=== PATIENT | male | born 1970 | race African-American/Black ===

== ENCOUNTER 2017-03-02 09:05 | Inpatient (IN) ==
[2017-03-02] MEDS ORDERED: *HR* FentaNYL (PF) 100 MCG/2 ML VIAL ONE (09:08)
[2017-03-02] MEDS ORDERED: 0.9 % Sodium Chloride 1,000 ML ONE (09:17)
[2017-03-02] MEDS ORDERED: *HR* Etomidate 40 MG/20 ML VIAL IVP ONE (09:17)
[2017-03-02] MEDS ORDERED: Propofol 500 MG/50 ML INFUS..BTL ONE (09:17)
[2017-03-02] MEDS ORDERED: *HR* Rocuronium Bromide 100 MG/10 ML VIAL IVC ONE (09:17)
[2017-03-02] MEDS ORDERED: Propofol 500 MG/50 ML INFUS..BTL IVC SCH (09:30)
--- NOTE | 2017-03-02 09:39 | Emergency Department Note ---
Disposition Clinical Impression: Unresponsiveness, Hypoglycemia Disposition: Admitted As Inpatient Condition: Fair Time of Disposition: 11:11 Altered Mental Status HPI - General Chief Complaint: ED Altered Mental Status Stated Complaint: UNRESPONSIVE Time Seen by Provider: 03/02/17 09:18 Source: EMS Mode of arrival: EMS Limitations: altered mental status Nursing Notes Reviewed: Yes Vital Signs Reviewed: Yes - History of Present Illness HPI Narrative: 46-year-old male presents to the ED via EMS for unresponsiveness. His point of care glucose was 89 and 82. His son found him unresponsive and slouched at home and had given him glucagon. Patient recently had a insulin pump installed 2 days ago. On arrival here patient has a GCS of 5, gurgling at the mouth concern for aspiration, flexion to pain in no eye movement. There is concern that he has a disconjugate gaze to the left and possible seizure. Unsure if he fell or injured himself. Patient was emergently intubated for airway protection. RSI utilized 30 mg Etomidate and 100 mg Rocuronium. No complications with intubation. Placed on Propofol and Fentanyl drip. Vital signs stable. Last sugar 69. Will place on D5 drip. - Related Data Home Medications Medication Instructions Recorded Confirmed Aspirin [Adult Low Dose Aspirin EC] 81 mg PO QAM 03/16/15 03/02/17 Chlorthalidone 25 mg PO QAM 03/16/15 03/02/17 Mirtazapine [Remeron] 15 mg PO HS 06/24/15 03/02/17 Atorvastatin [Lipitor] 40 mg PO HS 03/02/17 03/02/17 Metoprolol Succinate 100 mg PO DAILY 03/02/17 03/02/17 Nut.tx.gluc.intoler,Lac-Fr,Soy 1 can PO DAILY 03/02/17 03/02/17 [Glucerna 1.5 Omer] Subcutaneous Insulin Pump [T:Slim] 1 each MC AD 03/02/17 03/02/17 Previous Rx's Medication Instructions Recorded Amlodipine Besylate/Benazepril 1 each PO DAILY #30 capsule 06/26/15 [Lotrel 10-20 mg Capsule] Glucagon,Human Recombinant 1 mg IJ ONCE PRN #3 kit 05/18/16 [Glucagon Emergency Kit] Allergies Allergy/AdvReac Type Severity Reaction Status Date / Time No Known Allergies Allergy Verified 03/16/15 16:51 Limitations: ROS unobtainable due to patients medical condition Past Medical History - Past Medical History Source: old records reviewed, obtained from family Medical history: Reports: diabetes, hyperlipidemia Psychiatric history: Reports: no psych history - Social History Smoking Status: Current every day smoker Smokeless Tobacco Status: No Alcohol use: Reports: occasionally Drug use: Reports: marijuana Physical Exam - General Limitations: altered mental status General appearance: obtunded, other (snorous respirations) - Head Head exam: atraumatic, normal inspection - Eye Eye exam: Present: PERRL, other (deviated gaze) - Expanded Eye Exam Pupils: Bilateral: regular, round (3) - Expanded ENT Exam Mouth exam: Present: laceration (front tongue contusion/laceration). Absent: lip swelling, tounge swelling - Neck Neck exam: Present: normal inspection, trachea midline - Chest Chest inspection: Present: normal inspection, symmetric chest wall rise - Respiratory Respiratory exam: Present: normal lung sounds bilaterally, other (Kussmaul like snorous respirations) - Cardiovascular Cardiovascular exam: Present: regular rate, normal rhythm, normal heart sounds - Abdominal Exam Abdominal exam: Present: soft. Absent: distention, guarding, rebound, rigidity - Neurological Exam Neurological exam: Present: other (obtunded) - Expanded Neurological Exam Coma Scale Eye Opening: None Coma Scale Motor Response: Abnormal Flexion Coma Scale Verbal Response: None Coma Scale Total: 5 - Skin Skin exam: Present: warm, dry, intact, normal color. Absent: cyanosis, diaphoresis Course Course Narrative: 46-year-old male presents under responsive. He has snorous respirations with a GCS of 5 with a good oxygen saturation 97% on room air. His glucose on arrival was 82. He recently had insulin-dependent pump installed concern for possible hypoglycemia. On exam his pupils are not pinpoint as he did receive narcan without any response. There appears to be some deviation of his eyes to the left concern for possible stroke. His initial blood pressure was elevated. Patient was intubated for airway protection and impending airway compromise due to respiration status and inability to handle secretions. Successful intubation without complications. Bedside chest x-ray confirmed endotracheal tube placement. NG tube was also placed shortly after. He was taken to CT scan for evaluation of stroke, results did not reveal hemorrhage. Altered mental status workup initiated. - Reevaluation(s) Reevaluation #1: On repeat examination patient was diaphoretic concerning for hypoglycemia, his blood sugar was 69. He was subsequently placed on the dextrose drip. An altered mental status workup initiated. EKG does not show any acute ischemic changes. His ABG shows mild respiratory acidosis with good oxygen saturation, FiO2 decreased. Some concerned that he may have experienced some seizures. Interviewing the family they deny history of seizure activity. It appears he was last seen baseline last night until Sun solve this morning hypersomnolent and unresponsive. Patient will likely need admission to the intensive care units. At this time I do not observe any seizure like activity that would warn emergent EEG evaluation in the emergency department. Patient continues to tolerate the ventilator with appropriate fallen fentanyl drip. He remains in stable condition. He is stable for transfer to the intensive care unit. No obvious source of infection by chest x-ray or urinalysis. No clear etiology for his unresponsiveness, suspect hypoglycemia and possible seizure. - Consultations Consultation #1: Spoke with machine candle molder chris Delacruz to admit for unresponsiveness and hypoglycemia. No further orders at this time. Patient has leukocytosis and initially tachycardic, at this time do not suspect sepsis as family reports he was normal prior to sleep last night. Suspect symptoms likely contributory to hypoglycemia. Time: 11:10 Vital Signs Temperature 97.7 F 03/02/17 09:06 Pulse Rate 136 03/02/17 09:06 Respiratory Rate 26 03/02/17 09:06 Blood Pressure 180/101 03/02/17 09:06 O2 Sat by Pulse Oximetry 100 03/02/17 09:06 Temperature 97.8 F 03/02/17 19:00 Pulse Rate 88 03/02/17 18:10 Respiratory Rate 17 03/02/17 19:38 Blood Pressure 151/84 03/02/17 19:38 O2 Sat by Pulse Oximetry 100 03/02/17 19:38 Oxygen Delivery Oxygen Delivery Ventilator Procedures - Intubation Time out performed: Yes sedative: Etomidate Mg Given: 30 paralytic: Rocuronium Mg Given: 100 Laryngoscope: fiber optic video scope (CMAC 3) ET Tube Size: 7.5 ET Tube Uncuffed: No Tube Secured Depth (cm): 23 Tube Secured Location: lips Tube Placement Confirmation: visualized tube passing through cords, equal breath sounds bilaterally, no breath sounds over epigastrium, confirmation by capnometry Patient Tolerated Procedure: well Intubation Complications: none Altered Mental Status - MDM Narrative Medical decision making narrative: Patient was discussed with my attending physician who agrees with ED management and final disposition. They independently evaluated the patient. Please refer to their attestation to this encounter for additional information. This note was generated by [employer] voice recognition software and as a result grammatical or spelling errors may occur using this program. - Medical Records Medical records reviewed: Yes I reviewed the patient's medical records. - Lab Data Lab results reviewed: Yes I reviewed the patient's lab results. Result diagrams: 03/02/17 09:42 03/02/17 09:42 Lab Results 03/02/17 03/02/17 03/02/17 Range/Units 09:09 09:11 09:34 WBC (4.3-11.1) K/mcL RBC (4.19-5.50) M/mcL Hgb (12.9-16.9) g/dL Hct (37.5-50.1) % MCV (83.0-100.0) fL MCH (28.0-33.3) pg MCHC (31.6-35.5) g/dL RDW (11.5-14.5) % Plt Count (140-400) K/mcL MPV (9.4-12.4) fL Immature Gran % (0-4) % Seg Neutrophils % % Lymphocytes % % Monocytes % % Eosinophils % % Basophils % % Neutrophils # (1.6-8.9) K/mcL Lymphocytes # (0.6-4.6) K/mcL Monocytes # (0.0-1.3) K/mcL Eosinophils # (0.0-0.6) K/mcL Basophils # (0.0-0.2) K/mcL Sample Site ABG pH (7.32-7.45) pH Units ABG pCO2 (35-45) mmHg ABG pO2 (85-104) mmHg ABG HCO3 (21-27) mEq/L ABG Total CO2 (20-26) mEq/L ABG O2 Saturation (95-98) % ABG Base Excess (-2 to 3) mEq/L Jovan Test Respiration Rate O2 Delivery Device Blood Gas Modality Inspired O2 (1-15=lpm cx02-515=%) Tidal Volume cc PEEP cm H2O Sodium (136-145) mEq/L Potassium (3.5-4.5) mEq/L Chloride (98-109) mEq/L Carbon Dioxide (19-29) mEq/L BUN (8-26) mg/dL Creatinine (0.72-1.25) mg/dL Est GFR ( Amer) (> 60) Est GFR (Non-Af Amer) (> 60) BUN/Creatinine Ratio (6-26) Glucose (70-99) mg/dL POC Glucose 84 (58-89) Calculated Osmolality (280-300) Calcium (8.6-10.8) mg/dL Total Bilirubin (0.2-1.2) mg/dL Direct Bilirubin (0.0-0.5) mg/dL Indirect Bilirubin (0.0-1.2) mg/dL AST (5-34) Units/L ALT (0-55) Units/L Alkaline Phosphatase (38-126) Units/L Troponin I 0.00 (0-0.03) ng/mL Serum Total Protein (6.0-8.3) g/dL Albumin (3.5-5.0) g/dL Globulin (2.4-3.5) g/dL Albumin/Globulin Ratio (1.1-2.2) Urine Color (Yellow) Urine Clarity (Clear) Urine pH (5.0-8.0) pH Units Ur Specific Shelton (1.010-1.025) Urine Protein (Neg-Trace) mg/dL Urine Glucose (UA) (Normal) mg/dL Urine Ketones (Negative) mg/dL Urine Blood (Negative) Urine Nitrite (Negative) Urine Bilirubin (Negative) Urine Urobilinogen (Normal) mg/dL Ur Leukocyte Esterase (Negative) Urine Microscopic RBC (0-3) per hpf Urine Microscopic WBC (0-3) per hpf Ur Squamous Epith Cells (None-Few) per lpf Urine Bacteria (None-Few) per hpf Hyaline Casts (None-Few) per lpf Ur Culture Indicated? (NO) Urine Opiates Screen Negative (Piekuw=659) ng/mL Ur Barbiturates Screen Negative (Kpowwp=613) ng/mL Ur Phencyclidine Scrn Negative (Cutoff=25) ng/mL Ur Amphetamines Screen Negative (Cpprxg=3552) ng/mL U Benzodiazepines Scrn Negative (Qfkkzs=726) ng/mL Urine Cocaine Screen Negative (Cutoff= 300) ng/mL U Marijuana (THC) Screen Positive H (Cutoff = 50) ng/mL Ethyl Alcohol (0-10) mg/dL 03/02/17 03/02/17 03/02/17 Range/Units 09:34 09:42 09:42 WBC 16.0 H (4.3-11.1) K/mcL RBC 5.86 H (4.19-5.50) M/mcL Hgb 14.2 (12.9-16.9) g/dL Hct 44.6 (37.5-50.1) % MCV 76.1 L (83.0-100.0) fL MCH 24.2 L (28.0-33.3) pg MCHC 31.8 (31.6-35.5) g/dL RDW 14.7 H (11.5-14.5) % Plt Count 294 (140-400) K/mcL MPV 9.8 (9.4-12.4) fL Immature Gran % 0.3 (0-4) % Seg Neutrophils % 86.3 % Lymphocytes % 6.0 % Monocytes % 7.1 % Eosinophils % 0.0 % Basophils % 0.3 % Neutrophils # 13.8 H (1.6-8.9) K/mcL Lymphocytes # 1.0 (0.6-4.6) K/mcL Monocytes # 1.1 (0.0-1.3) K/mcL Eosinophils # 0.0 (0.0-0.6) K/mcL Basophils # 0.1 (0.0-0.2) K/mcL Sample Site ABG pH (7.32-7.45) pH Units ABG pCO2 (35-45) mmHg ABG pO2 (85-104) mmHg ABG HCO3 (21-27) mEq/L ABG Total CO2 (20-26) mEq/L ABG O2 Saturation (95-98) % ABG Base Excess (-2 to 3) mEq/L Jovan Test Respiration Rate O2 Delivery Device Blood Gas Modality Inspired O2 (1-15=lpm [id number]=%) Tidal Volume cc PEEP cm H2O Sodium 139 (136-145) mEq/L Potassium 3.9 (3.5-4.5) mEq/L Chloride 106 (98-109) mEq/L Carbon Dioxide 17 L (19-29) mEq/L BUN 23 (8-26) mg/dL Creatinine 1.54 H (0.72-1.25) mg/dL Est GFR ( Amer) 60 (> 60) Est GFR (Non-Af Amer) 49 L (> 60) BUN/Creatinine Ratio 15 (6-26) Glucose 68 L (70-99) mg/dL POC Glucose (58-89) Calculated Osmolality 290 (280-300) Calcium 9.1 (8.6-10.8) mg/dL Total Bilirubin 0.4 (0.2-1.2) mg/dL Direct Bilirubin 0.1 (0.0-0.5) mg/dL Indirect Bilirubin 0.3 (0.0-1.2) mg/dL AST 33 (5-34) Units/L ALT 21 (0-55) Units/L Alkaline Phosphatase 89 (38-126) Units/L Troponin I (0-0.03) ng/mL Serum Total Protein 7.4 (6.0-8.3) g/dL Albumin 3.5 (3.5-5.0) g/dL Globulin 3.9 H (2.4-3.5) g/dL Albumin/Globulin Ratio 0.9 L (1.1-2.2) Urine Color Yellow (Yellow) Urine Clarity Clear (Clear) Urine pH 5.5 (5.0-8.0) pH Units Ur Specific Shelton 1.017 (1.010-1.025) Urine Protein 100 H (Neg-Trace) mg/dL Urine Glucose (UA) 100 H (Normal) mg/dL Urine Ketones Negative (Negative) mg/dL Urine Blood Moderate H (Negative) Urine Nitrite Negative (Negative) Urine Bilirubin Negative (Negative) Urine Urobilinogen Normal (Normal) mg/dL Ur Leukocyte Esterase Negative (Negative) Urine Microscopic RBC 5-15 H (0-3) per hpf Urine Microscopic WBC 0-3 (0-3) per hpf Ur Squamous Epith Cells Moderate H (None-Few) per lpf Urine Bacteria None Seen (None-Few) per hpf Hyaline Casts None Seen (None-Few) per lpf Ur Culture Indicated? NO (NO) Urine Opiates Screen (Gsaric=054) ng/mL Ur Barbiturates Screen (Xxpkkm=532) ng/mL Ur Phencyclidine Scrn (Cutoff=25) ng/mL Ur Amphetamines Screen (Rmbqkp=6522) ng/mL U Benzodiazepines Scrn (Xatlkk=418) ng/mL Urine Cocaine Screen (Cutoff= 300) ng/mL U Marijuana (THC) Screen (Cutoff = 50) ng/mL Ethyl Alcohol < 10 (0-10) mg/dL 03/02/17 03/02/17 03/02/17 Range/Units 09:45 09:49 10:38 WBC (4.3-11.1) K/mcL RBC (4.19-5.50) M/mcL Hgb (12.9-16.9) g/dL Hct (37.5-50.1) % MCV (83.0-100.0) fL MCH (28.0-33.3) pg MCHC (31.6-35.5) g/dL RDW (11.5-14.5) % Plt Count (140-400) K/mcL MPV (9.4-12.4) fL Immature Gran % (0-4) % Seg Neutrophils % % Lymphocytes % % Monocytes % % Eosinophils % % Basophils % % Neutrophils # (1.6-8.9) K/mcL Lymphocytes # (0.6-4.6) K/mcL Monocytes # (0.0-1.3) K/mcL Eosinophils # (0.0-0.6) K/mcL Basophils # (0.0-0.2) K/mcL Sample Site ABG pH 7.30 L (7.32-7.45) pH Units ABG pCO2 48 H (35-45) mmHg ABG pO2 444 H (85-104) mmHg ABG HCO3 24 (21-27) mEq/L ABG Total CO2 25 (20-26) mEq/L ABG O2 Saturation 100 H (95-98) % ABG Base Excess -3 L (-2 to 3) mEq/L Jovan Test Respiration Rate 14 O2 Delivery Device Adult Vent Blood Gas Modality ASSIST CONTROL Inspired O2 100.0 (1-15=lpm ko17-728=%) Tidal Volume 500 cc PEEP 5 cm H2O Sodium (136-145) mEq/L Potassium (3.5-4.5) mEq/L Chloride (98-109) mEq/L Carbon Dioxide (19-29) mEq/L BUN (8-26) mg/dL Creatinine (0.72-1.25) mg/dL Est GFR ( Amer) (> 60) Est GFR (Non-Af Amer) (> 60) BUN/Creatinine Ratio (6-26) Glucose (70-99) mg/dL POC Glucose 69 162 H (58-89) Calculated Osmolality (280-300) Calcium (8.6-10.8) mg/dL Total Bilirubin (0.2-1.2) mg/dL Direct Bilirubin (0.0-0.5) mg/dL Indirect Bilirubin (0.0-1.2) mg/dL AST (5-34) Units/L ALT (0-55) Units/L Alkaline Phosphatase (38-126) Units/L Troponin I (0-0.03) ng/mL Serum Total Protein (6.0-8.3) g/dL Albumin (3.5-5.0) g/dL Globulin (2.4-3.5) g/dL Albumin/Globulin Ratio (1.1-2.2) Urine Color (Yellow) Urine Clarity (Clear) Urine pH (5.0-8.0) pH Units Ur Specific Shelton (1.010-1.025) Urine Protein (Neg-Trace) mg/dL Urine Glucose (UA) (Normal) mg/dL Urine Ketones (Negative) mg/dL Urine Blood (Negative) Urine Nitrite (Negative) Urine Bilirubin (Negative) Urine Urobilinogen (Normal) mg/dL Ur Leukocyte Esterase (Negative) Urine Microscopic RBC (0-3) per hpf Urine Microscopic WBC (0-3) per hpf Ur Squamous Epith Cells (None-Few) per lpf Urine Bacteria (None-Few) per hpf Hyaline Casts (None-Few) per lpf Ur Culture Indicated? (NO) Urine Opiates Screen (Xfapaw=705) ng/mL Ur Barbiturates Screen (Buchgw=019) ng/mL Ur Phencyclidine Scrn (Cutoff=25) ng/mL Ur Amphetamines Screen (Tfvlze=1631) ng/mL U Benzodiazepines Scrn (Ewrhqj=147) ng/mL Urine Cocaine Screen (Cutoff= 300) ng/mL U Marijuana (THC) Screen (Cutoff = 50) ng/mL Ethyl Alcohol (0-10) mg/dL 03/02/17 Range/Units 10:49 WBC (4.3-11.1) K/mcL RBC (4.19-5.50) M/mcL Hgb (12.9-16.9) g/dL Hct (37.5-50.1) % MCV (83.0-100.0) fL MCH (28.0-33.3) pg MCHC (31.6-35.5) g/dL RDW (11.5-14.5) % Plt Count (140-400) K/mcL MPV (9.4-12.4) fL Immature Gran % (0-4) % Seg Neutrophils % % Lymphocytes % % Monocytes % % Eosinophils % % Basophils % % Neutrophils # (1.6-8.9) K/mcL Lymphocytes # (0.6-4.6) K/mcL Monocytes # (0.0-1.3) K/mcL Eosinophils # (0.0-0.6) K/mcL Basophils # (0.0-0.2) K/mcL Sample Site L Radial ABG pH 7.35 (7.32-7.45) pH Units ABG pCO2 42 (35-45) mmHg ABG pO2 75 L D (85-104) mmHg ABG HCO3 23 (21-27) mEq/L ABG Total CO2 24 (20-26) mEq/L ABG O2 Saturation 94 L (95-98) % ABG Base Excess -2 (-2 to 3) mEq/L Jovan Test N/A Respiration Rate 14 O2 Delivery Device Adult Vent Blood Gas Modality ASSIST CONTROL Inspired O2 50.0 (1-15=lpm gh01-502=%) Tidal Volume 500 cc PEEP 5 cm H2O Sodium (136-145) mEq/L Potassium (3.5-4.5) mEq/L Chloride (98-109) mEq/L Carbon Dioxide (19-29) mEq/L BUN (8-26) mg/dL Creatinine (0.72-1.25) mg/dL Est GFR ( Amer) (> 60) Est GFR (Non-Af Amer) (> 60) BUN/Creatinine Ratio (6-26) Glucose (70-99) mg/dL POC Glucose (58-89) Calculated Osmolality (280-300) Calcium (8.6-10.8) mg/dL Total Bilirubin (0.2-1.2) mg/dL Direct Bilirubin (0.0-0.5) mg/dL Indirect Bilirubin (0.0-1.2) mg/dL AST (5-34) Units/L ALT (0-55) Units/L Alkaline Phosphatase (38-126) Units/L Troponin I (0-0.03) ng/mL Serum Total Protein (6.0-8.3) g/dL Albumin (3.5-5.0) g/dL Globulin (2.4-3.5) g/dL Albumin/Globulin Ratio (1.1-2.2) Urine Color (Yellow) Urine Clarity (Clear) Urine pH (5.0-8.0) pH Units Ur Specific Shelton (1.010-1.025) Urine Protein (Neg-Trace) mg/dL Urine Glucose (UA) (Normal) mg/dL Urine Ketones (Negative) mg/dL Urine Blood (Negative) Urine Nitrite (Negative) Urine Bilirubin (Negative) Urine Urobilinogen (Normal) mg/dL Ur Leukocyte Esterase (Negative) Urine Microscopic RBC (0-3) per hpf Urine Microscopic WBC (0-3) per hpf Ur Squamous Epith Cells (None-Few) per lpf Urine Bacteria (None-Few) per hpf Hyaline Casts (None-Few) per lpf Ur Culture Indicated? (NO) Urine Opiates Screen (Pchigd=144) ng/mL Ur Barbiturates Screen (Mlsxev=158) ng/mL Ur Phencyclidine Scrn (Cutoff=25) ng/mL Ur Amphetamines Screen (Ephxsy=5602) ng/mL U Benzodiazepines Scrn (Vyhayb=458) ng/mL Urine Cocaine Screen (Cutoff= 300) ng/mL U Marijuana (THC) Screen (Cutoff = 50) ng/mL Ethyl Alcohol (0-10) mg/dL - Radiology Data Radiology results reviewed: Yes I reviewed the patient's radiology results. Chest X-Ray 03/02/17 09:16 IMPRESSION: 1. ETT tip 3.5 cm above the ben. 2. Otherwise, no acute cardiopulmonary abnormality. D/ / Tatyana Langford MD / Tatyana Langford MD Interpreting Provider: Tatyana Langford MD Head CT 03/02/17 09:19 IMPRESSION: No acute intracranial abnormality. D/ / Tatyana Langford MD / Tatyana Langford MD Interpreting Provider: Tatyana Langford MD - EKG Data EKG attestation: Yes I reviewed and interpreted this EKG. EKG results narrative: EKG performed 935 sinus tachycardia 115 bpm, minimal ST depressions in the inferior leads possibly rate related. Intervals are within normal limits. Signs of left ventricular hypertrophy. Compared to old EKG performed 2016 shows similar consistent findings. This is abnormal EKG. No STEMI TPA Checklist - Eligibilty for IV tPA 1. LKW equal to or less than 4.5 hours be before treatment: No - LKW: 3-4.5 hrs Add. Warnings/Precautions Patient/family understanding: The patient/family members have been counseled and understood the risk, benefit , and alternatives of treatment. Attestation Statement - Attestation Attestation: I examined this patient and my medical decision-making was reviewed with the Resident Physician. I agree with the documented findings, disposition and treatment plan as described except to the extent set forth below. Per and son, pt was found this AM on the floor shaking, ? sz (no h/o sz). Son thought might be hypoglycemic - didn't check accucheck, gave oral glucose gel, accucheck 89 on medics' arrival. Pt arrives here with left gaze preference , normal pupils (medics reported pinpoint but no response to Narcan), GCS E1 V1 M3 (flexor posturing) = 5. Sonorous respirations, bubbles of saliva noted, decided quickly to intubate for airway control. Gaze preference noted to normalize prior to intubation. Ap ox utilized, VL/intubation performed by Dr. Haney without difficulty, I was present and supervising throughout the procedure. Post-intubation CXR showed adequate tube placement. CT negative for bleed. On arrival back from CT, pt remained hypertensive and was noted to be diaphoretic, no pupillary changes. Repeat BGL 69. Insulin pump (not thought to be working) was removed at this point, 1/2 amp D50 given, pt started on D5W at 100 cc/hr, hourly accuchecks ordered. Unclear what the etiology for his presentation is, but I'm concerned that he may have had prolonged hypoglycemia - nobody knows if he ate yesterday or not, presumably had conitnous insulin via the pump overnight and was unresponsive this AM. Critical care time: I was directly and primarily involved in the care of this pt for 45 minutes excluding procedures.
[2017-03-02 09:43] LABS: Bilirubin,Urine Negative (Negative); Blood,Urine Moderate (Negative); Clarity,Urine Clear (Clear); Color,Urine Yellow (Yellow); Glucose,Urine (UA) 100 mg/dL (Normal); Ketones,Urine Negative (Negative); Leukocyte Esterase,Urine Negative (Negative); Nitrite,Urine Negative (Negative); PH,Urine 5.5 pH Units (5.0-8.0); Protein,Urine 100 mg/dL (Neg-Trace); Specific Gravity,Urine 1.017 (1.010-1.025); Urobilinogen,Urine Normal (Normal)
[2017-03-02 09:45] LABS: Bacteria,Urine None Seen per hpf (None-Few); Hyaline Casts,Urine None Seen per lpf (None-Few); Squamous Epithelial Cell,Urine Moderate per lpf (None-Few); WBC,Urine 0-3 per hpf (0-3)
[2017-03-02 09:49] LABS: ABG Base Excess -3 mEq/L (-2 to 3); ABG HCO3 24 mEq/L (21-27); ABG Oxygen Saturation 100 % (95-98); ABG PCO2 48 mmHg (35-45); ABG PO2 444 mmHg (85-104); ABG TCO2 25 mEq/L (20-26); Blood Gas Modality ASSIST CONTROL; Blood Gas PEEP 5 cm H2O; Blood Gas Respiration Rate 14; Blood Gas VT 500 cc
[2017-03-02 09:49] LABS: Amphetamine Screen,Urine Negative ng/mL (Cutoff=1000); Barbiturate Screen,Urine Negative ng/mL (Cutoff=200); Benzodiazepines Screen,Urine Negative ng/mL (Cutoff=200); Cannabinoid Screen,Urine Positive ng/mL (Cutoff = 50); Cocaine Screen,Urine Negative ng/mL (Cutoff= 300); Opiate Screen,Urine Negative ng/mL (Cutoff=300); Phencyclidine Screen,Urine Negative ng/mL (Cutoff=25)
[2017-03-02] MEDS ORDERED: *HR* Dextrose 50 % in Water (Syg) 50 ML SYRINGE IVP ONE (09:50)
[2017-03-02 09:51] LABS: Basophils # 0.1 K/mcL (0.0-0.2); Basophils % 0.3 %; Hematocrit 44.6 % (37.5-50.1); Hemoglobin 14.2 g/dL (12.9-16.9); Immature Granulocytes % 0.3 % (0-4); Mean Corpuscular HGB Conc 31.8 g/dL (31.6-35.5); Mean Corpuscular Hemoglobin 24.2 pg (28.0-33.3); Mean Corpuscular Volume 76.1 fL (83.0-100.0); Mean Platelet Volume 9.8 fL (9.4-12.4); Monocytes # 1.1 K/mcL (0.0-1.3); Monocytes % 7.1 %; Neutrophils # 13.8 K/mcL (1.6-8.9); Platelet Count 294 K/mcL (140-400); Red Blood Count 5.86 M/mcL (4.19-5.50); Red Cell Distribution Width 14.7 % (11.5-14.5); Segmented Neutrophils % 86.3 %
[2017-03-02] MEDS ORDERED: D5% in 0.9% NACL 1,000 ML IVC ONE (09:51)
[2017-03-02] MEDS ORDERED: *HR* Dextrose 50 % in Water (Syg) 50 ML SYRINGE ONE (09:51)
[2017-03-02] MEDS: FentaNYL (PF) 1,000 MCG in 0.9 % Sodium Chloride 80 ML IVC SCH (09:56)
[2017-03-02] MEDS ORDERED: D5% in Water 1,000 ML IVC SCH (10:00)
[2017-03-02 10:05] LABS: Alanine Aminotransferase 21 Units/L (0-55); Albumin 3.5 g/dL (3.5-5.0); Albumin/Globulin Ratio 0.9 (1.1-2.2); Alkaline Phosphatase 89 Units/L (38-126); Aspartate Amino Transferase 33 Units/L (5-34); BUN/Creatinine Ratio 15 (6-26); Bilirubin,Direct 0.1 mg/dL (0.0-0.5); Bilirubin,Indirect 0.3 mg/dL (0.0-1.2); Bilirubin,Total 0.4 mg/dL (0.2-1.2); Blood Urea Nitrogen 23 mg/dL (8-26); Calcium 9.1 mg/dL (8.6-10.8); Carbon Dioxide 17 mEq/L (19-29); Chloride 106 mEq/L (98-109); Ethanol < 10 mg/dL (0-10); Globulin 3.9 g/dL (2.4-3.5); Glucose 68 mg/dL (70-99); Osmolality,Calculated 290 (280-300); Potassium 3.9 mEq/L (3.5-4.5); Sodium 139 mEq/L (136-145); Total Protein 7.4 g/dL (6.0-8.3); eGFR For African Americans 60 (> 60); eGFR For Non-African Americans 49 (> 60)
[2017-03-02] MEDS ORDERED: *HR* Midazolam HCl 5 MG/5 ML VIAL IVP ONE (10:33)
[2017-03-02] MEDS: *HR* Midazolam HCl 2 MG/2 ML VIAL ONE (10:44)
[2017-03-02 10:55] LABS: ABG Base Excess -2 mEq/L (-2 to 3); ABG HCO3 23 mEq/L (21-27); ABG Oxygen Saturation 94 % (95-98); ABG PCO2 42 mmHg (35-45); ABG PH 7.35 pH Units (7.32-7.45); ABG PO2 75 mmHg (85-104); ABG TCO2 24 mEq/L (20-26); Blood Gas Modality ASSIST CONTROL; Blood Gas PEEP 5 cm H2O; Blood Gas Respiration Rate 14; Blood Gas VT 500 cc
[2017-03-02] MEDS ORDERED: FLUARIX QUAD 2017-18 36MOS UP/PF 0.5 ML SYRINGE IM ONE (13:45)
[2017-03-02] MEDS ORDERED: Naloxone 0.4 MG/ML INJ IVP PRN (13:45)
[2017-03-02] MEDS ORDERED: *HR* Dextrose 50 % in Water (Syg) 50 ML SYRINGE IVP PRN (13:49)
[2017-03-02] MEDS ORDERED: D5% in Water 1,000 ML IVC PRN (13:49)
[2017-03-02] MEDS ORDERED: Dextrose Gel 15 GM PO PRN ×2 (13:49)
[2017-03-02] MEDS ORDERED: Ampicillin/Sulbactam 3,000 MG in 0.9 % Sodium Chloride 150 ML IVPB SCH ×2 (13:53→19:30)
[2017-03-02] MEDS ORDERED: Lacri-Lube 3.5 GM TUBE BOTH EYES PRN (13:54)
--- NOTE | 2017-03-02 13:58 | Pulmonology History & Physical ---
<[place] W - Last Filed: 03/02/17 15:26> Date of Encounter: 03/02/17 History of Present Illness HPI: Mr. Irvin is a 46 year old male Medications and Allergies Aspirin [Adult Low Dose Aspirin EC] 81 mg PO QAM 03/16/15 [History] Chlorthalidone 25 mg PO QAM 03/16/15 [History] Mirtazapine [Remeron] 15 mg PO HS 06/24/15 [History] Amlodipine Besylate/Benazepril [Lotrel 10-20 mg Capsule] 1 each PO DAILY #30 capsule 06/26/15 [Rx] Glucagon,Human Recombinant [Glucagon Emergency Kit] 1 mg IJ ONCE PRN #3 kit [Rx] Atorvastatin [Lipitor] 40 mg PO HS 03/02/17 [History] Metoprolol Succinate 100 mg PO DAILY 03/02/17 [History] Nut.tx.gluc.intoler,Lac-Fr,Soy [Glucerna 1.5 Omer] 1 can PO DAILY 03/02/17 [ History] Subcutaneous Insulin Pump [T:Slim] 1 each MC AD 03/02/17 [History] 3 Allergy/AdvReac Type Severity Reaction Status Date / Time No Known Allergies Allergy Verified 03/16/15 16:51 All Systems: A 10-system review of systems was performed and is negative for pertinent findings except as documented above in the HPI. Physical Examination Vital Signs: Vital Signs, Last 4 Hours Pulse 03/02/17 13:19 98 Results - Laboratory Findings CBC and BMP: 03/02/17 09:42 03/02/17 09:42 ABG ABG pH 7.35 pH Units (7.32-7.45) 03/02/17 10:49 ABG pCO2 42 mmHg (35-45) 03/02/17 10:49 ABG pO2 75 mmHg (85-104) L D 03/02/17 10:49 ABG O2 Saturation 94 % (95-98) L 03/02/17 10:49 Abnormal lab findings: Abnormal lab results WBC 16.0 K/mcL (4.3-11.1) H 03/02/17 09:42 RBC 5.86 M/mcL (4.19-5.50) H 03/02/17 09:42 MCV 76.1 fL (83.0-100.0) L 03/02/17 09:42 MCH 24.2 pg (28.0-33.3) L 03/02/17 09:42 RDW 14.7 % (11.5-14.5) H 03/02/17 09:42 Neutrophils # 13.8 K/mcL (1.6-8.9) H 03/02/17 09:42 ABG pO2 75 mmHg (85-104) L D 03/02/17 10:49 ABG O2 Saturation 94 % (95-98) L 03/02/17 10:49 Carbon Dioxide 17 mEq/L (19-29) L 03/02/17 09:42 Creatinine 1.54 mg/dL (0.72-1.25) H 03/02/17 09:42 Est GFR (Non-Af Amer) 49 (> 60) L 03/02/17 09:42 Glucose 68 mg/dL (70-99) L 03/02/17 09:42 POC Glucose 243 (58-89) H 03/02/17 12:51 Globulin 3.9 g/dL (2.4-3.5) H 03/02/17 09:42 Albumin/Globulin Ratio 0.9 (1.1-2.2) L 03/02/17 09:42 Urine Protein 100 mg/dL (Neg-Trace) H 03/02/17 09:34 Urine Glucose (UA) 100 mg/dL (Normal) H 03/02/17 09:34 Urine Blood Moderate (Negative) H 03/02/17 09:34 Urine Microscopic RBC 5-15 per hpf (0-3) H 03/02/17 09:34 Ur Squamous Epith Cells Moderate per lpf (None-Few) H 03/02/17 09:34 U Marijuana (THC) Screen Positive ng/mL (Cutoff = 50) H 03/02/17 09:34 - Attending Attestation I examined this patient and my medical decision-making was reviewed with the Resident Physician. I agree with the documented findings, disposition and treatment plan as described except to the extent set forth below. We independently had vhrd-so-jute contact with the patient Patient seen and examined at bedside Labs, radiology, chart personally reviewed. REGIONAL MANAGER: Acute encephalopathy likely secondary to hypoglycemia possibly hypertension , cannot exclude seizure head CT without acute process [place] MRI brain and EEG neurology consult Pulm: Acute respiratory failure on vent chest x-ray without acute process but suctioning copious thick mucoid secretions concerning for aspiration. Repeat ABG postintubation show acceptable oxygenation and ventilation Cards: Chronic hypertension initial workup not consistent with ACS restart home blood pressure medications FEN-GI: Ppi prophylaxis given nothing by mouth for now Renal: HUNG secondary to prerenal azotemia fluid resuscitation given ID: Concern for sepsis versus inflammatory response broad-spectrum cultures have been obtained empiric Unasyn for suspected aspiration. Check lactate Heme/Onc: DVT prophylaxis given Endo: Glucose Monitored history diabetes type 1 but was hypoglycemic continue D5 as needed Integ/MSK: Skin Care per routine ICU Nursing Protocol to prevent ulcers. Lines: All lines examined without evidence of infection : Dispo: ICU for vent management CODE: Full code family updated at bedside including NOK () and mother <Neetu Flores - Last Filed: 03/02/17 16:02> Date of Encounter: 03/02/17 Time of Encounter: 13:00 Assessment and Plan (1) Acute encephalopathy Current visit: Yes Status: Acute - Unresponsiveness since 8:30 am on day of admission. "seizure-like" activity at home also reported per patient's son. - Most likely secondary to metabolic disturbance, especially hypoglycemia. - Stroke can another possible cause even with negative CT head. Will obtain MRI brain for further investigation. - Also obtain EEG to investigate for possible seizures. - Neurology on board and appreciate further evaluation and recommendations. - Continue aspirin and statin. - Hold antihypertensive medication at this time to allow permissive hypertension. No need for blood pressure control unless SBP > 220 or DBP >120. - Frequent neuro check. - Continue close monitoring in ICU. (2) Acute respiratory failure Current visit: Yes Status: Acute - Patient was intubated in ED for the concern of patient's ability to protect his airway. - Initial ABG pH 7.30, pCO2 48, pO2 444, HCO3 24 in ED. - Continue ventilation support and will attempt spontaneous breathing trial and possible extubation if patient's mental and respiratory improves and stabilizes. Qualifiers: Respiratory failure complication: unspecified whether with hypoxia or hypercapnia Qualified Code(s): J96.00 - Acute respiratory failure, unspecified whether with hypoxia or hypercapnia (3) Hypoglycemia Current visit: Yes Status: Acute - Patient was note to have glucose as low as 68 in ED. - Likely contribute to patient's current encephalopathy, especially given reported resolution of "seizure-like" activity by glucose gel per patient's son. - Patient was started on D5 in ED and latest glucose at 278. Will change IV fluid to NS. - Continue close monitoring of glucose with q1H for first few checks and then less frequent if patient's glucose remains stable. - Glucose as needed for hypoglycemia. (4) Aspiration pneumonia Current visit: Yes Status: Suspected - Thick mucus noted on suction. Leukocytosis also noted on admission. - Possible aspiration when patient was unresponsiveness earlier. Can be early phase of pneumonia which may not show on CXR. - Will obtain blood cultures and sputum culture. - Start IV Unasyn. Qualifiers: Aspiration pneumonia type: unspecified Laterality: unspecified laterality Lung location: unspecified part of lung Qualified Code(s): J69.0 - Pneumonitis due to inhalation of food and vomit (5) HUNG (acute kidney injury) Current visit: Yes Status: Acute - SCr 1.54 / eGFR 49 on admission compared to baseline SCr 1.06 / eGFR >60. - Likely pre-renal. - Continue hydration with IV fluid. - Avoid nephrotoxin. - Closely monitor renal function and electrolytes (6) Diabetes mellitus type 1 Current visit: Yes Status: Chronic - Was on insulin pump started since 02/28/17. - Continue to monitor glucose closely. Qualifiers: Diabetes mellitus complication status: with unspecified complications Qualified Code(s): E10.8 - Type 1 diabetes mellitus with unspecified complications (7) Hypertension Current visit: Yes Status: Chronic - Will hold home antihypertensive medications at this time to allow permissive hypertension given the concern of possible stroke. Qualifiers: Hypertension type: essential hypertension Qualified Code(s): I10 - Essential (primary) hypertension (8) Hyperlipemia Current visit: No Status: Chronic - On Lipitor at home. Qualifiers: Hyperlipidemia type: other hyperlipidemia Qualified Code(s): E78.4 - Other hyperlipidemia (9) DVT prophylaxis Current visit: Yes Status: Acute - Start SQ heparin. History of Present Illness Chief complaint: Unresponsiveness HPI: Mr. Irvin is a 46 year old male with PMH of DM1 started on insulin pump on 02/28/17, HTN, hyperlipidemia and tobacco abuse. Patient was sent to [facility] for unresponsiveness. Patient was noted to have GCS of 5 and glucose as low as 68 in ED. Patient was intubated in ED to protect his airway and admitted to ICU. Patient was seen and examined this afternoon. Patient is still intubated and remains mostly unresponsiveness despite of turning off of sedation. Given patient's mental status, much of history was obtained from talking to patient's family members at bedside and review of medical records. Per patient's , patient appeared in good sleep when she left for work at 8 am. At 8:30 am, patient's son found patient unresponsiveness with "seizure-like" activities described as shaking and questionable tongue-biting along with some thick secretion from mouth. Patient's son gave patient some glucose gel and the "seizure-like" activity resolved in about 5 minutes. Patient has no known history of seizure or stroke in the past per family. Patient was alert, orient and functional at his baseline and no known complaint of fever, chills, cough, shortness of breath, chest pain, abdominal pain, nausea, vomiting. Patient is known to smoke one pack daily for at least 20 years and drink twice a week. No known illicit drug use except marijuana per family. No known history of heart problem such as MD, A-fib or other arrhythmia per family. Patient is full code per patient's , mom and son. Past Med Surg Social Fam HX - Past Medical History Medical history: diabetes (Type I), hyperlipidemia Psychiatric history: no psych history - Past Surgical History Surgical History: no surgical history - Social History Smoking Status: Current every day smoker Smokeless Tobacco Status: No Alcohol use: occasionally Drug use: marijuana - Family History Mother Adopted: [place]: john medina Age: 62 Living Status: Still Living Hx Family Endocrine Disorder: Yes (dm) ROS unobtainable: due to endotracheal tube, due to mental status Physical Examination Vital Signs: Vital Signs, Last 4 Hours Pulse 03/02/17 13:19 98 General appearance: comatose Eyes: nonicteric ENT: other (Intubated) Neck: supple Effort: normal Inspection: normal Auscultation: bilateral: clear Cardiovascular: regular rate and rhythm Gastrointestinal: normoactive bowel sounds, soft Integumentary: normal Extremities: no cyanosis, no edema Musculoskeletal: no deformities unable to assess due to mental status, other (Pupils size equal and constricted but do response to light. ) Results - Laboratory Findings CBC and BMP: 03/02/17 09:42 03/02/17 09:42 ABG ABG pH 7.35 pH Units (7.32-7.45) 03/02/17 10:49 ABG pCO2 42 mmHg (35-45) 03/02/17 10:49 ABG pO2 75 mmHg (85-104) L D 03/02/17 10:49 ABG O2 Saturation 94 % (95-98) L 03/02/17 10:49 Abnormal lab findings: Abnormal lab results WBC 16.0 K/mcL (4.3-11.1) H 03/02/17 09:42 RBC 5.86 M/mcL (4.19-5.50) H 03/02/17 09:42 MCV 76.1 fL (83.0-100.0) L 03/02/17 09:42 MCH 24.2 pg (28.0-33.3) L 03/02/17 09:42 RDW 14.7 % (11.5-14.5) H 03/02/17 09:42 Neutrophils # 13.8 K/mcL (1.6-8.9) H 03/02/17 09:42 ABG pO2 75 mmHg (85-104) L D 03/02/17 10:49 ABG O2 Saturation 94 % (95-98) L 03/02/17 10:49 Carbon Dioxide 17 mEq/L (19-29) L 03/02/17 09:42 Creatinine 1.54 mg/dL (0.72-1.25) H 03/02/17 09:42 Est GFR (Non-Af Amer) 49 (> 60) L 03/02/17 09:42 Glucose 68 mg/dL (70-99) L 03/02/17 09:42 POC Glucose 243 (58-89) H 03/02/17 12:51 Globulin 3.9 g/dL (2.4-3.5) H 03/02/17 09:42 Albumin/Globulin Ratio 0.9 (1.1-2.2) L 03/02/17 09:42 Urine Protein 100 mg/dL (Neg-Trace) H 03/02/17 09:34 Urine Glucose (UA) 100 mg/dL (Normal) H 03/02/17 09:34 Urine Blood Moderate (Negative) H 03/02/17 09:34 Urine Microscopic RBC 5-15 per hpf (0-3) H 03/02/17 09:34 Ur Squamous Epith Cells Moderate per lpf (None-Few) H 03/02/17 09:34 U Marijuana (THC) Screen Positive ng/mL (Cutoff = 50) H 03/02/17 09:34 - Diagnostic Findings Chest x-ray: report reviewed, image reviewed
[2017-03-02] MEDS ORDERED: Ringers Solution, Lactated 1,000 ML IVC ONE (14:37)
[2017-03-02] MEDS ORDERED: Ringers Solution, Lactated 1,000 ML ONE (14:38)
[2017-03-02] MEDS: 0.9 % Sodium Chloride 1,000 ML IVC SCH (15:37)
--- NOTE | 2017-03-02 15:38 | EEG/EMG/Oth Biometrics Report ---
EEG Procedure Report Date of procedure: 03/02/17 EEG Procedure: Routine EEG Procedure Note: Report: This EEG was acquired with standard international 10-20 electrode placement system with EKG recording. The background activity during this EEG was replaced by a diffuse slowing more prominent to the left side posteriorly. On the right side, intermittent theta and alpha activity, noted, with best frequency up to 9-10 Hz. The left side however, was persistently slow with low amplitude. The background activity was reactive. Sleep stages were not identified. There are no electrographic seizures identified during this tracing. There are no epileptiform discharges identified. Photic stimulation produced no abnormalities. HV not performed during this study. EKG tracing showed no significant cardiac dysarrhythmia. Impression: This is an abnormal EEG due to presence of diffuse background slow, left more than right, posteriorly, with low amplitude to the left side. Clinical Correlation: This EEG is consistent with mild to moderate diffuse cerebral dysfunction that can be seen in patients with encephalopathy, metabolic/toxic, electrolyte derangement, or sedation. Asymmetric slowing with low amplitude on the left posterior region can be seen in structural abnormality. Please correlate with imaging study. No electrographic seizure seen. No EDs.
[2017-03-02] MEDS ORDERED: *HR* LORazepam 2 MG/ML VIAL ONE (15:51)
[2017-03-02] MEDS ORDERED: *HR* LORazepam 2 MG/ML VIAL IVP ONE (16:12)
[2017-03-02] MEDS ORDERED: Phenytoin 1,000 MG in SYRINGE 1 EACH IVPB ONE ×2 (16:13→17:00)
[2017-03-02 17:11] LABS: ABG Base Excess -7 mEq/L (-2 to 3); ABG HCO3 17 mEq/L (21-27); ABG Oxygen Saturation 99 % (95-98); ABG PCO2 30 mmHg (35-45); ABG PH 7.36 pH Units (7.32-7.45); ABG PO2 122 mmHg (85-104); ABG TCO2 18 mEq/L (20-26)
--- NOTE | 2017-03-02 17:11 | Neurology - Consult Note ---
Date of Encounter: 03/02/17 Time of Encounter: 17:06 Assessment and Plan (1) Unresponsiveness Current Visit: Yes Status: Acute Patient developed subacute onset of mental status changes resulting in unresponsiveness, has witnessed like activity, without motor posturing but no tongue biting or urinary incontinence. She completed EEG which reported diffuse slowing with left posterior slowing more prominently, but no electrographic seizure and no EDs. no prior history of fever and no prior complaint of headache. No nuchal rigidity noted. Seizure may be related to hypoglycemia which may cause generalized seizure or hyperglycemia causing partial seizure. EEG showed asymmetric background at the posterior fossa and would recommend MRI of brain to assess possible intracranial abnormality. Will start dilantin 1g iv x1 and continue maintenance dilantin q8 100mg IV and check level in AM. Will need MRI of brain to assess intracranial abnormality. If patient not waking up then may need to consider spinal tap but patient has no fever, headaches or nuchal rigidity to suggest BACTERIOLOGIST SOIL infection. Patient does have a white count with elevated creatinine. Please continue medical and supportive care. Will follow in AM History of Present Illness Chief complaint: unresponsiveness and seizure activity HPI: Mr. Irvin is a 46 year old male with PMH significant for DM who developed unresponsiveness and then witnessed seizure activity. Patient interviewed in the presenc of his son, who found his at home unresponsive. Was somewhat hypersomnolent prior to unresponsiveness. Patient was started insulin pump few days ago. Found to have some seizure like activity. In the ER his initial CT of head was reported no acute intracranial abnormality. He was admitted to ICU. He was sedated with propofol and fentanyl, which was stopped at 1:30pm. He did EEG showing diffuse slowing, and left posterior slowing but no seizures, no EDs. After the EEG recording, he developed a grand mal seizure with some posturing. He has no tongue biting or urinary incontinence. Per his son, he has no prior history of seizure. he drinks beers two times a week. He has DM and recently started insulin pump. Past Med Surg Social Fam HX - Past Medical History Medical history: diabetes (Type I), hyperlipidemia Psychiatric history: no psych history - Past Surgical History Surgical History: no surgical history - Social History Smoking Status: Current every day smoker Smokeless Tobacco Status: No Alcohol use: occasionally Drug use: marijuana - Family History Mother Adopted: [place]: john medina Age: 62 Living Status: Still Living Hx Family Endocrine Disorder: Yes (dm) Medications and Allergies Aspirin [Adult Low Dose Aspirin EC] 81 mg PO QAM 03/16/15 [History] Chlorthalidone 25 mg PO QAM 03/16/15 [History] Mirtazapine [Remeron] 15 mg PO HS 06/24/15 [History] Amlodipine Besylate/Benazepril [Lotrel 10-20 mg Capsule] 1 each PO DAILY #30 capsule 06/26/15 [Rx] Glucagon,Human Recombinant [Glucagon Emergency Kit] 1 mg IJ ONCE PRN #3 kit [Rx] Atorvastatin [Lipitor] 40 mg PO HS 03/02/17 [History] Metoprolol Succinate 100 mg PO DAILY 03/02/17 [History] Nut.tx.gluc.intoler,Lac-Fr,Soy [Glucerna 1.5 Omer] 1 can PO DAILY 03/02/17 [ History] Subcutaneous Insulin Pump [T:Slim] 1 each MC AD 03/02/17 [History] 3 Allergy/AdvReac Type Severity Reaction Status Date / Time No Known Allergies Allergy Verified 03/16/15 16:51 All Systems: A 10-system review of systems was performed and is negative for pertinent findings except as documented above in the HPI. Physical Examination - Vital Signs Vital Signs: Initial Vital Signs Temp Pulse Resp BP Pulse Ox 97.7 F 136 26 180/101 100 03/02/17 09:06 03/02/17 09:06 03/02/17 09:06 03/02/17 09:06 03/02/17 09:06 - Constitutional General appearance: comfortable - Neurologic Sensorimotor examination: other (patient currenlty sedated, with ativan. ) Detailed motor examination: other (Patient withdrawal a little to the left arm and leg. No spontaneous movements seen. No twitching. ) Detailed sensory examination: other (Unable to assess due to coma) Reflexes: Biceps: 2+, Triceps: 2+, Brachioradialis: 2+, Patella: 2+, Achilles: 2 + Mental Status Examination: coma (eye closing briskly. ) Cranial nerve examination: PERRL (3mm in sizes bilaterally, midline position. Reactive to light), EOMI (Unable to assess), visual bhandari intact (Unable to assess), corneal reflexes brisk symmetrically, sensory to face intact, no facial asymmetry is present, no dysarthria (Unable to assess), hearing is intact symmetrically (Unable to assess) Results - Laboratory Findings CBC and BMP: 03/02/17 09:42 03/02/17 09:42 Abnormal lab findings: Abnormal lab results WBC 16.0 K/mcL (4.3-11.1) H 03/02/17 09:42 RBC 5.86 M/mcL (4.19-5.50) H 03/02/17 09:42 MCV 76.1 fL (83.0-100.0) L 03/02/17 09:42 MCH 24.2 pg (28.0-33.3) L 03/02/17 09:42 RDW 14.7 % (11.5-14.5) H 03/02/17 09:42 Neutrophils # 13.8 K/mcL (1.6-8.9) H 03/02/17 09:42 ABG pO2 75 mmHg (85-104) L D 03/02/17 10:49 ABG O2 Saturation 94 % (95-98) L 03/02/17 10:49 Carbon Dioxide 17 mEq/L (19-29) L 03/02/17 09:42 Creatinine 1.54 mg/dL (0.72-1.25) H 03/02/17 09:42 Est GFR (Non-Af Amer) 49 (> 60) L 03/02/17 09:42 Glucose 68 mg/dL (70-99) L 03/02/17 09:42 POC Glucose 278 (58-89) H 03/02/17 14:41 Globulin 3.9 g/dL (2.4-3.5) H 03/02/17 09:42 Albumin/Globulin Ratio 0.9 (1.1-2.2) L 03/02/17 09:42 Urine Protein 100 mg/dL (Neg-Trace) H 03/02/17 09:34 Urine Glucose (UA) 100 mg/dL (Normal) H 03/02/17 09:34 Urine Blood Moderate (Negative) H 03/02/17 09:34 Urine Microscopic RBC 5-15 per hpf (0-3) H 03/02/17 09:34 Ur Squamous Epith Cells Moderate per lpf (None-Few) H 03/02/17 09:34 U Marijuana (THC) Screen Positive ng/mL (Cutoff = 50) H 03/02/17 09:34 Consult Discharge Plan - Plan Referrals: Vivek Gaffney DO [Primary Care Provider] -
[2017-03-02] MEDS: *HR* Heparin 5,000 UNIT/ML VIAL SQ SCH (18:40)
[2017-03-02] MEDS: Lacri-Lube 3.5 GM TUBE BOTH EYES SCH ×2 (18:40→20:59)
[2017-03-02] MEDS: Insulin LISPRO 300 UNITS/3 ML VIAL SQ SCH (18:43)
[2017-03-02] MEDS: Ampicillin/Sulbactam 3,000 MG in 0.9 % Sodium Chloride Mini Bag 100 ML IVPB SCH (20:07)
[2017-03-02] MEDS: Chlorhexidine Rinse 15 ML MOUTHWASH MM SCH (20:58)
[2017-03-03] MEDS: 0.9 % Sodium Chloride 1,000 ML IVC SCH ×3 (01:00→21:46)
[2017-03-03] MEDS: Insulin LISPRO 300 UNITS/3 ML VIAL SQ SCH ×4 (01:00→17:59)
[2017-03-03] MEDS: Lacri-Lube 3.5 GM TUBE BOTH EYES SCH ×6 (01:00→23:34)
[2017-03-03] MEDS: Ampicillin/Sulbactam 3,000 MG in 0.9 % Sodium Chloride Mini Bag 100 ML IVPB SCH ×4 (04:04→21:47)
[2017-03-03 05:02] LABS: ABG Base Excess 4 mEq/L (-2 to 3); ABG HCO3 28 mEq/L (21-27); ABG Oxygen Saturation 98 % (95-98); ABG PCO2 39 mmHg (35-45); ABG PH 7.46 pH Units (7.32-7.45); ABG PO2 94 mmHg (85-104); ABG TCO2 29 mEq/L (20-26); Blood Gas Modality VC; Blood Gas PEEP 5 cm H2O; Blood Gas Respiration Rate 14; Blood Gas VT 500 cc
[2017-03-03] MEDS: *HR* Heparin 5,000 UNIT/ML VIAL SQ SCH ×2 (06:16→17:57)
[2017-03-03 06:26] LABS: Basophils % 0.2 %; Eosinophils % 0.1 %; Hematocrit 39.2 % (37.5-50.1); Immature Granulocytes % 0.6 % (0-4); Lymphocytes # 1.6 K/mcL (0.6-4.6); Lymphocytes % 7.7 %; Mean Corpuscular HGB Conc 31.4 g/dL (31.6-35.5); Mean Corpuscular Hemoglobin 23.8 pg (28.0-33.3); Mean Platelet Volume 9.8 fL (9.4-12.4); Monocytes # 1.8 K/mcL (0.0-1.3); Monocytes % 9.1 %; Neutrophils # 16.6 K/mcL (1.6-8.9); Platelet Count 295 K/mcL (140-400); Red Blood Count 5.16 M/mcL (4.19-5.50); Red Cell Distribution Width 14.8 % (11.5-14.5); Segmented Neutrophils % 82.3 %
[2017-03-03 06:27] LABS: Hemoglobin 12.3 g/dL (12.9-16.9)
[2017-03-03 06:29] LABS: BUN/Creatinine Ratio 20 (6-26); Blood Urea Nitrogen 29 mg/dL (8-26); Calcium 8.4 mg/dL (8.6-10.8); Carbon Dioxide 18 mEq/L (19-29); Chloride 106 mEq/L (98-109); Glucose 154 mg/dL (70-99); Magnesium 1.7 mg/dL (1.6-2.6); Osmolality,Calculated 297 (280-300); Phosphorous 3.4 mg/dL (2.3-4.7); Potassium 4.2 mEq/L (3.5-4.5); Sodium 139 mEq/L (136-145); eGFR For African Americans > 60 (> 60); eGFR For Non-African Americans 52 (> 60)
--- NOTE | 2017-03-03 07:33 | Electrocardiograph Report ---
Keaton YoungCurrent Test Date: 2017-03-02 Pat Name: Tito Irvin Department: 104 Room: 07 Gender: M Jewel Bearing Driller: : 1970 Requested By: Efraín Haney Order Number: [id number] Reading MD: Lina Will DO Measurements Intervals [place] Rate: 115 P: 79 DE: 158 QRS: 56 QRSD: 94 T: 73 QT: 315 QTc: 383 Interpretive Statements SINUS TACHYCARDIA POSSIBLE RIGHT ATRIAL ENLARGEMENT [0.25mV P WAVE] LEFT VENTRICULAR HYPERTROPHY AND ST-T CHANGE [VOLTAGE CRITERIA PLUS ST/T ABNORMALITY] WARNING: DATA QUALITY MAY AFFECT INTERPRETATION Electronically Signed On 03-03-2017 7:32:16 EST by Lina Will DO
[2017-03-03] MEDS: Aspirin Enteric Coated 81 MG Tablet PO SCH (08:22)
[2017-03-03] MEDS: Pantoprazole 40 MG VIAL IVPB SCH (08:22)
[2017-03-03] MEDS: Chlorhexidine Rinse 15 ML MOUTHWASH MM SCH ×2 (08:23→21:47)
[2017-03-03] MEDS ORDERED: *HR* Midazolam HCl 5 MG/5 ML VIAL IVP ONE ×2 (08:45→15:44)
[2017-03-03] MEDS ORDERED: *HR* Midazolam HCl 2 MG/2 ML VIAL ONE ×2 (08:46→20:32)
--- NOTE | 2017-03-03 08:52 | Pulmonology Progress Note ---
<CabreraauryBon milner W - Last Filed: 03/03/17 10:26> Date of Encounter: 03/03/17 Objective PUL Vital signs: Last Vital Signs Temp 98.5 F 03/03/17 07:39 Pulse 87 03/03/17 06:00 Resp 18 03/03/17 08:10 BP 165/79 03/03/17 06:36 Pulse Ox 100 03/03/17 08:10 Ventilator Settings Ventilator Settings: Ventilator Settings, Last 8 Hours Ventilator Mode VC+ Ventilator Mode VC+ Ventilator Mode VC+ Ventilator Mode VC+ Ventilator Mode VC+ Ventilator Mode VC+ Ventilator Tidal Volume 500 Setting Ventilator Tidal Volume 500 Setting Ventilator Tidal Volume 500 Setting Ventilator Tidal Volume 500 Setting Ventilator Tidal Volume 500 Setting Ventilator Tidal Volume 500 Setting Ventilator Respiratory Rate 14 Setting Ventilator Respiratory Rate 14 Setting Ventilator Respiratory Rate 14 Setting Ventilator Respiratory Rate 14 Setting Ventilator Respiratory Rate 14 Setting Ventilator Respiratory Rate 14 Setting Actual Respiratory Rate 19 Actual Respiratory Rate 15 Actual Respiratory Rate 22 Actual Respiratory Rate 20 Actual Respiratory Rate 19 Positive End Expiratory 5 Pressure Positive End Expiratory 5 Pressure Positive End Expiratory 5 Pressure Positive End Expiratory 5 Pressure Positive End Expiratory 5 Pressure Positive End Expiratory 5 Pressure Peak Inspiratory Airway 11 Pressure Peak Inspiratory Airway 19 Pressure Peak Inspiratory Airway 19 Pressure Peak Inspiratory Airway 19 Pressure Peak Inspiratory Airway 21 Pressure Results - Laboratory Findings CBC and BMP: 03/03/17 05:48 03/03/17 05:48 ABG ABG pH 7.46 pH Units (7.32-7.45) H 03/03/17 04:59 ABG pCO2 39 mmHg (35-45) 03/03/17 04:59 ABG pO2 94 mmHg (85-104) 03/03/17 04:59 ABG O2 Saturation 98 % (95-98) 03/03/17 04:59 Abnormal lab findings: Abnormal lab results WBC 20.2 K/mcL (4.3-11.1) H 03/03/17 05:48 Hgb 12.3 g/dL (12.9-16.9) L D 03/03/17 05:48 MCV 76.0 fL (83.0-100.0) L 03/03/17 05:48 MCH 23.8 pg (28.0-33.3) L 03/03/17 05:48 MCHC 31.4 g/dL (31.6-35.5) L 03/03/17 05:48 RDW 14.8 % (11.5-14.5) H 03/03/17 05:48 Neutrophils # 16.6 K/mcL (1.6-8.9) H 03/03/17 05:48 Monocytes # 1.8 K/mcL (0.0-1.3) H 03/03/17 05:48 ABG pH 7.46 pH Units (7.32-7.45) H 03/03/17 04:59 ABG HCO3 28 mEq/L (21-27) H 03/03/17 04:59 ABG Total CO2 29 mEq/L (20-26) H 03/03/17 04:59 ABG Base Excess 4 mEq/L (-2 to 3) H 03/03/17 04:59 Carbon Dioxide 18 mEq/L (19-29) L 03/03/17 05:48 BUN 29 mg/dL (8-26) H 03/03/17 05:48 Creatinine 1.48 mg/dL (0.72-1.25) H 03/03/17 05:48 Est GFR (Non-Af Amer) 52 (> 60) L 03/03/17 05:48 Glucose 154 mg/dL (70-99) H 03/03/17 05:48 POC Glucose 145 (58-89) H 03/03/17 06:20 Calcium 8.4 mg/dL (8.6-10.8) L 03/03/17 05:48 Globulin 3.9 g/dL (2.4-3.5) H 03/02/17 09:42 Albumin/Globulin Ratio 0.9 (1.1-2.2) L 03/02/17 09:42 Urine Protein 100 mg/dL (Neg-Trace) H 03/02/17 09:34 Urine Glucose (UA) 100 mg/dL (Normal) H 03/02/17 09:34 Urine Blood Moderate (Negative) H 03/02/17 09:34 Urine Microscopic RBC 5-15 per hpf (0-3) H 03/02/17 09:34 Ur Squamous Epith Cells Moderate per lpf (None-Few) H 03/02/17 09:34 U Marijuana (THC) Screen Positive ng/mL (Cutoff = 50) H 03/02/17 09:34 - Clinical Findings Intake & Output: Intake & Output 03/02/17 03/03/17 03/03/17 23:59 07:59 15:59 Intake Total 172 / 172 1155 / 1155 1025 / 1025 Output Total 925 / 925 1000 / 1000 Balance -753 / -753 155 / 155 1025 / 1025 Weight 73.9 kg Consult Discharge Plan - Plan Referrals: Vivek Gaffney DO [Primary Care Provider] - - Attending Attestation I examined this patient and my medical decision-making was reviewed with the Resident Physician. I agree with the documented findings, disposition and treatment plan as described except to the extent set forth below. We independently had [id number] contact with the patient Patient seen and examined at bedside Labs, radiology, chart personally reviewed. Management was reviewed during multidisciplinary critical care rounds. [place] [place]: Acute encephalopathy likely secondary to hypoglycemia with seizure like activity loaded with Dilantin although EEG was negative for epileptiform activity. Neurology has been consulted on for MRI today Pulm: Acute respiratory failure acceptable oxygenation on vent today suspected aspiration pneumonia chest x-ray pending. Spontaneous breathing trial later today Cards: Chronic hypertension restart home antihypertensives FEN-GI: Continue PPI prophylaxis Renal: AK I likely secondary to prerenal azotemia his excellent urine output he has a mild acidosis which is likely secondary to the same continue to monitor daily serum creatinine and electrolyte panel continue renal protective strategy ID: Leukocytosis likely secondary to aspiration he is being covered antimicrobials cultures pending Heme/Onc: DVT Prophylaxis given Endo: Glucose Monitored Integ/MSK: Skin Care per routine ICU Nursing Protocol to prevent ulcers. Lines: All lines examined without evidence of infection : Dispo: Remain in ICU for ventilator management CODE: Full family including and mother updated at bedside <Neetu Flores - Last Filed: 03/03/17 11:21> Date of Encounter: 03/03/17 Time of Encounter: 08:15 Assessment and Plan (1) Acute encephalopathy Current Visit: Yes Status: Acute - Unresponsiveness since 8:30 am on day of admission. "seizure-like" activity at home also reported per patient's son. - Most likely secondary to metabolic disturbance, especially hypoglycemia. - Stroke can another possible cause even with negative CT head. Will obtain MRI brain for further investigation. - EEG is consistent with mild to moderate diffuse cerebral dysfunction that can be seen in patients with encephalopathy, metabolic/toxic, electrolyte derangement, or sedation. Asymmetric slowing with low amplitude on the left posterior region can be seen in structural abnormality. No electrographic seizure seen. - Neurology on board and appreciate further evaluation and recommendations. - Continue aspirin and statin. - Hold antihypertensive medication at this time to allow permissive hypertension but will resume if MRI does not suggest stroke. - Frequent neuro check. - Continue close monitoring in ICU. (2) Acute respiratory failure Current Visit: Yes Status: Acute - Patient was intubated in ED for the concern of patient's ability to protect his airway. - Initial ABG pH 7.30, pCO2 48, pO2 444, HCO3 24 in ED. - ABG pH 7.46, pCO2 39, pO2 94, HCO3 28 today. - Continue ventilation support and will attempt spontaneous breathing trial and possible extubation if patient's mental and respiratory improves and stabilizes. Qualifiers: Respiratory failure complication: unspecified whether with hypoxia or hypercapnia Qualified Code(s): J96.00 - Acute respiratory failure, unspecified whether with hypoxia or hypercapnia (3) Hypoglycemia Current Visit: Yes Status: Acute - Patient was note to have glucose as low as 68 in ED. - Likely contribute to patient's current encephalopathy, especially given reported resolution of "seizure-like" activity by glucose gel per patient's son. - Improves with glucose 154 this morning. - Continue close monitoring of glucose closely. - Glucose as needed for hypoglycemia. (4) Aspiration pneumonia Current Visit: Yes Status: Suspected - Thick mucus noted on suction. Leukocytosis also noted on admission. - Possible aspiration when patient was unresponsiveness earlier. Can be early phase of pneumonia which may not show on initial CXR. - Will obtain blood cultures and sputum culture. - Will repeat CXR for further evaluation. - Continue IV Unasyn (siince 03/02). Qualifiers: Aspiration pneumonia type: unspecified Laterality: unspecified laterality Lung location: unspecified part of lung Qualified Code(s): J69.0 - Pneumonitis due to inhalation of food and vomit (5) HUNG (acute kidney injury) Current Visit: Yes Status: Acute - SCr 1.54 / eGFR 49 on admission compared to baseline SCr 1.06 / eGFR >60. - Likely pre-renal. - Slightly improves with SCr 1.48 / eGFR 52 today. - Continue hydration with IV fluid. - Avoid nephrotoxin. - Closely monitor renal function and electrolytes (6) Diabetes mellitus type 1 Current Visit: Yes Status: Chronic - Was on insulin pump started since 02/28/17. - Continue to monitor glucose closely. Qualifiers: Diabetes mellitus complication status: with unspecified complications Qualified Code(s): E10.8 - Type 1 diabetes mellitus with unspecified complications (7) Hypertension Current Visit: Yes Status: Chronic - Hold home antihypertensive medications at this time to allow permissive hypertension given the concern of possible stroke. - Will resume home antihypertensive medications if MRI does not suggest stroke. Qualifiers: Hypertension type: essential hypertension Qualified Code(s): I10 - Essential (primary) hypertension (8) Hyperlipemia Current Visit: No Status: Chronic - Continue Lipitor. Qualifiers: Hyperlipidemia type: other hyperlipidemia Qualified Code(s): E78.4 - Other hyperlipidemia (9) DVT prophylaxis Current Visit: Yes Status: Acute - Continue SQ heparin. Subjective Principal diagnosis: Acute encephalopathy Interval history: Per nurse, patient was noted to move all extremities spontaneously and sedation was restarted. Patient was seen and examined this morning with sedation off for better evaluation of patient's mental status. Patient remained unarousable by verbal and pain stimuli but did move all his extremities spontaneously. Objective PUL Vital signs: Last Vital Signs Temp 98.5 F 03/03/17 07:39 Pulse 87 03/03/17 06:00 Resp 18 03/03/17 08:10 BP 165/79 03/03/17 06:36 Pulse Ox 100 03/03/17 08:10 General appearance: no acute distress, comatose Eyes: nonicteric ENT: other (Intubated) Neck: supple Effort: normal Auscultation: bilateral: clear Cardiovascular: regular rate and rhythm Gastrointestinal: normoactive bowel sounds, soft Integumentary: normal Extremities: no cyanosis, no edema pupils equal and round, unable to assess due to mental status, other (2+ symmetrical biceps and patellar DTRs) Ventilator Settings Ventilator Settings: Ventilator Settings, Last 8 Hours Ventilator Mode VC+ Ventilator Mode VC+ Ventilator Mode VC+ Ventilator Mode VC+ Ventilator Mode VC+ Ventilator Mode VC+ Ventilator Mode VC+ Ventilator Tidal Volume 500 Setting Ventilator Tidal Volume 500 Setting Ventilator Tidal Volume 500 Setting Ventilator Tidal Volume 500 Setting Ventilator Tidal Volume 500 Setting Ventilator Tidal Volume 500 Setting Ventilator Tidal Volume 500 Setting Ventilator Respiratory Rate 14 Setting Ventilator Respiratory Rate 14 Setting Ventilator Respiratory Rate 14 Setting Ventilator Respiratory Rate 14 Setting Ventilator Respiratory Rate 14 Setting Ventilator Respiratory Rate 14 Setting Ventilator Respiratory Rate 14 Setting Actual Respiratory Rate 19 Actual Respiratory Rate 15 Actual Respiratory Rate 22 Actual Respiratory Rate 20 Actual Respiratory Rate 19 Actual Respiratory Rate 16 Positive End Expiratory 5 Pressure Positive End Expiratory 5 Pressure Positive End Expiratory 5 Pressure Positive End Expiratory 5 Pressure Positive End Expiratory 5 Pressure Positive End Expiratory 5 Pressure Positive End Expiratory 5 Pressure Peak Inspiratory Airway 11 Pressure Peak Inspiratory Airway 19 Pressure Peak Inspiratory Airway 19 Pressure Peak Inspiratory Airway 19 Pressure Peak Inspiratory Airway 21 Pressure Peak Inspiratory Airway 20 Pressure Results - Laboratory Findings CBC and BMP: 03/03/17 05:48 03/03/17 05:48 ABG ABG pH 7.46 pH Units (7.32-7.45) H 03/03/17 04:59 ABG pCO2 39 mmHg (35-45) 03/03/17 04:59 ABG pO2 94 mmHg (85-104) 03/03/17 04:59 ABG O2 Saturation 98 % (95-98) 03/03/17 04:59 Abnormal lab findings: Abnormal lab results WBC 20.2 K/mcL (4.3-11.1) H 03/03/17 05:48 Hgb 12.3 g/dL (12.9-16.9) L D 03/03/17 05:48 MCV 76.0 fL (83.0-100.0) L 03/03/17 05:48 MCH 23.8 pg (28.0-33.3) L 03/03/17 05:48 MCHC 31.4 g/dL (31.6-35.5) L 03/03/17 05:48 RDW 14.8 % (11.5-14.5) H 03/03/17 05:48 Neutrophils # 16.6 K/mcL (1.6-8.9) H 03/03/17 05:48 Monocytes # 1.8 K/mcL (0.0-1.3) H 03/03/17 05:48 ABG pH 7.46 pH Units (7.32-7.45) H 03/03/17 04:59 ABG HCO3 28 mEq/L (21-27) H 03/03/17 04:59 ABG Total CO2 29 mEq/L (20-26) H 03/03/17 04:59 ABG Base Excess 4 mEq/L (-2 to 3) H 03/03/17 04:59 Carbon Dioxide 18 mEq/L (19-29) L 03/03/17 05:48 BUN 29 mg/dL (8-26) H 03/03/17 05:48 Creatinine 1.48 mg/dL (0.72-1.25) H 03/03/17 05:48 Est GFR (Non-Af Amer) 52 (> 60) L 03/03/17 05:48 Glucose 154 mg/dL (70-99) H 03/03/17 05:48 POC Glucose 145 (58-89) H 03/03/17 06:20 Calcium 8.4 mg/dL (8.6-10.8) L 03/03/17 05:48 Globulin 3.9 g/dL (2.4-3.5) H 03/02/17 09:42 Albumin/Globulin Ratio 0.9 (1.1-2.2) L 03/02/17 09:42 Urine Protein 100 mg/dL (Neg-Trace) H 03/02/17 09:34 Urine Glucose (UA) 100 mg/dL (Normal) H 03/02/17 09:34 Urine Blood Moderate (Negative) H 03/02/17 09:34 Urine Microscopic RBC 5-15 per hpf (0-3) H 03/02/17 09:34 Ur Squamous Epith Cells Moderate per lpf (None-Few) H 03/02/17 09:34 U Marijuana (THC) Screen Positive ng/mL (Cutoff = 50) H 03/02/17 09:34 - Clinical Findings Intake & Output: Intake & Output 03/02/17 03/03/17 03/03/17 23:59 07:59 15:59 Intake Total 172 / 172 1155 / 1155 1025 / 1025 Output Total 925 / 925 1000 / 1000 Balance -753 / -753 155 / 155 1025 / 1025 Weight 73.9 kg
[2017-03-03] MEDS: *HR* Midazolam HCl 2 MG/2 ML VIAL ONE (11:08)
[2017-03-03] MEDS: *HR* Midazolam HCl 2 MG/2 ML VIAL IVP ONE ×2 (15:30→23:35)
--- NOTE | 2017-03-03 16:23 | Neurology Progress Note ---
Date of Encounter: 03/03/17 Time of Encounter: 16:21 Assessment and Plan (1) Unresponsiveness Current Visit: Yes Status: Acute No visible seizures but still had episodes of posturing overnight, currently on dilantin 100mg q8h, IV. Await for MRI of brain. The patient did have tongue bite from the seizure he had at the ER. Likely epileptic seizure until proven otherwise. Patient is currently being treated with dilantin. Patient still has significantly elevated WBC but source unknown. Certainly needs MRI of brain urgently. Depends on MRI of brain findings then a decision can be made whether to proceed with further work up including CSF study, or stroke work up. dilantin level 14.8, and will like to continue Dilantin 100mg q8h IV. Please continue medical and supportive care. will sign out to Dr. Medley who will come in tomorrow. Subjective Principal diagnosis: unresponsiveness and seizure Interval history: Patient seen and examined. Overnight per medical staff he was still thrashing and had some posturing episodes. Currently he was sedated and no spontaneous movement seen. Objective - Constitutional Vitals: Temp Pulse Resp BP Pulse Ox 98.4 F 93 24 176/87 100 03/03/17 15:34 03/03/17 14:00 03/03/17 15:35 03/03/17 14:00 03/03/17 15:35 - Neurological Exam Sensorimotor examination: Present: other (Unable to assess due to sedation and unresponsiveness) Motor Examination: Present: other (Flaccid paralysis noted througout. No spontaneous movement seen) Sensation intact: Present: other (Unable to assess due to coma) Reflexes: Biceps: 2+, Triceps: 2+, Brachioradialis: 2+, Patella: 2+, Achilles: 2 + Mental Status Examination: Present: coma (eye closing briskly. ) Cranial nerve examination: Present: PERRL (3mm in sizes bilaterally, midline position. Reactive to light), EOMI (Unable to assess), visual bhandari intact ( Unable to assess), corneal reflexes brisk symmetrically, sensory to face intact , no facial asymmetry is present, no dysarthria (Unable to assess), hearing is intact symmetrically (Unable to assess) Results - Laboratory Findings CBC and BMP: 03/03/17 05:48 03/03/17 05:48 Abnormal lab findings: Abnormal lab results WBC 20.2 K/mcL (4.3-11.1) H 03/03/17 05:48 Hgb 12.3 g/dL (12.9-16.9) L D 03/03/17 05:48 MCV 76.0 fL (83.0-100.0) L 03/03/17 05:48 MCH 23.8 pg (28.0-33.3) L 03/03/17 05:48 MCHC 31.4 g/dL (31.6-35.5) L 03/03/17 05:48 RDW 14.8 % (11.5-14.5) H 03/03/17 05:48 Neutrophils # 16.6 K/mcL (1.6-8.9) H 03/03/17 05:48 Monocytes # 1.8 K/mcL (0.0-1.3) H 03/03/17 05:48 ABG pH 7.46 pH Units (7.32-7.45) H 03/03/17 04:59 ABG HCO3 28 mEq/L (21-27) H 03/03/17 04:59 ABG Total CO2 29 mEq/L (20-26) H 03/03/17 04:59 ABG Base Excess 4 mEq/L (-2 to 3) H 03/03/17 04:59 Carbon Dioxide 18 mEq/L (19-29) L 03/03/17 05:48 BUN 29 mg/dL (8-26) H 03/03/17 05:48 Creatinine 1.48 mg/dL (0.72-1.25) H 03/03/17 05:48 Est GFR (Non-Af Amer) 52 (> 60) L 03/03/17 05:48 Glucose 154 mg/dL (70-99) H 03/03/17 05:48 POC Glucose 273 (58-89) H 03/03/17 11:48 Calcium 8.4 mg/dL (8.6-10.8) L 03/03/17 05:48 Globulin 3.9 g/dL (2.4-3.5) H 03/02/17 09:42 Albumin/Globulin Ratio 0.9 (1.1-2.2) L 03/02/17 09:42 Urine Protein 100 mg/dL (Neg-Trace) H 03/02/17 09:34 Urine Glucose (UA) 100 mg/dL (Normal) H 03/02/17 09:34 Urine Blood Moderate (Negative) H 03/02/17 09:34 Urine Microscopic RBC 5-15 per hpf (0-3) H 03/02/17 09:34 Ur Squamous Epith Cells Moderate per lpf (None-Few) H 03/02/17 09:34 U Marijuana (THC) Screen Positive ng/mL (Cutoff = 50) H 03/02/17 09:34 Consult Discharge Plan - Plan Referrals: Vivek Gaffney DO [Primary Care Provider] -
[2017-03-03] MEDS: FentaNYL (PF) 1,000 MCG in 0.9 % Sodium Chloride 80 ML IVC SCH (20:30)
[2017-03-04] MEDS: Lacri-Lube 3.5 GM TUBE BOTH EYES SCH ×6 (00:35→22:24)
[2017-03-04] MEDS: Insulin LISPRO 300 UNITS/3 ML VIAL SQ SCH ×4 (00:38→18:10)
[2017-03-04] MEDS: Ampicillin/Sulbactam 3,000 MG in 0.9 % Sodium Chloride Mini Bag 100 ML IVPB SCH ×2 (02:07→10:23)
[2017-03-04] MEDS: FentaNYL (PF) 1,000 MCG in 0.9 % Sodium Chloride 80 ML IVC SCH ×2 (02:10→06:08)
[2017-03-04] MEDS ORDERED: Midazolam HCl 4 MG/2 ML Oral Syringe PO ONE (03:01)
[2017-03-04] MEDS ORDERED: *HR* Midazolam HCl 2 MG/2 ML VIAL IVP ONE ×2 (03:22→09:51)
[2017-03-04 03:49] LABS: ABG Base Excess -3 mEq/L (-2 to 3); ABG HCO3 23 mEq/L (21-27); ABG Oxygen Saturation 97 % (95-98); ABG PCO2 43 mmHg (35-45); ABG PH 7.33 pH Units (7.32-7.45); ABG PO2 101 mmHg (85-104); ABG TCO2 24 mEq/L (20-26); Blood Gas Modality VC; Blood Gas PEEP 5 cm H2O; Blood Gas Respiration Rate 14; Blood Gas VT 500 cc
[2017-03-04 04:44] LABS: BUN/Creatinine Ratio 20 (6-26); Basophils # 0.1 K/mcL (0.0-0.2); Basophils % 0.7 %; Blood Urea Nitrogen 30 mg/dL (8-26); Calcium 8.7 mg/dL (8.6-10.8); Carbon Dioxide 19 mEq/L (19-29); Chloride 109 mEq/L (98-109); Eosinophils # 0.1 K/mcL (0.0-0.6); Eosinophils % 0.4 %; Glucose 241 mg/dL (70-99); Hematocrit 39.6 % (37.5-50.1); Hemoglobin 11.9 g/dL (12.9-16.9); Immature Granulocytes % 0.6 % (0-4); Lymphocytes # 1.4 K/mcL (0.6-4.6); Lymphocytes % 9.2 %; Magnesium 1.7 mg/dL (1.6-2.6); Mean Corpuscular HGB Conc 30.1 g/dL (31.6-35.5); Mean Corpuscular Hemoglobin 23.4 pg (28.0-33.3); Mean Platelet Volume 10.5 fL (9.4-12.4); Monocytes # 1.9 K/mcL (0.0-1.3); Monocytes % 11.9 %; Osmolality,Calculated 306 (280-300); Phosphorous 2.4 mg/dL (2.3-4.7); Platelet Count 301 K/mcL (140-400); Potassium 4.2 mEq/L (3.5-4.5); Red Blood Count 5.08 M/mcL (4.19-5.50); Red Cell Distribution Width 15.1 % (11.5-14.5); Segmented Neutrophils % 77.2 %; Sodium 141 mEq/L (136-145); eGFR For African Americans > 60 (> 60); eGFR For Non-African Americans 50 (> 60)
[2017-03-04] MEDS: *HR* Heparin 5,000 UNIT/ML VIAL SQ SCH ×2 (06:00→17:56)
--- NOTE | 2017-03-04 07:29 | Pulmonology Progress Note ---
<Neetu Flores - Last Filed: 03/04/17 10:59> Date of Encounter: 03/04/17 Time of Encounter: 07:10 Assessment and Plan (1) Acute encephalopathy Current Visit: Yes Status: Acute - Found unresponsiveness at 8:30 am on 03/02/17 with seizure-like" activity at home as witnessed by patient's son. - Most likely secondary to metabolic disturbance, especially hypoglycemia. - EEG is consistent with mild to moderate diffuse cerebral dysfunction that can be seen in patients with encephalopathy, metabolic/toxic, electrolyte derangement, or sedation. Asymmetric slowing with low amplitude on the left posterior region can be seen in structural abnormality. No electrographic seizure seen. - CT head and MRI brain is unremarkable. - Patient's mental status appears to improve in some degree as patient is now more active compared to before. - Per neurology, lumbar puncture is only indicated if high suspicion of BUSINESS LEADER. Appreciate further neurology evaluation and recommendations. - Continue close monitoring. (2) Acute respiratory failure Current Visit: Yes Status: Acute - Patient was intubated in ED for the concern of patient's ability to protect his airway. - Initial ABG pH 7.30, pCO2 48, pO2 444, HCO3 24 in ED. - ABG pH 7.33, pCO2 43, pO2 101, HCO3 23 today. - Continue ventilation support and will attempt spontaneous breathing trial and possible extubation if patient's mental status and respiratory status improves and stabilizes. Qualifiers: Respiratory failure complication: unspecified whether with hypoxia or hypercapnia Qualified Code(s): J96.00 - Acute respiratory failure, unspecified whether with hypoxia or hypercapnia (3) Hypoglycemia Current Visit: Yes Status: Acute - Patient was note to have glucose as low as 68 in ED. - Likely contribute to patient's current encephalopathy, especially given reported resolution of "seizure-like" activity by glucose gel per patient's son. - Improves with glucose 241 this morning. - Continue close monitoring of glucose closely. - Glucose as needed for hypoglycemia. (4) Aspiration pneumonia Current Visit: Yes Status: Suspected - Thick mucus noted on suction. Leukocytosis also noted on admission. - Possible aspiration when patient was unresponsiveness earlier. Can be early phase of pneumonia which may not show on initial CXR. - Sputum gram stain found moderate GPC and few GNR. Sputum culture pending. - Continue IV Unasyn (siince 03/02). Qualifiers: Aspiration pneumonia type: unspecified Laterality: unspecified laterality Lung location: unspecified part of lung Qualified Code(s): J69.0 - Pneumonitis due to inhalation of food and vomit (5) HNUG (acute kidney injury) Current Visit: Yes Status: Acute - SCr 1.54 / eGFR 49 on admission compared to baseline SCr 1.06 / eGFR >60. - Likely pre-renal. - Stable with SCr 1.52 / eGFR 50 today. - Continue hydration with IV fluid. - Avoid nephrotoxin. - Closely monitor renal function and electrolytes (6) Diabetes mellitus type 1 Current Visit: Yes Status: Chronic - Was on insulin pump started since 02/28/17. - On low-corrective dose insulin. Continue to monitor glucose closely. Qualifiers: Diabetes mellitus complication status: with unspecified complications Qualified Code(s): E10.8 - Type 1 diabetes mellitus with unspecified complications (7) Hypertension Current Visit: Yes Status: Chronic - Will resume metoprolol and amilodipine for blood pressure control. Qualifiers: Hypertension type: essential hypertension Qualified Code(s): I10 - Essential (primary) hypertension (8) Hyperlipemia Current Visit: No Status: Chronic - Continue Lipitor. Qualifiers: Hyperlipidemia type: other hyperlipidemia Qualified Code(s): E78.4 - Other hyperlipidemia (9) DVT prophylaxis Current Visit: Yes Status: Acute - Continue SQ heparin. Subjective Principal diagnosis: unresponsiveness and seizure Interval history: Per nurse, patient was again noted to move all extremities spontaneously over night so sedation was restarted. Patient was seen and examined this morning. Patient remained unarousable by verbal and pain stimuli earlier this morning. Patient was noted to move all extremities in unpurposeful manner at about 9:45. 2 mg of Versed was given and did calm patient down. Objective PUL Vital signs: Last Vital Signs Temp 98.5 F 03/04/17 04:59 Pulse 107 03/04/17 06:00 Resp 19 03/04/17 06:18 BP 156/80 03/04/17 06:18 Pulse Ox 98 03/04/17 06:18 General appearance: no acute distress, asleep Eyes: nonicteric ENT: other (Intubated) Neck: supple Effort: normal Auscultation: bilateral: clear Cardiovascular: other (Tachycardia) Gastrointestinal: hypoactive bowel sounds, soft Integumentary: normal Extremities: no cyanosis, no edema Musculoskeletal: no deformities unable to assess due to mental status Ventilator Settings Ventilator Settings: Ventilator Settings, Last 8 Hours Ventilator Mode VC+ Ventilator Mode VC+ Ventilator Mode VC+ Ventilator Mode VC+ Ventilator Mode VC+ Ventilator Mode VC+ Ventilator Mode VC+ Ventilator Mode VC+ Ventilator Mode VC+ Ventilator Mode VC+ Ventilator Mode VC+ Ventilator Mode VC+ Ventilator Mode VC+ Ventilator Tidal Volume 500 Setting Ventilator Tidal Volume 500 Setting Ventilator Tidal Volume 500 Setting Ventilator Tidal Volume 500 Setting Ventilator Tidal Volume 500 Setting Ventilator Tidal Volume 500 Setting Ventilator Tidal Volume 500 Setting Ventilator Tidal Volume 500 Setting Ventilator Tidal Volume 500 Setting Ventilator Tidal Volume 500 Setting Ventilator Tidal Volume 500 Setting Ventilator Tidal Volume 500 Setting Ventilator Tidal Volume 500 Setting Ventilator Respiratory Rate 14 Setting Ventilator Respiratory Rate 14 Setting Ventilator Respiratory Rate 14 Setting Ventilator Respiratory Rate 14 Setting Ventilator Respiratory Rate 14 Setting Ventilator Respiratory Rate 14 Setting Ventilator Respiratory Rate 14 Setting Ventilator Respiratory Rate 14 Setting Ventilator Respiratory Rate 14 Setting Ventilator Respiratory Rate 14 Setting Ventilator Respiratory Rate 14 Setting Ventilator Respiratory Rate 14 Setting Ventilator Respiratory Rate 14 Setting Actual Respiratory Rate 18 Actual Respiratory Rate 17 Actual Respiratory Rate 17 Actual Respiratory Rate 17 Actual Respiratory Rate 18 Actual Respiratory Rate 20 Actual Respiratory Rate 25 Actual Respiratory Rate 24 Actual Respiratory Rate 20 Actual Respiratory Rate 16 Actual Respiratory Rate 16 Actual Respiratory Rate 18 Positive End Expiratory 5 Pressure Positive End Expiratory 5 Pressure Positive End Expiratory 5 Pressure Positive End Expiratory 5 Pressure Positive End Expiratory 5 Pressure Positive End Expiratory 5 Pressure Positive End Expiratory 5 Pressure Positive End Expiratory 5 Pressure Positive End Expiratory 5 Pressure Positive End Expiratory 5 Pressure Positive End Expiratory 5 Pressure Positive End Expiratory 5 Pressure Positive End Expiratory 5 Pressure Peak Inspiratory Airway 11 Pressure Peak Inspiratory Airway 13 Pressure Peak Inspiratory Airway 11 Pressure Peak Inspiratory Airway 11 Pressure Peak Inspiratory Airway 11 Pressure Peak Inspiratory Airway 11 Pressure Peak Inspiratory Airway 24 Pressure Peak Inspiratory Airway 20 Pressure Peak Inspiratory Airway 14 Pressure Peak Inspiratory Airway 12 Pressure Peak Inspiratory Airway 12 Pressure Peak Inspiratory Airway 12 Pressure Results - Laboratory Findings CBC and BMP: 03/04/17 04:10 03/04/17 04:10 ABG ABG pH 7.33 pH Units (7.32-7.45) 03/04/17 03:46 ABG pCO2 43 mmHg (35-45) 03/04/17 03:46 ABG pO2 101 mmHg (85-104) 03/04/17 03:46 ABG O2 Saturation 97 % (95-98) 03/04/17 03:46 Abnormal lab findings: Abnormal lab results WBC 15.6 K/mcL (4.3-11.1) H 03/04/17 04:10 Hgb 11.9 g/dL (12.9-16.9) L 03/04/17 04:10 MCV 78.0 fL (83.0-100.0) L 03/04/17 04:10 MCH 23.4 pg (28.0-33.3) L 03/04/17 04:10 MCHC 30.1 g/dL (31.6-35.5) L 03/04/17 04:10 RDW 15.1 % (11.5-14.5) H 03/04/17 04:10 Neutrophils # 12.0 K/mcL (1.6-8.9) H 03/04/17 04:10 Monocytes # 1.9 K/mcL (0.0-1.3) H 03/04/17 04:10 ABG Base Excess -3 mEq/L (-2 to 3) L 03/04/17 03:46 BUN 30 mg/dL (8-26) H 03/04/17 04:10 Creatinine 1.52 mg/dL (0.72-1.25) H 03/04/17 04:10 Est GFR (Non-Af Amer) 50 (> 60) L 03/04/17 04:10 Glucose 241 mg/dL (70-99) H 03/04/17 04:10 POC Glucose 237 (58-89) H 03/04/17 05:50 Calculated Osmolality 306 (280-300) H 03/04/17 04:10 Globulin 3.9 g/dL (2.4-3.5) H 03/02/17 09:42 Albumin/Globulin Ratio 0.9 (1.1-2.2) L 03/02/17 09:42 Urine Protein 100 mg/dL (Neg-Trace) H 03/02/17 09:34 Urine Glucose (UA) 100 mg/dL (Normal) H 03/02/17 09:34 Urine Blood Moderate (Negative) H 03/02/17 09:34 Urine Microscopic RBC 5-15 per hpf (0-3) H 03/02/17 09:34 Ur Squamous Epith Cells Moderate per lpf (None-Few) H 03/02/17 09:34 U Marijuana (THC) Screen Positive ng/mL (Cutoff = 50) H 03/02/17 09:34 - Microbiology Findings Microbiology Findings: Microbiology, Last 48 Hours 03/04/17 00:12 Sputum Culture - Preliminary Sputum - Clinical Findings Intake & Output: Intake & Output 03/03/17 03/03/17 03/04/17 15:59 23:59 07:59 Intake Total 1173 / 1173 1141.3 / 1141.3 258.7 / 258.7 Output Total 800 / 800 1050 / 1050 675 / 675 Balance 373 / 373 91.3 / 91.3 -416.3 / -416.3 Weight 72.06 kg Consult Discharge Plan - Plan Referrals: Vivek Gaffney DO [Primary Care Provider] - <[place] - Last Filed: 03/04/17 11:18> Date of Encounter: 03/04/17 Objective PUL Vital signs: Last Vital Signs Temp 99.6 F 03/04/17 07:55 Pulse 110 03/04/17 11:00 Resp 16 03/04/17 11:00 BP 183/88 03/04/17 11:00 Pulse Ox 99 03/04/17 11:00 Ventilator Settings Ventilator Settings: Ventilator Settings, Last 8 Hours Ventilator Mode VC+ Ventilator Mode VC+ Ventilator Mode VC+ Ventilator Mode VC+ Ventilator Mode VC+ Ventilator Mode VC+ Ventilator Mode VC+ Ventilator Mode VC+ Ventilator Mode VC+ Ventilator Mode VC+ Ventilator Tidal Volume 500 Setting Ventilator Tidal Volume 500 Setting Ventilator Tidal Volume 500 Setting Ventilator Tidal Volume 500 Setting Ventilator Tidal Volume 500 Setting Ventilator Tidal Volume 500 Setting Ventilator Tidal Volume 500 Setting Ventilator Tidal Volume 500 Setting Ventilator Tidal Volume 500 Setting Ventilator Tidal Volume 500 Setting Ventilator Respiratory Rate 14 Setting Ventilator Respiratory Rate 14 Setting Ventilator Respiratory Rate 14 Setting Ventilator Respiratory Rate 14 Setting Ventilator Respiratory Rate 14 Setting Ventilator Respiratory Rate 14 Setting Ventilator Respiratory Rate 14 Setting Ventilator Respiratory Rate 14 Setting Ventilator Respiratory Rate 14 Setting Ventilator Respiratory Rate 14 Setting Actual Respiratory Rate 18 Actual Respiratory Rate 16 Actual Respiratory Rate 20 Actual Respiratory Rate 16 Actual Respiratory Rate 18 Actual Respiratory Rate 17 Actual Respiratory Rate 17 Actual Respiratory Rate 17 Actual Respiratory Rate 18 Positive End Expiratory 5 Pressure Positive End Expiratory 5 Pressure Positive End Expiratory 5 Pressure Positive End Expiratory 5 Pressure Positive End Expiratory 5 Pressure Positive End Expiratory 5 Pressure Positive End Expiratory 5 Pressure Positive End Expiratory 5 Pressure Positive End Expiratory 5 Pressure Positive End Expiratory 5 Pressure Peak Inspiratory Airway 11 Pressure Peak Inspiratory Airway 11 Pressure Peak Inspiratory Airway 17 Pressure Peak Inspiratory Airway 17 Pressure Peak Inspiratory Airway 11 Pressure Peak Inspiratory Airway 13 Pressure Peak Inspiratory Airway 11 Pressure Peak Inspiratory Airway 11 Pressure Peak Inspiratory Airway 11 Pressure Results - Laboratory Findings CBC and BMP: 03/04/17 04:10 03/04/17 04:10 ABG ABG pH 7.33 pH Units (7.32-7.45) 03/04/17 03:46 ABG pCO2 43 mmHg (35-45) 03/04/17 03:46 ABG pO2 101 mmHg (85-104) 03/04/17 03:46 ABG O2 Saturation 97 % (95-98) 03/04/17 03:46 Abnormal lab findings: Abnormal lab results WBC 15.6 K/mcL (4.3-11.1) H 03/04/17 04:10 Hgb 11.9 g/dL (12.9-16.9) L 03/04/17 04:10 MCV 78.0 fL (83.0-100.0) L 03/04/17 04:10 MCH 23.4 pg (28.0-33.3) L 03/04/17 04:10 MCHC 30.1 g/dL (31.6-35.5) L 03/04/17 04:10 RDW 15.1 % (11.5-14.5) H 03/04/17 04:10 Neutrophils # 12.0 K/mcL (1.6-8.9) H 03/04/17 04:10 Monocytes # 1.9 K/mcL (0.0-1.3) H 03/04/17 04:10 ABG Base Excess -3 mEq/L (-2 to 3) L 03/04/17 03:46 BUN 30 mg/dL (8-26) H 03/04/17 04:10 Creatinine 1.52 mg/dL (0.72-1.25) H 03/04/17 04:10 Est GFR (Non-Af Amer) 50 (> 60) L 03/04/17 04:10 Glucose 241 mg/dL (70-99) H 03/04/17 04:10 POC Glucose 237 (58-89) H 03/04/17 05:50 Calculated Osmolality 306 (280-300) H 03/04/17 04:10 Globulin 3.9 g/dL (2.4-3.5) H 03/02/17 09:42 Albumin/Globulin Ratio 0.9 (1.1-2.2) L 03/02/17 09:42 Urine Protein 100 mg/dL (Neg-Trace) H 03/02/17 09:34 Urine Glucose (UA) 100 mg/dL (Normal) H 03/02/17 09:34 Urine Blood Moderate (Negative) H 03/02/17 09:34 Urine Microscopic RBC 5-15 per hpf (0-3) H 03/02/17 09:34 Ur Squamous Epith Cells Moderate per lpf (None-Few) H 03/02/17 09:34 U Marijuana (THC) Screen Positive ng/mL (Cutoff = 50) H 03/02/17 09:34 - Microbiology Findings Microbiology Findings: Microbiology, Last 48 Hours 03/04/17 00:12 Sputum Culture - Preliminary Sputum - Clinical Findings Intake & Output: Intake & Output 03/03/17 03/04/17 03/04/17 23:59 07:59 15:59 Intake Total 1141.3 / 1141.3 1258.7 / 1258.7 45 / 45 Output Total 1050 / 1050 775 / 775 Balance 91.3 / 91.3 483.7 / 483.7 45 / 45 Weight 72.06 kg - Attending Attestation I examined this patient and my medical decision-making was reviewed with the Resident Physician. I agree with the documented findings, disposition and treatment plan as described except to the extent set forth below. We independently had [id number] contact with the patient Patient seen and examined at bedside Labs, radiology, chart personally reviewed. Management was reviewed during multidisciplinary critical care rounds. BUSINESS LEADER: Remains encephalopathic which was likely secondary to hypoglycemia MRI of the head without acute process neurology following appreciate recs I discussed the case directly with the attending neurologist today who agrees with current management Pulm: Acceptable oxygenation/ventilation Spontaneous breathing trial today Cards: Restart home antihypertensive for known essential hypertension FEN-GI: Start enteral nutrition PPI prophylaxis given Renal: HUNG stable electrolytes monitor urine output which is acceptable nephro protective strategy in place ID: Possible aspiration on antimicrobials white count trending down he has been afebrile since admission Heme/Onc: DVT prophylaxis given Endo: Glucose Monitored Integ/MSK: Skin Care per routine ICU Nursing Protocol to prevent ulcers. Lines: All lines examined without evidence of infection : Dispo: Remain in ICU CODE: Full
[2017-03-04] MEDS: Aspirin Enteric Coated 81 MG Tablet PO SCH (07:59)
[2017-03-04] MEDS: Pantoprazole 40 MG VIAL IVPB SCH (07:59)
[2017-03-04] MEDS: Chlorhexidine Rinse 15 ML MOUTHWASH MM SCH ×2 (07:59→22:24)
[2017-03-04] MEDS: 0.9 % Sodium Chloride 1,000 ML IVC SCH (08:00)
[2017-03-04] MEDS ORDERED: *HR* Midazolam HCl 5 MG/5 ML VIAL IVP ONE ×3 (09:51→14:47)
[2017-03-04] MEDS ORDERED: Ampicillin/Sulbactam 3,000 MG in 0.9 % Sodium Chloride Mini Bag 100 ML IVPB SCH (10:00)
[2017-03-04] MEDS: amLODIPine 5 MG TABLET PO SCH (10:23)
[2017-03-04] MEDS: Dexmedetomidine HCl 400 MCG/100 ML MLS IVC SCH ×2 (10:56→22:22)
--- NOTE | 2017-03-04 12:52 | Neurology Progress Note ---
Date of Encounter: 03/04/17 Time of Encounter: 11:00 Assessment and Plan (1) Acute encephalopathy Current Visit: Yes Status: Acute Patient remained unresponsive despite being off sedation no evidence of any acute ischemic changes on MRI of the brain and EEG also negative for any seizure activity though clinically he did have some seizures for which she has been on Dilantin and I suggested to continue and keep the level therapeutic. Considering patient's symptoms history and exam findings are suspect that he may have suffered some underlying hypoxia getting this prolonged hypoglycemic event that he had earlier with unknown duration, that may have triggered this seizure as it is well known to have seizures from hypoglycemia. At this time suspicious of any [employer]RE[employer] FORWARDER infection is very low he has been already treated with empiric antibiotics for possible aspiration concerning low suspicion I would like to hold off for any CSF analysis at this time but it did not show any improvement perhaps we may proceed with it later on Decided that continue him on Dilantin and keep level therapeutic continue to treat other underlying metabolic abnormalities We will reexamine patient in the next few days to see if any improvement I suspect he has suffered hypoxic changes and that may take some time for him to clinically improve if any. Discussed with the ICU team as well as patient and mother (2) Hypoglycemia Current Visit: Yes Status: Acute Subjective Principal diagnosis: unresponsiveness and seizure Interval history: Patient seen as an follow-up for unresponsiveness, he was seen by Dr. Burch earlier , apparently patient was followed at home unresponsive with seizure-like" activity witnessed by patient's son. He was brought into the emergency room was intubated and remained intubated without any sedation and remained unresponsive, patient has significant hypoglycemia the duration is unknown as according to the that when she left at home he was sleeping in the couch and then several hours later he was found to be seizing during the sleep. His CT of the head was unremarkable EEG is consistent with mild to moderate diffuse cerebral dysfunction, as seen in encephalopathy. MRI brain is unremarkable. - Objective - Constitutional Vitals: Temp Pulse Resp BP Pulse Ox 98.8 F 102 16 177/89 99 03/04/17 12:00 03/04/17 12:00 03/04/17 12:00 03/04/17 12:00 03/04/17 12:00 - Neurological Exam Sensorimotor examination: Present: other (Unable to assess due to sedation and unresponsiveness) Motor Examination: Present: other (On neurological examination patient is off sedation now, does not respond to any verbal stimuli or to the deep.. Pupils are sluggish but reactive corneals are positive. Minimally withdrawal to the deep pain otherwise no other abnormal posturing noted) Sensation intact: Present: other (Unable to assess due to coma) Mental Status Examination: Present: coma (eye closing briskly. ) Cranial nerve examination: Present: PERRL (3mm in sizes bilaterally, midline position. Reactive to light), EOMI (Unable to assess), visual bhandari intact ( Unable to assess), corneal reflexes brisk symmetrically, sensory to face intact , no facial asymmetry is present, no dysarthria (Unable to assess), hearing is intact symmetrically (Unable to assess) Results - Laboratory Findings CBC and BMP: 03/04/17 04:10 03/04/17 04:10 Abnormal lab findings: Abnormal lab results WBC 15.6 K/mcL (4.3-11.1) H 03/04/17 04:10 Hgb 11.9 g/dL (12.9-16.9) L 03/04/17 04:10 MCV 78.0 fL (83.0-100.0) L 03/04/17 04:10 MCH 23.4 pg (28.0-33.3) L 03/04/17 04:10 MCHC 30.1 g/dL (31.6-35.5) L 03/04/17 04:10 RDW 15.1 % (11.5-14.5) H 03/04/17 04:10 Neutrophils # 12.0 K/mcL (1.6-8.9) H 03/04/17 04:10 Monocytes # 1.9 K/mcL (0.0-1.3) H 03/04/17 04:10 ABG Base Excess -3 mEq/L (-2 to 3) L 03/04/17 03:46 BUN 30 mg/dL (8-26) H 03/04/17 04:10 Creatinine 1.52 mg/dL (0.72-1.25) H 03/04/17 04:10 Est GFR (Non-Af Amer) 50 (> 60) L 03/04/17 04:10 Glucose 241 mg/dL (70-99) H 03/04/17 04:10 POC Glucose 229 (58-89) H 03/04/17 11:53 Calculated Osmolality 306 (280-300) H 03/04/17 04:10 Globulin 3.9 g/dL (2.4-3.5) H 03/02/17 09:42 Albumin/Globulin Ratio 0.9 (1.1-2.2) L 03/02/17 09:42 Urine Protein 100 mg/dL (Neg-Trace) H 03/02/17 09:34 Urine Glucose (UA) 100 mg/dL (Normal) H 03/02/17 09:34 Urine Blood Moderate (Negative) H 03/02/17 09:34 Urine Microscopic RBC 5-15 per hpf (0-3) H 03/02/17 09:34 Ur Squamous Epith Cells Moderate per lpf (None-Few) H 03/02/17 09:34 U Marijuana (THC) Screen Positive ng/mL (Cutoff = 50) H 03/02/17 09:34 Consult Discharge Plan - Plan Referrals: Vivek Gaffney DO [Primary Care Provider] -
[2017-03-04] MEDS: Ampicillin/Sulbactam 3,000 MG in 0.9 % Sodium Chloride 150 ML IVPB SCH ×2 (15:48→22:29)
[2017-03-04] MEDS: *HR* Midazolam HCl 2 MG/2 ML VIAL IVP PRN ×2 (19:01→22:23)
[2017-03-05] MEDS: Dexmedetomidine HCl 400 MCG/100 ML MLS IVC SCH ×2 (00:44→05:29)
[2017-03-05] MEDS: Insulin LISPRO 300 UNITS/3 ML VIAL SQ SCH ×5 (00:44→23:42)
[2017-03-05] MEDS: Lacri-Lube 3.5 GM TUBE BOTH EYES SCH ×6 (00:47→19:57)
[2017-03-05] MEDS: *HR* Midazolam HCl 2 MG/2 ML VIAL IVP PRN ×2 (01:15→04:45)
[2017-03-05] MEDS: Ampicillin/Sulbactam 3,000 MG in 0.9 % Sodium Chloride 150 ML IVPB SCH ×4 (03:47→21:37)
[2017-03-05 04:25] LABS: ABG Base Excess -2 mEq/L (-2 to 3); ABG HCO3 23 mEq/L (21-27); ABG Oxygen Saturation 96 % (95-98); ABG PCO2 40 mmHg (35-45); ABG PH 7.37 pH Units (7.32-7.45); ABG PO2 84 mmHg (85-104); ABG TCO2 24 mEq/L (20-26); Blood Gas Modality VC; Blood Gas PEEP 5 cm H2O; Blood Gas Respiration Rate 14; Blood Gas VT 500 cc
[2017-03-05 04:52] LABS: Basophils # 0.1 K/mcL (0.0-0.2); Basophils % 0.8 %; Eosinophils # 0.1 K/mcL (0.0-0.6); Eosinophils % 0.7 %; Immature Granulocytes % 0.4 % (0-4); Lymphocytes # 1.8 K/mcL (0.6-4.6); Lymphocytes % 14.3 %; Mean Corpuscular HGB Conc 31.2 g/dL (31.6-35.5); Mean Corpuscular Hemoglobin 24.4 pg (28.0-33.3); Mean Corpuscular Volume 78.2 fL (83.0-100.0); Mean Platelet Volume 10.4 fL (9.4-12.4); Monocytes # 1.6 K/mcL (0.0-1.3); Monocytes % 12.3 %; Neutrophils # 9.2 K/mcL (1.6-8.9); Platelet Count 259 K/mcL (140-400); Red Blood Count 4.22 M/mcL (4.19-5.50); Red Cell Distribution Width 15.2 % (11.5-14.5); Segmented Neutrophils % 71.5 %
[2017-03-05 04:55] LABS: Hemoglobin 10.3 g/dL (12.9-16.9)
[2017-03-05 04:57] LABS: Calcium 8.6 mg/dL (8.6-10.8); Magnesium 1.9 mg/dL (1.6-2.6); Phosphorous 3.4 mg/dL (2.3-4.7); Potassium 4.1 mEq/L (3.5-4.5)
[2017-03-05] MEDS: *HR* Heparin 5,000 UNIT/ML VIAL SQ SCH ×2 (05:29→17:59)
--- NOTE | 2017-03-05 08:02 | Pulmonology Progress Note ---
<TutuBon W - Last Filed: 03/05/17 11:20> Date of Encounter: 03/05/17 Objective PUL Vital signs: Last Vital Signs Temp 98.3 F 03/05/17 08:36 Pulse 81 03/05/17 09:00 Resp 12 03/05/17 09:00 BP 156/81 03/05/17 09:00 Pulse Ox 100 03/05/17 09:00 Ventilator Settings Ventilator Settings: Ventilator Settings, Last 8 Hours Ventilator Mode VC+ Ventilator Mode VC+ Ventilator Mode VC+ Ventilator Mode VC+ Ventilator Mode VC+ Ventilator Mode VC+ Ventilator Mode VC+ Ventilator Mode VC+ Ventilator Mode VC+ Ventilator Tidal Volume 500 Setting Ventilator Tidal Volume 500 Setting Ventilator Tidal Volume 500 Setting Ventilator Tidal Volume 500 Setting Ventilator Tidal Volume 500 Setting Ventilator Tidal Volume 500 Setting Ventilator Tidal Volume 500 Setting Ventilator Tidal Volume 500 Setting Ventilator Tidal Volume 500 Setting Ventilator Respiratory Rate 14 Setting Ventilator Respiratory Rate 14 Setting Ventilator Respiratory Rate 14 Setting Ventilator Respiratory Rate 14 Setting Ventilator Respiratory Rate 14 Setting Ventilator Respiratory Rate 14 Setting Ventilator Respiratory Rate 14 Setting Ventilator Respiratory Rate 16 Setting Ventilator Respiratory Rate 14 Setting Actual Respiratory Rate 15 Actual Respiratory Rate 16 Actual Respiratory Rate 15 Actual Respiratory Rate 16 Actual Respiratory Rate 18 Actual Respiratory Rate 15 Actual Respiratory Rate 16 Actual Respiratory Rate 15 Positive End Expiratory 5 Pressure Positive End Expiratory 5 Pressure Positive End Expiratory 5 Pressure Positive End Expiratory 5 Pressure Positive End Expiratory 5 Pressure Positive End Expiratory 5 Pressure Positive End Expiratory 5 Pressure Positive End Expiratory 5 Pressure Positive End Expiratory 5 Pressure Peak Inspiratory Airway 18 Pressure Peak Inspiratory Airway 16 Pressure Peak Inspiratory Airway 16 Pressure Peak Inspiratory Airway 42 Pressure Peak Inspiratory Airway 16 Pressure Peak Inspiratory Airway 17 Pressure Peak Inspiratory Airway 17 Pressure Peak Inspiratory Airway 18 Pressure Results - Laboratory Findings CBC and BMP: 03/05/17 04:31 03/05/17 04:31 ABG ABG pH 7.37 pH Units (7.32-7.45) 03/05/17 04:22 ABG pCO2 40 mmHg (35-45) 03/05/17 04:22 ABG pO2 84 mmHg (85-104) L 03/05/17 04:22 ABG O2 Saturation 96 % (95-98) 03/05/17 04:22 Abnormal lab findings: Abnormal lab results WBC 12.8 K/mcL (4.3-11.1) H 03/05/17 04:31 Hgb 10.3 g/dL (12.9-16.9) L D 03/05/17 04:31 Hct 33.0 % (37.5-50.1) L 03/05/17 04:31 MCV 78.2 fL (83.0-100.0) L 03/05/17 04:31 MCH 24.4 pg (28.0-33.3) L 03/05/17 04:31 MCHC 31.2 g/dL (31.6-35.5) L 03/05/17 04:31 RDW 15.2 % (11.5-14.5) H 03/05/17 04:31 Neutrophils # 9.2 K/mcL (1.6-8.9) H 03/05/17 04:31 Monocytes # 1.6 K/mcL (0.0-1.3) H 03/05/17 04:31 ABG pO2 84 mmHg (85-104) L 03/05/17 04:22 Sodium 146 mEq/L (136-145) H 03/05/17 04:31 Chloride 114 mEq/L (98-109) H 03/05/17 04:31 BUN 38 mg/dL (8-26) H 03/05/17 04:31 Creatinine 1.95 mg/dL (0.72-1.25) H 03/05/17 04:31 Est GFR ( Amer) 46 (> 60) L 03/05/17 04:31 Est GFR (Non-Af Amer) 38 (> 60) L 03/05/17 04:31 Glucose 161 mg/dL (70-99) H 03/05/17 04:31 POC Glucose 146 (58-89) H 03/05/17 05:28 Calculated Osmolality 315 (280-300) H 03/05/17 04:31 Globulin 3.9 g/dL (2.4-3.5) H 03/02/17 09:42 Albumin/Globulin Ratio 0.9 (1.1-2.2) L 03/02/17 09:42 Urine Protein 100 mg/dL (Neg-Trace) H 03/02/17 09:34 Urine Glucose (UA) 100 mg/dL (Normal) H 03/02/17 09:34 Urine Blood Moderate (Negative) H 03/02/17 09:34 Urine Microscopic RBC 5-15 per hpf (0-3) H 03/02/17 09:34 Ur Squamous Epith Cells Moderate per lpf (None-Few) H 03/02/17 09:34 U Marijuana (THC) Screen Positive ng/mL (Cutoff = 50) H 03/02/17 09:34 - Microbiology Findings Microbiology Findings: Microbiology, Last 48 Hours 03/04/17 00:12 Sputum Culture - Preliminary Sputum - Clinical Findings Intake & Output: Intake & Output 03/04/17 03/05/17 03/05/17 23:59 07:59 15:59 Intake Total 900 / 900 350 / 350 Output Total 820 / 820 250 / 250 100 / 100 Balance 80 / 80 100 / 100 -100 / -100 Weight 71.6 kg Consult Discharge Plan - Plan Referrals: Vivek Gaffney DO [Primary Care Provider] - - Attending Attestation I examined this patient and my medical decision-making was reviewed with the Resident Physician. I agree with the documented findings, disposition and treatment plan as described except to the extent set forth below. We independently had [id number] contact with the patient Patient seen and examined at bedside Labs, radiology, chart personally reviewed. Management was reviewed during multidisciplinary critical care rounds. NURSE ADVISOR: Remains encephalopathic suspected anoxic brain injury likely time of hypoglycemic event neurology following stable neuro exam today slightly improved if anything Pulm: Intubated for airway protection CPAP trial the day plan for liberation Cards: Chronic hypertension continue treatment FEN-GI: Nothing by mouth PPI prophylaxis given Renal: Worsening HUNG with mild rhabdo urine output remained stable start IV crysatlloid today repeat serum creatinine daily and monitor electrolytes/CPK ID: Treating for aspiration pneumonia with Unasyn leukocytosis resolving Heme/Onc: DVT prophylaxis given Endo: Glucose Monitored Integ/MSK: Skin Care per routine ICU Nursing Protocol to prevent ulcers. Lines: All lines examined without evidence of infection : Dispo: Remain in ICU CODE: Full Family updated at bedside. <Neetu Flores - Last Filed: 03/05/17 14:14> Date of Encounter: 03/05/17 Time of Encounter: 07:15 Assessment and Plan (1) Acute encephalopathy Current Visit: Yes Status: Acute - Found unresponsiveness at 8:30 am on 03/02/17 with seizure-like" activity at home as witnessed by patient's son. - Most likely secondary to metabolic disturbance including hypoglycemia and possible anoxia. - EEG is consistent with mild to moderate diffuse cerebral dysfunction that can be seen in patients with encephalopathy, metabolic/toxic, electrolyte derangement, or sedation. Asymmetric slowing with low amplitude on the left posterior region can be seen in structural abnormality. No electrographic seizure seen. - CT head and MRI brain is unremarkable. - Patient's mental status appears to continue improve as patient becomes more active. - Per neurology, low suspicion of NURSE ADVISOR infection, so lumbar puncture is only indicated at this time. Appreciate further neurology evaluation and recommendations. - Continue close monitoring. (2) Rhabdomyolysis Current Visit: Yes Status: Acute - CK 2369 today. - Likely related to seizure. - Aggressive hydration with LR 100 cc/hr to maintain good urine output. - Continue to monitor electrolytes, renal function and CK closely. Qualifiers: Rhabdomyolysis type: non-traumatic Qualified Code(s): M62.82 - Rhabdomyolysis (3) Acute respiratory failure Current Visit: Yes Status: Acute - Patient was intubated in ED for the concern of patient's ability to protect his airway. - Initial ABG pH 7.30, pCO2 48, pO2 444, HCO3 24 in ED. - ABG pH 7.37, pCO2 40, pO2 84, HCO3 23 today. - Still on ventilation support this morning but will attempt spontaneous breathing trial and possible extubation as patient's mental status and respiratory status improves and stabilizes. Qualifiers: Respiratory failure complication: unspecified whether with hypoxia or hypercapnia Qualified Code(s): J96.00 - Acute respiratory failure, unspecified whether with hypoxia or hypercapnia (4) Hypoglycemia Current Visit: Yes Status: Acute - Patient was note to have glucose as low as 68 in ED. - Likely contribute to patient's current encephalopathy, especially given reported resolution of "seizure-like" activity by glucose gel per patient's son. - Improves with glucose 241 this morning. - Continue close monitoring of glucose closely. - Glucose as needed for hypoglycemia. (5) HUNG (acute kidney injury) Current Visit: Yes Status: Acute - SCr 1.54 / eGFR 49 on admission compared to baseline SCr 1.06 / eGFR >60. - Likely pre-renal and related to rhabdomyolysis. - Stable with SCr 1.95 / eGFR 38 today. - Continue hydration with IV fluid. Will start LR 100 cc/hr to maintain good amount of urine output. - Avoid nephrotoxin. - Closely monitor renal function and electrolytes (6) Aspiration pneumonia Current Visit: Yes Status: Suspected - Thick mucus noted on suction. Leukocytosis also noted on admission. - Possible aspiration when patient was unresponsiveness earlier. Can be early phase of pneumonia which may not show on initial CXR. - Sputum culture no growth. - Improves as leukocytosis downtrends. - Continue IV Unasyn (since 03/02). Qualifiers: Aspiration pneumonia type: unspecified Laterality: unspecified laterality Lung location: unspecified part of lung Qualified Code(s): J69.0 - Pneumonitis due to inhalation of food and vomit (7) Diabetes mellitus type 1 Current Visit: Yes Status: Chronic - Was on insulin pump started since 02/28/17. - On low-corrective dose insulin. Continue to monitor glucose closely. Qualifiers: Diabetes mellitus complication status: with unspecified complications Qualified Code(s): E10.8 - Type 1 diabetes mellitus with unspecified complications (8) Hypertension Current Visit: Yes Status: Chronic - Given patient is NPO, will use regimen of alternating Lopressor and hydralazine q3H (Lopressor IV 5 mg q6H and hydralazine IV 10 mg q6H ordered) Qualifiers: Hypertension type: essential hypertension Qualified Code(s): I10 - Essential (primary) hypertension (9) Hyperlipemia Current Visit: No Status: Chronic - Hold Lipitor for now given current rhabdomyolysis. Qualifiers: Hyperlipidemia type: other hyperlipidemia Qualified Code(s): E78.4 - Other hyperlipidemia (10) DVT prophylaxis Current Visit: Yes Status: Acute - Continue SQ heparin. Subjective Principal diagnosis: unresponsiveness and seizure Interval history: Per nurse, patient was noted to move all extremities spontaneously and seemed to have response to verbal stimuli over night. Patient was seen and examined this morning. Patient does response in some degree as he looked toward the direction whoever called his name. But patient's movement still appears not purposeful. Objective PUL Vital signs: Last Vital Signs Temp 97.4 F L 03/05/17 04:51 Pulse 75 03/05/17 07:00 Resp 15 03/05/17 07:00 BP 139/77 03/05/17 07:00 Pulse Ox 98 03/05/17 07:00 General appearance: no acute distress, asleep Eyes: nonicteric ENT: other (Intubated) Neck: supple Effort: normal Auscultation: bilateral: clear Cardiovascular: regular rate and rhythm Gastrointestinal: normoactive bowel sounds, soft Integumentary: normal Extremities: no cyanosis, no edema Musculoskeletal: no deformities unable to assess due to mental status Ventilator Settings Ventilator Settings: Ventilator Settings, Last 8 Hours Ventilator Mode VC+ Ventilator Mode VC+ Ventilator Mode VC+ Ventilator Mode VC+ Ventilator Mode VC+ Ventilator Mode VC+ Ventilator Mode VC+ Ventilator Mode VC+ Ventilator Mode VC+ Ventilator Mode VC+ Ventilator Mode VC+ Ventilator Mode VC+ Ventilator Tidal Volume 500 Setting Ventilator Tidal Volume 500 Setting Ventilator Tidal Volume 500 Setting Ventilator Tidal Volume 500 Setting Ventilator Tidal Volume 500 Setting Ventilator Tidal Volume 500 Setting Ventilator Tidal Volume 500 Setting Ventilator Tidal Volume 500 Setting Ventilator Tidal Volume 500 Setting Ventilator Tidal Volume 500 Setting Ventilator Tidal Volume 500 Setting Ventilator Tidal Volume 500 Setting Ventilator Respiratory Rate 14 Setting Ventilator Respiratory Rate 14 Setting Ventilator Respiratory Rate 14 Setting Ventilator Respiratory Rate 14 Setting Ventilator Respiratory Rate 14 Setting Ventilator Respiratory Rate 14 Setting Ventilator Respiratory Rate 14 Setting Ventilator Respiratory Rate 16 Setting Ventilator Respiratory Rate 14 Setting Ventilator Respiratory Rate 16 Setting Ventilator Respiratory Rate 16 Setting Ventilator Respiratory Rate 16 Setting Actual Respiratory Rate 15 Actual Respiratory Rate 16 Actual Respiratory Rate 15 Actual Respiratory Rate 16 Actual Respiratory Rate 18 Actual Respiratory Rate 15 Actual Respiratory Rate 16 Actual Respiratory Rate 15 Actual Respiratory Rate 18 Actual Respiratory Rate 16 Actual Respiratory Rate 17 Positive End Expiratory 5 Pressure Positive End Expiratory 5 Pressure Positive End Expiratory 5 Pressure Positive End Expiratory 5 Pressure Positive End Expiratory 5 Pressure Positive End Expiratory 5 Pressure Positive End Expiratory 5 Pressure Positive End Expiratory 5 Pressure Positive End Expiratory 5 Pressure Positive End Expiratory 5 Pressure Positive End Expiratory 5 Pressure Positive End Expiratory 5 Pressure Peak Inspiratory Airway 18 Pressure Peak Inspiratory Airway 16 Pressure Peak Inspiratory Airway 16 Pressure Peak Inspiratory Airway 42 Pressure Peak Inspiratory Airway 16 Pressure Peak Inspiratory Airway 17 Pressure Peak Inspiratory Airway 17 Pressure Peak Inspiratory Airway 18 Pressure Peak Inspiratory Airway 20 Pressure Peak Inspiratory Airway 16 Pressure Peak Inspiratory Airway 15 Pressure Results - Laboratory Findings CBC and BMP: 03/05/17 04:31 03/05/17 04:31 ABG ABG pH 7.37 pH Units (7.32-7.45) 03/05/17 04:22 ABG pCO2 40 mmHg (35-45) 03/05/17 04:22 ABG pO2 84 mmHg (85-104) L 03/05/17 04:22 ABG O2 Saturation 96 % (95-98) 03/05/17 04:22 Abnormal lab findings: Abnormal lab results WBC 12.8 K/mcL (4.3-11.1) H 03/05/17 04:31 Hgb 10.3 g/dL (12.9-16.9) L D 03/05/17 04:31 Hct 33.0 % (37.5-50.1) L 03/05/17 04:31 MCV 78.2 fL (83.0-100.0) L 03/05/17 04:31 MCH 24.4 pg (28.0-33.3) L 03/05/17 04:31 MCHC 31.2 g/dL (31.6-35.5) L 03/05/17 04:31 RDW 15.2 % (11.5-14.5) H 03/05/17 04:31 Neutrophils # 9.2 K/mcL (1.6-8.9) H 03/05/17 04:31 Monocytes # 1.6 K/mcL (0.0-1.3) H 03/05/17 04:31 ABG pO2 84 mmHg (85-104) L 03/05/17 04:22 Sodium 146 mEq/L (136-145) H 03/05/17 04:31 Chloride 114 mEq/L (98-109) H 03/05/17 04:31 BUN 38 mg/dL (8-26) H 03/05/17 04:31 Creatinine 1.95 mg/dL (0.72-1.25) H 03/05/17 04:31 Est GFR ( Amer) 46 (> 60) L 03/05/17 04:31 Est GFR (Non-Af Amer) 38 (> 60) L 03/05/17 04:31 Glucose 161 mg/dL (70-99) H 03/05/17 04:31 POC Glucose 146 (58-89) H 03/05/17 05:28 Calculated Osmolality 315 (280-300) H 03/05/17 04:31 Globulin 3.9 g/dL (2.4-3.5) H 03/02/17 09:42 Albumin/Globulin Ratio 0.9 (1.1-2.2) L 03/02/17 09:42 Urine Protein 100 mg/dL (Neg-Trace) H 03/02/17 09:34 Urine Glucose (UA) 100 mg/dL (Normal) H 03/02/17 09:34 Urine Blood Moderate (Negative) H 03/02/17 09:34 Urine Microscopic RBC 5-15 per hpf (0-3) H 03/02/17 09:34 Ur Squamous Epith Cells Moderate per lpf (None-Few) H 03/02/17 09:34 U Marijuana (THC) Screen Positive ng/mL (Cutoff = 50) H 03/02/17 09:34 - Microbiology Findings Microbiology Findings: Microbiology, Last 48 Hours 03/04/17 00:12 Sputum Culture - Preliminary Sputum - Clinical Findings Intake & Output: Intake & Output 03/04/17 03/05/17 03/05/17 23:59 07:59 15:59 Intake Total 900 / 900 350 / 350 Output Total 820 / 820 250 / 250 Balance 80 / 80 100 / 100 Weight 71.6 kg
[2017-03-05] MEDS: amLODIPine 5 MG TABLET PO SCH (08:58)
[2017-03-05] MEDS: Pantoprazole 40 MG VIAL IVPB SCH (08:58)
[2017-03-05] MEDS: Aspirin Enteric Coated 81 MG Tablet PO SCH (08:58)
[2017-03-05] MEDS: Chlorhexidine Rinse 15 ML MOUTHWASH MM SCH ×2 (08:58→19:57)
[2017-03-05] MEDS: *HR* Metoprolol 5 MG/5 ML VIAL IVP SCH ×4 (11:44→23:16)
[2017-03-05] MEDS: Ringers Solution, Lactated 1,000 ML IVC SCH ×2 (11:45→21:37)
--- NOTE | 2017-03-05 17:37 | Neurology Progress Note ---
Date of Encounter: 03/04/17 Time of Encounter: 17:37 Assessment and Plan (1) Acute encephalopathy Current Visit: Yes Status: Acute He seem to be improving much awake than yesterday, moving all 4 extremities as mentioned he probably have suffered mild hypoxiacoming out of it and slowly showing signs of improvement continue to monitor in the ICU continue underlying medical management (2) Hypoglycemia Current Visit: Yes Status: Acute Subjective Principal diagnosis: unresponsiveness and seizure Interval history: Patient seen as an follow-up for unresponsiveness, He seems to be awake now during the daytime he started getting up he has been extubated this morning though he is more awake but he has not started talking he seems to smile at times and the family members but not following any commands he has only said a few words often on his moving all [address] of the head was unremarkable EEG is consistent with mild to moderate diffuse cerebral dysfunction, as seen in encephalopathy. MRI brain is unremarkable. - Objective - Constitutional Vitals: Temp Pulse Resp BP Pulse Ox 99.1 F 95 20 143/69 99 03/05/17 15:39 03/05/17 15:37 03/05/17 15:00 03/05/17 15:00 03/05/17 15:00 - Neurological Exam Sensorimotor examination: Present: other (Patient is more awake than yesterday his pupils are equal no facial asymmetry is moving all 4 extremities) Motor Examination: Present: other (On neurological examination patient is off sedation now, does not respond to any verbal stimuli or to the deep.. Pupils are sluggish but reactive corneals are positive. Minimally withdrawal to the deep pain otherwise no other abnormal posturing noted) Sensation intact: Present: other (Unable to assess due to coma) Mental Status Examination: Present: coma (eye closing briskly. ) Cranial nerve examination: Present: PERRL (3mm in sizes bilaterally, midline position. Reactive to light), EOMI (Unable to assess), visual bhandari intact ( Unable to assess), corneal reflexes brisk symmetrically, sensory to face intact , no facial asymmetry is present, no dysarthria (Unable to assess), hearing is intact symmetrically (Unable to assess) Results - Laboratory Findings CBC and BMP: 03/06/17 02:58 03/06/17 02:58 Abnormal lab findings: Abnormal lab results WBC 12.8 K/mcL (4.3-11.1) H 03/05/17 04:31 Hgb 10.3 g/dL (12.9-16.9) L D 03/05/17 04:31 Hct 33.0 % (37.5-50.1) L 03/05/17 04:31 MCV 78.2 fL (83.0-100.0) L 03/05/17 04:31 MCH 24.4 pg (28.0-33.3) L 03/05/17 04:31 MCHC 31.2 g/dL (31.6-35.5) L 03/05/17 04:31 RDW 15.2 % (11.5-14.5) H 03/05/17 04:31 Neutrophils # 9.2 K/mcL (1.6-8.9) H 03/05/17 04:31 Monocytes # 1.6 K/mcL (0.0-1.3) H 03/05/17 04:31 ABG pO2 84 mmHg (85-104) L 03/05/17 04:22 Sodium 146 mEq/L (136-145) H 03/05/17 04:31 Chloride 114 mEq/L (98-109) H 03/05/17 04:31 BUN 38 mg/dL (8-26) H 03/05/17 04:31 Creatinine 1.95 mg/dL (0.72-1.25) H 03/05/17 04:31 Est GFR ( Amer) 46 (> 60) L 03/05/17 04:31 Est GFR (Non-Af Amer) 38 (> 60) L 03/05/17 04:31 Glucose 161 mg/dL (70-99) H 03/05/17 04:31 POC Glucose 124 (58-89) H 03/05/17 10:52 Calculated Osmolality 315 (280-300) H 03/05/17 04:31 Creatine Kinase 2369 Units/L (30-200) H 03/05/17 10:27 Globulin 3.9 g/dL (2.4-3.5) H 03/02/17 09:42 Albumin/Globulin Ratio 0.9 (1.1-2.2) L 03/02/17 09:42 Urine Protein 100 mg/dL (Neg-Trace) H 03/02/17 09:34 Urine Glucose (UA) 100 mg/dL (Normal) H 03/02/17 09:34 Urine Blood Moderate (Negative) H 03/02/17 09:34 Urine Microscopic RBC 5-15 per hpf (0-3) H 03/02/17 09:34 Ur Squamous Epith Cells Moderate per lpf (None-Few) H 03/02/17 09:34 U Marijuana (THC) Screen Positive ng/mL (Cutoff = 50) H 03/02/17 09:34 Consult Discharge Plan - Plan Referrals: Vivek Gaffney DO [Primary Care Provider] -
[2017-03-06] MEDS: Lacri-Lube 3.5 GM TUBE BOTH EYES SCH ×3 (00:26→08:39)
[2017-03-06] MEDS: Ampicillin/Sulbactam 3,000 MG in 0.9 % Sodium Chloride 150 ML IVPB SCH ×4 (02:58→22:39)
[2017-03-06 03:07] LABS: Basophils # 0.1 K/mcL (0.0-0.2); Basophils % 0.7 %; Eosinophils % 0.3 %; Hematocrit 34.4 % (37.5-50.1); Hemoglobin 10.5 g/dL (12.9-16.9); Immature Granulocytes % 0.4 % (0-4); Lymphocytes % 13.6 %; Mean Corpuscular HGB Conc 30.5 g/dL (31.6-35.5); Mean Corpuscular Hemoglobin 23.8 pg (28.0-33.3); Mean Corpuscular Volume 77.8 fL (83.0-100.0); Mean Platelet Volume 9.3 fL (9.4-12.4); Monocytes # 1.8 K/mcL (0.0-1.3); Monocytes % 12.3 %; Neutrophils # 10.6 K/mcL (1.6-8.9); Platelet Count 266 K/mcL (140-400); Red Blood Count 4.42 M/mcL (4.19-5.50); Red Cell Distribution Width 15.2 % (11.5-14.5); Segmented Neutrophils % 72.7 %
[2017-03-06 03:23] LABS: Calcium 8.4 mg/dL (8.6-10.8); Magnesium 1.9 mg/dL (1.6-2.6); Phosphorous 4.1 mg/dL (2.3-4.7); Potassium 4.1 mEq/L (3.5-4.5)
[2017-03-06] MEDS ORDERED: 0.9 % Sodium Chloride 1,000 ML IVC SCH (05:30)
[2017-03-06] MEDS: *HR* Heparin 5,000 UNIT/ML VIAL SQ SCH ×2 (05:58→18:03)
[2017-03-06] MEDS: Insulin LISPRO 300 UNITS/3 ML VIAL SQ SCH ×3 (05:58→18:10)
[2017-03-06] MEDS: *HR* Metoprolol 5 MG/5 ML VIAL IVP SCH ×3 (06:02→18:03)
--- NOTE | 2017-03-06 07:37 | Pulmonology Progress Note ---
<Neetu Flores - Last Filed: 03/06/17 10:44> Date of Encounter: 03/06/17 Time of Encounter: 07:15 Assessment and Plan (1) Acute encephalopathy Current Visit: Yes Status: Acute - Found unresponsiveness at 8:30 am on 03/02/17 with seizure-like" activity at home as witnessed by patient's son. - Most likely secondary to metabolic disturbance including hypoglycemia and possible anoxia. - Seizure-like activities such as jerking/posturing and eye flipping were reported during patient's ICU stay. - EEG is consistent with mild to moderate diffuse cerebral dysfunction that can be seen in patients with encephalopathy, metabolic/toxic, electrolyte derangement, or sedation. Asymmetric slowing with low amplitude on the left posterior region can be seen in structural abnormality. No electrographic seizure seen. - CT head and MRI brain is unremarkable. - Per neurology, low suspicion of CAFETERIA COUNTER ATTENDANT infection, so lumbar puncture is only indicated at this time. Appreciate further neurology evaluation and recommendations. - Patient's mental status appears to continue improve as patient becomes more active with some degree of response to verbal stimuli. Given patient's respiratory status improves and remains hemodynamically stable, will transfer patient to medical floor for further monitoring and care. (2) HUNG (acute kidney injury) Current Visit: Yes Status: Acute - SCr 1.54 / eGFR 49 on admission compared to baseline SCr 1.06 / eGFR >60. - Likely pre-renal and related to rhabdomyolysis. - Stable with SCr 2.50 / eGFR 28 today. - Continue aggressive hydration with IV fluid for rhabdomyolysis. - Avoid nephrotoxin. - Closely monitor renal function and electrolytes (3) Rhabdomyolysis Current Visit: Yes Status: Acute - CK 2369 today. - Likely related to seizure. - Hold statin. - Continue aggressive hydration with IV fluid good urine output. - Continue to monitor electrolytes, renal function and CK closely. Qualifiers: Rhabdomyolysis type: non-traumatic Qualified Code(s): M62.82 - Rhabdomyolysis (4) Acute respiratory failure Current Visit: Yes Status: Resolved - Patient was intubated in ED for the concern of patient's ability to protect his airway. - Initial ABG pH 7.30, pCO2 48, pO2 444, HCO3 24 in ED. - Latest ABG pH 7.37, pCO2 40, pO2 84, HCO3 23 before patient was extubated on 03/05/17 - Resolved as patient is maintaining good oxygen saturation on room air. Qualifiers: Respiratory failure complication: unspecified whether with hypoxia or hypercapnia Qualified Code(s): J96.00 - Acute respiratory failure, unspecified whether with hypoxia or hypercapnia (5) Hypoglycemia Current Visit: Yes Status: Acute - Patient was note to have glucose as low as 68 in ED. - Likely contribute to patient's current encephalopathy, especially given reported resolution of "seizure-like" activity by glucose gel per patient's son. - Stable with glucose 253 this morning. - Continue close monitoring of glucose closely. - Glucose as needed for hypoglycemia. (6) Aspiration pneumonia Current Visit: Yes Status: Suspected - Thick mucus noted on suction. Leukocytosis also noted on admission. - Possible aspiration when patient was unresponsiveness earlier. Can be early phase of pneumonia which may not show on initial CXR. - Sputum culture no growth. - Continue IV Unasyn (since 03/02). Qualifiers: Aspiration pneumonia type: unspecified Laterality: unspecified laterality Lung location: unspecified part of lung Qualified Code(s): J69.0 - Pneumonitis due to inhalation of food and vomit (7) Diabetes mellitus type 1 Current Visit: Yes Status: Chronic - Was on insulin pump started since 02/28/17. - On low-corrective dose insulin. Continue to monitor glucose closely. - Patient will need follow-up with endocrinology after discharge regarding insulin regimen for glucose control. Qualifiers: Diabetes mellitus complication status: with unspecified complications Qualified Code(s): E10.8 - Type 1 diabetes mellitus with unspecified complications (8) Hypertension Current Visit: Yes Status: Chronic - Given patient is NPO, will use regimen of alternating Lopressor and hydralazine q3H (Lopressor IV 5 mg q6H and hydralazine IV 10 mg q6H ordered) - Will resume PO antihypertension regimen if patient becomes more oriented and can swallow without problem. Qualifiers: Hypertension type: essential hypertension Qualified Code(s): I10 - Essential (primary) hypertension (9) Hyperlipemia Current Visit: No Status: Chronic - Hold Lipitor for now given current rhabdomyolysis. Qualifiers: Hyperlipidemia type: other hyperlipidemia Qualified Code(s): E78.4 - Other hyperlipidemia (10) DVT prophylaxis Current Visit: Yes Status: Acute - Continue SQ heparin. Subjective Principal diagnosis: unresponsiveness and seizure Interval history: Patient attempted to climb out of bed so sitter was started. Patient was seen and examined this morning. Patient opens his eyes while call his name but does not answer my questions nor follow simple commands. Objective PUL Vital signs: Last Vital Signs Temp 98.2 F 03/06/17 05:26 Pulse 86 03/06/17 06:00 Resp 18 03/06/17 06:00 BP 165/84 03/06/17 06:00 Pulse Ox 100 03/06/17 03:00 General appearance: no acute distress, alert Eyes: nonicteric Neck: supple Effort: normal Auscultation: bilateral: clear Cardiovascular: regular rate and rhythm Gastrointestinal: normoactive bowel sounds Integumentary: normal Extremities: no cyanosis, no edema Musculoskeletal: no deformities unable to assess due to mental status Results - Laboratory Findings CBC and BMP: 03/06/17 02:58 03/06/17 02:58 ABG ABG pH 7.37 pH Units (7.32-7.45) 03/05/17 04:22 ABG pCO2 40 mmHg (35-45) 03/05/17 04:22 ABG pO2 84 mmHg (85-104) L 03/05/17 04:22 ABG O2 Saturation 96 % (95-98) 03/05/17 04:22 Abnormal lab findings: Abnormal lab results WBC 14.6 K/mcL (4.3-11.1) H 03/06/17 02:58 Hgb 10.5 g/dL (12.9-16.9) L 03/06/17 02:58 Hct 34.4 % (37.5-50.1) L 03/06/17 02:58 MCV 77.8 fL (83.0-100.0) L 03/06/17 02:58 MCH 23.8 pg (28.0-33.3) L 03/06/17 02:58 MCHC 30.5 g/dL (31.6-35.5) L 03/06/17 02:58 RDW 15.2 % (11.5-14.5) H 03/06/17 02:58 MPV 9.3 fL (9.4-12.4) L 03/06/17 02:58 Neutrophils # 10.6 K/mcL (1.6-8.9) H 03/06/17 02:58 Monocytes # 1.8 K/mcL (0.0-1.3) H 03/06/17 02:58 ABG pO2 84 mmHg (85-104) L 03/05/17 04:22 Sodium 151 mEq/L (136-145) H 03/06/17 02:58 Chloride 115 mEq/L (98-109) H 03/06/17 02:58 Carbon Dioxide 15 mEq/L (19-29) L 03/06/17 02:58 BUN 50 mg/dL (8-26) H D 03/06/17 02:58 Creatinine 2.50 mg/dL (0.72-1.25) H 03/06/17 02:58 Est GFR ( Amer) 34 (> 60) L 03/06/17 02:58 Est GFR (Non-Af Amer) 28 (> 60) L 03/06/17 02:58 Glucose 253 mg/dL (70-99) H 03/06/17 02:58 POC Glucose 233 (58-89) H 03/06/17 05:00 Calculated Osmolality 334 (280-300) H 03/06/17 02:58 Calcium 8.4 mg/dL (8.6-10.8) L 03/06/17 02:58 Creatine Kinase 2671 Units/L (30-200) H 03/06/17 02:58 Globulin 3.9 g/dL (2.4-3.5) H 03/02/17 09:42 Albumin/Globulin Ratio 0.9 (1.1-2.2) L 03/02/17 09:42 Urine Protein 100 mg/dL (Neg-Trace) H 03/02/17 09:34 Urine Glucose (UA) 100 mg/dL (Normal) H 03/02/17 09:34 Urine Blood Moderate (Negative) H 03/02/17 09:34 Urine Microscopic RBC 5-15 per hpf (0-3) H 03/02/17 09:34 Ur Squamous Epith Cells Moderate per lpf (None-Few) H 03/02/17 09:34 U Marijuana (THC) Screen Positive ng/mL (Cutoff = 50) H 03/02/17 09:34 - Microbiology Findings Microbiology Findings: Microbiology, Last 48 Hours 03/04/17 00:12 Sputum Culture - Final Sputum - Clinical Findings Intake & Output: Intake & Output 03/05/17 03/05/17 03/06/17 15:59 23:59 07:59 Intake Total 150 / 150 1300 / 1300 1030 / 1030 Output Total 450 / 450 400 / 400 100 / 100 Balance -300 / -300 900 / 900 930 / 930 Weight 70.7 kg Consult Discharge Plan - Plan Referrals: Vivek Gaffney DO [Primary Care Provider] - <Jeovanny Farah - Last Filed: 03/06/17 17:41> Date of Encounter: 03/06/17 Objective PUL Vital signs: Last Vital Signs Temp 97.9 F 03/06/17 16:00 Pulse 88 03/06/17 16:00 Resp 18 03/06/17 16:00 BP 157/82 03/06/17 16:00 Pulse Ox 100 03/06/17 16:00 Results - Laboratory Findings CBC and BMP: 03/06/17 02:58 03/06/17 02:58 ABG ABG pH 7.37 pH Units (7.32-7.45) 03/05/17 04:22 ABG pCO2 40 mmHg (35-45) 03/05/17 04:22 ABG pO2 84 mmHg (85-104) L 03/05/17 04:22 ABG O2 Saturation 96 % (95-98) 03/05/17 04:22 Abnormal lab findings: Abnormal lab results WBC 14.6 K/mcL (4.3-11.1) H 03/06/17 02:58 Hgb 10.5 g/dL (12.9-16.9) L 03/06/17 02:58 Hct 34.4 % (37.5-50.1) L 03/06/17 02:58 MCV 77.8 fL (83.0-100.0) L 03/06/17 02:58 MCH 23.8 pg (28.0-33.3) L 03/06/17 02:58 MCHC 30.5 g/dL (31.6-35.5) L 03/06/17 02:58 RDW 15.2 % (11.5-14.5) H 03/06/17 02:58 MPV 9.3 fL (9.4-12.4) L 03/06/17 02:58 Neutrophils # 10.6 K/mcL (1.6-8.9) H 03/06/17 02:58 Monocytes # 1.8 K/mcL (0.0-1.3) H 03/06/17 02:58 ABG pO2 84 mmHg (85-104) L 03/05/17 04:22 Sodium 151 mEq/L (136-145) H 03/06/17 02:58 Chloride 115 mEq/L (98-109) H 03/06/17 02:58 Carbon Dioxide 15 mEq/L (19-29) L 03/06/17 02:58 BUN 50 mg/dL (8-26) H D 03/06/17 02:58 Creatinine 2.50 mg/dL (0.72-1.25) H 03/06/17 02:58 Est GFR ( Amer) 34 (> 60) L 03/06/17 02:58 Est GFR (Non-Af Amer) 28 (> 60) L 03/06/17 02:58 Glucose 253 mg/dL (70-99) H 03/06/17 02:58 POC Glucose 286 (58-89) H 03/06/17 11:34 Calculated Osmolality 334 (280-300) H 03/06/17 02:58 Calcium 8.4 mg/dL (8.6-10.8) L 03/06/17 02:58 Creatine Kinase 2671 Units/L (30-200) H 03/06/17 02:58 Globulin 3.9 g/dL (2.4-3.5) H 03/02/17 09:42 Albumin/Globulin Ratio 0.9 (1.1-2.2) L 03/02/17 09:42 Urine Protein 100 mg/dL (Neg-Trace) H 03/02/17 09:34 Urine Glucose (UA) 100 mg/dL (Normal) H 03/02/17 09:34 Urine Blood Moderate (Negative) H 03/02/17 09:34 Urine Microscopic RBC 5-15 per hpf (0-3) H 03/02/17 09:34 Ur Squamous Epith Cells Moderate per lpf (None-Few) H 03/02/17 09:34 U Marijuana (THC) Screen Positive ng/mL (Cutoff = 50) H 03/02/17 09:34 - Microbiology Findings Microbiology Findings: Microbiology, Last 48 Hours 03/04/17 00:12 Sputum Culture - Final Sputum - Clinical Findings Intake & Output: Intake & Output 03/06/17 03/06/17 03/06/17 07:59 15:59 23:59 Intake Total 1030 / 1030 0 / 0 Output Total 100 / 100 100 / 100 Balance 930 / 930 -100 / -100 - Attending Attestation I examined this patient and my medical decision-making was reviewed with the Resident Physician. I agree with the documented findings, disposition and treatment plan as described except to the extent set forth below. Patient seen and examined. Labs, radiology, chart personally reviewed. Agree with resident's history and physical, assessment, plan with following comments: CAFETERIA COUNTER ATTENDANT: Patient has waxing and waning mental status, however he has been more coherent with the nurses. Pulmonary: Acceptable oxygenation and ventilation Cardiovascular: stable GI: Nutrition per dietary and GI prophylaxis per routine. Swallowing evaluation Heme: DVT prophylaxis per routine Renal; urine out put and renal funtion reviewed Endorcine: blood glucose is monitored. Continue monitoring blood glucose and insulin coverage Lines: all lines checked and no evidence of infections Skin: skin care to prevent pressure ulcers per nursing routine care Patient remained stable and can be transferred to the floor.
[2017-03-06] MEDS: Chlorhexidine Rinse 15 ML MOUTHWASH MM SCH (08:39)
[2017-03-06] MEDS: amLODIPine 5 MG TABLET PO SCH (08:41)
[2017-03-06] MEDS: Aspirin Enteric Coated 81 MG Tablet PO SCH (08:41)
[2017-03-06] MEDS: Pantoprazole 40 MG VIAL IVPB SCH (08:46)
[2017-03-06] MEDS ORDERED: D5% in Water 1,000 ML IVC PRN (11:15)
[2017-03-06] MEDS ORDERED: Naloxone 0.4 MG/ML INJ IVP PRN (11:15)
[2017-03-06] MEDS ORDERED: *HR* Dextrose 50 % in Water (Syg) 50 ML SYRINGE IVP PRN (11:15)
[2017-03-06] MEDS ORDERED: *HR* Midazolam HCl 2 MG/2 ML VIAL IVP PRN (11:15)
[2017-03-06] MEDS ORDERED: Dextrose Gel 15 GM PO PRN ×2 (11:15)
[2017-03-06] MEDS: 0.9 % Sodium Chloride 1,000 ML IVC SCH (13:15)
--- NOTE | 2017-03-06 14:08 | Neurology Progress Note ---
Date of Encounter: 03/06/17 Time of Encounter: 07:40 Assessment and Plan (1) Acute encephalopathy Current Visit: Yes Status: Acute Patient seems to be coming out of encephalopathy though he remains confused and not following any commands but he is more awake earlier and then today. Again no evidence of any acute stroke on MRI of the brain at the same time EEG did not show any convulsive activity Suspect that he may have mild hypoxia along with hypoglycemia slowly coming out of it continued to monitor him Continue on Dilantin deep level therapeutic Discussed with the family explained in detail (2) Hypoglycemia Current Visit: Yes Status: Acute Subjective Principal diagnosis: unresponsiveness and seizure Interval history: Patient is sedated now, earlier he was more awake and was pulling his IV out and was trying to get out of the bed, now sedated Last evening he was more awake and able to recognize the family but not talking not following any commands brain stem reflexes were positive He was seen earlier for unresponsiveness, he was seen by Dr. Burch earlier, apparently patient was followed at home unresponsive with seizure-like" activity witnessed by patient's son. He was brought into the emergency room was intubated and remained intubated without any sedation and remained unresponsive, patient has significant hypoglycemia the duration is unknown as according to the that when she left at home he was sleeping in the couch and then several hours later he was found to be seizing during the sleep. His CT of the head was unremarkable EEG is consistent with mild to moderate diffuse cerebral dysfunction, as seen in encephalopathy. MRI brain is unremarkable. - Objective - Constitutional Vitals: Temp Pulse Resp BP Pulse Ox 98 F 98 18 138/73 100 03/06/17 12:00 03/06/17 13:00 03/06/17 13:00 03/06/17 13:00 03/06/17 13:00 - Neurological Exam Sensorimotor examination: Present: other (Unable to assess due to sedation and unresponsiveness, he does seems to withdrawal to deep pain ) Motor Examination: Present: other (On neurological examination patient is off sedation now, does not respond to any verbal stimuli or to the deep.. Pupils are sluggish but reactive corneals are positive. Minimally withdrawal to the deep pain otherwise no other abnormal posturing noted) Sensation intact: Present: other (Unable to assess due to coma) Mental Status Examination: Present: coma (eye closing briskly. ) Cranial nerve examination: Present: PERRL (3mm in sizes bilaterally, midline position. Reactive to light), EOMI (Unable to assess), visual bhandari intact ( Unable to assess), corneal reflexes brisk symmetrically, sensory to face intact , no facial asymmetry is present, no dysarthria (Unable to assess), hearing is intact symmetrically (Unable to assess) Results - Laboratory Findings CBC and BMP: 03/06/17 02:58 03/06/17 02:58 Abnormal lab findings: Abnormal lab results WBC 14.6 K/mcL (4.3-11.1) H 03/06/17 02:58 Hgb 10.5 g/dL (12.9-16.9) L 03/06/17 02:58 Hct 34.4 % (37.5-50.1) L 03/06/17 02:58 MCV 77.8 fL (83.0-100.0) L 03/06/17 02:58 MCH 23.8 pg (28.0-33.3) L 03/06/17 02:58 MCHC 30.5 g/dL (31.6-35.5) L 03/06/17 02:58 RDW 15.2 % (11.5-14.5) H 03/06/17 02:58 MPV 9.3 fL (9.4-12.4) L 03/06/17 02:58 Neutrophils # 10.6 K/mcL (1.6-8.9) H 03/06/17 02:58 Monocytes # 1.8 K/mcL (0.0-1.3) H 03/06/17 02:58 ABG pO2 84 mmHg (85-104) L 03/05/17 04:22 Sodium 151 mEq/L (136-145) H 03/06/17 02:58 Chloride 115 mEq/L (98-109) H 03/06/17 02:58 Carbon Dioxide 15 mEq/L (19-29) L 03/06/17 02:58 BUN 50 mg/dL (8-26) H D 03/06/17 02:58 Creatinine 2.50 mg/dL (0.72-1.25) H 03/06/17 02:58 Est GFR ( Amer) 34 (> 60) L 03/06/17 02:58 Est GFR (Non-Af Amer) 28 (> 60) L 03/06/17 02:58 Glucose 253 mg/dL (70-99) H 03/06/17 02:58 POC Glucose 286 (58-89) H 03/06/17 11:34 Calculated Osmolality 334 (280-300) H 03/06/17 02:58 Calcium 8.4 mg/dL (8.6-10.8) L 03/06/17 02:58 Creatine Kinase 2671 Units/L (30-200) H 03/06/17 02:58 Globulin 3.9 g/dL (2.4-3.5) H 03/02/17 09:42 Albumin/Globulin Ratio 0.9 (1.1-2.2) L 03/02/17 09:42 Urine Protein 100 mg/dL (Neg-Trace) H 03/02/17 09:34 Urine Glucose (UA) 100 mg/dL (Normal) H 03/02/17 09:34 Urine Blood Moderate (Negative) H 03/02/17 09:34 Urine Microscopic RBC 5-15 per hpf (0-3) H 03/02/17 09:34 Ur Squamous Epith Cells Moderate per lpf (None-Few) H 03/02/17 09:34 U Marijuana (THC) Screen Positive ng/mL (Cutoff = 50) H 03/02/17 09:34 Consult Discharge Plan - Plan Referrals: Vivek Gaffney DO [Primary Care Provider] -
[2017-03-07] MEDS: Insulin LISPRO 300 UNITS/3 ML VIAL SQ SCH ×2 (00:15→05:35)
[2017-03-07] MEDS: *HR* Metoprolol 5 MG/5 ML VIAL IVP SCH ×4 (00:29→18:04)
[2017-03-07] MEDS: 0.9 % Sodium Chloride 1,000 ML IVC SCH ×5 (02:00→20:13)
[2017-03-07] MEDS: Ampicillin/Sulbactam 3,000 MG in 0.9 % Sodium Chloride 150 ML IVPB SCH (04:35)
[2017-03-07 05:12] LABS: Basophils # 0.2 K/mcL (0.0-0.2); Eosinophils # 0.1 K/mcL (0.0-0.6); Eosinophils % 0.7 %; Hematocrit 35.2 % (37.5-50.1); Immature Granulocytes % 1.8 % (0-4); Lymphocytes # 1.8 K/mcL (0.6-4.6); Lymphocytes % 11.8 %; Mean Corpuscular HGB Conc 31.3 g/dL (31.6-35.5); Mean Corpuscular Volume 76.7 fL (83.0-100.0); Mean Platelet Volume 10.6 fL (9.4-12.4); Monocytes # 1.5 K/mcL (0.0-1.3); Monocytes % 9.9 %; Neutrophils # 11.5 K/mcL (1.6-8.9); Platelet Count 282 K/mcL (140-400); Red Blood Count 4.59 M/mcL (4.19-5.50); Red Cell Distribution Width 15.7 % (11.5-14.5); Segmented Neutrophils % 74.8 %
[2017-03-07 05:30] LABS: Calcium 8.7 mg/dL (8.6-10.8); Magnesium 2.3 mg/dL (1.6-2.6); Phosphorous 4.8 mg/dL (2.3-4.7); Potassium 4.4 mEq/L (3.5-4.5)
[2017-03-07] MEDS: *HR* Heparin 5,000 UNIT/ML VIAL SQ SCH ×2 (05:30→18:04)
[2017-03-07] MEDS ORDERED: 0.9 % Sodium Chloride 1,000 ML IVC ONE (07:40)
--- NOTE | 2017-03-07 07:43 | Internal Med Progress Note ---
Date of Encounter: 03/07/17 Time of Encounter: 09:00 - Assessment and plan (1) Hypernatremia Current Visit: Yes Status: Acute Assessment and plan: Patient's sodium is slowly increasing. Today sodium is 154. Patient also has HUNG with creatinine increasing to 4 from 1. Give patient 1 L some saline bolus. Start patient on clear liquid diet, and give free water 250 mL every 4 hours. Start patient on D5 water 100 mL per hour. Monitor chemistry closely. Repeat chemistry today p.m. (2) Hypoglycemia Current Visit: Yes Status: Resolved Assessment and plan: To be hypoglycemic at home. Hypoglycemia has resolved. Continue to monitor fingersticks Continue sliding scale insulin. (3) Acute encephalopathy Current Visit: Yes Status: Acute Assessment and plan: Physical acute encephalopathic is multifactorial. The patient was hypoxic, hypoglycemic, with acute kidney injury upon presentation. Seizure-like activities such as jerking/posturing and eye flipping were reported during patient's ICU stay. EEG is consistent with mild to moderate diffuse cerebral dysfunction that can be seen in patients with encephalopathy, metabolic/toxic, electrolyte derangement, or sedation. Asymmetric slowing with low amplitude on the left posterior region can be seen in structural abnormality. No electrographic seizure seen. CT head and MRI brain is unremarkable. Per neurology, low suspicion of TANK WORKER infection, so lumbar puncture is only indicated at this time. Appreciate further neurology evaluation and recommendations., repeat MRI and EEG scheduled for today 03/07 Patient's mental status appears to continue improve as patient becomes more active with some degree of response to verbal stimuli. (4) Diabetes mellitus type 1 Current Visit: Yes Status: Chronic Assessment and plan: Continue sliding scale insulin. Patient is a type I diabetic, resume Levemir, give regular insulin 10 units, and continue sliding scale insulin. Monitor fingersticks before meals at bedtime. Qualifiers: Diabetes mellitus complication status: with unspecified complications Qualified Code(s): E10.8 - Type 1 diabetes mellitus with unspecified complications (5) HUNG (acute kidney injury) Current Visit: Yes Status: Acute Assessment and plan: Worsening SCr 1.54 / eGFR 49 on admission compared to baseline SCr 1.06 / eGFR >60. Likely pre-renal and related to rhabdomyolysis. Continue aggressive hydration with IV saline Closely monitor renal function and electrolytes Strict I/O GIve 1 L bolus today, continue maintenance at 100 cc/hr Monitor chem. (6) DVT prophylaxis Current Visit: Yes Status: Acute Assessment and plan: Heparin SQ (7) Aspiration pneumonia Current Visit: Yes Status: Suspected Assessment and plan: Continue Unasyn Patient has no O2 requirement Qualifiers: Aspiration pneumonia type: unspecified Laterality: unspecified laterality Lung location: unspecified part of lung Qualified Code(s): J69.0 - Pneumonitis due to inhalation of food and vomit (8) Acute respiratory failure Current Visit: Yes Status: Resolved Assessment and plan: Patient was intubated in ED for the concern of patient's ability to protect his airway. patient was extubated on 03/05/17 Resolved as patient is maintaining good oxygen saturation on room air. Qualifiers: Respiratory failure complication: unspecified whether with hypoxia or hypercapnia Qualified Code(s): J96.00 - Acute respiratory failure, unspecified whether with hypoxia or hypercapnia (9) Hypertension Current Visit: Yes Status: Chronic Assessment and plan: Continue amlodipine Qualifiers: Hypertension type: essential hypertension Qualified Code(s): I10 - Essential (primary) hypertension (10) Rhabdomyolysis Current Visit: Yes Status: Acute Assessment and plan: CK elevated Possibly due to seizure activity Down-trending, continue to monitor Qualifiers: Rhabdomyolysis type: non-traumatic Qualified Code(s): M62.82 - Rhabdomyolysis - Subjective Interval history: Patient is seen and evaluated at the bedside with his partner. 46-year-old male with past medical history of type 1 diabetes mellitus, hypertension, tobacco and marijuana abuse. Patient is admitted as a transfer from the intensive care unit, for management of acute hypoxic respiratory failure secondary to aspiration pneumonia, acute encephalopathy, and rapid myelolysis. Patient has hypernatremia and HUNG as well. Patient remains mute, follows commands, but is unable to make any conversations. Review of system is not obtained due to patient being mute. - Constitutional Vitals: Temp Pulse Resp BP Pulse Ox 97.8 F 98 18 147/52 100 03/07/17 04:15 03/07/17 04:15 03/07/17 04:15 03/07/17 04:15 03/07/17 04:15 General appearance: Present: A&O X 0 (Unable to assess patient's orientation, patient is mute.) - Head Head exam: Present: atraumatic, normocephalic - Eye Eye exam: Present: PERRL, conjuntiva pink, sclera anicteric Pupils: Present: PERRL - Neck Neck exam general surgery: Present: supple, trachea midline. Absent: lymphadenopathy - Respiratory Respiratory exam: Present: CTAB. Absent: accessory muscle use, rales, rhonchi, wheezes - Cardiovascular Cardiovascular exam: Present: RRR, +S1, +S2. Absent: diastolic murmur, gallop, rubs, systolic murmur - GI/Abdominal GI/Abdominal exam: Present: normal bowel sounds, soft, no peritoneal signs. Absent: distended, tenderness - Extremities Exam Extremities exam: Present: warm, radial pulses palpable and symmetrical. Absent : calf tenderness, cyanotic, pedal edema - Neurological Exam Neurological exam: Present: alert, CN II-XII intact, oriented X3, no focal deficits. Absent: pronater drift, facial droop, speech deficit - Skin Skin exam: Present: dry, intact Internal Medicine: Result - Labs CBC & Chem 7: 03/07/17 04:12 03/07/17 12:07 Labs: Short CBC 03/07/17 Range/Units 04:12 WBC 15.4 H (4.3-11.1) K/mcL Hgb 11.0 L (12.9-16.9) g/dL Hct 35.2 L (37.5-50.1) % Plt Count 282 (140-400) K/mcL Neutrophils # 11.5 H (1.6-8.9) K/mcL BMP 03/07/17 04:12 Sodium 154 H Potassium 4.4 Chloride 119 H Carbon Dioxide 14 L BUN 63 H D Creatinine 4.57 H D Glucose 317 H Calcium 8.7 - ABG Interpretation ABG results: ABG ABG pH 7.37 pH Units (7.32-7.45) 03/05/17 04:22 ABG pCO2 40 mmHg (35-45) 03/05/17 04:22 ABG pO2 84 mmHg (85-104) L 03/05/17 04:22 ABG O2 Saturation 96 % (95-98) 03/05/17 04:22 - Impressions Impressions Chest X-Ray 03/03/17 08:44 IMPRESSION: Support tubes are in position. No acute cardiopulmonary process. D/ / 03/03/2017 10:06:47 Jana Inman MD / [email or web address] Interpreting Provider: Jana Inman MD Consult Discharge Plan - Plan Referrals: Vivek Gaffney DO [Primary Care Provider] -
[2017-03-07] MEDS ORDERED: D5% in Water 1,000 ML IVC SCH (07:45)
[2017-03-07] MEDS: Aspirin Enteric Coated 81 MG Tablet PO SCH (09:47)
[2017-03-07] MEDS: Pantoprazole 40 MG VIAL IVP SCH (09:47)
[2017-03-07] MEDS: amLODIPine 5 MG TABLET PO SCH (09:48)
[2017-03-07] MEDS: Ampicillin/Sulbactam 3,000 MG in 0.9 % Sodium Chloride Mini Bag 100 ML IVPB SCH ×2 (10:15→23:42)
--- NOTE | 2017-03-07 10:26 | Neurology Progress Note ---
Date of Encounter: 03/07/17 Time of Encounter: 07:45 Assessment and Plan (1) Acute encephalopathy Current Visit: Yes Status: Acute The patient has regained consciousness and is awake now but still he is not able to following multiple commands and at the same time he has not been talking at all though he is awake but is still not responding he does seem to have brainstem reflexes positive and also responding to the visual types but not able to speak at all. Earlier MRI of the brain was negative as well as EEG that did not show any seizure activity that did show generalized encephalopathy I would like to repeat his MRI of the brain and particularly to look for any infarct in the naming area or for any other hypoxic changes that may have caused by his prolonged hypoglycemic episode. At the same time we will repeat an EEG and particularly to look for any interictal abnormalities to exclude the possibility of any nonconvulsive seizures In the meantime we will continue him in on his current medication (2) Hypoglycemia Current Visit: Yes Status: Resolved Subjective Principal diagnosis: unresponsiveness and seizure Interval history: Patient seen as an follow-up for unresponsiveness, now he has been transferred to the floor. He remained confused though he is awake but not following any commands at the same time he is not speaking though at times it does seem like that he has been following some simple commands but overall he remains confused. CT of the head was unremarkable EEG is consistent with mild to moderate diffuse cerebral dysfunction, as seen in encephalopathy. MRI brain is unremarkable. - Objective - Constitutional Vitals: Temp Pulse Resp BP Pulse Ox 98.2 F 89 22 161/78 100 03/07/17 07:42 03/07/17 07:42 03/07/17 07:42 03/07/17 07:42 03/07/17 07:42 - Neurological Exam Sensorimotor examination: Present: intact, other (Patient is more awake than yesterday his pupils are equal no facial asymmetry is moving all 4 extremities) Motor Examination: Present: other (Patient is more awake now he opened eyes but not following any commands he does seems to respond to the visual contact his pupils are equal and reactive myofascial asymmetry. Motor examination he is moving all 4 extremities spontaneously and normal tone no evidence of any focal motor deficit.) Sensation intact: Present: other (Unable to assess due to coma) Mental Status Examination: Present: coma (eye closing briskly. ) Cranial nerve examination: Present: PERRL (3mm in sizes bilaterally, midline position. Reactive to light), EOMI (Unable to assess), visual bhandari intact ( Unable to assess), corneal reflexes brisk symmetrically, sensory to face intact , no facial asymmetry is present, no dysarthria (Unable to assess), hearing is intact symmetrically (Unable to assess) Results - Laboratory Findings CBC and BMP: 03/07/17 04:12 03/07/17 04:12 Abnormal lab findings: Abnormal lab results WBC 15.4 K/mcL (4.3-11.1) H 03/07/17 04:12 Hgb 11.0 g/dL (12.9-16.9) L 03/07/17 04:12 Hct 35.2 % (37.5-50.1) L 03/07/17 04:12 MCV 76.7 fL (83.0-100.0) L 03/07/17 04:12 MCH 24.0 pg (28.0-33.3) L 03/07/17 04:12 MCHC 31.3 g/dL (31.6-35.5) L 03/07/17 04:12 RDW 15.7 % (11.5-14.5) H 03/07/17 04:12 Neutrophils # 11.5 K/mcL (1.6-8.9) H 03/07/17 04:12 Monocytes # 1.5 K/mcL (0.0-1.3) H 03/07/17 04:12 ABG pO2 84 mmHg (85-104) L 03/05/17 04:22 Sodium 154 mEq/L (136-145) H 03/07/17 04:12 Chloride 119 mEq/L (98-109) H 03/07/17 04:12 Carbon Dioxide 14 mEq/L (19-29) L 03/07/17 04:12 BUN 63 mg/dL (8-26) H D 03/07/17 04:12 Creatinine 4.57 mg/dL (0.72-1.25) H D 03/07/17 04:12 Est GFR ( Amer) 17 (> 60) L 03/07/17 04:12 Est GFR (Non-Af Amer) 14 (> 60) L 03/07/17 04:12 Glucose 317 mg/dL (70-99) H 03/07/17 04:12 POC Glucose 269 (58-89) H 03/06/17 18:09 Calculated Osmolality 348 (280-300) H 03/07/17 04:12 Phosphorus 4.8 mg/dL (2.3-4.7) H 03/07/17 04:12 Creatine Kinase 1514 Units/L (30-200) H 03/07/17 04:12 Globulin 3.9 g/dL (2.4-3.5) H 03/02/17 09:42 Albumin/Globulin Ratio 0.9 (1.1-2.2) L 03/02/17 09:42 Urine Protein 100 mg/dL (Neg-Trace) H 03/02/17 09:34 Urine Glucose (UA) 100 mg/dL (Normal) H 03/02/17 09:34 Urine Blood Moderate (Negative) H 03/02/17 09:34 Urine Microscopic RBC 5-15 per hpf (0-3) H 03/02/17 09:34 Ur Squamous Epith Cells Moderate per lpf (None-Few) H 03/02/17 09:34 U Marijuana (THC) Screen Positive ng/mL (Cutoff = 50) H 03/02/17 09:34 Consult Discharge Plan - Plan Referrals: Vivek Gaffney DO [Primary Care Provider] -
[2017-03-07 12:42] LABS: Calcium 8.2 mg/dL (8.6-10.8); Potassium 4.5 mEq/L (3.5-4.5)
[2017-03-07] MEDS ORDERED: Insulin Human Regular 10 UNIT in 0.9 % Sodium Chloride 10 ML IV ONE (13:01)
[2017-03-07 13:05] LABS: Phenytoin (Dilantin) 13.5 mcg/mL (10-20); Thyroid Stimulating Hormone 0.093 mcIU/mL (0.350-4.840)
[2017-03-07 13:17] LABS: Folate 4.3 ng/mL (7.0-31.4)
[2017-03-07] MEDS ORDERED: Insulin DETEMIR 100 UNIT/ML X5UNITS SQ SCH (13:30)
--- NOTE | 2017-03-07 14:47 | EEG/EMG/Oth Biometrics Report ---
EEG Procedure Report Date of procedure: 03/07/17 EEG Procedure: Routine EEG Procedure Note: Patient with mental status changes and was unresponsive now awake but is still not having any conversation Technical Description: EEG was acquired with standard international 10-20 electrode placement system with EKG recording. The background activity during this EEG was replaced by a diffuse slowing more prominent to the left side posteriorly. On the right side, intermittent theta and alpha activity, noted, with best frequency up to 9-10 Hz. The left side however, was persistently slow with low amplitude. The background activity was reactive. Sleep stages were not identified. There are no electrographic seizures identified during this tracing. There are no epileptiform discharges identified. Photic stimulation produced no abnormalities. HV not performed during this study. Impression: This is an abnormal EEG due to presence of MILD diffuse background slow, left more than right, posteriorly, with low amplitude to the left side. Clinical Correlation: This EEG is consistent with mild cerebral dysfunction that can be seen in patients with encephalopathy. Asymmetric slowing with low amplitude on the left posterior region can be seen in structural abnormality. Please correlate with imaging study. No electrographic seizure seen. seem to be improved as compare to previous study
[2017-03-07 16:11] LABS: Beta-Hydroxybutyric Acid > 2.00 mmol/L (0.02-0.27)
[2017-03-07 16:40] LABS: BUN/Creatinine Ratio 13 (6-26); Blood Urea Nitrogen 67 mg/dL (8-26); Calcium 7.8 mg/dL (8.6-10.8); Chloride 116 mEq/L (98-109); Osmolality,Calculated 352 (280-300); Potassium 4.3 mEq/L (3.5-4.5); Sodium 149 mEq/L (136-145); eGFR For African Americans 15 (> 60); eGFR For Non-African Americans 12 (> 60)
[2017-03-07 16:53] LABS: Carbon Dioxide 5 mEq/L (19-29); Glucose 550 mg/dL (70-99)
[2017-03-07] MEDS ORDERED: Insulin LISPRO 300 UNITS/3 ML VIAL SQ ONE (17:51)
[2017-03-07] MEDS ORDERED: Insulin Regular, Human 100 UNIT/ML IV PRN (18:01)
[2017-03-07] MEDS ORDERED: *HR* Dextrose 50 % in Water (Syg) 50 ML SYRINGE IVP PRN ×2 (18:01→18:04)
[2017-03-07] MEDS ORDERED: D5% in 0.45% NACL 1,000 ML IVC PRN (18:01)
--- NOTE | 2017-03-07 18:10 | Event Note ---
Date of Encounter: 03/07/17 Time of Encounter: 18:09 Patient continues to have metabolic acidosis , BOH and hyperglycemia We will initiate Insulin drip and DKA protocol, transfer the patient to 2N VBG ordered with next Chem 7 STAT q4h.
[2017-03-07] MEDS ORDERED: Insulin Human Regular 100 UNIT in 0.9 % Sodium Chloride 100 ML IVC SCH (18:15)
[2017-03-07] MEDS ORDERED: 0.45 % Sodium Chloride w/KCl 20 MEQ/1,000 ML MLS IVC SCH (18:15)
[2017-03-07] MEDS ORDERED: 0.9 % Sodium Chloride 1,000 ML ONE (18:16)
[2017-03-07 20:09] LABS: VBG HCO3 14 mEq/L (21-27); VBG PCO2 26 mmHg (41-51); VBG PH 7.32 pH Units (7.32-7.42); VBG PO2 142 mmHg (25-50)
[2017-03-07 20:18] LABS: Calcium 7.6 mg/dL (8.6-10.8); Potassium 4.4 mEq/L (3.5-4.5)
[2017-03-07] MEDS ORDERED: 0.9 % Sodium Chloride w KCl 20 MEQ/1,000 ML MLS IVC ONE (20:43)
[2017-03-07] MEDS: Insulin Human Regular 100 UNIT in 0.9 % Sodium Chloride 100 ML IVC SCH ×2 (21:16→22:44)
[2017-03-08] MEDS: *HR* Metoprolol 5 MG/5 ML VIAL IVP SCH ×2 (00:44→06:13)
[2017-03-08] MEDS ORDERED: 0.9 % Sodium Chloride w KCl 20 MEQ/1,000 ML MLS IVC ONE (00:45)
[2017-03-08] MEDS: Insulin Human Regular 100 UNIT in 0.9 % Sodium Chloride 100 ML IVC SCH ×3 (01:07→10:23)
[2017-03-08 01:48] LABS: Basophils # 0.1 K/mcL (0.0-0.2); Basophils % 0.8 %; Eosinophils # 0.2 K/mcL (0.0-0.6); Eosinophils % 1.7 %; Hematocrit 31.6 % (37.5-50.1); Immature Granulocytes % 1.9 % (0-4); Lymphocytes # 1.9 K/mcL (0.6-4.6); Lymphocytes % 16.1 %; Mean Corpuscular HGB Conc 31.6 g/dL (31.6-35.5); Mean Corpuscular Volume 75.8 fL (83.0-100.0); Mean Platelet Volume 9.1 fL (9.4-12.4); Monocytes # 0.9 K/mcL (0.0-1.3); Monocytes % 7.3 %; Neutrophils # 8.6 K/mcL (1.6-8.9); Platelet Count 235 K/mcL (140-400); Red Blood Count 4.17 M/mcL (4.19-5.50); Red Cell Distribution Width 15.5 % (11.5-14.5); Segmented Neutrophils % 72.2 %
[2017-03-08 01:52] LABS: VBG HCO3 19 mEq/L (21-27); VBG PCO2 34 mmHg (41-51); VBG PH 7.36 pH Units (7.32-7.42); VBG PO2 216 mmHg (25-50)
[2017-03-08 02:01] LABS: Calcium 7.4 mg/dL (8.6-10.8); Potassium 3.4 mEq/L (3.5-4.5)
[2017-03-08] MEDS ORDERED: D5% in 0.45% NACL w KCl 20 MEQ/1,000 ML MLS IVC ONE ×2 (02:03→06:08)
[2017-03-08] MEDS: *HR* Heparin 5,000 UNIT/ML VIAL SQ SCH ×2 (06:10→18:29)
[2017-03-08 06:33] LABS: Calcium 7.7 mg/dL (8.6-10.8); Potassium 3.3 mEq/L (3.5-4.5)
[2017-03-08] MEDS ORDERED: Ringers Solution, Lactated 1,000 ML IVC ONE (07:51)
[2017-03-08] MEDS: Pantoprazole 40 MG VIAL IVP SCH (08:08)
[2017-03-08] MEDS: amLODIPine 5 MG TABLET PO SCH (08:08)
[2017-03-08] MEDS: Aspirin Enteric Coated 81 MG Tablet PO SCH (08:09)
--- NOTE | 2017-03-08 08:52 | Internal Med Progress Note ---
Date of Encounter: 03/08/17 Time of Encounter: 08:48 - Assessment and plan (1) Hypernatremia Current Visit: Yes Status: Acute Assessment and plan: Slowl improving Continue free water and D5W (2) Hypoglycemia Current Visit: Yes Status: Resolved Assessment and plan: To be hypoglycemic at home. Hypoglycemia has resolved. Continue to monitor fingersticks Continue sliding scale insulin. (3) Acute encephalopathy Current Visit: Yes Status: Acute Assessment and plan: Physical acute encephalopathic is multifactorial. The patient was hypoxic, hypoglycemic, with acute kidney injury upon presentation. Seizure-like activities such as jerking/posturing and eye flipping were reported during patient's ICU stay. EEG is consistent with mild to moderate diffuse cerebral dysfunction that can be seen in patients with encephalopathy, metabolic/toxic, electrolyte derangement, or sedation. Asymmetric slowing with low amplitude on the left posterior region can be seen in structural abnormality. No electrographic seizure seen. CT head and MRI brain is unremarkable. Per neurology, low suspicion of [employer] infection, so lumbar puncture is not indicated at this time. Repeat MRI /EEG 03/07 unchanged from prior Patient is still mute and aphasic, but follows commands (4) Diabetes mellitus type 1 Current Visit: Yes Status: Chronic Assessment and plan: Type I DM, complicated by hyperglycemia and acidosis 03/07, with elevated BOH VBG PH was normal Initiated DKA protocol with insulin drip, chem is improving Bridge with levemir today Continue D5, and Start ADA diet Lispro TIDWM, adjust prn Check A1C Qualifiers: Diabetes mellitus complication status: with hyperglycemia Qualified Code(s) : E10.65 - Type 1 diabetes mellitus with hyperglycemia (5) HUNG (acute kidney injury) Current Visit: Yes Status: Acute Assessment and plan: Worsening SCr 1.54 / eGFR 49 on admission compared to baseline SCr 1.06 / eGFR >60. Likely pre-renal and related to rhabdomyolysis. Continue aggressive hydration with IV fluids, additional bolus today Obtain UA Obtain renal USS Closely monitor renal function and electrolytes Strict I/O GIve 1 L bolus today, continue maintenance at 100 cc/hr Monitor chem. Consulted renal today for recommendations (6) DVT prophylaxis Current Visit: Yes Status: Acute Assessment and plan: Heparin SQ (7) Aspiration pneumonia Current Visit: Yes Status: Suspected Assessment and plan: D/C Unasyn Patient has no O2 requirement Qualifiers: Aspiration pneumonia type: unspecified Laterality: unspecified laterality Lung location: unspecified part of lung Qualified Code(s): J69.0 - Pneumonitis due to inhalation of food and vomit (8) Acute respiratory failure Current Visit: Yes Status: Resolved Assessment and plan: Patient was intubated in ED for the concern of patient's ability to protect his airway. patient was extubated on 03/05/17 Resolved as patient is maintaining good oxygen saturation on room air. Qualifiers: Respiratory failure complication: unspecified whether with hypoxia or hypercapnia Qualified Code(s): J96.00 - Acute respiratory failure, unspecified whether with hypoxia or hypercapnia (9) Hypertension Current Visit: Yes Status: Chronic Assessment and plan: Continue amlodipine Change metoprolol to po, 25mg BID Qualifiers: Hypertension type: essential hypertension Qualified Code(s): I10 - Essential (primary) hypertension (10) Rhabdomyolysis Current Visit: Yes Status: Acute Assessment and plan: CK elevated on admission and downtrending Possibly due to seizure activity, vs drug abuse Down-trending, continue to monitor Qualifiers: Rhabdomyolysis type: non-traumatic Qualified Code(s): M62.82 - Rhabdomyolysis - Subjective Interval history: Patient is seen and evaluated at the bedside 46-year-old male with past medical history of type 1 diabetes mellitus, hypertension, tobacco and marijuana abuse. Patient is admitted as a transfer from the intensive care unit, for management of acute hypoxic respiratory failure secondary to aspiration pneumonia, acute encephalopathy, and rhabdomyolysis Patient has hypernatremia and HUNG as well. Patient remains mute, follows commands, but is unable to make any conversations. Review of system is not obtained due to patient being mute. Patient developed HYperglycemia with acidosis last night, PH was normal, his chem this morning showed worsening Cr , but acidosis and hyperglycemia has improved He is tolerating po CK is improving We will continue aggressive fluid hydration as he is making urine We will obtain renal USS and UA, and consult nephrology Regarding his enecephalopathy, his repeat MRI of the brain and EEG 03/07 was unchanged from prior reports Patient is toerating orally and I will advance his diet this morning - Constitutional Vitals: Temp Pulse Resp BP Pulse Ox 97.8 F 82 19 154/75 98 03/08/17 07:01 03/08/17 07:01 03/08/17 07:01 03/08/17 07:01 03/08/17 07:01 General appearance: Present: A&O X 0 (Unable to assess patient's orientation, patient is mute.), pleasant, no acute distress Exam: Follows commands - Head Head exam: Present: atraumatic, normocephalic - Eye Eye exam: Present: PERRL, conjuntiva pink, sclera anicteric Pupils: Present: PERRL - Neck Neck exam general surgery: Present: supple, trachea midline. Absent: lymphadenopathy - Respiratory Respiratory exam: Present: CTAB. Absent: accessory muscle use, rales, rhonchi, wheezes - Cardiovascular Cardiovascular exam: Present: RRR, +S1, +S2. Absent: diastolic murmur, gallop, rubs, systolic murmur - GI/Abdominal GI/Abdominal exam: Present: normal bowel sounds, soft, no peritoneal signs. Absent: distended, tenderness - Extremities Exam Extremities exam: Present: warm, radial pulses palpable and symmetrical. Absent : calf tenderness, cyanotic, pedal edema - Neurological Exam Neurological exam: Present: alert, CN II-XII intact, no focal deficits. Absent : oriented X3, pronater drift, facial droop, speech deficit - Skin Skin exam: Present: dry, intact Internal Medicine: Result - Labs CBC & Chem 7: 03/08/17 01:38 03/08/17 05:18 Labs: Short CBC 03/08/17 Range/Units 01:38 WBC 11.9 H (4.3-11.1) K/mcL Hgb 10.0 L (12.9-16.9) g/dL Hct 31.6 L (37.5-50.1) % Plt Count 235 (140-400) K/mcL Neutrophils # 8.6 (1.6-8.9) K/mcL BMP 03/07/17 03/07/17 03/07/17 12:07 15:53 19:55 Sodium 153 H 149 H 146 H Potassium 4.5 4.3 4.4 Chloride 118 H 116 H 115 H Carbon Dioxide 9 L* 5 L* 12 L BUN 63 H 67 H 65 H Creatinine 4.78 H 5.25 H 5.56 H Glucose 367 H 550 H* 574 H* Calcium 8.2 L 7.8 L 7.6 L 03/08/17 03/08/17 01:38 05:18 Sodium 149 H 150 H Potassium 3.4 L D 3.3 L Chloride 121 H 122 H Carbon Dioxide 17 L 17 L BUN 62 H 60 H Creatinine 5.44 H 5.01 H Glucose 259 H 100 H Calcium 7.4 L 7.7 L - ABG Interpretation ABG results: ABG ABG pH 7.37 pH Units (7.32-7.45) 03/05/17 04:22 ABG pCO2 40 mmHg (35-45) 03/05/17 04:22 ABG pO2 84 mmHg (85-104) L 03/05/17 04:22 ABG O2 Saturation 96 % (95-98) 03/05/17 04:22 - Impressions Impressions Brain MRI 03/07/17 08:39 IMPRESSION: 1. No acute infarct, intracranial hemorrhage, significant mass effect. 2. Small chronic lacunar infarct within right cerebellum. D/ / Omid Inman MD / Omid Inman MD Interpreting Provider: Omid Inman MD Consult Discharge Plan - Plan Referrals: Vivek Gaffney DO [Primary Care Provider] - 03/17/17 3:20 pm (THE OFFICE IS NOT LOCATED OVER BY OCCUPATIONAL HEALTH)
[2017-03-08 09:45] LABS: Bilirubin,Urine Negative (Negative); Blood,Urine Small (Negative); Clarity,Urine Clear (Clear); Color,Urine Yellow (Yellow); Glucose,Urine (UA) Normal (Normal); Ketones,Urine Negative (Negative); Leukocyte Esterase,Urine Negative (Negative); Nitrite,Urine Negative (Negative); Protein,Urine 30 mg/dL (Neg-Trace); Specific Gravity,Urine 1.015 (1.010-1.025); Urobilinogen,Urine Normal (Normal)
[2017-03-08 09:48] LABS: Bacteria,Urine None Seen per hpf (None-Few); Hyaline Casts,Urine Few per lpf (None-Few); Squamous Epithelial Cell,Urine Many per lpf (None-Few)
[2017-03-08 09:58] LABS: Renal Epithelial Cells,Urine Few per hpf (None-Few)
[2017-03-08] MEDS: Insulin DETEMIR 100 UNIT/ML X5UNITS SQ SCH ×2 (10:22→21:40)
[2017-03-08] MEDS: Insulin LISPRO 300 UNITS/3 ML VIAL SQ SCH ×5 (10:22→17:21)
--- NOTE | 2017-03-08 10:45 | Neurology Progress Note ---
Date of Encounter: 03/08/17 Time of Encounter: 08:15 Assessment and Plan (1) Acute encephalopathy Current Visit: Yes Status: Acute Overall for unresponsiveness supplies patient has improved he is awake but is still not able to have any conversation at this time I am ordering that perhaps he may have some underlying psychological /behavioral issues that he is not choosing to talk though he is awake and able to follow commands at the same time he is able to say a few words in between that and the unusual in case if he has a true aphasia , at the same time MRI did not show any acute infarct to explain his mute behavior, EEG also did not show any seizure activity mild slowing which is nonspecific pattern no evidence of any seizure type of activity Considering his overall condition and without any evidence of a stroke or any other hypoxic changes on his MRI and negative EEG I would recommend that should be evaluated by psychiatry as well in the meantime continue to treat his underlying medical condition as we already (2) Hypoglycemia Current Visit: Yes Status: Resolved Subjective Principal diagnosis: unresponsiveness and seizure Interval history: Patient seen as an follow-up for unresponsiveness, He remained mute and not speaking except some few curse words off-and-on. He is awake at times following commands. Repeat EEG is consistent with mild to moderate diffuse cerebral dysfunction, as seen in encephalopathy. But seems to be much improved as compared to the previous EEG at the same time repeat MRI brain is unremarkable for any acute stroke or any other abnormality except chronic ischemic changes and mild atrophy - Objective - Constitutional Vitals: Temp Pulse Resp BP Pulse Ox 97.8 F 82 19 154/75 98 03/08/17 07:01 03/08/17 07:01 03/08/17 07:01 03/08/17 07:01 03/08/17 07:01 - Neurological Exam Sensorimotor examination: Present: intact, other (Patient is more awake than yesterday his pupils are equal no facial asymmetry is moving all 4 extremities) Motor Examination: Present: other (Patient is more awake now he opened eyes but not following any commands he does seems to respond to the visual contact his pupils are equal and reactive myofascial asymmetry. Motor examination he is moving all 4 extremities spontaneously and normal tone no evidence of any focal motor deficit.) Sensation intact: Present: other (Unable to assess due to coma) Mental Status Examination: Present: coma (eye closing briskly. ) Cranial nerve examination: Present: PERRL (3mm in sizes bilaterally, midline position. Reactive to light), EOMI (Unable to assess), visual bhandari intact ( Unable to assess), corneal reflexes brisk symmetrically, sensory to face intact , no facial asymmetry is present, no dysarthria (Unable to assess), hearing is intact symmetrically (Unable to assess) Results - Laboratory Findings CBC and BMP: 03/08/17 01:38 03/08/17 05:18 Abnormal lab findings: Abnormal lab results WBC 11.9 K/mcL (4.3-11.1) H 03/08/17 01:38 RBC 4.17 M/mcL (4.19-5.50) L 03/08/17 01:38 Hgb 10.0 g/dL (12.9-16.9) L 03/08/17 01:38 Hct 31.6 % (37.5-50.1) L 03/08/17 01:38 MCV 75.8 fL (83.0-100.0) L 03/08/17 01:38 MCH 24.0 pg (28.0-33.3) L 03/08/17 01:38 RDW 15.5 % (11.5-14.5) H 03/08/17 01:38 MPV 9.1 fL (9.4-12.4) L 03/08/17 01:38 ABG pO2 84 mmHg (85-104) L 03/05/17 04:22 VBG pCO2 34 mmHg (41-51) L 03/08/17 01:50 VBG pO2 216 mmHg (25-50) H 03/08/17 01:50 VBG HCO3 19 mEq/L (21-27) L 03/08/17 01:50 Sodium 150 mEq/L (136-145) H 03/08/17 05:18 Potassium 3.3 mEq/L (3.5-4.5) L 03/08/17 05:18 Chloride 122 mEq/L (98-109) H 03/08/17 05:18 Carbon Dioxide 17 mEq/L (19-29) L 03/08/17 05:18 BUN 60 mg/dL (8-26) H 03/08/17 05:18 Creatinine 5.01 mg/dL (0.72-1.25) H 03/08/17 05:18 Est GFR ( Amer) 15 (> 60) L 03/08/17 05:18 Est GFR (Non-Af Amer) 13 (> 60) L 03/08/17 05:18 Glucose 100 mg/dL (70-99) H 03/08/17 05:18 POC Glucose 248 (58-89) H 03/08/17 01:11 Calculated Osmolality 327 (280-300) H 03/08/17 05:18 Lactic Acid 2.8 mmol/L (0.5-2.2) H 03/08/17 01:38 Calcium 7.7 mg/dL (8.6-10.8) L 03/08/17 05:18 Phosphorus 4.8 mg/dL (2.3-4.7) H 03/07/17 04:12 Creatine Kinase 790 Units/L (30-200) H 03/08/17 01:38 Globulin 3.9 g/dL (2.4-3.5) H 03/02/17 09:42 Albumin/Globulin Ratio 0.9 (1.1-2.2) L 03/02/17 09:42 Vitamin B12 1318 pg/mL (213-816) H 03/07/17 12:07 Folate 4.3 ng/mL (7.0-31.4) L 03/07/17 12:07 Beta-Hydroxybutyric Acd > 2.00 mmol/L (0.02-0.27) H 03/07/17 15:53 TSH 0.093 mcIU/mL (0.350-4.840) L 03/07/17 12:07 Urine Protein 30 mg/dL (Neg-Trace) H 03/08/17 09:35 Urine Blood Small (Negative) H 03/08/17 09:35 Urine Microscopic RBC 3-5 per hpf (0-3) H 03/08/17 09:35 Urine Microscopic WBC 5-15 per hpf (0-3) H 03/08/17 09:35 Ur Squamous Epith Cells Many per lpf (None-Few) H 03/08/17 09:35 U Marijuana (THC) Screen Positive ng/mL (Cutoff = 50) H 03/02/17 09:34 Consult Discharge Plan - Plan Referrals: Vivek Gaffney DO [Primary Care Provider] - 03/17/17 3:20 pm (THE OFFICE IS NOT LOCATED OVER BY OCCUPATIONAL HEALTH)
[2017-03-08] MEDS: Renal Vitamin 1 MG CAPSULE PO SCH (11:54)
--- NOTE | 2017-03-08 13:15 | Nephrology Consult Note ---
Date of Encounter: 03/08/17 Time of Encounter: 12:00 Assessment and Plan (1) HUNG (acute kidney injury) Status: Acute Elevated SCR in the setting of mild rhabdo, decreased po intake and rule out possible GN Will continue to follow CPK levels, trending down Agree with aggressive volume repletion Will check urine for UA, sodium, creatinine and eosinophils Will also check uric acid levels No acute indication for vessel slagman at this time but discussed with the possibility if no improvement (2) Acute encephalopathy Status: Acute Per neurology. Doubt renal dysfunction contributing as developed afterwards History of Present Illness - Reason for Consult Consult date: 03/08/17 Acute Kidney Injury Requesting physician: Oscar Capone - History of Present Illness 46 y o male with PMH of type 1 DM on insulin pump, HTN and high chol admitted after being found down and intubated. He has been undergoing neurologic workup during this hospital stay. He was extubated and transferred to the floors where his renal function declined with SCr peaking at 5.56, GFR 14 (SCr on admission was 1.56, GFR 60) and reduced UOP for at least 3 days noted under 500cc in 24hrs. renal consulted for help in management. present at bedside. Most of the information obtained from records and as pt is still nonverbal and does not answer much questions. reports now drinking some fluids but did not have much in the past few days and IVF not given as well. No iv contrast given. No NSAIDs noted. Past Med Surg Social Fam HX - Past Medical History Medical history: diabetes, hyperlipidemia Psychiatric history: no psych history - Past Surgical History Surgical History: no surgical history - Social History Smoking Status: Current every day smoker Smokeless Tobacco Status: No Alcohol use: occasionally Drug use: marijuana - Family History Mother Adopted: [place]: john medina Age: 62 Living Status: Still Living Hx Family Endocrine Disorder: Yes (dm) Medications and Allergies Aspirin [Adult Low Dose Aspirin EC] 81 mg PO QAM 03/16/15 [History] Chlorthalidone 25 mg PO QAM 03/16/15 [History] Mirtazapine [Remeron] 15 mg PO HS 06/24/15 [History] Amlodipine Besylate/Benazepril [Lotrel 10-20 mg Capsule] 1 each PO DAILY #30 capsule 06/26/15 [Rx] Glucagon,Human Recombinant [Glucagon Emergency Kit] 1 mg IJ ONCE PRN #3 kit [Rx] Atorvastatin [Lipitor] 40 mg PO HS 03/02/17 [History] Metoprolol Succinate 100 mg PO DAILY 03/02/17 [History] Nut.tx.gluc.intoler,Lac-Fr,Soy [Glucerna 1.5 Omer] 1 can PO DAILY 03/02/17 [ History] Subcutaneous Insulin Pump [T:Slim] 1 each MC AD 03/02/17 [History] 3 Allergy/AdvReac Type Severity Reaction Status Date / Time No Known Allergies Allergy Verified 03/16/15 16:51 Review of Systems ROS unobtainable: due to mental status Exam - Vital Signs Vital signs: Initial Vital Signs Temp Pulse Resp BP Pulse Ox 97.7 F 136 26 180/101 100 03/02/17 09:06 03/02/17 09:06 03/02/17 09:06 03/02/17 09:06 03/02/17 09:06 Vital Signs - Last 8 Hours Temp Pulse Resp BP Pulse Ox 03/08/17 11:32 98.1 F 92 18 159/89 100 03/08/17 07:01 97.8 F 82 19 154/75 98 Intake and Output 03/07/17 03/08/17 03/08/17 23:59 07:59 15:59 Intake Total 2684.5 / 2684.5 1092.5 / 1092.5 480 / 480 Output Total 40 / 40 360 / 360 800 / 800 Balance 2644.5 / 2644.5 732.5 / 732.5 -320 / -320 Intake: IV Fluids 2234.5 / 2234.5 1092.5 / 1092.5 0 / 0 0.9 % Sodium Chloride 1,000 ML 2100 / 2100 @ 100 mls/hr IVC .Q10H QUE Rx#: [id number] KCl 20 mEq in 0.9% Sodium 750 / 750 Chloride 20 meq In 1,000 ml As IVC .STK-MED ONE Rx#:[id number] HumuLIN R 100 UNIT In 0.9 % 34.5 / 34.5 242.5 / 242.5 0 / 0 Sodium Chloride 100 ML @ 0.1 UNIT/KG/HR 7.14 mls/hr IVC CONT QUE Rx#:[id number] Unasyn 3,000 MG In 0.9 % Sodium 100 / 100 100 / 100 Chloride (Mini-Bag +) 100 ML @ 200 mls/hr IVPB Q12H [facility] Rx#: [id number] Oral 450 / 450 480 / 480 Output: Catheter 40 / 40 360 / 360 800 / 800 Other: Meal clears Breakfast Percent of Meal Consumed 10% Weight 71.5 kg Blood Glucose* 377 96 88 Patient Weight 03/08/17 23:59 Weight 71.5 kg - General Appearance General appearance: well-developed, well-nourished EENT: ATNC, mucous membranes dry Neck: no JVD, supple Respiratory: clear (ant bilat) Cardiology: no edema, normal S1, normal S2 Gastrointestinal: no tenderness, no guarding Integumentary: warm and dry Neurologic: disoriented (nonverbal but moves all extermities) Musculoskeletal: no deformities Psychiatric: cooperative Results - Lab Results 03/09/17 05:16 03/09/17 05:16 Most recent lab results ABG pH 7.37 pH Units (7.32-7.45) 03/05/17 04:22 ABG pCO2 40 mmHg (35-45) 03/05/17 04:22 ABG pO2 84 mmHg (85-104) L 03/05/17 04:22 ABG HCO3 23 mEq/L (21-27) 03/05/17 04:22 ABG O2 Saturation 96 % (95-98) 03/05/17 04:22 Calcium 7.7 mg/dL (8.6-10.8) L 03/08/17 05:18 Phosphorus 4.8 mg/dL (2.3-4.7) H 03/07/17 04:12 Magnesium 2.3 mg/dL (1.6-2.6) 03/07/17 04:12 Consult Discharge Plan - Plan Instructions: Chest Pain (DC) Referrals: Vivek Gaffney DO [Primary Care Provider] - (PATIENT [facility]ENT [facility], NO PCP APPOINTMENT NEEDED)
[2017-03-08 13:54] LABS: Uric Acid 9.3 mg/dL (3.5-7.2)
[2017-03-08] MEDS: 0.9 % Sodium Chloride 1,000 ML IVC SCH ×3 (17:06→23:37)
[2017-03-08 18:15] LABS: Calcium 7.8 mg/dL (8.6-10.8); Potassium 3.8 mEq/L (3.5-4.5)
[2017-03-08] MEDS ORDERED: Insulin LISPRO 300 UNITS/3 ML VIAL SQ SCH (21:00)
[2017-03-08] MEDS ORDERED: Insulin DETEMIR 100 UNIT/ML X5UNITS SQ SCH (21:00)
[2017-03-09] MEDS: *HR* Heparin 5,000 UNIT/ML VIAL SQ SCH ×2 (05:09→18:34)
[2017-03-09 05:54] LABS: Potassium 3.8 mEq/L (3.5-4.5)
[2017-03-09 05:55] LABS: Calcium 7.7 mg/dL (8.6-10.8)
[2017-03-09 06:05] LABS: Basophils # 0.1 K/mcL (0.0-0.2); Basophils % 0.8 %; Eosinophils # 0.3 K/mcL (0.0-0.6); Eosinophils % 4.1 %; Hematocrit 34.7 % (37.5-50.1); Immature Granulocytes % 1.1 % (0-4); Lymphocytes % 23.6 %; Mean Corpuscular HGB Conc 31.7 g/dL (31.6-35.5); Mean Corpuscular Hemoglobin 23.8 pg (28.0-33.3); Mean Corpuscular Volume 75.1 fL (83.0-100.0); Mean Platelet Volume 9.7 fL (9.4-12.4); Monocytes # 0.7 K/mcL (0.0-1.3); Monocytes % 8.6 %; Neutrophils # 5.2 K/mcL (1.6-8.9); Platelet Count 214 K/mcL (140-400); Red Blood Count 4.62 M/mcL (4.19-5.50); Red Cell Distribution Width 14.9 % (11.5-14.5); Segmented Neutrophils % 61.8 %
[2017-03-09 06:50] LABS: Hemoglobin A1C 9.9 %
[2017-03-09] MEDS: Insulin LISPRO 300 UNITS/3 ML VIAL SQ SCH ×6 (08:24→16:31)
[2017-03-09] MEDS: amLODIPine 5 MG TABLET PO SCH (09:06)
--- NOTE | 2017-03-09 09:06 | Neurology Progress Note ---
Date of Encounter: 03/09/17 Time of Encounter: 07:40 Assessment and Plan (1) Acute encephalopathy Current Visit: Yes Status: Acute This patient who has severe encephalopathy presumed to from hypoglycemia and suspect hypoxia now he is more awake but is still not back to his baseline he still not able to talk at times seems to be confused and not following any commands. Repeat MRI scan did not show any abnormality in particularly no evidence of any stroke no changes noted in the temporal lobes \EEG also did not show any significant seizure activity just mild slowing He did have low thyroid profile B12 was within normal limits as far as other labs are also getting better Considering that he has no significant improvement in the last few days despite being awake he is not back to his baseline wording that perhaps he may have some other underlying process and particularly need to exclude the possibility of encephalitis The next step is to do a spinal tap and to look into more detail At the same time I have ordered thyroid antibodies in particularly to look for Mathew's, As Mathew's encephalopathy could present in a similar fashion, quite responsive to steroids awaiting antibodies results At the same time hypoxic encephalopathy remains in the differential, though he could have seen some changes on his MRI scan At the same time other encephalitis remains a possibility of as well no evidence of any FREIGHT HANDLER infection and particularly lab does not support any meningeal process. 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 which is characterized by marked reduction of nearly all motor functions, including facial expression, gestures, and speech output, but with some degree of alertness. pt seem to have similar clinical pictures associated with different etiologies and pathologies. seen in thyroid as well as bilateral Ischemic infarcts ? Long discussions with the patient about the next step suggest doing a spinal tap at the same time or also concern about his recovery, wondering that we may transfer him to a tertiary care center like [facility] , I do agree with the plan (2) Mutism Current Visit: Yes Status: Acute AKINETIC MUTISM. which is characterized by marked reduction of nearly all motor functions, including facial expression, gestures, and speech output, but with some degree of alertness. pt seem to have similar clinical pictures associated with different etiologies and pathologies that need to be worked out, already had MRI of brain twice reported as negative , next step is spinal tap, thyroid antibodies has been send out, may give a trial of high dose steroids or perhaps transfer to a tertiary care center (3) Hypoglycemia Current Visit: Yes Status: Resolved Subjective Principal diagnosis: unresponsiveness and seizure Interval history: Patient seen as an follow-up for unresponsiveness, He remained mute and not speaking except some few curse words off-and-on. He is awake at times following commands. but no change in overall status in last few days, Repeat EEG is consistent with mild to moderate diffuse cerebral dysfunction, as seen in encephalopathy. But seems to be much improved as compared to the previous EEG at the same time repeat MRI brain is unremarkable for any acute stroke or any other abnormality except chronic ischemic changes and mild atrophy - Objective - Constitutional Vitals: Temp Pulse Resp BP Pulse Ox 98.4 F 112 20 153/93 95 03/09/17 07:13 03/09/17 07:13 03/09/17 07:13 03/09/17 07:13 03/09/17 07:13 - Neurological Exam Sensorimotor examination: Present: intact, other (Patient is more awake than yesterday his pupils are equal no facial asymmetry is moving all 4 extremities) Motor Examination: Present: other (Patient is more awake now he opened eyes but not following any commands he does seems to respond to the visual contact his pupils are equal and reactive myofascial asymmetry. Motor examination he is moving all 4 extremities spontaneously and normal tone no evidence of any focal motor deficit.) Motor examination - right side: 4/5: deltoids, biceps, triceps, wrist flexion, wrist extension, signals intelligence superintendent, hip flexors, tibialis Anterior, quadriceps, toe extension (EHL), plantarflexion Motor examination - left side: 4/5: deltoids, biceps, triceps, wrist flexion, wrist extension, hip flexors, signals intelligence superintendent, quadriceps, tibialis Anterior, toe extension (EHL), plantarflexion Sensation intact: Present: other (Unable to assess due to coma) Reflexes: Biceps: 1+, Triceps: 1+, Brachioradialis: 1+, Patella: 1+, Achilles: 1 + Mental Status Examination: Present: awake, alert, does not follow commands, opens eyes to voice, opens eyes to noxious stimulation, localizes noxious stimulation Cranial nerve examination: Present: PERRL (3mm in sizes bilaterally, midline position. Reactive to light), EOMI (Unable to assess), visual bhandari intact ( Unable to assess), corneal reflexes brisk symmetrically, sensory to face intact , no facial asymmetry is present, hearing is intact symmetrically (Unable to assess) Results - Laboratory Findings CBC and BMP: 03/09/17 05:16 03/09/17 05:16 Abnormal lab findings: Abnormal lab results Hgb 11.0 g/dL (12.9-16.9) L 03/09/17 05:16 Hct 34.7 % (37.5-50.1) L 03/09/17 05:16 MCV 75.1 fL (83.0-100.0) L 03/09/17 05:16 MCH 23.8 pg (28.0-33.3) L 03/09/17 05:16 RDW 14.9 % (11.5-14.5) H 03/09/17 05:16 ABG pO2 84 mmHg (85-104) L 03/05/17 04:22 VBG pCO2 34 mmHg (41-51) L 03/08/17 01:50 VBG pO2 216 mmHg (25-50) H 03/08/17 01:50 VBG HCO3 19 mEq/L (21-27) L 03/08/17 01:50 Chloride 114 mEq/L (98-109) H 03/09/17 05:16 BUN 39 mg/dL (8-26) H 03/09/17 05:16 Creatinine 2.70 mg/dL (0.72-1.25) H 03/09/17 05:16 Est GFR ( Amer) 31 (> 60) L 03/09/17 05:16 Est GFR (Non-Af Amer) 26 (> 60) L 03/09/17 05:16 Glucose 230 mg/dL (70-99) H 03/09/17 05:16 POC Glucose 179 (58-89) H 03/08/17 20:33 Hemoglobin A1c 9.9 % (-5.6) H 03/09/17 05:16 Calculated Osmolality 313 (280-300) H 03/09/17 05:16 Lactic Acid 2.8 mmol/L (0.5-2.2) H 03/08/17 01:38 Uric Acid 9.3 mg/dL (3.5-7.2) H 03/08/17 01:38 Calcium 7.7 mg/dL (8.6-10.8) L 03/09/17 05:16 Phosphorus 4.8 mg/dL (2.3-4.7) H 03/07/17 04:12 Creatine Kinase 790 Units/L (30-200) H 03/08/17 01:38 Globulin 3.9 g/dL (2.4-3.5) H 03/02/17 09:42 Albumin/Globulin Ratio 0.9 (1.1-2.2) L 03/02/17 09:42 Vitamin B12 1318 pg/mL (213-816) H 03/07/17 12:07 Folate 4.3 ng/mL (7.0-31.4) L 03/07/17 12:07 Beta-Hydroxybutyric Acd > 2.00 mmol/L (0.02-0.27) H 03/07/17 15:53 TSH 0.093 mcIU/mL (0.350-4.840) L 03/07/17 12:07 Urine Protein 30 mg/dL (Neg-Trace) H 03/08/17 09:35 Urine Blood Small (Negative) H 03/08/17 09:35 Urine Microscopic RBC 3-5 per hpf (0-3) H 03/08/17 09:35 Urine Microscopic WBC 5-15 per hpf (0-3) H 03/08/17 09:35 Ur Squamous Epith Cells Many per lpf (None-Few) H 03/08/17 09:35 U Marijuana (THC) Screen Positive ng/mL (Cutoff = 50) H 03/02/17 09:34 Consult Discharge Plan - Plan Referrals: Vivek Gaffney DO [Primary Care Provider] - 03/17/17 3:20 pm (THE OFFICE IS NOT LOCATED OVER BY OCCUPATIONAL HEALTH)
[2017-03-09] MEDS: Pantoprazole 40 MG VIAL IVP SCH (09:07)
[2017-03-09] MEDS: Aspirin Enteric Coated 81 MG Tablet PO SCH (09:07)
[2017-03-09] MEDS: Renal Vitamin 1 MG CAPSULE PO SCH (09:07)
[2017-03-09] MEDS: Insulin DETEMIR 100 UNIT/ML X5UNITS SQ SCH (10:39)
--- NOTE | 2017-03-09 10:40 | Transfer Summary ---
Date of Encounter: 03/09/17 Time of Encounter: 10:40 Transfer Discharge Sum: Diag - Discharge Diagnosis (1) Hypernatremia Status: Acute (2) Hypoglycemia Status: Resolved (3) Acute encephalopathy Status: Acute (4) Diabetes mellitus type 1 Status: Chronic (5) HUNG (acute kidney injury) Status: Acute (6) DVT prophylaxis Status: Acute (7) Aspiration pneumonia Status: Suspected (8) Acute respiratory failure Status: Resolved (9) Hypertension Status: Chronic (10) Rhabdomyolysis Status: Acute Transfer Discharge Sum: Med - Medications Active and Home Medications: Home Medications Aspirin [Adult Low Dose Aspirin EC] 81 mg PO QAM 03/16/15 [History Confirmed 10/10] Chlorthalidone 25 mg PO QAM 03/16/15 [History Confirmed 03/02/17] Mirtazapine [Remeron] 15 mg PO HS 06/24/15 [History Confirmed 03/02/17] Amlodipine Besylate/Benazepril [Lotrel 10-20 mg Capsule] 1 each PO DAILY #30 capsule 06/26/15 [Rx Confirmed 03/02/17] Glucagon,Human Recombinant [Glucagon Emergency Kit] 1 mg IJ ONCE PRN #3 kit [Rx Confirmed 03/02/17] Atorvastatin [Lipitor] 40 mg PO HS 03/02/17 [History Confirmed 03/02/17] Metoprolol Succinate 100 mg PO DAILY 03/02/17 [History Confirmed 03/02/17] Nut.tx.gluc.intoler,Lac-Fr,Soy [Glucerna 1.5 Omer] 1 can PO DAILY 03/02/17 [ History Confirmed 03/02/17] Subcutaneous Insulin Pump [T:Slim] 1 each MC AD 03/02/17 [History Confirmed 10/10] Active Medications Albuterol Sulfate (Albuterol Inhaler) 2 puff IH Q2HR PRN PRN Reason: Shortness Of Breath/Wheezing Stop: 09/01/17 13:55 Amlodipine Besylate (Norvasc) 10 mg PO DAILY QUE PRN Reason: Protocol Stop: 09/03/17 09:31 Last Admin: 03/09/17 09:06 Dose: 10 mg Aspirin (Aspirin Ec) 81 mg PO QAM [facility] Stop: 09/02/17 09:01 Last Admin: 03/09/17 09:07 Dose: 81 mg Dextrose/Water (Dextrose 50% (Syg)) 25 ml IVP AD PRN PRN Reason: Hypoglycemia Stop: 09/01/17 13:50 Last Admin: 03/08/17 08:08 Dose: 25 ml Dextrose/Water (Dextrose 50% (Syg)) 25 ml IVP Q15MIN PRN PRN Reason: Hypoglycemia Stop: 09/06/17 18:02 Last Admin: 03/08/17 07:02 Dose: 25 ml Dextrose/Water (Dextrose 50% (Syg)) 25 ml IVP ONCE PRN PRN Reason: Hypoglycemia Docusate Sodium (Colace) 100 mg PO BID PRN PRN Reason: Constipation Stop: 09/07/17 21:19 Last Admin: 03/09/17 09:07 Dose: 100 mg Glucagon (Glucagen) 1 mg IM ONCE PRN PRN Reason: Hypoglycemia Stop: 09/01/17 13:50 Glucose (Gluctose) 15 gm PO ONCE PRN PRN Reason: Hypoglycemia Stop: 09/01/17 13:50 Glucose (Gluctose) 30 gm PO ONCE PRN PRN Reason: Hypoglycemia Stop: 09/01/17 13:50 Heparin Sodium (Porcine) (Heparin) 5,000 unit SQ Q12HCO UQE Stop: 09/01/17 18:01 Last Admin: 03/09/17 05:09 Dose: 5,000 unit Hydralazine HCl (Hydralazine) 10 mg IVP Q6HR QUE Stop: 09/04/17 14:16 Last Admin: 03/09/17 05:07 Dose: 10 mg Sodium Chloride (0.9 % Sodium Chloride) 1,000 mls @ 100 mls/hr IVC .Q10H QUE Stop: 09/05/17 05:31 Last Admin: 03/08/17 23:37 Dose: 100 mls/hr Dextrose (Dextrose 5%) 1,000 mls @ 100 mls/hr IVC .Q10H PRN PRN Reason: HYPOGLYCEMIA Stop: 09/01/17 13:50 Dextrose/Sodium Chloride (D5% And 0.45% Nacl 1000 Ml Bag) 1,000 mls @ 250 mls/ hr IVC .Q4H PRN PRN Reason: See comments Stop: 09/06/17 18:02 Insulin Human Regular 100 unit (/ Sodium Chloride) 101 mls @ 7.14 mls/hr IVC CONT QUE; 0.1 UNIT/KG/HR PRN Reason: Protocol Stop: 09/06/17 18:16 Last Admin: 03/08/17 10:23 Dose: Not Given Insulin Detemir (Levemir) 5 unit SQ BID [facility] Stop: 09/07/17 09:01 Last Admin: 03/09/17 10:39 Dose: 5 unit Insulin Human Lispro (Humalog) 3 units SQ TIDWM [facility] Stop: 09/07/17 08:01 Last Admin: 03/09/17 08:25 Dose: 3 units Insulin Human Lispro (Humalog) 0 units SQ HS [facility] PRN Reason: Protocol Stop: 09/07/17 21:01 Last Admin: 03/08/17 21:38 Dose: Not Given Insulin Human Lispro (Humalog) 0 units SQ TIDAC [facility] PRN Reason: Protocol Stop: 09/07/17 11:31 Last Admin: 03/09/17 08:24 Dose: 4 units Insulin Human Regular (Humulin R) 5 unit IV ONCE PRN PRN Reason: SEE COMMENTS Stop: 09/06/17 18:02 Metoprolol Tartrate (Lopressor) 50 mg PO BID [facility] Stop: 09/08/17 09:01 Last Admin: 03/09/17 09:07 Dose: 50 mg Midazolam HCl (Versed) 4 mg IVP Q1H PRN PRN Reason: Seizure Activity Stop: 09/03/17 14:31 Naloxone HCl (Narcan) 0.4 mg IVP Q2MIN PRN PRN Reason: Opioid Reversal Stop: 09/01/17 13:46 Pantoprazole Sodium (Protonix) 40 mg IVP DAILY [facility] Stop: 09/02/17 09:01 Last Admin: 03/09/17 09:07 Dose: 40 mg Phenytoin (Dilantin) 100 mg IVP Q8H [facility] Stop: 09/02/17 16:01 Last Admin: 03/09/17 09:06 Dose: 100 mg Sodium Bicarbonate (Sodium Bicarbonate) 650 mg PO TID [facility] Stop: 09/06/17 13:01 Last Admin: 03/09/17 09:07 Dose: 650 mg Vitamin B Complex/Vit C/Folic Acid (Renal Caps Softgel) 1 mg PO DAILY [facility] Stop: 09/07/17 11:01 Last Admin: 03/09/17 09:07 Dose: 1 mg Transfer Discharge Sum: Data Procedures and tests throughout hospitalization: Pending Orders 03/02/17 13:45 Resuscitation Status: Active [RES] Routine 03/02/17 13:50 EEG Routine 03/02/17 15:19 Admit as Inpatient Routine 03/03/17 10:40 PICC [Consult to Invasive Line Access Team] [CONS] Routine 03/06/17 10:40 Consult to Speech Therapy [CONS] Routine 03/06/17 11:15 0.9 % Sodium Chloride 1,000 ml IVC 100 mls/hr Albuterol Sulfate [Albuterol Inhaler] 2 puff IH Q2HR PRN D5% in Water [Dextrose 5%] 1,000 ml IVC 100 mls/hr Dextrose 50 % in Water (Syg) [Dextrose 50% (Syg)] 25 ml IVP AD PRN Dextrose Gel [Gluctose] 15 gm PO ONCE PRN Dextrose Gel [Gluctose] 30 gm PO ONCE PRN Glucagon, Human Recombinant [GlucaGen] 1 mg IM ONCE PRN Midazolam HCl [Versed] 4 mg IVP Q1H PRN Naloxone [Narcan] 0.4 mg IVP Q2MIN PRN 03/06/17 12:00 hydrALAZINE [HydrALAZINE] 10 mg IVP Q6HR 03/06/17 13:34 thompson [Urinary cath initiate/manage] [RC] Q4H 03/06/17 16:00 Phenytoin [Dilantin] 100 mg IVP Q8H 03/06/17 18:00 Heparin 5,000 unit SQ Q12HCO 03/07/17 07:42 Free Water [RC] Q4H 03/07/17 08:39 EEG Routine 03/07/17 09:00 Aspirin Enteric Coated [Aspirin EC] 81 mg PO QAM Pantoprazole [Protonix] 40 mg IVP DAILY amLODIPine [Norvasc] 10 mg PO DAILY 03/07/17 11:49 Consult to Interpret Exam [CONS] Routine 03/07/17 13:00 Sodium Bicarbonate 650 mg PO TID 03/07/17 15:58 Cardiac monitoring [RC] .ONCE 03/07/17 18:01 D5% in 0.45% NACL [D5% And 0.45% Nacl 1000 Ml Bag] 1,000 ml IVC 250 mls/hr Dextrose 50 % in Water (Syg) [Dextrose 50% (Syg)] 25 ml IVP Q15MIN PRN Insulin Human Regular [HumuLIN R] 5 unit IV ONCE PRN DKA/HHS Adjustment as Directed Routine 03/07/17 18:04 Notify provider [RC] .PRN Dextrose 50 % in Water (Syg) [Dextrose 50% (Syg)] 25 ml IVP ONCE PRN 03/07/17 18:15 Insulin Human Regular [HumuLIN R] 100 unit 0.9 % Sodium Chloride 100 ml IVC CONT 03/08/17 08:00 Insulin LISPRO [HumaLOG] 3 units SQ TIDWM 03/08/17 08:49 Consult to Nephrology [CONS] Stat 03/08/17 09:00 Insulin DETEMIR [Levemir] 5 unit SQ BID 03/08/17 11:00 Renal Vitamin [Renal Caps Softgel] 1 mg PO DAILY 03/08/17 11:30 Insulin LISPRO [HumaLOG] See Protocol SQ TIDAC 03/08/17 11:53 Thyroid Antibodies Routine 03/08/17 14:00 Arterial Blood Gas DAILY 03/08/17 21:00 Insulin LISPRO [HumaLOG] See Protocol SQ HS 03/08/17 21:18 Docusate [Colace] 100 mg PO BID PRN 03/08/17 Lunch Dietary Supplement Pureed Diet 03/09/17 05:16 ALISTAIR IgG SOHAIL rflx IFA AM 0400 Complement Component 3 Routine Complement Component 4 Routine 03/09/17 09:00 Metoprolol [Lopressor] 50 mg PO BID 03/09/17 14:00 Arterial Blood Gas DAILY 03/10/17 04:00 CBC [Complete Blood Count] [HEME] AM 0400 Chem 7 [Basic Metabolic Panel] AM 0400 03/10/17 14:00 Arterial Blood Gas DAILY 03/11/17 14:00 Arterial Blood Gas DAILY - Impressions ITS Impressions Brain MRI 03/02/17 13:48 IMPRESSION: Unremarkable brain MRI. D/ / Mars Rouse MD / Mars Rouse MD Interpreting Provider: Mars Rouse MD Chest X-Ray 03/03/17 08:44 IMPRESSION: Support tubes are in position. No acute cardiopulmonary process. D/ / 03/03/2017 10:06:47 Jana Inman MD / tawnya Interpreting Provider: Jana Inman MD Brain MRI 03/07/17 08:39 IMPRESSION: 1. No acute infarct, intracranial hemorrhage, significant mass effect. 2. Small chronic lacunar infarct within right cerebellum. D/ / Omid Inman MD / Omid Inman MD Interpreting Provider: Omid Inman MD Retroperitoneum Ultrasound 03/08/17 07:52 IMPRESSION: Increased renal echogenicity suggests medical renal disease. Trace ascites in the left upper quadrant and midline pelvis. D/ / 03/08/2017 09:37:16 Jana Inman MD / tawnya Interpreting Provider: Jana Inman MD Transfer Discharge Sum: Prov Date of admission: 03/02/17 12:27 Primary care physician: Vivek Gaffney DO Consults: 03/02/17 13:58 Consult to Neurology [CONS] Routine Consulting Provider: Neurology [facility] Reason for Consult: Unresponsiveness and reported seizure activity at home. May related to hypoglycemia (DM1 on insulin pump recently) CT head negative. MRI brain and EEG ordered. Appreciate neurology evaluation and recommendation. Call Completed: Yes 03/02/17 16:42 Consult to Interpret Exam [CONS] Routine Consulting Provider: Brenda Burch Consult to Interpret Exam: Interpret EEG 03/03/17 10:40 PICC [Consult to Invasive Line Access Team] [CONS] Routine Reason for Consult: Limited vascular access Line Type: EPIV PICC line indications: Limited vascular access 03/06/17 10:40 Consult to Speech Therapy [CONS] Routine Comment: Evaluate, develop and implement POC Reason for Consult: Swallow evaluation Call Completed: No 03/07/17 11:49 Consult to Interpret Exam [CONS] Routine Consulting Provider: Sahara Medley I Consult to Interpret Exam: Interpret EEG 03/08/17 08:49 Consult to Nephrology [CONS] Stat Consulting Provider: Kidney Shannon/TERRANCE/MATHIEU/MORRIS Reason for Consult: HUNG Call Completed: Yes Transfer Discharge Sum: Hosp Hospital course: Mr. Irvin is a 46 year old male - Time Spent with Patient Total time spent providing and/or coordinating transfer services: Transfer Discharge Sum: Exam - Constitutional Vitals: Vital Signs Temp Pulse Resp BP Pulse Ox 03/09/17 07:13 98.4 F 112 20 153/93 95 03/09/17 03:40 97.6 F 101 16 165/89 100 03/08/17 23:36 98.5 F 96 17 151/93 99 03/08/17 23:30 98.5 F 96 17 151/93 99 03/08/17 20:28 99.6 F 105 13 148/89 98 03/08/17 16:07 97.8 F 99 15 171/107 99 03/08/17 11:32 98.1 F 92 18 159/89 100 Intake and Output 03/08/17 03/09/17 03/09/17 23:59 07:59 15:59 Intake Total 2620 / 2620 300 / 300 360 / 360 Output Total 2250 / 2250 2650 / 2650 Balance 370 / 370 -2350 / -2350 360 / 360 Intake: IV Fluids 1900 / 1900 0.9 % Sodium Chloride 1,000 ML 1900 / 1900 @ 100 mls/hr IVC .Q10H [facility] Rx#: [id number] Oral 720 / 720 300 / 300 360 / 360 Output: Urine 700 / 700 1900 / 1900 Catheter 1550 / 1550 750 / 750 Urethral (Thompson) 700 / 700 Other: Meal Dinner Breakfast Percent of Meal Consumed 50% 50% Blood Glucose* 179 214
--- NOTE | 2017-03-09 14:10 | Nephrology Progress Note ---
Date of Encounter: 03/09/17 Time of Encounter: 11:30 Subjective Principal diagnosis: unresponsiveness and seizure Objective - Vital Signs Vital signs: Vital Signs Temp Pulse Resp BP Pulse Ox 03/09/17 11:51 99.4 F 93 20 145/78 95 03/09/17 11:11 99.3 F 93 18 137/82 95 03/09/17 07:13 98.4 F 112 20 153/93 95 03/09/17 03:40 97.6 F 101 16 165/89 100 03/08/17 23:36 98.5 F 96 17 151/93 99 03/08/17 23:30 98.5 F 96 17 151/93 99 03/08/17 20:28 99.6 F 105 13 148/89 98 03/08/17 16:07 97.8 F 99 15 171/107 99 Intake and Output 03/08/17 03/09/17 03/09/17 23:59 07:59 15:59 Intake Total 2620 / 2620 300 / 300 1140 / 1140 Output Total 2250 / 2250 2650 / 2650 900 / 900 Balance 370 / 370 -2350 / -2350 240 / 240 Intake: IV Fluids 1900 / 1900 0.9 % Sodium Chloride 1,000 ML 1900 / 1900 @ 100 mls/hr IVC .Q10H [facility] Rx#: [id number] Oral 720 / 720 300 / 300 1140 / 1140 Output: Urine 700 / 700 1900 / 1900 Catheter 1550 / 1550 750 / 750 900 / 900 Urethral (Abraham) 700 / 700 Other: Meal Dinner Lunch Percent of Meal Consumed 50% 95% Blood Glucose* 179 214 227 - Lab 03/09/17 05:16 03/09/17 05:16 Most recent lab results ABG pH 7.37 pH Units (7.32-7.45) 03/05/17 04:22 ABG pCO2 40 mmHg (35-45) 03/05/17 04:22 ABG pO2 84 mmHg (85-104) L 03/05/17 04:22 ABG HCO3 23 mEq/L (21-27) 03/05/17 04:22 ABG O2 Saturation 96 % (95-98) 03/05/17 04:22 Calcium 7.7 mg/dL (8.6-10.8) L 03/09/17 05:16 Phosphorus 4.8 mg/dL (2.3-4.7) H 03/07/17 04:12 Magnesium 2.3 mg/dL (1.6-2.6) 03/07/17 04:12 Urine Creatinine 55 mg/dL 03/08/17 15:45 Urine Sodium 106.0 mEq/L 03/08/17 15:45 Consult Discharge Plan - Plan Referrals: Vivek Gaffney DO [Primary Care Provider] - 03/17/17 3:20 pm (THE OFFICE IS NOT LOCATED OVER BY OCCUPATIONAL HEALTH)
--- NOTE | 2017-03-09 14:42 | Internal Med Progress Note ---
Date of Encounter: 03/09/17 Time of Encounter: 10:45 - Assessment and plan (1) Hypernatremia Current Visit: Yes Status: Resolved Assessment and plan: Resolved Continue free water Decrease dose of D5W (2) Hypoglycemia Current Visit: Yes Status: Resolved Assessment and plan: To be hypoglycemic at home. Hypoglycemia has resolved. (3) Acute encephalopathy Current Visit: Yes Status: Acute Assessment and plan: Physical acute encephalopathic is multifactorial. The patient was hypoxic, hypoglycemic, with acute kidney injury upon presentation. Seizure-like activities such as jerking/posturing and eye flipping were reported during patient's ICU stay. EEG is consistent with mild to moderate diffuse cerebral dysfunction that can be seen in patients with encephalopathy, metabolic/toxic, electrolyte derangement, or sedation. Asymmetric slowing with low amplitude on the left posterior region can be seen in structural abnormality. No electrographic seizure seen. CT head and MRI brain on admission is unremarkable for acute events. Repeat MRI /EEG 03/07 unchanged from prior Low TSH may be from acute illness, follow free T4 and T4, as well as thyroid antibodies Patient is still mute and aphasic, but follows commands Lumbar puncture done today 03/09, pending results (4) Diabetes mellitus type 1 Current Visit: Yes Status: Chronic Assessment and plan: Type I DM, complicated by hyperglycemia and acidosis 03/07, with elevated BOH VBG PH was normal Initiated DKA protocol with insulin drip, chem is improving, acidosis has resolved Discontinue D5W, continue levemir and lispro A1C 9.9 Qualifiers: Diabetes mellitus complication status: with hyperglycemia Qualified Code(s) : E10.65 - Type 1 diabetes mellitus with hyperglycemia (5) HUNG (acute kidney injury) Current Visit: Yes Status: Acute Assessment and plan: Improving now Likely pre-renal and related to rhabdomyolysis. Non-oliguric, patient is making urine Renal USS showed medical renal disease UA showed proteinuria , possibly from diabetic nephropathy Renal is following Continue IVF, strict I/O, avoid nephrotoxins (6) DVT prophylaxis Current Visit: Yes Status: Acute Assessment and plan: Heparin SQ (7) Aspiration pneumonia Current Visit: Yes Status: Suspected Assessment and plan: D/C Unasyn 03/08 Patient has no O2 requirement Qualifiers: Aspiration pneumonia type: unspecified Laterality: unspecified laterality Lung location: unspecified part of lung Qualified Code(s): J69.0 - Pneumonitis due to inhalation of food and vomit (8) Acute respiratory failure Current Visit: Yes Status: Resolved Assessment and plan: Patient was intubated in ED for the concern of patient's ability to protect his airway. patient was extubated on 03/05/17 Resolved as patient is maintaining good oxygen saturation on room air. Qualifiers: Respiratory failure complication: unspecified whether with hypoxia or hypercapnia Qualified Code(s): J96.00 - Acute respiratory failure, unspecified whether with hypoxia or hypercapnia (9) Hypertension Current Visit: Yes Status: Chronic Assessment and plan: Continue amlodipine Increase metoprolol to 50mg BID Qualifiers: Hypertension type: essential hypertension Qualified Code(s): I10 - Essential (primary) hypertension (10) Rhabdomyolysis Current Visit: Yes Status: Acute Assessment and plan: CK elevated on admission and downtrending Possibly due to seizure activity, vs drug abuse Down-trending, continue to monitor Qualifiers: Rhabdomyolysis type: non-traumatic Qualified Code(s): M62.82 - Rhabdomyolysis - Subjective Interval history: Patient is seen and evaluated at the bedside , with spouse 46-year-old male with past medical history of type 1 diabetes mellitus, hypertension, tobacco and marijuana abuse. Patient is admitted as a transfer from the intensive care unit, for management of acute hypoxic respiratory failure secondary to aspiration pneumonia, acute encephalopathy, and rhabdomyolysis Patient developed HYperglycemia with acidosis /, PH was normal, his chem this morning showed worsening Cr , but acidosis and hyperglycemia has improved He is tolerating po CK is improving HUNG is improving Patient is non-oliguric and having adequate urine output Renal USS showed medical renal disease, so patient has CKD His UA is remarkable for proteinuria This morning, his family have asked to be transferred to [facility] for further management, I have called the [facility] transfer center and they are giving a kick back I have ordered a lumbar puncture and will call [facility] back with the results Neurologist enrique today noted, agree with plan Patient remains mute, no verbal response, he is tolerating orally and equivocally follows commands, no neck stiffness, he moves all limbs to noxious stimuli - Constitutional Vitals: Temp Pulse Resp BP Pulse Ox 99.4 F 93 20 145/78 95 03/09/17 11:51 03/09/17 11:51 03/09/17 11:51 03/09/17 11:51 03/09/17 11:51 General appearance: Present: A&O X 0 (Unable to assess patient's orientation, patient is mute.), pleasant, no acute distress - Head Head exam: Present: atraumatic, normocephalic - Eye Eye exam: Present: PERRL, conjuntiva pink, sclera anicteric Pupils: Present: PERRL - Neck Neck exam general surgery: Present: supple, trachea midline. Absent: lymphadenopathy - Respiratory Respiratory exam: Present: CTAB. Absent: accessory muscle use, rales, rhonchi, wheezes - Cardiovascular Cardiovascular exam: Present: RRR, +S1, +S2. Absent: diastolic murmur, gallop, rubs, systolic murmur - GI/Abdominal GI/Abdominal exam: Present: normal bowel sounds, soft, no peritoneal signs. Absent: distended, tenderness - Extremities Exam Extremities exam: Present: warm, radial pulses palpable and symmetrical. Absent : calf tenderness, cyanotic, pedal edema - Neurological Exam Neurological exam: Present: alert, no focal deficits, speech deficit (aphasic). Absent: oriented X3, facial droop - Skin Skin exam: Present: dry, intact Internal Medicine: Result - Labs CBC & Chem 7: 03/09/17 05:16 03/09/17 05:16 Labs: Short CBC 03/09/17 Range/Units 05:16 WBC 8.4 (4.3-11.1) K/mcL Hgb 11.0 L (12.9-16.9) g/dL Hct 34.7 L (37.5-50.1) % Plt Count 214 (140-400) K/mcL Neutrophils # 5.2 (1.6-8.9) K/mcL BMP 03/08/17 03/09/17 17:56 05:16 Sodium 145 143 Potassium 3.8 3.8 Chloride 118 H 114 H Carbon Dioxide 19 19 BUN 46 H D 39 H Creatinine 3.55 H 2.70 H Glucose 199 H 230 H Calcium 7.8 L 7.7 L - ABG Interpretation ABG results: ABG ABG pH 7.37 pH Units (7.32-7.45) 03/05/17 04:22 ABG pCO2 40 mmHg (35-45) 03/05/17 04:22 ABG pO2 84 mmHg (85-104) L 03/05/17 04:22 ABG O2 Saturation 96 % (95-98) 03/05/17 04:22 - Impressions Impressions Retroperitoneum Ultrasound 03/08/17 07:52 IMPRESSION: Increased renal echogenicity suggests medical renal disease. Trace ascites in the left upper quadrant and midline pelvis. D/ / 03/08/2017 09:37:16 Jana Inman MD / bcarter Interpreting Provider: Jana Inman MD Consult Discharge Plan - Plan Referrals: Vivek Gaffney DO [Primary Care Provider] - 03/17/17 3:20 pm (THE OFFICE IS NOT LOCATED OVER BY OCCUPATIONAL HEALTH)
[2017-03-09 15:41] LABS: Appearance,CSF Clear (Clear)
[2017-03-09 15:57] LABS: Red Blood Cell,CSF < 0.002 M/mcL
[2017-03-09 16:05] LABS: Glucose,CSF 153 mg/dL (40-70); Total Protein,CSF 46 mg/dL (15-45)
--- NOTE | 2017-03-09 17:03 | Transfer Summary ---
Date of Encounter: 03/09/17 Time of Encounter: 17:01 Transfer Discharge Sum: Diag - Discharge Diagnosis (1) Hypernatremia Status: Resolved (2) Hypoglycemia Status: Resolved (3) Acute encephalopathy Status: Acute (4) Diabetes mellitus type 1 Status: Chronic (5) HUNG (acute kidney injury) Status: Acute (6) DVT prophylaxis Status: Acute (7) Aspiration pneumonia Status: Suspected (8) Acute respiratory failure Status: Resolved (9) Hypertension Status: Chronic (10) Rhabdomyolysis Status: Acute Transfer Discharge Sum: Med - Medications Active and Home Medications: Home Medications Aspirin [Adult Low Dose Aspirin EC] 81 mg PO QAM 03/16/15 [History Confirmed 10/10] Chlorthalidone 25 mg PO QAM 03/16/15 [History Confirmed 03/02/17] Mirtazapine [Remeron] 15 mg PO HS 06/24/15 [History Confirmed 03/02/17] Amlodipine Besylate/Benazepril [Lotrel 10-20 mg Capsule] 1 each PO DAILY #30 capsule 06/26/15 [Rx Confirmed 03/02/17] Glucagon,Human Recombinant [Glucagon Emergency Kit] 1 mg IJ ONCE PRN #3 kit [Rx Confirmed 03/02/17] Atorvastatin [Lipitor] 40 mg PO HS 03/02/17 [History Confirmed 03/02/17] Metoprolol Succinate 100 mg PO DAILY 03/02/17 [History Confirmed 03/02/17] Nut.tx.gluc.intoler,Lac-Fr,Soy [Glucerna 1.5 Omer] 1 can PO DAILY 03/02/17 [ History Confirmed 03/02/17] Subcutaneous Insulin Pump [T:Slim] 1 each MC AD 03/02/17 [History Confirmed 10/10] Active Medications Albuterol Sulfate (Albuterol Inhaler) 2 puff IH Q2HR PRN PRN Reason: Shortness Of Breath/Wheezing Stop: 09/01/17 13:55 Amlodipine Besylate (Norvasc) 10 mg PO DAILY QUE PRN Reason: Protocol Stop: 09/03/17 09:31 Last Admin: 03/09/17 09:06 Dose: 10 mg Aspirin (Aspirin Ec) 81 mg PO QAM [facility] Stop: 09/02/17 09:01 Last Admin: 03/09/17 09:07 Dose: 81 mg Dextrose/Water (Dextrose 50% (Syg)) 25 ml IVP AD PRN PRN Reason: Hypoglycemia Stop: 09/01/17 13:50 Last Admin: 03/08/17 08:08 Dose: 25 ml Dextrose/Water (Dextrose 50% (Syg)) 25 ml IVP Q15MIN PRN PRN Reason: Hypoglycemia Stop: 09/06/17 18:02 Last Admin: 03/08/17 07:02 Dose: 25 ml Dextrose/Water (Dextrose 50% (Syg)) 25 ml IVP ONCE PRN PRN Reason: Hypoglycemia Docusate Sodium (Colace) 100 mg PO BID PRN PRN Reason: Constipation Stop: 09/07/17 21:19 Last Admin: 03/09/17 09:07 Dose: 100 mg Glucagon (Glucagen) 1 mg IM ONCE PRN PRN Reason: Hypoglycemia Stop: 09/01/17 13:50 Glucose (Gluctose) 15 gm PO ONCE PRN PRN Reason: Hypoglycemia Stop: 09/01/17 13:50 Glucose (Gluctose) 30 gm PO ONCE PRN PRN Reason: Hypoglycemia Stop: 09/01/17 13:50 Heparin Sodium (Porcine) (Heparin) 5,000 unit SQ Q12HCO QUE Stop: 09/01/17 18:01 Last Admin: 03/09/17 05:09 Dose: 5,000 unit Hydralazine HCl (Hydralazine) 10 mg IVP Q6HR QUE Stop: 09/04/17 14:16 Last Admin: 03/09/17 11:55 Dose: 10 mg Sodium Chloride (0.9 % Sodium Chloride) 1,000 mls @ 100 mls/hr IVC .Q10H QUE Stop: 09/05/17 05:31 Last Admin: 03/08/17 23:37 Dose: 100 mls/hr Dextrose (Dextrose 5%) 1,000 mls @ 100 mls/hr IVC .Q10H PRN PRN Reason: HYPOGLYCEMIA Stop: 09/01/17 13:50 Insulin Human Regular 100 unit (/ Sodium Chloride) 101 mls @ 7.14 mls/hr IVC CONT QUE; 0.1 UNIT/KG/HR PRN Reason: Protocol Stop: 09/06/17 18:16 Last Admin: 03/08/17 10:23 Dose: Not Given Insulin Detemir (Levemir) 5 unit SQ BID [facility] Stop: 09/07/17 09:01 Last Admin: 03/09/17 10:39 Dose: 5 unit Insulin Human Lispro (Humalog) 3 units SQ TIDWM [facility] Stop: 09/07/17 08:01 Last Admin: 03/09/17 16:31 Dose: 3 units Insulin Human Lispro (Humalog) 0 units SQ HS [facility] PRN Reason: Protocol Stop: 09/07/17 21:01 Last Admin: 03/08/17 21:38 Dose: Not Given Insulin Human Lispro (Humalog) 0 units SQ TIDAC [facility] PRN Reason: Protocol Stop: 09/07/17 11:31 Last Admin: 03/09/17 16:31 Dose: 2 units Insulin Human Regular (Humulin R) 5 unit IV ONCE PRN PRN Reason: SEE COMMENTS Stop: 09/06/17 18:02 Metoprolol Tartrate (Lopressor) 50 mg PO BID [facility] Stop: 09/08/17 09:01 Last Admin: 03/09/17 09:07 Dose: 50 mg Midazolam HCl (Versed) 4 mg IVP Q1H PRN PRN Reason: Seizure Activity Stop: 09/03/17 14:31 Naloxone HCl (Narcan) 0.4 mg IVP Q2MIN PRN PRN Reason: Opioid Reversal Stop: 09/01/17 13:46 Pantoprazole Sodium (Protonix) 40 mg IVP DAILY [facility] Stop: 09/02/17 09:01 Last Admin: 03/09/17 09:07 Dose: 40 mg Phenytoin (Dilantin) 100 mg IVP Q8H [facility] Stop: 09/02/17 16:01 Last Admin: 03/09/17 16:31 Dose: 100 mg Vitamin B Complex/Vit C/Folic Acid (Renal Caps Softgel) 1 mg PO DAILY [facility] Stop: 09/07/17 11:01 Last Admin: 03/09/17 09:07 Dose: 1 mg Transfer Discharge Sum: Data Procedures and tests throughout hospitalization: Pending Orders 03/02/17 13:45 Resuscitation Status: Active [RES] Routine 03/02/17 13:50 EEG Routine 03/02/17 15:19 Admit as Inpatient Routine 03/03/17 10:40 PICC [Consult to Invasive Line Access Team] [CONS] Routine 03/06/17 10:40 Consult to Speech Therapy [CONS] Routine 03/06/17 11:15 0.9 % Sodium Chloride 1,000 ml IVC 100 mls/hr Albuterol Sulfate [Albuterol Inhaler] 2 puff IH Q2HR PRN D5% in Water [Dextrose 5%] 1,000 ml IVC 100 mls/hr Dextrose 50 % in Water (Syg) [Dextrose 50% (Syg)] 25 ml IVP AD PRN Dextrose Gel [Gluctose] 15 gm PO ONCE PRN Dextrose Gel [Gluctose] 30 gm PO ONCE PRN Glucagon, Human Recombinant [GlucaGen] 1 mg IM ONCE PRN Midazolam HCl [Versed] 4 mg IVP Q1H PRN Naloxone [Narcan] 0.4 mg IVP Q2MIN PRN 03/06/17 12:00 hydrALAZINE [HydrALAZINE] 10 mg IVP Q6HR 03/06/17 13:34 thompson [Urinary cath initiate/manage] [RC] Q4H 03/06/17 16:00 Phenytoin [Dilantin] 100 mg IVP Q8H 03/06/17 18:00 Heparin 5,000 unit SQ Q12HCO 03/07/17 07:42 Free Water [RC] Q4H 03/07/17 08:39 EEG Routine 03/07/17 09:00 Aspirin Enteric Coated [Aspirin EC] 81 mg PO QAM Pantoprazole [Protonix] 40 mg IVP DAILY amLODIPine [Norvasc] 10 mg PO DAILY 03/07/17 11:49 Consult to Interpret Exam [CONS] Routine 03/07/17 15:58 Cardiac monitoring [RC] .ONCE 03/07/17 18:01 Dextrose 50 % in Water (Syg) [Dextrose 50% (Syg)] 25 ml IVP Q15MIN PRN Insulin Human Regular [HumuLIN R] 5 unit IV ONCE PRN DKA/HHS Adjustment as Directed Routine 03/07/17 18:04 Notify provider [RC] .PRN Dextrose 50 % in Water (Syg) [Dextrose 50% (Syg)] 25 ml IVP ONCE PRN 03/07/17 18:15 Insulin Human Regular [HumuLIN R] 100 unit 0.9 % Sodium Chloride 100 ml IVC CONT 03/08/17 08:00 Insulin LISPRO [HumaLOG] 3 units SQ TIDWM 03/08/17 08:49 Consult to Nephrology [CONS] Stat 03/08/17 09:00 Insulin DETEMIR [Levemir] 5 unit SQ BID 03/08/17 11:00 Renal Vitamin [Renal Caps Softgel] 1 mg PO DAILY 03/08/17 11:30 Insulin LISPRO [HumaLOG] See Protocol SQ TIDAC 03/08/17 11:53 Thyroid Antibodies Routine 03/08/17 14:00 Arterial Blood Gas DAILY 03/08/17 21:00 Insulin LISPRO [HumaLOG] See Protocol SQ HS 03/08/17 21:18 Docusate [Colace] 100 mg PO BID PRN 03/08/17 Lunch Dietary Supplement Pureed Diet 03/09/17 05:16 ALISTAIR IgG SOHAIL rflx IFA AM 0400 Complement Component 3 Routine Complement Component 4 Routine 03/09/17 09:00 Metoprolol [Lopressor] 50 mg PO BID 03/09/17 11:04 Consult to Interventional Radiology [CONS] Stat 03/09/17 11:49 Bacterial Antigen, CSF [RC] .Stat 03/09/17 14:00 Arterial Blood Gas DAILY 03/09/17 14:54 CSF Echovirus Antibodies Stat Culture,CSF [RM] Stat HSV 1 Glycoprotein G IgG CSF Stat HSV 2 Glycoprotein G IgG CSF Stat VDRL reflex titer, CSF Stat 03/09/17 16:30 HSV DNA [MOLMIC] Stat 03/10/17 04:00 CBC [Complete Blood Count] [HEME] AM 0400 Chem 7 [Basic Metabolic Panel] AM 0400 03/10/17 14:00 Arterial Blood Gas DAILY 03/11/17 14:00 Arterial Blood Gas DAILY - Impressions ITS Impressions Brain MRI 03/02/17 13:48 IMPRESSION: Unremarkable brain MRI. D/ / Mars Rouse MD / Mars Rouse MD Interpreting Provider: Mars Rouse MD Chest X-Ray 03/03/17 08:44 IMPRESSION: Support tubes are in position. No acute cardiopulmonary process. D/ / 03/03/2017 10:06:47 Jana Inman MD / bcarter Interpreting Provider: Jana Inman MD Brain MRI 03/07/17 08:39 IMPRESSION: 1. No acute infarct, intracranial hemorrhage, significant mass effect. 2. Small chronic lacunar infarct within right cerebellum. D/ / Omid Inman MD / Omid Inman MD Interpreting Provider: Omid Inman MD Retroperitoneum Ultrasound 03/08/17 07:52 IMPRESSION: Increased renal echogenicity suggests medical renal disease. Trace ascites in the left upper quadrant and midline pelvis. D/ / 03/08/2017 09:37:16 Jana Inman MD / [email or web address] e Interpreting Provider: Jana Inman MD Lumbar Puncture Fluoroscopy 03/09/17 11:12 IMPRESSION: Successful fluoroscopic-guided lumbar puncture. D/ / Dakotah Rosa MD / Dakotah Rosa MD Interpreting Provider: Dakotah Rosa MD Transfer Discharge Sum: Prov Date of admission: 03/02/17 12:27 Primary care physician: Vivek Gaffney DO Admitting clinician: Sahara Winslow Attending physician on admission: Sahara Winslow Consults: 03/02/17 13:58 Consult to Neurology [CONS] Routine Consulting Provider: Neurology [facility] Reason for Consult: Unresponsiveness and reported seizure activity at home. May related to hypoglycemia (DM1 on insulin pump recently) CT head negative. MRI brain and EEG ordered. Appreciate neurology evaluation and recommendation. Call Completed: Yes 03/02/17 16:42 Consult to Interpret Exam [CONS] Routine Consulting Provider: Brenda Burch Consult to Interpret Exam: Interpret EEG 03/03/17 10:40 PICC [Consult to Invasive Line Access Team] [CONS] Routine Reason for Consult: Limited vascular access Line Type: EPIV PICC line indications: Limited vascular access 03/06/17 10:40 Consult to Speech Therapy [CONS] Routine Comment: Evaluate, develop and implement POC Reason for Consult: Swallow evaluation Call Completed: No 03/07/17 11:49 Consult to Interpret Exam [CONS] Routine Consulting Provider: Sahara Medley I Consult to Interpret Exam: Interpret EEG 03/08/17 08:49 Consult to Nephrology [CONS] Stat Consulting Provider: [facility]/ORIMI/MATHIEU/MORRIS Reason for Consult: HUNG Call Completed: Yes 03/09/17 11:04 Consult to Interventional Radiology [CONS] Stat Consulting Provider: Radiology Interventional [facility] Reason for Consult: Lumbar Puncture Call Completed: Yes Attending physician on discharge: Oscar Capone Discharging clinician: Oscar Capone Anticipated date of transfer: 03/09/17 Receiving physician/facility: [facility] Transfer Discharge Sum: A/P - Plan Cognitive capacity at transfer: Undetermined, patient is mute and aphasic Dr. Drea Manzo-Hospitalist Functional capacity at transfer: bed bound Overall status at transfer: patient is not back to baseline Disposition: Transfer Critical Access Hosp Transfer Discharge Sum: Hosp Hospital course: Mr. Irvin is a 46 year old male with Type I Dm since the age of 9, HTN, THC use Patient was found altered and hypoglycemic (down time unknown) by his son, who administered glucagon prior to arrival of EMS. He had just being started on an insulin pump 2 days prior to event He was hypoxic and altered, unresponsive at time of arrival to the ER and was found to be hypoxic, hence, intubated for airway protection He was admitted to medical ICU , managed with IV antibiotics, IVF, Vent support. He was extubated on 03/05 and transferred to the floors. Diagnoses 1. Acute encephalopathy: Differentials: Hypoxic-Patient has since been extubated 03/05 and on room air without any O2 requirement Metabolic: Rhabdomyolysis, HUNG, Hypoglycemia-All resolving, with no changed in patients mental status or aphasia Hypoxic: Suspected Hypoglycemic: Resolved. MRI done 03/04 and 03/07 shows no acute processes, chronic lacunar infarct His CT of the head was unremarkable EEG (done twice, 5 days apart) is consistent with mild to moderate diffuse cerebral dysfunction, as seen in encephalopathy. He also had leukocytosis on arrival which was assumed due to sepsis from possible aspiration and or related to seizure activity. This has since resolved Encephalitis: Unlikely, CSF RBC is 0. HSV DNA is pending, Gram stain of CSF is clear, Glucose is elevated, low suspicion for bacterial infection 2. HUNG: Non-oliguric, secondary to Rhabdomyolysis. Resolving with IVF hydration , Renal USS shows evidence of medical renal disease, baseline from here is SCr 1.54 / eGFR 49 on admission compared to baseline SCr 1.06 / eGFR >60. 3. DM: Uncontrolled. A1C is 9.9. Episode of Diabetic hyperglycemia with resolved with insulin drip. Patient is on levemir and prandial lispro now, he is tolerating orally. 4. Rhabdomyolysis: Improving, admitting CK of >2600, now 700s. Possibly due to seizure like activity 5. HTN: Controlled on current doses of Norvasc and Metoprolol - Time Spent with Patient Total time spent providing and/or coordinating transfer services: Greater than 30 minutes Transfer Discharge Sum: Exam - Constitutional Vitals: Vital Signs Temp Pulse Resp BP Pulse Ox 03/09/17 15:58 98.1 F 89 18 147/71 97 03/09/17 11:51 99.4 F 93 20 145/78 95 03/09/17 11:11 99.3 F 93 18 137/82 95 03/09/17 07:13 98.4 F 112 20 153/93 95 03/09/17 03:40 97.6 F 101 16 165/89 100 03/08/17 23:36 98.5 F 96 17 151/93 99 03/08/17 23:30 98.5 F 96 17 151/93 99 03/08/17 20:28 99.6 F 105 13 148/89 98 Intake and Output 03/09/17 03/09/17 03/09/17 07:59 15:59 23:59 Intake Total 300 / 300 1140 / 1140 Output Total 2650 / 2650 900 / 900 400 / 400 Balance -2350 / -2350 240 / 240 -400 / -400 Intake: Oral 300 / 300 1140 / 1140 Output: Urine 1900 / 1900 400 / 400 Catheter 750 / 750 900 / 900 Other: Meal Lunch Percent of Meal Consumed 95% Blood Glucose* 214 180 - Head Head exam: Present: atraumatic - Eye Eye exam: Present: EOMI, PERRL - ENT ENT exam: Present: mucous membranes moist - Neck Neck exam: Present: full ROM. Absent: meningismus - Respiratory Respiratory exam: Present: CTAB - Cardiovascular Cardiovascular exam: Present: RRR, +S1, +S2. Absent: systolic murmur - GI/Abdominal GI/Abdominal exam: Present: normal bowel sounds, soft. Absent: tenderness - Additional comments: Thompson with clear urine - Extremities Exam Extremities exam: Absent: pedal edema - Back Exam Back exam: Present: normal inspection - Neurological Exam Neurological exam: Present: alert, speech deficit (aphasic). Absent: normal gait, oriented X3 (unable to assess) Additional comments: MOves all limsb spontaneously Follows commands equivocally
[2017-03-09] MEDS ORDERED: Acyclovir 500 MG in D5% in Water 100 ML IVPB SCH (18:00)
[2017-03-09] MEDS: Insulin Human Regular 100 UNIT in 0.9 % Sodium Chloride 100 ML IVC SCH (18:16)
[2017-03-09 20:05] VITALS: BP 141/100
[2017-03-10 07:49] LABS: Thyroglobulin Antibody <0.9 IU/mL (0.0-4.0)
[2017-03-10 08:06] LABS: Complement Component 3 100 mg/dL (88-201); Complement Component 4 38 mg/dL (10-40)
== END 2017-03-09 20:41 | disposition critical access hospital (66) | DRG 637 ==
LOC: EMEROO 09:05 → SUATTDRO 12:27 → ICNU 12:27 → 3ANU 03-06 20:39 → 2NNU 03-07 19:31
PROVIDERS: ADMIT Internal Medicine Hospice and Palliative Medicine; ATTEND Internal Medicine

== ENCOUNTER 2017-04-26 15:22 | Observation (INO) ==
--- NOTE | 2017-04-26 15:57 | Emergency Department Note ---
Disposition Clinical Impression: Hyperglycemia Altered mental status Qualifiers: Altered mental status type: unspecified Qualified Code(s): R41.82 - Altered mental status, unspecified Disposition: Admitted As Inpatient Condition: Fair Time of Disposition: 17:28 Altered Mental Status HPI - General Chief Complaint: ED Altered Mental Status Stated Complaint: ams Time Seen by Provider: 04/26/17 15:33 Source: patient, family Mode of arrival: ambulatory Limitations: no limitations Nursing Notes Reviewed: Yes Vital Signs Reviewed: Yes - History of Present Illness HPI Narrative: 46-year-old male with history of type 1 diabetes presents for evaluation of altered mental status. Patient was recently hospitalized for extended period time for his hypoglycemia as well as secondary nontraumatic head injury. Patient was evaluated at [facility]. Patient presents today in the care of the family states that he has been increasingly altered in the past week. Patient's been having visual hallucinations with symptoms that include seeing eggs and snakes. Seeing his family members are not really there. Patient also been increasingly combative with family. Patient's been on his same medications since being discharged from [facility]. No recent changes in medications. Denies any fevers. Denies any nausea or vomiting. Denies any chest or shortness breath. Family is concerned because he was acting differently. - Related Data Home Medications Medication Instructions Recorded Confirmed Atorvastatin [Lipitor] 40 mg PO HS 03/02/17 04/26/17 Amlodipine Besylate 10 mg PO DAILY 04/26/17 04/26/17 Aspirin 81 mg PO DAILY 04/26/17 04/26/17 Docusate [Colace] 100 mg PO BID PRN 04/26/17 04/26/17 Donepezil HCl [Aricept] 10 mg PO HS 04/26/17 04/26/17 Gabapentin [Neurontin] 100 mg PO HS 04/26/17 04/26/17 Hydralazine HCl 50 mg PO Q6H 04/26/17 04/26/17 Insulin Glargine,Hum.rec.anlog 5 unit SQ 2100 04/26/17 04/26/17 [Lantus Solostar] Insulin Glargine,Hum.rec.anlog 7 unit SQ 0900 04/26/17 04/26/17 [Lantus Solostar] Insulin LISPRO [Humalog Kwikpen 0 unit SQ TIDWM 04/26/17 04/26/17 U-100] LevETIRAcetam [Keppra] 500 mg PO BID 04/26/17 04/26/17 Melatonin [Melatin] 6 mg PO HS 04/26/17 04/26/17 Metoprolol [Lopressor] 50 mg PO BID 04/26/17 04/26/17 Sertraline [Zoloft] 50 mg PO DAILY 04/26/17 04/26/17 Thiamine (B-1) [Vitamin B-1] 100 mg PO DAILY 04/26/17 04/26/17 Allergies Allergy/AdvReac Type Severity Reaction Status Date / Time No Known Allergies Allergy Verified 04/26/17 15:30 All systems ED: reviewed and negative except as stated. Constitutional: Reports: as per HPI. Denies: fever Eyes: Reports: as per HPI ENT ED: Reports: as per HPI Cardiovascular: Reports: as per HPI Respiratory: Reports: as per HPI. Denies: cough Gastrointestinal: Reports: as per HPI. Denies: abdominal pain, nausea, vomiting Genitourinary: Reports: as per HPI Musculoskeletal: Reports: as per HPI Integumentary: Reports: as per HPI Neurological: Reports: as per HPI. Denies: headache, weakness, numbness Psychiatric: Reports: as per HPI Endocrine: Reports: as per HPI Hematological/Lymphatic: Reports: as per HPI Past Medical History - Past Medical History Medical history: Reports: diabetes, hyperlipidemia, hypertension Surgical history: Reports: no surgical history Psychiatric history: Reports: no psych history - Social History Smoking Status: Former smoker Smokeless Tobacco Status: No Alcohol use: Reports: occasionally Drug use: Reports: marijuana Physical Exam - General Limitations: no limitations General appearance: alert, in no apparent distress - Head Head exam: atraumatic, normocephalic, normal inspection - Eye Eye exam: Present: normal appearance, PERRL, EOMI - ENT ENT exam: normal exam, normal oropharynx - Neck Neck exam: Present: normal inspection, trachea midline. Absent: meningismus - Chest Chest inspection: Present: normal inspection, symmetric chest wall rise - Respiratory Respiratory exam: Present: normal lung sounds bilaterally. Absent: respiratory distress - Cardiovascular Cardiovascular exam: Present: regular rate, normal rhythm. Absent: systolic murmur - Abdominal Exam Abdominal exam: Present: soft, Non-Tender - Extremities Exam Extremities exam: Present: normal inspection. Absent: pedal edema - Back Exam Back exam: Present: normal inspection - Neurological Exam Neurological exam: Present: alert, oriented X3, CN II-XII intact - Expanded Neurological Exam Patient oriented to: Present: person, place, time Speech: Present: fluid speech Cranial nerves: EOM function (II, III, IV, ): Normal, facial sensation (V): Normal, facial palsy (VII): Normal, spinal accessory function (XI): Normal, tongue deviation (XII): Normal Cerebellar function: finger to nose: Normal Motor strength - LUE: 5/5 Motor strength - RUE: 5/5 Motor strength - LLE: 5/5 Motor strength - RLE: 5/5 Coma Scale Eye Opening: Spontaneous Coma Scale Motor Response: Obeys Commands Coma Scale Verbal Response: Oriented Coma Scale Total: 15 - Skin Skin exam: Present: warm, dry, intact, normal color Course Course Narrative: Patient seen and examined. Patient is confused to time. Patient's family is concerned about his visual hallucinations. Patient denies any history of drugs or alcohol. Patient has a nonfocal neurologic exam otherwise. Patient basic screening evaluation looking for metabolic cause of his derangements. Patient will likely require admission with further evaluation. Patient's records were reviewed from [facility] where he had a lacunar infarct diagnosis. - Consultations Consultation #1: Spoke with Dr. Munguia, neurology. Recommended EEG as well as MRI Time: 17:28 Vital Signs Temperature 98.1 F 04/26/17 15:27 Pulse Rate 69 04/26/17 15:27 Respiratory Rate 18 04/26/17 15:27 Blood Pressure 189/96 04/26/17 15:27 O2 Sat by Pulse Oximetry 100 04/26/17 15:27 Temperature 97.8 F 04/26/17 18:42 Pulse Rate 68 04/26/17 18:42 Respiratory Rate 16 04/26/17 18:42 Blood Pressure 164/81 04/26/17 18:42 O2 Sat by Pulse Oximetry 99 04/26/17 18:42 Oxygen Delivery Oxygen Delivery Room Air Altered Mental Status - Lab Data Lab results reviewed: Yes I reviewed the patient's lab results. Result diagrams: 04/26/17 16:15 04/26/17 16:15 Lab Results 04/26/17 04/26/17 04/26/17 Range/Units 16:15 16:15 16:40 WBC 6.1 (4.3-11.1) K/mcL RBC 4.80 (4.19-5.50) M/mcL Hgb 11.3 L (12.9-16.9) g/dL Hct 37.3 L (37.5-50.1) % MCV 77.7 L (83.0-100.0) fL MCH 23.5 L (28.0-33.3) pg MCHC 30.3 L (31.6-35.5) g/dL RDW 14.8 H (11.5-14.5) % Plt Count 204 (140-400) K/mcL MPV 9.5 (9.4-12.4) fL Immature Gran % 0.3 (0-4) % Seg Neutrophils % 57.3 % Lymphocytes % 29.5 % Monocytes % 8.0 % Eosinophils % 4.1 % Basophils % 0.8 % Neutrophils # 3.5 (1.6-8.9) K/mcL Lymphocytes # 1.8 (0.6-4.6) K/mcL Monocytes # 0.5 (0.0-1.3) K/mcL Eosinophils # 0.3 (0.0-0.6) K/mcL Basophils # 0.1 (0.0-0.2) K/mcL Sodium 137 (136-145) mEq/L Potassium 4.2 (3.5-5.1) mEq/L Chloride 107 (98-107) mEq/L Carbon Dioxide 28 (23-29) mEq/L BUN 27 H (6-20) mg/dL Creatinine 1.07 (0.70-1.30) mg/dL Est GFR ( Amer) > 60 (> 60) Est GFR (Non-Af Amer) > 60 (> 60) BUN/Creatinine Ratio 25 (6-26) Glucose 196 H (70-105) mg/dL Calculated Osmolality 295 (280-300) Calcium 8.9 (8.6-10.3) mg/dL Urine Color Yellow (Yellow) Urine Clarity Clear (Clear) Urine pH 6.5 (5.0-8.0) pH Units Ur Specific [place] 1.012 (1.010-1.025) Urine Protein >=300 H (Neg-Trace) mg/dL Urine Glucose (UA) 250 H (Normal) mg/dL Urine Ketones Negative (Negative) mg/dL Urine Blood Small H (Negative) Urine Nitrite Negative (Negative) Urine Bilirubin Negative (Negative) Urine Urobilinogen Normal (Normal) mg/dL Ur Leukocyte Esterase Negative (Negative) Urine Microscopic RBC 5-15 H (0-3) per hpf Urine Microscopic WBC 0-3 (0-3) per hpf Ur Squamous Epith Cells Moderate H (None-Few) per lpf Urine Bacteria None Seen (None-Few) per hpf Hyaline Casts None Seen (None-Few) per lpf Ur Culture Indicated? NO (NO) Urine Opiates Screen (Sqcgwh=201) ng/mL Ur Barbiturates Screen (Flfalp=896) ng/mL Ur Phencyclidine Scrn (Cutoff=25) ng/mL Ur Amphetamines Screen (Hyrrpn=9694) ng/mL U Benzodiazepines Scrn (Nkhwdc=734) ng/mL Urine Cocaine Screen (Cutoff= 300) ng/mL U Marijuana (THC) Screen (Cutoff = 50) ng/mL 04/26/17 Range/Units 16:40 WBC (4.3-11.1) K/mcL RBC (4.19-5.50) M/mcL Hgb (12.9-16.9) g/dL Hct (37.5-50.1) % MCV (83.0-100.0) fL MCH (28.0-33.3) pg MCHC (31.6-35.5) g/dL RDW (11.5-14.5) % Plt Count (140-400) K/mcL MPV (9.4-12.4) fL Immature Gran % (0-4) % Seg Neutrophils % % Lymphocytes % % Monocytes % % Eosinophils % % Basophils % % Neutrophils # (1.6-8.9) K/mcL Lymphocytes # (0.6-4.6) K/mcL Monocytes # (0.0-1.3) K/mcL Eosinophils # (0.0-0.6) K/mcL Basophils # (0.0-0.2) K/mcL Sodium (136-145) mEq/L Potassium (3.5-5.1) mEq/L Chloride (98-107) mEq/L Carbon Dioxide (23-29) mEq/L BUN (6-20) mg/dL Creatinine (0.70-1.30) mg/dL Est GFR ( Amer) (> 60) Est GFR (Non-Af Amer) (> 60) BUN/Creatinine Ratio (6-26) Glucose (70-105) mg/dL Calculated Osmolality (280-300) Calcium (8.6-10.3) mg/dL Urine Color (Yellow) Urine Clarity (Clear) Urine pH (5.0-8.0) pH Units Ur Specific [place] (1.010-1.025) Urine Protein (Neg-Trace) mg/dL Urine Glucose (UA) (Normal) mg/dL Urine Ketones (Negative) mg/dL Urine Blood (Negative) Urine Nitrite (Negative) Urine Bilirubin (Negative) Urine Urobilinogen (Normal) mg/dL Ur Leukocyte Esterase (Negative) Urine Microscopic RBC (0-3) per hpf Urine Microscopic WBC (0-3) per hpf Ur Squamous Epith Cells (None-Few) per lpf Urine Bacteria (None-Few) per hpf Hyaline Casts (None-Few) per lpf Ur Culture Indicated? (NO) Urine Opiates Screen Negative (Xobzby=527) ng/mL Ur Barbiturates Screen Negative (Mfqnrl=091) ng/mL Ur Phencyclidine Scrn Negative (Cutoff=25) ng/mL Ur Amphetamines Screen Negative (Fmfprb=2803) ng/mL U Benzodiazepines Scrn Negative (Uhjzrm=636) ng/mL Urine Cocaine Screen Negative (Cutoff= 300) ng/mL U Marijuana (THC) Screen Negative (Cutoff = 50) ng/mL - EKG Data EKG attestation: Yes I reviewed and interpreted this EKG. EKG shows normal: sinus rhythm Rate: normal Rhythm: NSR T wave inversions: aVR Interpretation: unchanged when compared to prior tracing (date), nonspecific ST- T wave changes S.B.A.R. - S.B.A.Sravani Situation: Demographics Background: Presenting Complaint, Relevant PMH, Meds, & Allergies Assessment: Vital Signs, Patient/Family Expectation Recommendation: Barrier(s) to disposition, Recommendation based on pending studies, treatments, or consults S.B.A.R. Report Given to: Hospitalist Adam Repor Time: 17:29 Attestation Statement - Attestation Attestation: I examined this patient and my medical decision-making was reviewed with the Resident Physician. I agree with the documented findings, disposition and treatment plan as described except to the extent set forth below. Neurologically normal at the time of my exam, although still feels he is not at baseline.
[2017-04-26 16:23] LABS: Basophils # 0.1 K/mcL (0.0-0.2); Basophils % 0.8 %; Eosinophils # 0.3 K/mcL (0.0-0.6); Eosinophils % 4.1 %; Hematocrit 37.3 % (37.5-50.1); Hemoglobin 11.3 g/dL (12.9-16.9); Immature Granulocytes % 0.3 % (0-4); Lymphocytes # 1.8 K/mcL (0.6-4.6); Lymphocytes % 29.5 %; Mean Corpuscular HGB Conc 30.3 g/dL (31.6-35.5); Mean Corpuscular Hemoglobin 23.5 pg (28.0-33.3); Mean Corpuscular Volume 77.7 fL (83.0-100.0); Mean Platelet Volume 9.5 fL (9.4-12.4); Monocytes # 0.5 K/mcL (0.0-1.3); Neutrophils # 3.5 K/mcL (1.6-8.9); Platelet Count 204 K/mcL (140-400); Red Cell Distribution Width 14.8 % (11.5-14.5); Segmented Neutrophils % 57.3 %
[2017-04-26 16:39] LABS: BUN/Creatinine Ratio 25 (6-26); Blood Urea Nitrogen 27 mg/dL (6-20); Calcium 8.9 mg/dL (8.6-10.3); Carbon Dioxide 28 mEq/L (23-29); Chloride 107 mEq/L (98-107); Glucose 196 mg/dL (70-105); Osmolality,Calculated 295 (280-300); Potassium 4.2 mEq/L (3.5-5.1); Sodium 137 mEq/L (136-145); eGFR For African Americans > 60 (> 60); eGFR For Non-African Americans > 60 (> 60)
[2017-04-26 16:58] LABS: Bilirubin,Urine Negative (Negative); Blood,Urine Small (Negative); Clarity,Urine Clear (Clear); Color,Urine Yellow (Yellow); Glucose,Urine (UA) 250 mg/dL (Normal); Ketones,Urine Negative (Negative); Leukocyte Esterase,Urine Negative (Negative); Nitrite,Urine Negative (Negative); PH,Urine 6.5 pH Units (5.0-8.0); Protein,Urine >=300 mg/dL (Neg-Trace); Specific Gravity,Urine 1.012 (1.010-1.025); Urobilinogen,Urine Normal (Normal)
[2017-04-26 17:00] LABS: Bacteria,Urine None Seen per hpf (None-Few); Hyaline Casts,Urine None Seen per lpf (None-Few); Squamous Epithelial Cell,Urine Moderate per lpf (None-Few); WBC,Urine 0-3 per hpf (0-3)
[2017-04-26] MEDS ORDERED: Insulin Regular, Human 100 UNIT/ML IV ONE (17:30)
[2017-04-26 17:48] LABS: Amphetamine Screen,Urine Negative ng/mL (Cutoff=1000); Barbiturate Screen,Urine Negative ng/mL (Cutoff=200); Benzodiazepines Screen,Urine Negative ng/mL (Cutoff=200); Cannabinoid Screen,Urine Negative ng/mL (Cutoff = 50); Cocaine Screen,Urine Negative ng/mL (Cutoff= 300); Opiate Screen,Urine Negative ng/mL (Cutoff=300); Phencyclidine Screen,Urine Negative ng/mL (Cutoff=25)
--- NOTE | 2017-04-26 20:00 | Internal Med History&Physical ---
Date of Encounter: 04/26/17 Time of Encounter: 19:00 Assessment and Plan (1) Acute encephalopathy Current visit: No Status: Acute -Patient with continued intermittent confusion and combativeness in addition to visual/auditory hallucinations. -Patient was diagnosed with nontraumatic brain injury in February 2017 -We will order head CT. -Neurology was consuled from the ER but will also consult psychiatry (2) Hypertension Current visit: No Status: Chronic -Continue home medications Qualifiers: Hypertension type: essential hypertension Qualified Code(s): I10 - Essential (primary) hypertension (3) Hyperlipemia Current visit: No Status: Chronic -Continue home medications Qualifiers: Hyperlipidemia type: other hyperlipidemia Qualified Code(s): E78.4 - Other hyperlipidemia (4) DVT prophylaxis Current visit: No Status: Acute -SCDs Internal Medicine - H&P: HPI Chief complaint: Confusion and hallucinations Admitted From: Home Plans for Post Hospital Care: Home History of present illness: Patient is a 46-year-old male with past medical history significant for nontraumatic brain injury, hypertension, hyperlipidemia and diabetes who presents to the ER accompanied by his on 04/26/17 due to confusion and combativeness in addition to hallucinations. reports patient with intermittent episodes of confusion now with visual and auditory hallucinations in the past week. reports patient has also become more combative at home as well. decided to bring patient into the ER for evaluation. Patient was recently transferred from [facility] in February 2017 to [facility] after extensive workup by neurology and was diagnosed with non- traumatic brain injury. Patient was discharged from [facility] to [facility] for rehabilitation. Apparently, according to , patient still not at baseline cognitively. In the ER, initial labs unremarkable including negative urine tox. Neurology was consulted from the ER. Patient admitted to the medical surgical floor for further workup. Past Med Surg Social Fam HX - Past Medical History Medical history: diabetes, hyperlipidemia, hypertension Psychiatric history: no psych history - Past Surgical History Surgical History: no surgical history - Social History Smoking Status: Former smoker Smokeless Tobacco Status: No Alcohol use: occasionally Drug use: marijuana - Family History Father Hx Family Cancer: Yes (stomach) Mother Adopted: No Living Status: Still Living Hx Family Cardiac Disorders: No Hx Family Respiratory Disorders: No Hx Family Cancer: No Hx Family GI Disorders: No Hx Family Genitourinary Disorders: No Hx Family Endocrine Disorder: Yes (dm) Hx Family Musculoskeletal Disorders: No Hx Family Neuromuscular Disorders: No Hx Family Neurologic Disorders: No Hx Family HEENT Disorders: No Hx Family Autoimmune Disorders: No Hx Family Reproductive Disorders: No Hx Family Psychosocial Disorders: No Hx Family Medical Disorders: No Internal Medicine - H&P: Meds Atorvastatin [Lipitor] 40 mg PO HS 03/02/17 [History] Amlodipine Besylate 10 mg PO DAILY 04/26/17 [History] Aspirin 81 mg PO DAILY 04/26/17 [History] Docusate [Colace] 100 mg PO BID PRN 04/26/17 [History] Donepezil HCl [Aricept] 10 mg PO HS 04/26/17 [History] Gabapentin [Neurontin] 100 mg PO HS 04/26/17 [History] Hydralazine HCl 50 mg PO Q6H 04/26/17 [History] Insulin Glargine,Hum.rec.anlog [Lantus Solostar] 5 unit SQ 2100 04/26/17 [ History] Insulin Glargine,Hum.rec.anlog [Lantus Solostar] 7 unit SQ 0900 04/26/17 [ History] Insulin LISPRO [Humalog Kwikpen U-100] 0 unit SQ TIDWM 04/26/17 [History] LevETIRAcetam [Keppra] 500 mg PO BID 04/26/17 [History] Melatonin [Melatin] 6 mg PO HS 04/26/17 [History] Metoprolol [Lopressor] 50 mg PO BID 04/26/17 [History] Sertraline [Zoloft] 50 mg PO DAILY 04/26/17 [History] Thiamine (B-1) [Vitamin B-1] 100 mg PO DAILY 04/26/17 [History] 3 Allergy/AdvReac Type Severity Reaction Status Date / Time No Known Allergies Allergy Verified 04/26/17 15:30 All Systems PM: A 10-system review of systems was performed and is negative for pertinent findings except as documented above in the HPI. - Constitutional Vitals: Temp Pulse Resp BP Pulse Ox 97.8 F 68 16 164/81 99 04/26/17 18:42 04/26/17 18:42 04/26/17 18:42 04/26/17 18:42 04/26/17 18:42 General appearance: Present: A&O X 3, pleasant, no acute distress, answers questions appropriately - Eye Eye exam: Present: EOMI - ENT ENT exam: Present: mucous membranes moist - Respiratory Respiratory exam: Present: CTAB. Absent: accessory muscle use, rales, rhonchi, wheezes - Cardiovascular Cardiovascular exam: Present: RRR, +S1, +S2. Absent: diastolic murmur, gallop, rubs, systolic murmur - GI/Abdominal GI/Abdominal exam: Present: normal bowel sounds, soft, no peritoneal signs. Absent: distended, tenderness - Neurological Exam Neurological exam: Present: CN II-XII intact, oriented X3 - Psychiatric Psychiatric exam: Present: normal mood - Skin Skin exam: Present: normal color Internal Med - H&P Results - Labs CBC & Chem 7: 04/26/17 16:15 04/26/17 16:15
[2017-04-26] MEDS ORDERED: Naloxone 0.4 MG/ML INJ IVP PRN (20:13)
[2017-04-26] MEDS ORDERED: hydrALAZINE 25 MG TABLET PO SCH (20:30)
[2017-04-26] MEDS: Melatonin 3 MG TABLET PO SCH (21:54)
[2017-04-26] MEDS: Insulin DETEMIR 100 UNIT/ML X5UNITS SQ SCH (21:54)
[2017-04-26] MEDS: Gabapentin 100 MG CAPSULE PO SCH (21:54)
[2017-04-26] MEDS: levETIRAcetam 250 MG TABLET PO SCH (21:54)
[2017-04-27] MEDS: hydrALAZINE 25 MG TABLET PO SCH ×4 (04:14→21:05)
[2017-04-27 05:26] LABS: Basophils # 0.1 K/mcL (0.0-0.2); Basophils % 1.1 %; Eosinophils # 0.3 K/mcL (0.0-0.6); Eosinophils % 4.9 %; Hematocrit 33.9 % (37.5-50.1); Hemoglobin 10.3 g/dL (12.9-16.9); Immature Granulocytes % 0.4 % (0-4); Lymphocytes # 2.1 K/mcL (0.6-4.6); Lymphocytes % 39.4 %; Mean Corpuscular HGB Conc 30.4 g/dL (31.6-35.5); Mean Corpuscular Hemoglobin 23.4 pg (28.0-33.3); Mean Platelet Volume 9.6 fL (9.4-12.4); Monocytes # 0.5 K/mcL (0.0-1.3); Monocytes % 9.9 %; Neutrophils # 2.4 K/mcL (1.6-8.9); Platelet Count 184 K/mcL (140-400); Red Cell Distribution Width 14.6 % (11.5-14.5); Segmented Neutrophils % 44.3 %
[2017-04-27 05:59] LABS: BUN/Creatinine Ratio 21 (6-26); Blood Urea Nitrogen 23 mg/dL (6-20); Calcium 8.4 mg/dL (8.6-10.3); Carbon Dioxide 25 mEq/L (23-29); Chloride 109 mEq/L (98-107); Glucose 129 mg/dL (70-105); Osmolality,Calculated 295 (280-300); Potassium 3.8 mEq/L (3.5-5.1); Sodium 140 mEq/L (136-145); eGFR For African Americans > 60 (> 60); eGFR For Non-African Americans > 60 (> 60)
[2017-04-27 08:39] LABS: % Iron Saturation 31 % (20-55); Iron 61 mcg/dL (65-175); Transferrin 140 mg/dL (203-362)
[2017-04-27] MEDS: amLODIPine 5 MG TABLET PO SCH (08:47)
[2017-04-27] MEDS: Thiamine (B-1) 100 MG TABLET PO SCH (08:47)
[2017-04-27] MEDS: Aspirin 81 MG TAB.CHEW PO SCH (08:48)
[2017-04-27] MEDS: Insulin DETEMIR 100 UNIT/ML X5UNITS SQ SCH ×2 (08:48→21:05)
[2017-04-27] MEDS: levETIRAcetam 250 MG TABLET PO SCH ×2 (08:48→21:05)
--- NOTE | 2017-04-27 11:14 | Neurology - Consult Note ---
<Mars Daniel - Last Filed: 04/27/17 16:06> Date of Encounter: 04/27/17 Time of Encounter: 11:04 Assessment and Plan (1) Acute encephalopathy Current Visit: No Status: Acute Patient presents with acute encephalopathy with apparent change from his baseline. He reports visual hallucinations. Interestingly he has no change in his level of consciousness. This may be long-term sequelae of repeated hypoglycemic episodes including a severe hypoglycemic event in early February. EEG and neuro imaging were unremarkable. Agree with psychiatric consultation as psychotropic medications may help with some of the patient's symptoms. (2) Diabetes Current Visit: No Status: Chronic Qualifiers: Diabetes mellitus type: type 1 Diabetes mellitus complication status: with hypoglycemia Diabetes mellitus complication detail: without coma Qualified Code(s): E10.649 - Type 1 diabetes mellitus with hypoglycemia without coma History of Present Illness Chief complaint: AMS HPI: Mr. Irvin is a 46 year old male with history of nontraumatic brain injury presents with altered mental status. Patient is somewhat of a poor historian. He states that "his brain has not been working right". He reports that several months ago he was in a coma at [facility] for month due to hypoglycemia. He states he has not been the same since then. He states that acutely in the last several days has had problems with his brain, as he characterizes. He does report that he has been seeing things that are not real. He cannot further characterize what these visual hallucinations are. He states that he has difficulty recognizing if they are real or not at times. He denies any auditory or tactile hallucinations. Per the admission H&P the patient was also had intermittent episodes of confusion with combativeness. Past Med Surg Social Fam HX - Past Medical History Medical history: diabetes, hyperlipidemia, hypertension Psychiatric history: no psych history - Past Surgical History Surgical History: no surgical history - Social History Smoking Status: Former smoker Smokeless Tobacco Status: No Alcohol use: occasionally Drug use: marijuana - Family History Father Hx Family Cancer: Yes (stomach) Mother Adopted: No Living Status: Still Living Hx Family Cardiac Disorders: No Hx Family Respiratory Disorders: No Hx Family Cancer: No Hx Family GI Disorders: No Hx Family Genitourinary Disorders: No Hx Family Endocrine Disorder: Yes (dm) Hx Family Musculoskeletal Disorders: No Hx Family Neuromuscular Disorders: No Hx Family Neurologic Disorders: No Hx Family HEENT Disorders: No Hx Family Autoimmune Disorders: No Hx Family Reproductive Disorders: No Hx Family Psychosocial Disorders: No Hx Family Medical Disorders: No Medications and Allergies Atorvastatin [Lipitor] 40 mg PO HS 03/02/17 [History] Amlodipine Besylate 10 mg PO DAILY 04/26/17 [History] Aspirin 81 mg PO DAILY 04/26/17 [History] Docusate [Colace] 100 mg PO BID PRN 04/26/17 [History] Donepezil HCl [Aricept] 10 mg PO HS 04/26/17 [History] Gabapentin [Neurontin] 100 mg PO HS 04/26/17 [History] Hydralazine HCl 50 mg PO Q6H 04/26/17 [History] Insulin Glargine,Hum.rec.anlog [Lantus Solostar] 5 unit SQ 2100 04/26/17 [ History] Insulin Glargine,Hum.rec.anlog [Lantus Solostar] 7 unit SQ 0900 04/26/17 [ History] Insulin LISPRO [Humalog Kwikpen U-100] 0 unit SQ TIDWM 04/26/17 [History] LevETIRAcetam [Keppra] 500 mg PO BID 04/26/17 [History] Melatonin [Melatin] 6 mg PO HS 04/26/17 [History] Metoprolol [Lopressor] 50 mg PO BID 04/26/17 [History] Sertraline [Zoloft] 50 mg PO DAILY 04/26/17 [History] Thiamine (B-1) [Vitamin B-1] 100 mg PO DAILY 04/26/17 [History] 3 Allergy/AdvReac Type Severity Reaction Status Date / Time No Known Allergies Allergy Verified 04/26/17 15:30 ROS unobtainable: due to mental status All Systems: A 10-system review of systems was performed and is negative for pertinent findings except as documented above in the HPI. Physical Examination - Vital Signs Vital Signs: Initial Vital Signs Temp Pulse Resp BP Pulse Ox 98.1 F 69 18 189/96 100 04/26/17 15:27 04/26/17 15:27 04/26/17 15:27 04/26/17 15:27 04/26/17 15:27 - Constitutional General appearance: comfortable - Neurologic Sensorimotor examination: intact Detailed motor examination: grossly full strength in all extremities Motor examination - right side: 5/5: deltoids, biceps, triceps, wrist flexion, wrist extension, sr account executive, hip flexors, tibialis Anterior, quadriceps, toe extension (EHL), plantarflexion Motor examination - left side: 07/29: deltoids, biceps, triceps, wrist flexion, wrist extension, hip flexors, sr account executive, quadriceps, tibialis Anterior, toe extension (EHL), plantarflexion Detailed sensory examination: intact Reflexes: Biceps: 2+, Brachioradialis: 2+, Patella: 2+, Achilles: 2+ Mental Status Examination: awake, alert, oriented to person, oriented to place, follows commands appropriately, answers questions appropriately, impaired memory , impaired cognition Cranial nerve examination: PERRL, EOMI, sensory to face intact, no facial asymmetry is present, no dysarthria, tongue protrudes midline, no atrophy or facial fasiculations present Cerebellar examination: performs finger to nose and heel to pathak symmetrically without ataxia, no difficulty with rapid alternating movements Ocular dysmotility: gaze-evoked nystagmus Results - Laboratory Findings CBC and BMP: 04/27/17 04:22 04/27/17 04:22 Abnormal lab findings: Abnormal lab results Hgb 10.3 g/dL (12.9-16.9) L 04/27/17 04:22 Hct 33.9 % (37.5-50.1) L 04/27/17 04:22 MCV 77.0 fL (83.0-100.0) L 04/27/17 04:22 MCH 23.4 pg (28.0-33.3) L 04/27/17 04:22 MCHC 30.4 g/dL (31.6-35.5) L 04/27/17 04:22 RDW 14.6 % (11.5-14.5) H 04/27/17 04:22 Chloride 109 mEq/L (98-107) H 04/27/17 04:22 BUN 23 mg/dL (6-20) H 04/27/17 04:22 Glucose 129 mg/dL (70-105) H 04/27/17 04:22 POC Glucose 145 (58-89) H 04/26/17 18:57 Calcium 8.4 mg/dL (8.6-10.3) L 04/27/17 04:22 Iron 61 mcg/dL (65-175) L 04/27/17 08:18 Transferrin 140 mg/dL (203-362) L 04/27/17 08:18 Urine Protein >=300 mg/dL (Neg-Trace) H 04/26/17 16:40 Urine Glucose (UA) 250 mg/dL (Normal) H 04/26/17 16:40 Urine Blood Small (Negative) H 04/26/17 16:40 Urine Microscopic RBC 5-15 per hpf (0-3) H 04/26/17 16:40 Ur Squamous Epith Cells Moderate per lpf (None-Few) H 04/26/17 16:40 Consult Discharge Plan - Plan Referrals: Vivek Gaffney DO [Primary Care Provider] - 05/22/17 4:00 pm Talisha Pires CNP [Advanced Practice Nurse] - 05/02/17 10:45 am <Mars Munguia E - Last Filed: 04/27/17 17:25> Date of Encounter: 04/27/17 Time of Encounter: 17:22 Assessment and Plan (1) Acute encephalopathy Current Visit: No Status: Acute Unfortunately it seems that the organic changes that his brain has suffered as a result of repeated episodes of hypoglycemia may be resulting in his recent behavioral changes. I find no evidence of an underlying toxic or metabolic etiology to explain this. His EEG was normal, his neurologic examination was normal. I agree with a psychiatry consultation. I will reevaluate him at your request. History of Present Illness HPI: The chart was reviewed, patient was seen and examined independently. The case was discussed with Dr. Daniel. I agree with his history as stated above. Family history finds that marcial Irvin has had several incidents of hypoglycemia during his life for his blood sugar has been down into the 20s. It seems however that since this most recent episode is been left with permanent issues that are affecting his mental health and memory. I did review his EEG today and it was completely normal. Neuroimaging has been unremarkable as well. All Systems: A 10-system review of systems was performed and is negative for pertinent findings except as documented above in the HPI. Physical Examination - Vital Signs Vital Signs: Initial Vital Signs Temp Pulse Resp BP Pulse Ox 98.1 F 69 18 189/96 100 04/26/17 15:27 04/26/17 15:27 04/26/17 15:27 04/26/17 15:27 04/26/17 15:27 - Neurologic Mental Status Examination: Mental status assessment finds that Mr. Irvin is awake he is alert, however he seems to be somewhat detached from things going on around him. He does respond when spoken to however his thinking seems to be neurological. He almost seems to have pressured thinking. He has difficulty with confusing right and left. However his speech and language are intact. He is not encephalopathic and he is awake and alert. However he certainly not processing normally. Results - Laboratory Findings CBC and BMP: 04/27/17 04:22 04/27/17 04:22 Abnormal lab findings: Abnormal lab results Hgb 10.3 g/dL (12.9-16.9) L 04/27/17 04:22 Hct 33.9 % (37.5-50.1) L 04/27/17 04:22 MCV 77.0 fL (83.0-100.0) L 04/27/17 04:22 MCH 23.4 pg (28.0-33.3) L 04/27/17 04:22 MCHC 30.4 g/dL (31.6-35.5) L 04/27/17 04:22 RDW 14.6 % (11.5-14.5) H 04/27/17 04:22 Chloride 109 mEq/L (98-107) H 04/27/17 04:22 BUN 23 mg/dL (6-20) H 04/27/17 04:22 Glucose 129 mg/dL (70-105) H 04/27/17 04:22 POC Glucose 145 (58-89) H 04/26/17 18:57 Calcium 8.4 mg/dL (8.6-10.3) L 04/27/17 04:22 Iron 61 mcg/dL (65-175) L 04/27/17 08:18 Transferrin 140 mg/dL (203-362) L 04/27/17 08:18 Urine Protein >=300 mg/dL (Neg-Trace) H 04/26/17 16:40 Urine Glucose (UA) 250 mg/dL (Normal) H 04/26/17 16:40 Urine Blood Small (Negative) H 04/26/17 16:40 Urine Microscopic RBC 5-15 per hpf (0-3) H 04/26/17 16:40 Ur Squamous Epith Cells Moderate per lpf (None-Few) H 04/26/17 16:40
--- NOTE | 2017-04-27 12:36 | EEG/EMG/Oth Biometrics Report ---
EEG Procedure Report Date of procedure: 04/27/17 EEG Procedure: Routine EEG Procedure Note: This is a report of a 21 channel bipolar and referential montage EEG. A posterior dominant rhythm of 10 Hz moderate voltage alpha frequency is identified symmetrically in the posterior head regions. This rhythm attenuates symmetrically with eye opening. Hyperventilation is performed and does not significantly alter the recording. There is no sleep architecture identified during the study. Photic stimulation is performed and does not produce a driving response. The EKG strip reveals normal sinus rhythm at 72 bpm. Impressions: This EEG recording is within normal limits. There is no evidence of epileptiform activity identified during the study. Comment a normal EEG does not preclude the diagnosis of seizure or epilepsy. If the clinical suspicion for seizure activity is high, serial EEGs or perhaps a prolonged recording may increase the yield. Please correlate clinically.
[2017-04-27] MEDS ORDERED: Dextrose Gel 15 GM/37.5 ML TUBE PO PRN ×2 (16:39)
[2017-04-27] MEDS ORDERED: D5% in Water 1,000 ML IVC PRN (16:39)
[2017-04-27] MEDS ORDERED: *HR* Dextrose 50 % in Water (Syg) 50 ML SYRINGE IVP PRN (16:39)
--- NOTE | 2017-04-27 17:17 | Electrocardiograph Report ---
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
[2017-04-27] MEDS: Insulin LISPRO 300 UNITS/3 ML VIAL SQ SCH (17:29)
--- NOTE | 2017-04-27 18:16 | Internal Med Progress Note ---
Date of Encounter: 04/27/17 Time of Encounter: 09:50 - Assessment and plan (1) Anemia Current Visit: Yes Status: Acute Assessment and plan: Patient with decreasing hemoglobin since February,. Hemoglobin is 10.3 this morning. Does not appear to be delusional, patient did not receive IV fluid bolus in the emergency department. MCV is low at 77. Urine was small amount of blood. Iron is low at 61, however this is not great enough for great concern. Percent saturation is 31, transferrin is low at 140, folate is 13 and within normal limits. Previously in February, B12 was elevated over 1400. We will supplement with ferrous sulfate 325 twice daily with stool softener added. Qualifiers: Anemia type: iron deficiency Iron deficiency anemia type: unspecified iron deficiency Qualified Code(s): D50.9 - Iron deficiency anemia, unspecified (2) Acute encephalopathy Current Visit: Yes Status: Acute Assessment and plan: Patient presents with acute encephalopathy with intermittent confusion and combativeness, visual and auditory hallucinations at home. Patient with prior diagnosis of non-traumatic brain injury in February,. He was sent to [facility] for evaluation of mutism. He was sent to [facility] for rehabilitation and has only been home a short time. reports that he has never returned to baseline. Head CT is negative for acute intracranial abnormality. Neurology was consulted , EEG was ordered and was unremarkable. Neurology feels this may be due to repeated hypo-glycemic episodes and hypoxia. They agree with psychiatric evaluation and possible medications to help with symptoms. Patient was not having auditory or visual hallucinations during evaluation today , he was alert and awake, oriented to name and place only, some speech was garbled at times. Currently labs are within normal limits. He does not appear to Be taking any medications that would be the cause of the encephalopathy. Psychiatry evaluation is pending Continue to monitor for safety. Monitor labs and vital signs. (3) DVT prophylaxis Current Visit: Yes Status: Acute Assessment and plan: Patient is ambulatory in the room. (4) Diabetes mellitus type 1 Current Visit: Yes Status: Chronic Assessment and plan: Chronic. Continue sliding scale insulin, Accu-Cheks before meals, diabetic diet. Qualifiers: Diabetes mellitus complication status: with hyperglycemia Qualified Code(s) : E10.65 - Type 1 diabetes mellitus with hyperglycemia (5) Hyperlipemia Current Visit: Yes Status: Chronic Assessment and plan: Chronic. Continue medication. Qualifiers: Hyperlipidemia type: other hyperlipidemia Qualified Code(s): E78.4 - Other hyperlipidemia (6) Hypertension Current Visit: No Status: Chronic Assessment and plan: Chronic. Continue medication. Continue to monitor vitals per admission orders. Qualifiers: Hypertension type: essential hypertension Qualified Code(s): I10 - Essential (primary) hypertension - Time Spent With Patient less than 15 minutes - Subjective Interval history: Patient was seen and assessed at bedside at 9:50 AM. He was alert and awake, oriented to place and name. He was unaware of month, year, or president. He did have some garbled speech at times. He was very forthright with his reason for his head injury and reports he is not always compliant with diet or insulin schedule. He denies any chest pain, shortness of breath, dizziness or headache. He denies any abdominal pain, nausea vomiting or diarrhea. - Constitutional Vitals: Temp Pulse Resp BP Pulse Ox 98.4 F 74 16 166/83 98 04/27/17 15:14 04/27/17 15:14 04/27/17 15:14 04/27/17 15:14 04/27/17 15:14 General appearance: Present: cooperative, A&O X 1, pleasant, no acute distress, answers questions appropriately - Head Head exam: Present: atraumatic, normal inspection, normocephalic - Eye Eye exam: Present: normal appearance, conjuntiva pink, sclera anicteric - Neck Neck exam general surgery: Present: normal inspection, supple, trachea midline. Absent: lymphadenopathy, tenderness - Respiratory Respiratory exam: Present: CTAB. Absent: accessory muscle use, chest wall tenderness, decreased breath sounds, rales, rhonchi, wheezes - Cardiovascular Cardiovascular exam: Present: RRR, +S1, +S2. Absent: diastolic murmur, gallop, rubs, systolic murmur - GI/Abdominal GI/Abdominal exam: Present: normal bowel sounds, soft, no peritoneal signs. Absent: distended, hepatomegaly, tenderness - Extremities Exam Extremities exam: Present: normal capillary refill, normal inspection, warm, radial pulses palpable and symmetrical. Absent: calf tenderness, cyanotic, pedal edema, tenderness - Neurological Exam Neurological exam: Present: alert, oriented X3, no focal deficits. Absent: facial droop, speech deficit - Skin Skin exam: Present: dry, intact, normal color, warm. Absent: rash Internal Medicine: Result - Labs CBC & Chem 7: 04/27/17 04:22 04/27/17 04:22 Labs: Short CBC 04/27/17 Range/Units 04:22 WBC 5.4 (4.3-11.1) K/mcL Hgb 10.3 L (12.9-16.9) g/dL Hct 33.9 L (37.5-50.1) % Plt Count 184 (140-400) K/mcL Neutrophils # 2.4 (1.6-8.9) K/mcL BMP 04/27/17 04:22 Sodium 140 Potassium 3.8 Chloride 109 H Carbon Dioxide 25 BUN 23 H Creatinine 1.08 Glucose 129 H Calcium 8.4 L - Impressions Impressions Head CT 04/26/17 20:17 IMPRESSION: No acute intracranial abnormality. D/ / Zia Schuler MD / Zia Schuler MD Interpreting Provider: Zia Schuler MD Consult Discharge Plan - Plan Referrals: Vivek Gaffney DO [Primary Care Provider] - 05/22/17 4:00 pm Talisha Pires CNP [Advanced Practice Nurse] - 05/02/17 10:45 am
--- NOTE | 2017-04-27 20:51 | Consult Note ---
Date of Encounter: 04/27/17 Time of Encounter: 19:45 Assessment & Recommendation (1) Psychotic disorder with delusions due to known physiological condition Status: Acute Assessment & Recommendation: Patient had a severe hypoxic episode following a seizure approximately 8 weeks ago and has resultant global brain damage that he is currently in occupational rehabilitation for. He has impaired memory, cognitive impairments, episodic mild mood instability and delusional thought. He is distressed about this, but has an optimistic attitude. He has shown no signs of depression nor has thoughts of hurting himself or anyone else. History of Present Illness Patient: new to practice Requesting Physician: Gale Gallagher CNP Reason for consult: Hallucinations History of present illness: Mr. Irvin is a 46 year old male who was resting comfortably in his bed when I went to his room to complete the consult regarding 'visual and auditory hallucinations'. I introduced myself to him and explained who I was. He stated that he had no idea that a psychiatrist was coming up to talk to him. His was present in the room and stayed throughout the interview process. The patient and his explained to me the background information/history as to what had occurred and brought them to this current situation in time. They reported that on March 02, he had a seizure and was found by their youngest son. He has complicating medical factors of having diabetes, hypertension and other medical issues. He was brought to [facility] and was apparently intubated and on a respirator for approximately one week. He suffered a severe hypoxic episode from the seizure and resultant neurological damage. He was transferred from [place] to [facility] for further evaluation and work up to try to identify the cause d the seizure and for further treatment options. He was there for approximately 2 weeks. They performed MRIs , CAT scans and EEG's ruling out any brain mass as a cause for the seizure seizure. He also had EEGs completed. After discharge from the [facility], he was moved to [facility] for occupational rehabilitative therapy. He was there for approximately 3 more weeks of therapy, where he improved in his function and was discharged home to [place]. He is now receiving outpatient occupational therapy in [place]. The couple went on to explain that the patient never had a history of seizure disorder and there is still not sure what happened to cause the seizure. He was without oxygen for an extended period of time. Since being home, they have noticed at times that he has problems finding his words as his memory is impaired, he has impulse control in regards to verbalizing often anything and everything that he thinks "without filtering it". It was also reported that he is been suffering from hallucinations. The couple explained to me that one time he told his that his grandfather had visited him that day. His grandfather is . He also reported that other family members had visited him when his knew for a fact that they had not. Patient understands this was not reality after his explained it. At times it takes a great deal of convincing on her part, band visible frustration on his part, but he does understand it as a complication of his medical issue resulting from the damage caused from the seizure. Patient has never suffered from delusional thought at any other time in his life. He has no mental health history. The couple went on to explain to that he has had to retrain/re-learn routine, elementary things in his life. Such as how to dress himself and how to eat. He does not know the seasons of the year, he does not know the names of colors. This is improved with the outpatient occupational therapy. He is walking better and able to do ADL's on his own. As previously noted, at times he does not filter what he says. He made a comment to their youngest son when he was frustrated about about something, calling him "Umesh León". He has never said things such as this prior to the brain injury. It does not appear that he is putting himself or others in dangerous/life threatening situations. He gets frustrated over the hallucinations and his memory loss, the inability to find words but appears to move forward and understand. His functionality is slowly coming back and they are hopeful it will continue to come back. He is optimistic that some of it has already improved and he's hopeful that will continue to improve with time and with therapy. The patient does not threaten to hurt himself is not threaten to hurt anybody else. He does have some sleep disturbance at times. The reported that one night he got up in the middle of night to take a shower stating that he was needing a shower from work, when he had not gone to work. Patient is no longer driving. He is currently applying for disability secondary to not being able to do his routine employment in the [employer] industry. He is hopeful that he will regain the ability to drive again and to be able to work again. -I explained to the couple that with the hallucinations, he could potentially take an antipsychotic medication that may or may not help the delusional thought go away. I explained to him the nature of the medication, and the potential side effects may make him more confused or slower in his thoughts. They stated that they were not interested in that. -I encourage them to continue with occupational therapy. I encouraged him to do any and all things he could to continue to activate parts of his brain and increase the circulation, healing and recovery of the brain tissue; neuro- plasticity. (how the brain does have the potential to heal it just depends on to what extent, how great an extent the damage was done leading to the potential to how far his recovery could be.) They both verbalized understanding this. From a safety standpoint, the patient is home most of the time. Family members are present in order to monitor him and keep him safe. I verbalized to them my concern that the delusional thought/hallucinations may not go away. But potentially the frequency of them might decrease in time. I also verbalized my concern that over time, with this medical issue having such a huge impact and change in the patient's lifestyle, that he may become depressed. Hence it was a good idea for him to be seeing a therapist to talk to somebody and also to be monitored closely. That way, if in fact he does experience more increasingly delusional or mood issues then he could have easy access to a psychiatrist if he decided to go on a mood stabilizer or antipsychotic medication. His mother works at [employer] [facility] and they are trying to get him an appointment to see a therapist/ counselor and also to have access to a psychiatrist for further mental health medication treatment if needed. I strongly encouraged them to get into family support and possibly family therapy to help support all the members of the family as this has an impact on all their lives and may help things improve for all retirement. They both verbalized understanding this and appreciated the time in the consult. I explained to hem that I would talk to the attending who was covering the case and explain this all to them and that they had declined medication management for this issue at this time. CC: Gale Gallagher CNP Past Med Surg Social Fam HX - Past Medical History Medical history: diabetes, hyperlipidemia, hypertension - Past Psychiatric History Psychiatric history: Reports: no psych history Family psychiatric history: No Family History of Suicide: None - Past Surgical History Surgical History: no surgical history - Social History Smoking Status: Former smoker Smokeless Tobacco Status: No Alcohol use: occasionally Drug use: marijuana Occupational status: previously employed Current living situation: Home - Independent, With Family Activity Level: Independent ambulation Recent Out of Country Travel Within the Last 8 Weeks: No Exposure or Possible Exposure to Illness During Travel: No - Family History Father Hx Family Cancer: Yes (stomach) Mother Adopted: No Living Status: Still Living Hx Family Cardiac Disorders: No Hx Family Respiratory Disorders: No Hx Family Cancer: No Hx Family GI Disorders: No Hx Family Genitourinary Disorders: No Hx Family Endocrine Disorder: Yes (dm) Hx Family Musculoskeletal Disorders: No Hx Family Neuromuscular Disorders: No Hx Family Neurologic Disorders: No Hx Family HEENT Disorders: No Hx Family Autoimmune Disorders: No Hx Family Reproductive Disorders: No Hx Family Psychosocial Disorders: No Hx Family Medical Disorders: No Medications & Allergies Atorvastatin [Lipitor] 40 mg PO HS 03/02/17 [History] Amlodipine Besylate 10 mg PO DAILY 04/26/17 [History] Aspirin 81 mg PO DAILY 04/26/17 [History] Docusate [Colace] 100 mg PO BID PRN 04/26/17 [History] Donepezil HCl [Aricept] 10 mg PO HS 04/26/17 [History] Gabapentin [Neurontin] 100 mg PO HS 04/26/17 [History] Hydralazine HCl 50 mg PO Q6H 04/26/17 [History] Insulin Glargine,Hum.rec.anlog [Lantus Solostar] 5 unit SQ 2100 04/26/17 [ History] Insulin Glargine,Hum.rec.anlog [Lantus Solostar] 7 unit SQ 0900 04/26/17 [ History] Insulin LISPRO [Humalog Kwikpen U-100] 0 unit SQ TIDWM 04/26/17 [History] LevETIRAcetam [Keppra] 500 mg PO BID 04/26/17 [History] Melatonin [Melatin] 6 mg PO HS 04/26/17 [History] Metoprolol [Lopressor] 50 mg PO BID 04/26/17 [History] Sertraline [Zoloft] 50 mg PO DAILY 04/26/17 [History] Thiamine (B-1) [Vitamin B-1] 100 mg PO DAILY 04/26/17 [History] Ferrous Sulfate 325 mg PO BIDWM #60 tablet 04/28/17 [Rx] 3 Allergy/AdvReac Type Severity Reaction Status Date / Time No Known Allergies Allergy Verified 04/26/17 15:30 Mental Status Exam Patient orientation: Yes Place, Yes Circumstance Level of alertness: Alert Patient appearance: Appropriate (In hospital gown) Additional observations: Patient had difficulty finding words at times to describe the situation and had a difficult verbalizing what he reads; Aphasia issues. Behavior: calm, cooperative Psychomotor activity: Normal Eye contact: Maintains Eye Contact Mood description: Euthymic/stable Patient description of mood: "Concerned" Affect description: congruent with mood Speech pattern: Normal rate, Normal tone, Mumbled, Difficulty finding words Speech volume: Normal Thought process: Linear, Goal Oriented Thought content: Yes Intact Attention span: Capable of Focused Attention, Capable of Sustained Attention Memory description: Immediate Intact, Recent Impaired, Remote Impaired Patient reliability: Not Reliable Historian Intelligence estimate: Average Judgment: Fair Insight: Partial Results - Vital Signs Vital signs: Temp Pulse Resp BP Pulse Ox 98.4 F 80 14 166/82 98 04/27/17 20:11 04/27/17 20:11 04/27/17 20:11 04/27/17 20:11 04/27/17 20:11 - Labs Labs: Laboratory Last Values WBC 5.4 K/mcL (4.3-11.1) 04/27/17 04:22 RBC 4.40 M/mcL (4.19-5.50) 04/27/17 04:22 Hgb 10.3 g/dL (12.9-16.9) L 04/27/17 04:22 Hct 33.9 % (37.5-50.1) L 04/27/17 04:22 MCV 77.0 fL (83.0-100.0) L 04/27/17 04:22 MCH 23.4 pg (28.0-33.3) L 04/27/17 04:22 MCHC 30.4 g/dL (31.6-35.5) L 04/27/17 04:22 RDW 14.6 % (11.5-14.5) H 04/27/17 04:22 Plt Count 184 K/mcL (140-400) 04/27/17 04:22 MPV 9.6 fL (9.4-12.4) 04/27/17 04:22 Immature Gran % 0.4 % (0-4) 04/27/17 04:22 Seg Neutrophils % 44.3 % 04/27/17 04:22 Lymphocytes % 39.4 % 04/27/17 04:22 Monocytes % 9.9 % 04/27/17 04:22 Eosinophils % 4.9 % 04/27/17 04:22 Basophils % 1.1 % 04/27/17 04:22 Neutrophils # 2.4 K/mcL (1.6-8.9) 04/27/17 04:22 Lymphocytes # 2.1 K/mcL (0.6-4.6) 04/27/17 04:22 Monocytes # 0.5 K/mcL (0.0-1.3) 04/27/17 04:22 Eosinophils # 0.3 K/mcL (0.0-0.6) 04/27/17 04:22 Basophils # 0.1 K/mcL (0.0-0.2) 04/27/17 04:22 Sodium 140 mEq/L (136-145) 04/27/17 04:22 Potassium 3.8 mEq/L (3.5-5.1) 04/27/17 04:22 Chloride 109 mEq/L (98-107) H 04/27/17 04:22 Carbon Dioxide 25 mEq/L (23-29) 04/27/17 04:22 BUN 23 mg/dL (6-20) H 04/27/17 04:22 Creatinine 1.08 mg/dL (0.70-1.30) 04/27/17 04:22 Est GFR ( Amer) > 60 (> 60) 04/27/17 04:22 Est GFR (Non-Af Amer) > 60 (> 60) 04/27/17 04:22 BUN/Creatinine Ratio 21 (6-26) 04/27/17 04:22 Glucose 129 mg/dL (70-105) H 04/27/17 04:22 POC Glucose 292 (58-89) H 04/27/17 17:28 Calculated Osmolality 295 (280-300) 04/27/17 04:22 Calcium 8.4 mg/dL (8.6-10.3) L 04/27/17 04:22 Iron 61 mcg/dL (65-175) L 04/27/17 08:18 % Saturation 31 % (20-55) 04/27/17 08:18 Transferrin 140 mg/dL (203-362) L 04/27/17 08:18 Folate 13.0 ng/mL (3.0-16.0) 04/27/17 08:18 Urine Color Yellow (Yellow) 04/26/17 16:40 Urine Clarity Clear (Clear) 04/26/17 16:40 Urine pH 6.5 pH Units (5.0-8.0) 04/26/17 16:40 Ur Specific [place] 1.012 (1.010-1.025) 04/26/17 16:40 Urine Protein >=300 mg/dL (Neg-Trace) H 04/26/17 16:40 Urine Glucose (UA) 250 mg/dL (Normal) H 04/26/17 16:40 Urine Ketones Negative mg/dL (Negative) 04/26/17 16:40 Urine Blood Small (Negative) H 04/26/17 16:40 Urine Nitrite Negative (Negative) 04/26/17 16:40 Urine Bilirubin Negative (Negative) 04/26/17 16:40 Urine Urobilinogen Normal mg/dL (Normal) 04/26/17 16:40 Ur Leukocyte Esterase Negative (Negative) 04/26/17 16:40 Urine Microscopic RBC 5-15 per hpf (0-3) H 04/26/17 16:40 Urine Microscopic WBC 0-3 per hpf (0-3) 04/26/17 16:40 Ur Squamous Epith Cells Moderate per lpf (None-Few) H 04/26/17 16:40 Urine Bacteria None Seen per hpf (None-Few) 04/26/17 16:40 Hyaline Casts None Seen per lpf (None-Few) 04/26/17 16:40 Ur Culture Indicated? NO (NO) 04/26/17 16:40 Urine Opiates Screen Negative ng/mL (Lypujn=252) 04/26/17 16:40 Ur Barbiturates Screen Negative ng/mL (Vrcnlh=349) 04/26/17 16:40 Ur Phencyclidine Scrn Negative ng/mL (Cutoff=25) 04/26/17 16:40 Ur Amphetamines Screen Negative ng/mL (Rkxags=1991) 04/26/17 16:40 U Benzodiazepines Scrn Negative ng/mL (Ytkkgg=047) 04/26/17 16:40 Urine Cocaine Screen Negative ng/mL (Cutoff= 300) 04/26/17 16:40 U Marijuana (THC) Screen Negative ng/mL (Cutoff = 50) 04/26/17 16:40 - Impressions Impressions Head CT 04/26/17 20:17 IMPRESSION: No acute intracranial abnormality. D/ / Zia Schuler MD / Zia Schuler MD Interpreting Provider: Zia Schuelr MD Consult Discharge Plan - Plan Instructions: Iron Supplements (By mouth) Additional Instructions: Please follow up with your PCP in the next 7-10 days for a recheck. Follow up with mental health as soon as possible. Take your iron supplements and follow up for repeat labs Take your normal medications Stick to an ADA diet and monitor your blood glucose closely Return to your normal activities as tolerated. Return to the ER as needed for any other problems or concerns or if your symptoms return or worsen. Referrals: Vivek Gaffney DO [Primary Care Provider] - 05/22/17 4:00 pm Talisha Pires CNP [Advanced Practice Nurse] - 05/02/17 10:45 am Prescriptions: Ferrous Sulfate 325 mg PO BIDWM #60 tablet
[2017-04-27] MEDS ORDERED: Insulin LISPRO 300 UNITS/3 ML VIAL SQ SCH (21:00)
[2017-04-27] MEDS: Gabapentin 100 MG CAPSULE PO SCH (21:05)
[2017-04-27] MEDS: Melatonin 3 MG TABLET PO SCH (21:05)
[2017-04-28] MEDS: hydrALAZINE 25 MG TABLET PO SCH ×3 (04:30→16:15)
[2017-04-28 05:07] LABS: Basophils # 0.1 K/mcL (0.0-0.2); Basophils % 1.2 %; Eosinophils # 0.3 K/mcL (0.0-0.6); Eosinophils % 5.7 %; Hematocrit 33.9 % (37.5-50.1); Hemoglobin 10.4 g/dL (12.9-16.9); Immature Granulocytes % 0.2 % (0-4); Lymphocytes # 1.9 K/mcL (0.6-4.6); Lymphocytes % 36.9 %; Mean Corpuscular HGB Conc 30.7 g/dL (31.6-35.5); Mean Corpuscular Hemoglobin 23.4 pg (28.0-33.3); Mean Corpuscular Volume 76.4 fL (83.0-100.0); Mean Platelet Volume 10.1 fL (9.4-12.4); Monocytes # 0.5 K/mcL (0.0-1.3); Monocytes % 10.3 %; Neutrophils # 2.3 K/mcL (1.6-8.9); Nucleated Red Blood Cells 0.8 /100 WBC (0); Platelet Count 189 K/mcL (140-400); Red Blood Count 4.44 M/mcL (4.19-5.50); Red Cell Distribution Width 14.6 % (11.5-14.5); Segmented Neutrophils % 45.7 %
[2017-04-28 05:10] LABS: Hemoglobin A1C 8.5 %
[2017-04-28 05:34] LABS: BUN/Creatinine Ratio 24 (6-26); Blood Urea Nitrogen 25 mg/dL (6-20); Calcium 8.4 mg/dL (8.6-10.3); Carbon Dioxide 26 mEq/L (23-29); Chloride 108 mEq/L (98-107); Glucose 86 mg/dL (70-105); Osmolality,Calculated 292 (280-300); Potassium 3.9 mEq/L (3.5-5.1); Sodium 139 mEq/L (136-145); eGFR For African Americans > 60 (> 60); eGFR For Non-African Americans > 60 (> 60)
[2017-04-28] MEDS: Insulin LISPRO 300 UNITS/3 ML VIAL SQ SCH ×4 (07:52→16:15)
--- NOTE | 2017-04-28 09:09 | Neurology Progress Note ---
Date of Encounter: 04/28/17 Time of Encounter: 09:07 Assessment and Plan (1) Acute encephalopathy Current Visit: Yes Status: Acute (2) Diabetes Current Visit: No Status: Chronic Qualifiers: Diabetes mellitus type: type 1 Diabetes mellitus complication status: with hypoglycemia Diabetes mellitus complication detail: without coma Qualified Code(s): E10.649 - Type 1 diabetes mellitus with hypoglycemia without coma Subjective Principal diagnosis: Hallucinations Interval history: Patient seen and examined at bedside. No events overnight were noted. Patient has no specific complaints. He denies visual hallucinations overnight. Objective - Constitutional Vitals: Temp Pulse Resp BP Pulse Ox 98.4 F 64 16 118/66 99 04/28/17 06:42 04/28/17 06:42 04/28/17 06:42 04/28/17 06:42 04/28/17 06:42 - Neurological Exam Sensorimotor examination: Present: intact Motor Examination: Present: grossly full strength in all extremities Sensation intact: Present: intact Mental Status Examination: Present: awake, alert, oriented to person, oriented to place, follows commands appropriately, impaired memory, impaired cognition Cranial nerve examination: Present: EOMI, no dysarthria Results - Laboratory Findings CBC and BMP: 04/28/17 04:05 04/28/17 04:05 Abnormal lab findings: Abnormal lab results Hgb 10.4 g/dL (12.9-16.9) L 04/28/17 04:05 Hct 33.9 % (37.5-50.1) L 04/28/17 04:05 MCV 76.4 fL (83.0-100.0) L 04/28/17 04:05 MCH 23.4 pg (28.0-33.3) L 04/28/17 04:05 MCHC 30.7 g/dL (31.6-35.5) L 04/28/17 04:05 RDW 14.6 % (11.5-14.5) H 04/28/17 04:05 Nucleated RBCs/100 WBC 0.8 /100 WBC (0) H 04/28/17 04:05 Chloride 108 mEq/L (98-107) H 04/28/17 04:05 BUN 25 mg/dL (6-20) H 04/28/17 04:05 POC Glucose 167 (58-89) H 04/27/17 20:13 Hemoglobin A1c 8.5 % (-5.6) H 04/28/17 04:05 Calcium 8.4 mg/dL (8.6-10.3) L 04/28/17 04:05 Iron 61 mcg/dL (65-175) L 04/27/17 08:18 Transferrin 140 mg/dL (203-362) L 04/27/17 08:18 Urine Protein >=300 mg/dL (Neg-Trace) H 04/26/17 16:40 Urine Glucose (UA) 250 mg/dL (Normal) H 04/26/17 16:40 Urine Blood Small (Negative) H 04/26/17 16:40 Urine Microscopic RBC 5-15 per hpf (0-3) H 04/26/17 16:40 Ur Squamous Epith Cells Moderate per lpf (None-Few) H 04/26/17 16:40 Consult Discharge Plan - Plan Referrals: Vivek Gaffney DO [Primary Care Provider] - 05/22/17 4:00 pm Talisha Pires CNP [Advanced Practice Nurse] - 05/02/17 10:45 am
[2017-04-28] MEDS: Insulin DETEMIR 100 UNIT/ML X5UNITS SQ SCH (09:13)
[2017-04-28] MEDS: Aspirin 81 MG TAB.CHEW PO SCH (09:14)
[2017-04-28] MEDS: Thiamine (B-1) 100 MG TABLET PO SCH (09:14)
[2017-04-28] MEDS: amLODIPine 5 MG TABLET PO SCH (09:14)
[2017-04-28] MEDS: levETIRAcetam 250 MG TABLET PO SCH (09:14)
[2017-04-28] MEDS ORDERED: 0.9 % Sodium Chloride 1,000 ML IV ONE (12:16)
[2017-04-28 15:59] VITALS: BP 141/76
--- NOTE | 2017-04-28 17:30 | Discharge Summary ---
Date of Encounter: 04/28/17 Time of Encounter: 13:00 - Discharge Diagnosis (1) Acute encephalopathy Priority: Secondary Status: Acute Comments: Patient presents with acute encephalopathy with intermittent confusion and combativeness, visual and auditory hallucinations at home. Patient with prior diagnosis of non-traumatic brain injury in February,. He was sent to [facility] for evaluation of mutism, from there he was sent to [facility] for rehabilitation and has only been home a short time. reports that he has never returned to baseline. Head CT is negative for acute intracranial abnormality. Neurology was consulted , EEG was ordered and was unremarkable. Neurology feels this may be due to repeated hypo-glycemic episodes and hypoxia, anoxic head injury. They agree with psychiatric evaluation and possible medications to help with symptoms. Patient was not having auditory or visual hallucinations during evaluation today , he was alert and awake, oriented to name and place only, some speech was garbled at times. I spoke with psychiatrist by phone, he states he spent a great deal of time with the patient discussing his condition and history. Patient declines need or desire for medications, her psychiatrist this may actually stall his improvement. Currently labs are within normal limits. He is alert and oriented, awake, some residual expressive aphasia noted. His mentation has returned to baseline and he is stable and appropriate for discharge. (2) Anemia Priority: Secondary Status: Acute Comments: Patient with decreasing hemoglobin since February,. Hemoglobin has remained stable throughout visit; lab work indicates iron deficiency anemia, most likely due to poor by mouth intake. He has been started on ferrous sulfate 325 mg by mouth twice a day with meals. Recommend that he follow up with primary care for reevaluation of H&H in 3 months. Qualifiers: Anemia type: iron deficiency Iron deficiency anemia type: unspecified iron deficiency Qualified Code(s): D50.9 - Iron deficiency anemia, unspecified (3) Diabetes mellitus type 1 Priority: Secondary Status: Chronic Comments: Uncontrolled diabetes with labile Accu-Chek results. Patient will continue his home medications and Accu-Chek schedule. A1c 8.5. Qualifiers: Diabetes mellitus complication status: with hyperglycemia Qualified Code(s) : E10.65 - Type 1 diabetes mellitus with hyperglycemia (4) Hyperlipemia Priority: Secondary Status: Chronic Comments: Chronic. Continue home medications. Qualifiers: Hyperlipidemia type: other hyperlipidemia Qualified Code(s): E78.4 - Other hyperlipidemia (5) Hypertension Priority: Secondary Status: Chronic Comments: Chronic. Continue home medications. Qualifiers: Hypertension type: essential hypertension Qualified Code(s): I10 - Essential (primary) hypertension (6) DVT prophylaxis Priority: Secondary Status: Acute Comments: Patient has been ambulatory. No pharmacologic prophylaxis necessary due to anemia. - Discharge Medications Prescriptions: Ferrous Sulfate 325 mg PO BIDWM #60 tablet Home Medications: Atorvastatin [Lipitor] 40 mg PO HS 03/02/17 [History] Amlodipine Besylate 10 mg PO DAILY 04/26/17 [History] Aspirin 81 mg PO DAILY 04/26/17 [History] Docusate [Colace] 100 mg PO BID PRN 04/26/17 [History] Donepezil HCl [Aricept] 10 mg PO HS 04/26/17 [History] Gabapentin [Neurontin] 100 mg PO HS 04/26/17 [History] Hydralazine HCl 50 mg PO Q6H 04/26/17 [History] Insulin Glargine,Hum.rec.anlog [Lantus Solostar] 5 unit SQ 2100 04/26/17 [ History] Insulin Glargine,Hum.rec.anlog [Lantus Solostar] 7 unit SQ 0900 04/26/17 [ History] Insulin LISPRO [Humalog Kwikpen U-100] 0 unit SQ TIDWM 04/26/17 [History] LevETIRAcetam [Keppra] 500 mg PO BID 04/26/17 [History] Melatonin [Melatin] 6 mg PO HS 04/26/17 [History] Metoprolol [Lopressor] 50 mg PO BID 04/26/17 [History] Sertraline [Zoloft] 50 mg PO DAILY 04/26/17 [History] Thiamine (B-1) [Vitamin B-1] 100 mg PO DAILY 04/26/17 [History] Ferrous Sulfate 325 mg PO BIDWM #60 tablet 04/28/17 [Rx] Allergies/Adverse Reactions: 3 Allergy/AdvReac Type Severity Reaction Status Date / Time No Known Allergies Allergy Verified 04/26/17 15:30 Procedures/tests Complete & Pending: Procedures Performed prior 72 hours Category Date Time Status CT head/brain wo con [CT] Routine Cat Scan 04/26/17 20:17 Completed Date of admission: 04/26/17 17:40 Primary care physician: Vivek Gaffney DO Consults: 04/26/17 20:18 Consult to Psychiatry [CONS] Routine Consulting Provider: Zakia Ortega Reason for Consult: Visual and auditory hallucinations Call Completed: No 04/27/17 11:37 Consult to Interpret Exam [CONS] Routine Consulting Provider: Mars Munguia Consult to Interpret Exam: Interpret EEG Discharging clinician: Gale Gallagher Anticipated date of discharge: 04/28/17 - Patient Status Disposition: Home, Self-Care Condition: Good Functional capacity at discharge: independent ambulation Overall status at discharge: patient is progressing back to baseline - Discharge Instructions Follow Up With: Vivek Gafnfey DO [Primary Care Provider] - 05/22/17 4:00 pm Talisha Pires CNP [Advanced Practice Nurse] - 05/02/17 10:45 am Additional Instructions: Please follow up with your PCP in the next 7-10 days for a recheck. Follow up with mental health as soon as possible. Take your iron supplements and follow up for repeat labs Take your normal medications Stick to an ADA diet and monitor your blood glucose closely Return to your normal activities as tolerated. Return to the ER as needed for any other problems or concerns or if your symptoms return or worsen. - Diet and Activity Activity: resume usual activities as tolerated Diet: diabetic diet Hospital course: Mr. Irvin is a 46 year old male - Time Spent with Patient Total time spent providing and/or coordinating discharge services: - Constitutional Vitals: Temp Pulse Resp BP Pulse Ox 98.4 F 72 16 141/76 99 04/28/17 15:57 04/28/17 15:57 04/28/17 15:57 04/28/17 15:57 04/28/17 15:57 General appearance: Present: cooperative, A&O X 3, pleasant, no acute distress, answers questions appropriately - Head Head exam: Present: atraumatic, normal inspection, normocephalic - Eye Eye exam: Present: normal appearance, conjuntiva pink, sclera anicteric - Neck Neck exam general surgery: Present: supple, trachea midline. Absent: lymphadenopathy, tenderness - Respiratory Respiratory exam: Present: CTAB. Absent: accessory muscle use, chest wall tenderness, rales, respiratory distress, rhonchi, wheezes - Cardiovascular Cardiovascular exam: Present: RRR, +S1, +S2. Absent: diastolic murmur, gallop, rubs, systolic murmur - GI/Abdominal GI/Abdominal exam: Present: normal bowel sounds, soft, no peritoneal signs. Absent: distended, hepatomegaly, tenderness - Extremities Exam Extremities exam: Present: normal capillary refill, normal inspection, warm, radial pulses palpable and symmetrical. Absent: calf tenderness, cyanotic, pedal edema, tenderness - Neurological Exam Neurological exam: Present: alert, oriented X3, no focal deficits. Absent: facial droop, speech deficit - Skin Skin exam: Present: dry, intact, normal color, warm. Absent: rash
== END 2017-04-28 18:12 | disposition home or self-care (01) ==
LOC: 3BNU 15:22 → EMEROO 15:22 → 3BNU 18:09
PROVIDERS: ADMIT Hospitalist; ATTEND Registered Nurse

== ENCOUNTER 2018-10-24 12:32 | Observation (INO) ==
[2018-10-24 13:48] LABS: Basophils # 0.1 K/mcL (0.0-0.2); Basophils % 0.7 %; Eosinophils # 0.2 K/mcL (0.0-0.6); Eosinophils % 3.2 %; Hematocrit 29.2 % (37.5-50.1); Immature Granulocytes % 0.6 % (0-4); Lymphocytes # 1.4 K/mcL (0.6-4.6); Mean Corpuscular HGB Conc 30.8 g/dL (31.6-35.5); Mean Corpuscular Hemoglobin 23.3 pg (28.0-33.3); Mean Corpuscular Volume 75.5 fL (83.0-100.0); Mean Platelet Volume 9.7 fL (9.4-12.4); Monocytes # 0.7 K/mcL (0.0-1.3); Monocytes % 9.7 %; Neutrophils # 4.5 K/mcL (1.6-8.9); Platelet Count 185 K/mcL (140-400); Red Blood Count 3.87 M/mcL (4.19-5.50); Red Cell Distribution Width 15.8 % (11.5-14.5); Segmented Neutrophils % 65.8 %; White Blood Count 6.8 K/mcL (4.3-11.1)
[2018-10-24 14:05] LABS: Albumin/Globulin Ratio 1.3 (1.1-2.2); Bilirubin,Direct 0.1 mg/dL (0.0-0.2); Bilirubin,Indirect 0.2 mg/dL (0.0-1.2); Bilirubin,Total 0.3 mg/dL (0.3-1.0); Calcium 8.1 mg/dL (8.6-10.3); Globulin 2.4 g/dL (2.4-3.5); Potassium 4.2 mEq/L (3.5-5.1); Total Protein 5.4 g/dL (6.4-8.9)
--- NOTE | 2018-10-24 14:19 | Emergency Department Note ---
Disposition Clinical Impression: Hyperglycemia, Fluid retention, Flank pain Disposition: Admitted As Inpatient Condition: Good Referrals: Jarrell Marrero MD [Partnered Physician] - Forms: ED Satisfaction Letter, Work/School Release Time of Disposition: 16:14 General Adult HPI - General Chief complaint: ED General Medical Stated complaint: High Glucose, Face/feet swelling, Weight gain Time Seen by Provider: 10/24/18 13:03 Source: patient, family Mode of arrival: ambulatory Limitations: no limitations Nursing Notes Reviewed: Yes Vital Signs Reviewed: Yes - History of Present Illness HPI Narrative: Patient is a 48-year-old male that presents the emergency department with reports of increased waking. Patient and states that his gained approximately 10 or 11 pounds over the past 48 hours. Patient states that he is having a lot of right flank pain. states that his blood sugar was around 400 earlier today and now has it down to around 210. Patient states that he has been in DKA in 2 separate occasions. Patient also had a significant past medical history for an anoxic brain injury. Patient states that he has not been vomiting, has been afebrile and has not had any diarrhea. Patient states that he is otherwise feeling okay and has not been having any pain with urination. denies any blood in his stool but states that he had reported yesterday that there may have been blood and when she checked there was no blood that was visible to her. Patient states that he does not have any belly pain. Patient denies a history of kidney stones. Pain Scale: 5 - Related Data Home Medications Medication Instructions Recorded Confirmed Atorvastatin [Lipitor] 40 mg PO DAILY 03/02/17 08/23/18 Aspirin 81 mg PO DAILY 04/26/17 08/23/18 Gabapentin [Neurontin] 100 mg PO HS 04/26/17 08/23/18 Hydralazine HCl 100 mg PO TID 04/26/17 08/23/18 LevETIRAcetam [Keppra] 500 mg PO BID 04/26/17 08/23/18 Thiamine (B-1) [Vitamin B-1] 100 mg PO DAILY 04/26/17 08/23/18 Latanoprost [Xalatan] 1 drop BOTH EYES QPM 03/04/18 08/23/18 Metoprolol Succinate 100 mg PO DAILY 03/04/18 08/23/18 Rizatriptan Benzoate [Maxalt] 10 mg PO AD 03/04/18 08/23/18 Sertraline [Zoloft] 100 mg PO HS 03/04/18 08/23/18 Amlodipine Besylate 10 mg PO DAILY 06/04/18 08/23/18 Ergocalciferol (VITAMIN D2) 50,000 unit PO QWEEK 07/24/18 08/23/18 [Vitamin D2] Insulin LISPRO [Humalog] 70 unit SQ DAILY 07/24/18 08/23/18 Insulin Pump Cartridge [Insulin 1 device SQ AD 07/24/18 08/23/18 Pump] Potassium Chloride 20 meq PO Q48H 07/24/18 08/23/18 Tamsulosin HCl [Flomax] 0.4 mg PO DAILY 07/24/18 08/23/18 ARIPiprazole [Abilify] 5 mg PO DAILY 08/23/18 08/23/18 Previous Rx's Medication Instructions Recorded Ferrous Sulfate [Iron] 325 mg PO BID #60 tablet 08/23/18 Allergies Allergy/AdvReac Type Severity Reaction Status Date / Time No Known Allergies Allergy Verified 10/24/18 12:38 All systems ED: reviewed and negative except as stated. Constitutional: Denies: fever Cardiovascular: Denies: chest pain Respiratory: Denies: dyspnea Gastrointestinal: Denies: abdominal pain Musculoskeletal: Reports: back pain (Right flank pain) Neurological: Denies: weakness, numbness, paresthesias Past Medical History - Past Medical History Medical history: Reports: diabetes, hyperlipidemia, hypertension, renal disease, seizures, other Surgical history: Reports: no surgical history Psychiatric history: Reports: no psych history - Social History Smoking Status: Never smoker Smokeless Tobacco Status: No Alcohol use: Reports: none Drug use: Reports: none Physical Exam - General Limitations: no limitations General appearance: alert, in no apparent distress - Head Head exam: atraumatic, normocephalic - Eye Eye exam: Present: normal appearance, EOMI - Neck Neck exam: Present: normal inspection, full ROM, trachea midline - Respiratory Respiratory exam: Present: normal lung sounds bilaterally. Absent: respiratory distress, wheezes - Cardiovascular Cardiovascular exam: Present: regular rate, normal rhythm, normal heart sounds, +S1, +S2 - Abdominal Exam Abdominal exam: Present: soft, Non-Tender, normal bowel sounds - Back Exam Back exam: Present: normal inspection, full ROM, CVA tenderness (R) - Neurological Exam Neurological exam: Present: alert, oriented X3 - Psychiatric Psychiatric exam: Present: normal affect, normal mood - Skin Skin exam: Present: warm, dry, intact Course Vital Signs Temperature 98.2 F 10/24/18 12:38 Pulse Rate 100 10/24/18 12:38 Respiratory Rate 15 10/24/18 12:38 Blood Pressure 172/78 10/24/18 12:38 O2 Sat by Pulse Oximetry 99 10/24/18 12:38 Temperature 98.2 F 10/24/18 13:59 Pulse Rate 100 10/24/18 13:59 Respiratory Rate 15 10/24/18 13:59 Blood Pressure 172/78 10/24/18 13:59 O2 Sat by Pulse Oximetry 99 10/24/18 13:59 Oxygen Delivery Oxygen Delivery Room Air Medical Decision Making - MDM Narrative Medical decision making narrative: Due the patient's and into the emergency department with reports of right flank pain as well as having elevation in his blood sugar we will obtain basic laboratory testing as well as a CT scan of the abdomen and pelvis. The patient's renal function is approximately at his baseline. Does have a hemoglobin of 9.0. This does appear to be intermittent chronic for the patient. Patient's CT scan WAS evidence of ansarca, small bilateral pleural effusions and chronic findings without evidence of significant acute findings on CT examination. Due to the patient being somewhat fluid overloaded and having a cute increase in the patient's weight over the past 48 hours of 11 pounds feel that is most appropriate for them to be admitted to the hospital for further evaluation and management. Patient was given 40 of Lasix here in the emergency department was admitted to the hospitalist service. I spoke with the hospitalist and she is accepted the patient to their service. The patient will be admitted to the hospital this time for further evaluation and management. - Medical Records Medical records reviewed: Yes I reviewed the patient's medical records. - Lab Data Lab results reviewed: Yes I reviewed the patient's lab results. Result diagrams: 10/24/18 13:30 10/24/18 13:30 Lab Results 10/24/18 10/24/18 10/24/18 Range/Units 13:30 13:30 13:30 WBC 6.8 (4.3-11.1) K/mcL RBC 3.87 L (4.19-5.50) M/mcL Hgb 9.0 L (12.9-16.9) g/dL Hct 29.2 L (37.5-50.1) % MCV 75.5 L (83.0-100.0) fL MCH 23.3 L (28.0-33.3) pg MCHC 30.8 L (31.6-35.5) g/dL RDW 15.8 H (11.5-14.5) % Plt Count 185 (140-400) K/mcL MPV 9.7 (9.4-12.4) fL Immature Gran % 0.6 (0-4) % Seg Neutrophils % 65.8 % Lymphocytes % 20.0 % Monocytes % 9.7 % Eosinophils % 3.2 % Basophils % 0.7 % Neutrophils # 4.5 (1.6-8.9) K/mcL Lymphocytes # 1.4 (0.6-4.6) K/mcL Monocytes # 0.7 (0.0-1.3) K/mcL Eosinophils # 0.2 (0.0-0.6) K/mcL Basophils # 0.1 (0.0-0.2) K/mcL Sodium 134 L (136-145) mEq/L Potassium 4.2 (3.5-5.1) mEq/L Chloride 112 H (98-107) mEq/L Carbon Dioxide 22 L (23-29) mEq/L BUN 34 H (6-20) mg/dL Creatinine 1.71 H (0.70-1.30) mg/dL Est GFR ( Amer) 52 L (> 60) Est GFR (Non-Af Amer) 43 L (> 60) BUN/Creatinine Ratio 20 (6-26) Glucose 229 H (70-105) mg/dL Calculated Osmolality 293 (280-300) Calcium 8.1 L (8.6-10.3) mg/dL Total Bilirubin 0.3 (0.3-1.0) mg/dL Direct Bilirubin 0.1 (0.0-0.2) mg/dL Indirect Bilirubin 0.2 (0.0-1.2) mg/dL AST 12 L (13-39) Units/L ALT 12 (7-52) Units/L Alkaline Phosphatase 59 (34-104) Units/L Serum Total Protein 5.4 L (6.4-8.9) g/dL Albumin 3.0 L (3.5-5.7) g/dL Globulin 2.4 (2.4-3.5) g/dL Albumin/Globulin Ratio 1.3 (1.1-2.2) Beta-Hydroxybutyric Acd 0.25 (0.02-0.27) mmol/L Urine Color (Yellow) Urine Clarity (Clear) Urine pH (5.0-8.0) pH Units Ur Specific Breeding (1.010-1.025) Urine Protein (Neg-Trace) mg/dL Urine Glucose (UA) (Normal) mg/dL Urine Ketones (Negative) mg/dL Urine Blood (Negative) Urine Nitrite (Negative) Urine Bilirubin (Negative) Urine Urobilinogen (Normal) mg/dL Ur Leukocyte Esterase (Negative) Urine Microscopic RBC (0-3) per hpf Urine Microscopic WBC (0-3) per hpf Ur Squamous Epith Cells (None-Few) per lpf Urine Bacteria (None-Few) per hpf Hyaline Casts (None-Few) per lpf Ur Culture Indicated? (NO) 10/24/18 Range/Units 14:05 WBC (4.3-11.1) K/mcL RBC (4.19-5.50) M/mcL Hgb (12.9-16.9) g/dL Hct (37.5-50.1) % MCV (83.0-100.0) fL MCH (28.0-33.3) pg MCHC (31.6-35.5) g/dL RDW (11.5-14.5) % Plt Count (140-400) K/mcL MPV (9.4-12.4) fL Immature Gran % (0-4) % Seg Neutrophils % % Lymphocytes % % Monocytes % % Eosinophils % % Basophils % % Neutrophils # (1.6-8.9) K/mcL Lymphocytes # (0.6-4.6) K/mcL Monocytes # (0.0-1.3) K/mcL Eosinophils # (0.0-0.6) K/mcL Basophils # (0.0-0.2) K/mcL Sodium (136-145) mEq/L Potassium (3.5-5.1) mEq/L Chloride (98-107) mEq/L Carbon Dioxide (23-29) mEq/L BUN (6-20) mg/dL Creatinine (0.70-1.30) mg/dL Est GFR ( Amer) (> 60) Est GFR (Non-Af Amer) (> 60) BUN/Creatinine Ratio (6-26) Glucose (70-105) mg/dL Calculated Osmolality (280-300) Calcium (8.6-10.3) mg/dL Total Bilirubin (0.3-1.0) mg/dL Direct Bilirubin (0.0-0.2) mg/dL Indirect Bilirubin (0.0-1.2) mg/dL AST (13-39) Units/L ALT (7-52) Units/L Alkaline Phosphatase (34-104) Units/L Serum Total Protein (6.4-8.9) g/dL Albumin (3.5-5.7) g/dL Globulin (2.4-3.5) g/dL Albumin/Globulin Ratio (1.1-2.2) Beta-Hydroxybutyric Acd (0.02-0.27) mmol/L Urine Color Yellow (Yellow) Urine Clarity Clear (Clear) Urine pH 5.5 (5.0-8.0) pH Units Ur Specific Breeding 1.015 (1.010-1.025) Urine Protein >=300 H (Neg-Trace) mg/dL Urine Glucose (UA) 250 H (Normal) mg/dL Urine Ketones Negative (Negative) mg/dL Urine Blood Negative (Negative) Urine Nitrite Negative (Negative) Urine Bilirubin Negative (Negative) Urine Urobilinogen Normal (Normal) mg/dL Ur Leukocyte Esterase Negative (Negative) Urine Microscopic RBC 5-15 H (0-3) per hpf Urine Microscopic WBC 5-15 H (0-3) per hpf Ur Squamous Epith Cells Many H (None-Few) per lpf Urine Bacteria None Seen (None-Few) per hpf Hyaline Casts None Seen (None-Few) per lpf Ur Culture Indicated? YES A (NO) - Radiology Data Radiology results reviewed: Yes I reviewed the patient's radiology results.
[2018-10-24 14:30] LABS: Bilirubin,Urine Negative (Negative); Blood,Urine Negative (Negative); Clarity,Urine Clear (Clear); Color,Urine Yellow (Yellow); Glucose,Urine (UA) 250 mg/dL (Normal); Ketones,Urine Negative (Negative); Leukocyte Esterase,Urine Negative (Negative); Nitrite,Urine Negative (Negative); PH,Urine 5.5 pH Units (5.0-8.0); Protein,Urine >=300 mg/dL (Neg-Trace); Specific Gravity,Urine 1.015 (1.010-1.025); Urobilinogen,Urine Normal (Normal)
[2018-10-24 14:33] LABS: Bacteria,Urine None Seen per hpf (None-Few); Hyaline Casts,Urine None Seen per lpf (None-Few); Squamous Epithelial Cell,Urine Many per lpf (None-Few)
--- NOTE | 2018-10-24 16:06 | Emergency Department Note ---
Disposition Clinical Impression: Hyperglycemia, Fluid retention, Flank pain Disposition: Admitted As Inpatient Condition: Good Referrals: Jarrell Marrero MD [Primary Care Provider] - Forms: ED Satisfaction Letter, Work/School Release Time of Disposition: 16:33 General Adult HPI - General Chief complaint: ED General Medical Stated complaint: High Glucose, Face/feet swelling, Weight gain Time Seen by Provider: 10/24/18 13:03 Source: patient, family Mode of arrival: ambulatory Limitations: no limitations - History of Present Illness Pain Scale: 5 - Related Data Home Medications Medication Instructions Recorded Confirmed Atorvastatin [Lipitor] 40 mg PO DAILY 03/02/17 08/23/18 Aspirin 81 mg PO DAILY 04/26/17 08/23/18 Gabapentin [Neurontin] 100 mg PO HS 04/26/17 08/23/18 Hydralazine HCl 100 mg PO TID 04/26/17 08/23/18 LevETIRAcetam [Keppra] 500 mg PO BID 04/26/17 08/23/18 Thiamine (B-1) [Vitamin B-1] 100 mg PO DAILY 04/26/17 08/23/18 Latanoprost [Xalatan] 1 drop BOTH EYES QPM 03/04/18 08/23/18 Metoprolol Succinate 100 mg PO DAILY 03/04/18 08/23/18 Rizatriptan Benzoate [Maxalt] 10 mg PO AD 03/04/18 08/23/18 Sertraline [Zoloft] 100 mg PO HS 03/04/18 08/23/18 Amlodipine Besylate 10 mg PO DAILY 06/04/18 08/23/18 Ergocalciferol (VITAMIN D2) 50,000 unit PO QWEEK 07/24/18 08/23/18 [Vitamin D2] Insulin LISPRO [Humalog] 70 unit SQ DAILY 07/24/18 08/23/18 Insulin Pump Cartridge [Insulin 1 device SQ AD 07/24/18 08/23/18 Pump] Potassium Chloride 20 meq PO Q48H 07/24/18 08/23/18 Tamsulosin HCl [Flomax] 0.4 mg PO DAILY 07/24/18 08/23/18 ARIPiprazole [Abilify] 5 mg PO DAILY 08/23/18 08/23/18 Previous Rx's Medication Instructions Recorded Ferrous Sulfate [Iron] 325 mg PO BID #60 tablet 08/23/18 Allergies Allergy/AdvReac Type Severity Reaction Status Date / Time No Known Allergies Allergy Verified 10/24/18 12:38 Constitutional: Denies: fever Cardiovascular: Denies: chest pain Respiratory: Denies: dyspnea Gastrointestinal: Denies: abdominal pain Musculoskeletal: Reports: back pain (Right flank pain) Neurological: Denies: weakness, numbness, paresthesias Past Medical History - Past Medical History Medical history: Reports: diabetes, hyperlipidemia, hypertension, renal disease, seizures, other Surgical history: Reports: no surgical history Psychiatric history: Reports: no psych history - Social History Smoking Status: Never smoker Smokeless Tobacco Status: No Alcohol use: Reports: none Drug use: Reports: none Physical Exam - General Limitations: no limitations General appearance: alert, in no apparent distress Course Vital Signs Temperature 98.2 F 10/24/18 12:38 Pulse Rate 100 10/24/18 12:38 Respiratory Rate 15 10/24/18 12:38 Blood Pressure 172/78 10/24/18 12:38 O2 Sat by Pulse Oximetry 99 10/24/18 12:38 Temperature 98.2 F 10/24/18 13:59 Pulse Rate 100 10/24/18 13:59 Respiratory Rate 15 10/24/18 13:59 Blood Pressure 172/78 10/24/18 13:59 O2 Sat by Pulse Oximetry 99 10/24/18 13:59 Oxygen Delivery Oxygen Delivery Room Air Medical Decision Making - Lab Data Result diagrams: 10/24/18 13:30 10/24/18 13:30 Lab Results 10/24/18 10/24/18 10/24/18 Range/Units 13:30 13:30 13:30 WBC 6.8 (4.3-11.1) K/mcL RBC 3.87 L (4.19-5.50) M/mcL Hgb 9.0 L (12.9-16.9) g/dL Hct 29.2 L (37.5-50.1) % MCV 75.5 L (83.0-100.0) fL MCH 23.3 L (28.0-33.3) pg MCHC 30.8 L (31.6-35.5) g/dL RDW 15.8 H (11.5-14.5) % Plt Count 185 (140-400) K/mcL MPV 9.7 (9.4-12.4) fL Immature Gran % 0.6 (0-4) % Seg Neutrophils % 65.8 % Lymphocytes % 20.0 % Monocytes % 9.7 % Eosinophils % 3.2 % Basophils % 0.7 % Neutrophils # 4.5 (1.6-8.9) K/mcL Lymphocytes # 1.4 (0.6-4.6) K/mcL Monocytes # 0.7 (0.0-1.3) K/mcL Eosinophils # 0.2 (0.0-0.6) K/mcL Basophils # 0.1 (0.0-0.2) K/mcL Sodium 134 L (136-145) mEq/L Potassium 4.2 (3.5-5.1) mEq/L Chloride 112 H (98-107) mEq/L Carbon Dioxide 22 L (23-29) mEq/L BUN 34 H (6-20) mg/dL Creatinine 1.71 H (0.70-1.30) mg/dL Est GFR ( Amer) 52 L (> 60) Est GFR (Non-Af Amer) 43 L (> 60) BUN/Creatinine Ratio 20 (6-26) Glucose 229 H (70-105) mg/dL Calculated Osmolality 293 (280-300) Calcium 8.1 L (8.6-10.3) mg/dL Total Bilirubin 0.3 (0.3-1.0) mg/dL Direct Bilirubin 0.1 (0.0-0.2) mg/dL Indirect Bilirubin 0.2 (0.0-1.2) mg/dL AST 12 L (13-39) Units/L ALT 12 (7-52) Units/L Alkaline Phosphatase 59 (34-104) Units/L Serum Total Protein 5.4 L (6.4-8.9) g/dL Albumin 3.0 L (3.5-5.7) g/dL Globulin 2.4 (2.4-3.5) g/dL Albumin/Globulin Ratio 1.3 (1.1-2.2) Beta-Hydroxybutyric Acd 0.25 (0.02-0.27) mmol/L Urine Color (Yellow) Urine Clarity (Clear) Urine pH (5.0-8.0) pH Units Ur Specific [place] (1.010-1.025) Urine Protein (Neg-Trace) mg/dL Urine Glucose (UA) (Normal) mg/dL Urine Ketones (Negative) mg/dL Urine Blood (Negative) Urine Nitrite (Negative) Urine Bilirubin (Negative) Urine Urobilinogen (Normal) mg/dL Ur Leukocyte Esterase (Negative) Urine Microscopic RBC (0-3) per hpf Urine Microscopic WBC (0-3) per hpf Ur Squamous Epith Cells (None-Few) per lpf Urine Bacteria (None-Few) per hpf Hyaline Casts (None-Few) per lpf Ur Culture Indicated? (NO) 10/24/18 Range/Units 14:05 WBC (4.3-11.1) K/mcL RBC (4.19-5.50) M/mcL Hgb (12.9-16.9) g/dL Hct (37.5-50.1) % MCV (83.0-100.0) fL MCH (28.0-33.3) pg MCHC (31.6-35.5) g/dL RDW (11.5-14.5) % Plt Count (140-400) K/mcL MPV (9.4-12.4) fL Immature Gran % (0-4) % Seg Neutrophils % % Lymphocytes % % Monocytes % % Eosinophils % % Basophils % % Neutrophils # (1.6-8.9) K/mcL Lymphocytes # (0.6-4.6) K/mcL Monocytes # (0.0-1.3) K/mcL Eosinophils # (0.0-0.6) K/mcL Basophils # (0.0-0.2) K/mcL Sodium (136-145) mEq/L Potassium (3.5-5.1) mEq/L Chloride (98-107) mEq/L Carbon Dioxide (23-29) mEq/L BUN (6-20) mg/dL Creatinine (0.70-1.30) mg/dL Est GFR ( Amer) (> 60) Est GFR (Non-Af Amer) (> 60) BUN/Creatinine Ratio (6-26) Glucose (70-105) mg/dL Calculated Osmolality (280-300) Calcium (8.6-10.3) mg/dL Total Bilirubin (0.3-1.0) mg/dL Direct Bilirubin (0.0-0.2) mg/dL Indirect Bilirubin (0.0-1.2) mg/dL AST (13-39) Units/L ALT (7-52) Units/L Alkaline Phosphatase (34-104) Units/L Serum Total Protein (6.4-8.9) g/dL Albumin (3.5-5.7) g/dL Globulin (2.4-3.5) g/dL Albumin/Globulin Ratio (1.1-2.2) Beta-Hydroxybutyric Acd (0.02-0.27) mmol/L Urine Color Yellow (Yellow) Urine Clarity Clear (Clear) Urine pH 5.5 (5.0-8.0) pH Units Ur Specific [place] 1.015 (1.010-1.025) Urine Protein >=300 H (Neg-Trace) mg/dL Urine Glucose (UA) 250 H (Normal) mg/dL Urine Ketones Negative (Negative) mg/dL Urine Blood Negative (Negative) Urine Nitrite Negative (Negative) Urine Bilirubin Negative (Negative) Urine Urobilinogen Normal (Normal) mg/dL Ur Leukocyte Esterase Negative (Negative) Urine Microscopic RBC 5-15 H (0-3) per hpf Urine Microscopic WBC 5-15 H (0-3) per hpf Ur Squamous Epith Cells Many H (None-Few) per lpf Urine Bacteria None Seen (None-Few) per hpf Hyaline Casts None Seen (None-Few) per lpf Ur Culture Indicated? YES A (NO) Attestation Statement - Attestation Attestation: I examined this patient and my medical decision-making was reviewed with the Resident Physician. I agree with the documented findings, disposition and treatment plan as described except to the extent set forth below. 48 showed male since emergency room for swelling. 10 pound weight gain in 2 days. Despite taking 20 mg of Lasix per day. Denies shortness of breath. This had problems with his sugars. Multiple times of having diabetic ketoacidosis. Workup here with a CT scan shows some anasarca as well as some bilateral pleural effusions. Patient will need to be admitted. I feel based on the weekend of 10 pounds in 2 days despite taking Lasix fact that he is not urinating well that we need to keep him in the hospital to help diurese him. He is okay with this plan.
[2018-10-24] MEDS ORDERED: Furosemide 40 MG/4 ML VIAL IVP ONE (16:08)
--- NOTE | 2018-10-24 17:02 | Internal Med History&Physical ---
Date of Encounter: 10/24/18 Time of Encounter: 16:59 Internal Medicine - H&P: HPI History of present illness: Mr. Irvin is a 48 year old male with history of Type I DM, anoxic brain injury, CKD, seizures presented to ED for complaints of right flank pain with generalized swelling and 2 day history of weight gain. present at bedside provides most history and she is his main pole inspector. Patient was started on Lasix recently for edema but continues to worsen. He denies CP, SOB, N/V. T here was increased swelling despite Lasix. There was no change in diet or no drastic increase of fluids in diet. In the ED patient was found to have creatinine slightly above baseline at 1.7. A CT abdomen/pelvis showed anasarca, mild interstitial pulmonary edema, bladder thickening due to prostate enlargement. He was given 40 mg IV Lasix. Past Med Surg Social Fam HX - Past Medical History Medical history: diabetes, hyperlipidemia, hypertension, renal disease, seizures, other Additional medical history: Glaucoma, anemia Psychiatric history: no psych history - Past Surgical History Surgical History: no surgical history Additional surgical history: tendon surgery R hand - Social History Smoking Status: Never smoker Smokeless Tobacco Status: No Alcohol use: none Drug use: none - Family History Father Adopted: No Living Status: Hx Family Cardiac Disorders: No Hx Family Respiratory Disorders: No Hx Family Cancer: Yes (stomach) Hx Family GI Disorders: No Hx Family Endocrine Disorder: No Hx Family Neuromuscular Disorders: No Hx Family Neurologic Disorders: No Hx Family HEENT Disorders: No Hx Family Autoimmune Disorders: No Mother Adopted: No Living Status: Still Living Hx Family Cardiac Disorders: No Hx Family Respiratory Disorders: No Hx Family Cancer: No Hx Family GI Disorders: No Hx Family Endocrine Disorder: Yes (dm) Hx Family Neuromuscular Disorders: No Hx Family Neurologic Disorders: No Hx Family HEENT Disorders: No Hx Family Autoimmune Disorders: No Internal Medicine - H&P: Meds Atorvastatin [Lipitor] 40 mg PO DAILY 03/02/17 [History] Aspirin 81 mg PO DAILY 04/26/17 [History] Gabapentin [Neurontin] 100 mg PO HS 04/26/17 [History] Hydralazine HCl 100 mg PO TID 04/26/17 [History] LevETIRAcetam [Keppra] 500 mg PO BID 04/26/17 [History] Thiamine (B-1) [Vitamin B-1] 100 mg PO DAILY 04/26/17 [History] Latanoprost [Xalatan] 1 drop BOTH EYES QPM 03/04/18 [History] Metoprolol Succinate 100 mg PO DAILY 03/04/18 [History] Rizatriptan Benzoate [Maxalt] 10 mg PO AD 03/04/18 [History] Sertraline [Zoloft] 100 mg PO HS 03/04/18 [History] Amlodipine Besylate 10 mg PO DAILY 06/04/18 [History] Ergocalciferol (VITAMIN D2) [Vitamin D2] 50,000 unit PO QWEEK 07/24/18 [History] Insulin LISPRO [Humalog] 70 unit SQ DAILY 07/24/18 [History] Insulin Pump Cartridge [Insulin Pump] 1 device SQ AD 07/24/18 [History] Potassium Chloride 20 meq PO Q48H 07/24/18 [History] Tamsulosin HCl [Flomax] 0.4 mg PO DAILY 07/24/18 [History] ARIPiprazole [Abilify] 5 mg PO DAILY 08/23/18 [History] Ferrous Sulfate [Iron] 325 mg PO BID #60 tablet 08/23/18 [Rx] Allergy/AdvReac Type Severity Reaction Status Date / Time No Known Allergies Allergy Verified 10/24/18 12:38 All Systems PM: A 10-system review of systems was performed and is negative for pertinent findings except as documented above in the HPI. - Constitutional Constitutional: weight gain, no chills, no fever(s), no night sweats Additional comments: Generalized edema of upper and lower extremities - EENT Eyes: no change in vision, no discharge, no pain, no photophobia Ears: no ear discharge, no ear pain, no tinnitus Nose, mouth and throat: no dysphagia, no nasal discharge, no neck pain, no sore throat - Cardiovascular Cardiovascular ROS IM: no chest pain, no diaphoresis, no dyspnea, no lightheadedness, no palpitations, no syncope - Respiratory Respiratory: no cough, no dyspnea, no wheezing, no excessive phlegm production - Gastrointestinal Gastrointestinal: no abdominal pain, no diarrhea, no hematemesis, no hematochezia, no melena, no nausea, no vomiting - Musculoskeletal Musculoskeletal ROS IM: no numbness, no tingling - Integumentary Integumentary IM: no rash, no unusual bruising - Neurological Neurological ROS: no confusion, no convulsions, no focal weakness, no numbness, no tingling, no tremor(s) - Hematologic/Lymphatic Hematologic/Lymphatic: no easy bruising - Constitutional Vitals: Temp Pulse Resp BP Pulse Ox 98.2 F 100 15 172/78 99 10/24/18 13:59 10/24/18 13:59 10/24/18 13:59 10/24/18 13:59 10/24/18 13:59 General appearance: Present: A&O X 3, no acute distress Exam: . - Head Head exam: Present: atraumatic, normocephalic - Eye Eye exam: Present: PERRL, conjuntiva pink, sclera anicteric Pupils: Present: PERRL - Neck Neck exam general surgery: Present: supple, trachea midline. Absent: lymphadenopathy - Respiratory Respiratory exam: Present: CTAB. Absent: accessory muscle use, rales, rhonchi, wheezes - Cardiovascular Cardiovascular exam: Present: RRR, +S1, +S2. Absent: diastolic murmur, gallop, rubs, systolic murmur - GI/Abdominal GI/Abdominal exam: Present: normal bowel sounds, soft, no peritoneal signs. Absent: distended, tenderness - Extremities Exam Extremities exam: Present: warm, radial pulses palpable and symmetrical. Absent: calf tenderness, cyanotic, pedal edema - Neurological Exam Neurological exam: Present: CN II-XII intact, oriented X3, no focal deficits. Absent: pronater drift, facial droop, speech deficit - Skin Skin exam: Present: dry, intact Internal Med - H&P Results - Labs CBC & Chem 7: 10/24/18 13:30 10/24/18 13:30 Labs: Short CBC 10/24/18 Range/Units 13:30 WBC 6.8 (4.3-11.1) K/mcL Hgb 9.0 L (12.9-16.9) g/dL Hct 29.2 L (37.5-50.1) % Plt Count 185 (140-400) K/mcL Neutrophils # 4.5 (1.6-8.9) K/mcL BMP 10/24/18 13:30 Sodium 134 L Potassium 4.2 Chloride 112 H Carbon Dioxide 22 L BUN 34 H Creatinine 1.71 H Glucose 229 H Calcium 8.1 L Liver Function 10/24/18 Range/Units 13:30 Total Bilirubin 0.3 (0.3-1.0) mg/dL Direct Bilirubin 0.1 (0.0-0.2) mg/dL AST 12 L (13-39) Units/L ALT 12 (7-52) Units/L Alkaline Phosphatase 59 (34-104) Units/L Albumin 3.0 L (3.5-5.7) g/dL Urine 10/24/18 Range/Units 14:05 Urine Color Yellow (Yellow) Urine Clarity Clear (Clear) Urine pH 5.5 (5.0-8.0) pH Units Ur Specific [place] 1.015 (1.010-1.025) Urine Protein >=300 H (Neg-Trace) mg/dL Urine Glucose (UA) 250 H (Normal) mg/dL - Impressions ITS Impressions Abdomen/Pelvis CT 10/24/18 14:16 IMPRESSION: 1. No definite acute findings in the abdomen or pelvis. 2. Persistent diffuse urinary bladder wall thickening with no significant perivesical inflammatory stranding, likely related to chronic outlet obstruction given prostatomegaly. 3. Minimal interstitial pulmonary edema, minimal anasarca, trace bilateral pleural effusions, and trace ascites, suggesting volume overload. D/ / Mars Brock MD / Mars Brock MD Interpreting Provider: Mars Brock MD - Assessment and Plan (1) Edema Current Visit: No Status: Chronic Assessment and plan: Unsure etiology at this time. Patient hemodynamically stable and does not appear to be in any sort of heart failure. He does require IV Lasix at this time as PO diuresis was ineffective. Monitor I/Os, fluid restrictive diet. Qualifiers: Edema type: generalized Qualified Code(s): R60.1 - Generalized edema (2) Flank pain Current Visit: Yes Status: Acute Assessment and plan: Likely related to anasarca. Negative findings on CT abdomen/pelvis, UA relatively unremarkable other than glucose and proteinuria. Plan as above. (3) Acute kidney injury superimposed on CKD Current Visit: No Status: Acute Assessment and plan: Creatinine slightly above baseline. He requires IV Lasix to avoid acute heart failure and also that PO Lasix has been ineffective. Will monitor I/O after 40 mg IV Lasix given in ED today. (4) Anemia Current Visit: No Status: Acute Qualifiers: Anemia type: due to chronic kidney disease Chronic kidney disease stage: stage 3 (moderate) Qualified Code(s): N18.3 - Chronic kidney disease, stage 3 (moderate); D63.1 - Anemia in chronic kidney disease (5) Anemia Current Visit: No Status: Chronic Qualifiers: Anemia type: unspecified type Qualified Code(s): D64.9 - Anemia, unspecified (6) Diabetes mellitus type 1 Current Visit: No Status: Chronic Assessment and plan: ISS, Diabetic diet Qualifiers: Diabetes mellitus complication status: with other specified complication Qualified Code(s): E10.69 - Type 1 diabetes mellitus with other specified complication (7) History of seizure Current Visit: No Status: Chronic (8) DVT prophylaxis Current Visit: No Status: Acute Assessment and plan: heparin SQ - Time Spent With Patient Total time spent is greater than 50% in coordination of care (as documented) at patient's floor/unit and/or counseling patient:
[2018-10-24] MEDS ORDERED: Naloxone 0.4 MG/ML INJ IVP PRN (17:34)
[2018-10-24] MEDS: *HR* Labetalol 20 MG/4 ML SYRINGE IVP PRN (19:32)
[2018-10-24] MEDS: *HR* Heparin 5,000 UNIT/ML VIAL SQ SCH (22:24)
[2018-10-24] MEDS: Insulin DETEMIR 100 UNIT/ML X5UNITS SQ SCH (22:25)
[2018-10-24] MEDS: hydrALAZINE 25 MG TABLET PO SCH (22:25)
[2018-10-24] MEDS: levETIRAcetam 250 MG TABLET PO SCH (22:25)
[2018-10-24] MEDS: Insulin LISPRO 300 UNITS/3 ML VIAL SQ SCH (22:26)
[2018-10-25] MEDS ORDERED: *HR* OxyCODONE Immed Rel 5 MG TABLET PO ONE (00:21)
[2018-10-25 05:50] LABS: Basophils % 0.7 %; Eosinophils # 0.2 K/mcL (0.0-0.6); Eosinophils % 3.4 %; Hematocrit 27.8 % (37.5-50.1); Hemoglobin 8.5 g/dL (12.9-16.9); Immature Granulocytes % 0.7 % (0-4); Lymphocytes # 1.8 K/mcL (0.6-4.6); Lymphocytes % 30.8 %; Mean Corpuscular HGB Conc 30.6 g/dL (31.6-35.5); Mean Corpuscular Hemoglobin 23.2 pg (28.0-33.3); Mean Platelet Volume 9.7 fL (9.4-12.4); Monocytes # 0.6 K/mcL (0.0-1.3); Monocytes % 9.5 %; Neutrophils # 3.2 K/mcL (1.6-8.9); Platelet Count 182 K/mcL (140-400); Red Blood Count 3.66 M/mcL (4.19-5.50); Red Cell Distribution Width 15.9 % (11.5-14.5); Segmented Neutrophils % 54.9 %; White Blood Count 5.9 K/mcL (4.3-11.1)
[2018-10-25] MEDS: *HR* Heparin 5,000 UNIT/ML VIAL SQ SCH ×2 (06:11→17:06)
[2018-10-25 06:13] LABS: Calcium 8.3 mg/dL (8.6-10.3); Potassium 3.6 mEq/L (3.5-5.1)
[2018-10-25 06:24] LABS: Thyroid Stimulating Hormone 1.338 mcIU/mL (0.340-5.600)
[2018-10-25] MEDS: hydrALAZINE 25 MG TABLET PO SCH ×3 (07:44→21:36)
[2018-10-25] MEDS: Furosemide 20 MG TABLET PO SCH (07:45)
[2018-10-25] MEDS: Thiamine (B-1) 100 MG TABLET PO SCH (07:45)
[2018-10-25] MEDS: amLODIPine 5 MG TABLET PO SCH (07:45)
[2018-10-25] MEDS: Aspirin 81 MG TAB.CHEW PO SCH (07:45)
[2018-10-25] MEDS: ARIPiprazole 5 MG TABLET PO SCH (07:45)
[2018-10-25] MEDS: Metoprolol XL (24 HR) Succ 50 MG TAB.ER.24H PO SCH (07:45)
[2018-10-25] MEDS: levETIRAcetam 250 MG TABLET PO SCH ×2 (07:45→21:36)
[2018-10-25] MEDS ORDERED: Insulin LISPRO 300 UNITS/3 ML VIAL SQ SCH (08:00)
[2018-10-25] MEDS ORDERED: *HR* Dextrose 50 % in Water (Syg) 50 ML SYRINGE IVP PRN (08:02)
[2018-10-25] MEDS ORDERED: D5% in Water 1,000 ML IVC PRN (08:02)
[2018-10-25] MEDS ORDERED: Dextrose Gel 15 GM/37.5 ML TUBE PO PRN ×2 (08:02)
[2018-10-25 08:31] LABS: Protein/Creatinine Ratio,Urine 3.3 mg/mg (0.00-0.20)
[2018-10-25] MEDS: Insulin DETEMIR 100 UNIT/ML X5UNITS SQ SCH ×3 (11:06→21:55)
[2018-10-25] MEDS: Insulin LISPRO 300 UNITS/3 ML VIAL SQ SCH ×3 (11:12→21:31)
--- NOTE | 2018-10-25 13:16 | Internal Med Progress Note ---
Hospitalist Progress Note - Encounter Date of Encounter: 10/25/18 Time of Encounter: 13:20 - Subjective Interval History: Patient was seen and examined at bedside today. Patient was examined from the significant other in patient's room. Patient agreed to discuss medical condition and the presents of his significant other. Patient reports some flank pain. Per patient and per his significant other patient's swelling has reduced after he received IV Lasix yesterday in the emergency room. Apart from this, he denies any acute issues or concerns at this time. Patient had one episode of hypoglycemia which was OUT this morning and his brother was able to 53. Patient was received dextrose and blood level of glucose became 120 after that. - Exam Vitals: Temp Pulse Resp BP Pulse Ox 98.4 F 70 17 146/74 98 10/25/18 11:10/25/18 11:10/25/18 11:01 10/25/18 11:10/25/18 11:01 Exam: General: A & O 3, In no acute distress HENNT: PERRLA. Head atraumatic and makes supple CVS S1 and S2 regular, no murmur RS: Clear to air entry bilaterally, no wheeze, no crackles Abdomen: Soft and nontender. Bowel sounds normal 4 Extremities: 1+ edema Neurology: Cranial 2 through 12 normal. Motor strength 5/5 bilaterally. Sensation intact - Assessment and Plan (1) Edema Current Visit: Yes Status: Acute Assessment and Plan: Unsure etiology at this time. Patient hemodynamically stable and does not appear to be in any sort of heart failure. Will continue IV Lasix. Continue to monitor in's and out's. We will continue monitor kidney function after IV Lasix and consult nephrology as needed. (2) Flank pain Current Visit: Yes Status: Acute Assessment and Plan: Likely related to anasarca. Improved after receiving Lasix.. (3) Diabetes mellitus type 1 Current Visit: No Status: Chronic Assessment and Plan: ISS, Diabetic diet. Patient has one event of hypoglycemia this morning. Levemir dose adjusted to 15 units twice a day. We will continue sliding scale insulin. (4) Anemia Current Visit: No Status: Chronic Assessment and Plan: We will continue to monitor. Continue ferrous sulfate. (5) History of seizure Current Visit: No Status: Chronic Assessment and Plan: Placed on seizure precaution we will continue to monitor and continue home me dication. (6) Acute kidney injury superimposed on CKD Current Visit: No Status: Acute (7) DVT prophylaxis Current Visit: No Status: Acute Assessment and Plan: heparin SQ - Time Spent with Patient Total time spent is greater than 50% in coordination of care (as documented) at patient's floor/unit and/or counseling patient: 25 - 35 minutes Plan of Care Discussed with: patient Internal Medicine: Result - Labs CBC & Chem 7: 10/25/18 05:18 10/25/18 05:18 Labs: Short CBC 10/24/18 10/25/18 Range/Units 13:30 05:18 WBC 6.8 5.9 (4.3-11.1) K/mcL Hgb 9.0 L 8.5 L (12.9-16.9) g/dL Hct 29.2 L 27.8 L (37.5-50.1) % Plt Count 185 182 (140-400) K/mcL Neutrophils # 4.5 3.2 (1.6-8.9) K/mcL BMP 10/24/18 10/25/18 13:30 05:18 Sodium 134 L 142 Potassium 4.2 3.6 Chloride 112 H 109 H Carbon Dioxide 22 L 22 L BUN 34 H 37 H Creatinine 1.71 H 1.86 H Glucose 229 H 100 Calcium 8.1 L 8.3 L Liver Function 10/24/18 Range/Units 13:30 Total Bilirubin 0.3 (0.3-1.0) mg/dL Direct Bilirubin 0.1 (0.0-0.2) mg/dL AST 12 L (13-39) Units/L ALT 12 (7-52) Units/L Alkaline Phosphatase 59 (34-104) Units/L Albumin 3.0 L (3.5-5.7) g/dL Urine 10/24/18 Range/Units 14:05 Urine Color Yellow (Yellow) Urine Clarity Clear (Clear) Urine pH 5.5 (5.0-8.0) pH Units Ur Specific [place] 1.015 (1.010-1.025) Urine Protein >=300 H (Neg-Trace) mg/dL Urine Glucose (UA) 250 H (Normal) mg/dL - Impressions Impressions Abdomen/Pelvis CT 10/24/18 14:16 IMPRESSION: 1. No definite acute findings in the abdomen or pelvis. 2. Persistent diffuse urinary bladder wall thickening with no significant perivesical inflammatory stranding, likely related to chronic outlet obstruction given prostatomegaly. 3. Minimal interstitial pulmonary edema, minimal anasarca, trace bilateral pleural effusions, and trace ascites, suggesting volume overload. D/ / Mars Brock MD / Mars Brock MD Interpreting Provider: Mars Brock MD Consult Discharge Plan - Plan Referrals: Jarrell Marrero MD [Primary Care Provider] - (1) Edema Qualifiers: Edema type: generalized Qualified Code(s): R60.1 - Generalized edema (3) Diabetes mellitus type 1 Qualifiers: Diabetes mellitus complication status: with other specified complication Qualified Code(s): E10.69 - Type 1 diabetes mellitus with other specified complication (4) Anemia Qualifiers: Anemia type: unspecified type Qualified Code(s): D64.9 - Anemia, unspecified
[2018-10-25] MEDS: Latanoprost 2.5 ML BOTTLE BOTH EYES SCH (17:06)
[2018-10-26 03:27] LABS: Basophils # 0.1 K/mcL (0.0-0.2); Basophils % 0.9 %; Eosinophils # 0.3 K/mcL (0.0-0.6); Hematocrit 27.9 % (37.5-50.1); Hemoglobin 8.6 g/dL (12.9-16.9); Immature Granulocytes % 0.6 % (0-4); Lymphocytes # 1.7 K/mcL (0.6-4.6); Lymphocytes % 26.8 %; Mean Corpuscular HGB Conc 30.8 g/dL (31.6-35.5); Mean Corpuscular Hemoglobin 23.2 pg (28.0-33.3); Mean Corpuscular Volume 75.4 fL (83.0-100.0); Mean Platelet Volume 9.2 fL (9.4-12.4); Monocytes # 0.6 K/mcL (0.0-1.3); Monocytes % 9.5 %; Neutrophils # 3.7 K/mcL (1.6-8.9); Platelet Count 196 K/mcL (140-400); Red Cell Distribution Width 15.9 % (11.5-14.5); Segmented Neutrophils % 58.2 %; White Blood Count 6.4 K/mcL (4.3-11.1)
[2018-10-26 03:43] LABS: Calcium 8.3 mg/dL (8.6-10.3); Potassium 3.8 mEq/L (3.5-5.1)
[2018-10-26] MEDS: *HR* Heparin 5,000 UNIT/ML VIAL SQ SCH ×2 (05:33→16:46)
[2018-10-26] MEDS: hydrALAZINE 25 MG TABLET PO SCH ×3 (07:42→21:31)
[2018-10-26] MEDS: levETIRAcetam 250 MG TABLET PO SCH ×2 (07:42→21:31)
[2018-10-26] MEDS: ARIPiprazole 5 MG TABLET PO SCH (07:42)
[2018-10-26] MEDS: Metoprolol XL (24 HR) Succ 50 MG TAB.ER.24H PO SCH (07:42)
[2018-10-26] MEDS: Aspirin 81 MG TAB.CHEW PO SCH (07:42)
[2018-10-26] MEDS: amLODIPine 5 MG TABLET PO SCH (07:42)
[2018-10-26] MEDS: Furosemide 20 MG TABLET PO SCH (07:42)
[2018-10-26] MEDS: Thiamine (B-1) 100 MG TABLET PO SCH (07:42)
[2018-10-26] MEDS: Insulin DETEMIR 100 UNIT/ML X5UNITS SQ SCH ×2 (07:43→21:39)
[2018-10-26] MEDS: Insulin LISPRO 300 UNITS/3 ML VIAL SQ SCH ×4 (07:43→21:39)
--- NOTE | 2018-10-26 12:59 | Internal Med Progress Note ---
Hospitalist Progress Note - Encounter Date of Encounter: 10/26/18 Time of Encounter: 12:56 - Subjective Interval History: Patient was seen and examined at bedside today. Patient denies any acute issues and concerns overnight. Patient reports his right flank pain has gone. Patient still complains swelling and puffiness around the face and ice. - Exam Vitals: Temp Pulse Resp BP Pulse Ox 98.0 F 71 18 137/72 99 10/26/18 11:13 10/26/18 11:13 10/26/18 11:13 10/26/18 11:13 10/26/18 11:13 Exam: General: A & O 3, In no acute distress HENNT: PERRLA. Head atraumatic and makes supple. Puffiness around eyes. CVS S1 and S2 regular, no murmur RS: Clear to air entry bilaterally, no wheeze, no crackles Abdomen: Soft and nontender. Bowel sounds normal 4 Extremities: 1+ edema Neurology: Cranial 2 through 12 normal. Motor strength 5/5 bilaterally. Sensat ion intact - Assessment and Plan (1) Edema Current Visit: Yes Status: Acute Assessment and Plan: Unsure etiology at this time. Patient hemodynamically stable and does not appear to be in any sort of heart failure. Will continue IV Lasix. Continue to monitor in's and out's. We will continue monitor kidney function after IV Lasix for 1 more day. Anticipate discharge tomorrow. (2) Flank pain Current Visit: Yes Status: Resolved Assessment and Plan: Likely related to anasarca. Improved after receiving Lasix. Today patient report his right flank pain has completely resolved. (3) Diabetes mellitus type 1 Current Visit: No Status: Chronic Assessment and Plan: Blood glucoses well controlled on Levemir 15 twice a day and sliding scale. (4) Anemia Current Visit: No Status: Chronic Assessment and Plan: We will continue to monitor. Continue ferrous sulfate. (5) History of seizure Current Visit: No Status: Chronic Assessment and Plan: Placed on seizure precaution we will continue to monitor and continue home medication. (6) Acute kidney injury superimposed on CKD Current Visit: No Status: Acute Assessment and Plan: Creatinine slightly above baseline. He requires IV Lasix to avoid acute heart failure and also that PO Lasix has been ineffective. (7) DVT prophylaxis Current Visit: No Status: Acute Assessment and Plan: heparin SQ - Time Spent with Patient Total time spent is greater than 50% in coordination of care (as documented) at patient's floor/unit and/or counseling patient: 25 - 35 minutes Plan of Care Discussed with: patient Internal Medicine: Result - Labs CBC & Chem 7: 10/26/18 02:46 10/26/18 02:46 Labs: Short CBC 10/26/18 Range/Units 02:46 WBC 6.4 (4.3-11.1) K/mcL Hgb 8.6 L (12.9-16.9) g/dL Hct 27.9 L (37.5-50.1) % Plt Count 196 (140-400) K/mcL Neutrophils # 3.7 (1.6-8.9) K/mcL BMP 10/26/18 02:46 Sodium 138 Potassium 3.8 Chloride 110 H Carbon Dioxide 23 BUN 36 H Creatinine 1.93 H Glucose 125 H Calcium 8.3 L Consult Discharge Plan - Plan Referrals: Jarrell Marrero MD [Primary Care Provider] - (1) Edema Qualifiers: Edema type: generalized Qualified Code(s): R60.1 - Generalized edema (3) Diabetes mellitus type 1 Qualifiers: Diabetes mellitus complication status: with other specified complication Qualified Code(s): E10.69 - Type 1 diabetes mellitus with other specified complication (4) Anemia Qualifiers: Anemia type: unspecified type Qualified Code(s): D64.9 - Anemia, unspecified
[2018-10-26] MEDS: Latanoprost 2.5 ML BOTTLE BOTH EYES SCH (16:46)
[2018-10-27] MEDS: *HR* Heparin 5,000 UNIT/ML VIAL SQ SCH (05:30)
[2018-10-27] MEDS: *HR* Labetalol 20 MG/4 ML SYRINGE IVP PRN (05:39)
[2018-10-27] MEDS: Insulin LISPRO 300 UNITS/3 ML VIAL SQ SCH (07:46)
[2018-10-27] MEDS: Insulin DETEMIR 100 UNIT/ML X5UNITS SQ SCH (07:46)
[2018-10-27] MEDS: hydrALAZINE 25 MG TABLET PO SCH (07:46)
[2018-10-27] MEDS: Thiamine (B-1) 100 MG TABLET PO SCH (07:46)
[2018-10-27] MEDS: ARIPiprazole 5 MG TABLET PO SCH (07:46)
[2018-10-27] MEDS: Aspirin 81 MG TAB.CHEW PO SCH (07:46)
[2018-10-27] MEDS: levETIRAcetam 250 MG TABLET PO SCH (07:47)
[2018-10-27] MEDS: Metoprolol XL (24 HR) Succ 50 MG TAB.ER.24H PO SCH (07:47)
[2018-10-27] MEDS: Furosemide 20 MG TABLET PO SCH (07:47)
[2018-10-27] MEDS: amLODIPine 5 MG TABLET PO SCH (07:47)
[2018-10-27 08:14] VITALS: BP 163/80
[2018-10-27 10:01] LABS: Calcium 8.4 mg/dL (8.6-10.3); Potassium 3.7 mEq/L (3.5-5.1)
--- NOTE | 2018-10-27 10:25 | Discharge Summary ---
- NOTES TO OUTPATIENT PROVIDER Notes to Outpatient Provider: Patient was presented to the hospital with complaining of generalized edema and right-sided flank pain. Patient seemed aggressive diuresis with IV Lasix. Patient improved after that. Patient has a history of kidney disease stage 3. On discharge patient's creatinine was 1.8. Please follow-up visit outpatient kidney function test within 1 week. Date of Encounter: 10/27/18 Time of Encounter: 10:23 - Discharge Diagnosis (1) Edema Priority: Primary Status: Acute Qualifiers: Edema type: generalized Qualified Code(s): R60.1 - Generalized edema (2) Flank pain Priority: Secondary Status: Resolved (3) Diabetes mellitus type 1 Priority: Secondary Status: Chronic Qualifiers: Diabetes mellitus complication status: with other specified complication Qualified Code(s): E10.69 - Type 1 diabetes mellitus with other specified complication (4) Anemia Priority: Secondary Status: Chronic Qualifiers: Anemia type: unspecified type Qualified Code(s): D64.9 - Anemia, unspecified (5) History of seizure Priority: Secondary Status: Chronic (6) Acute kidney injury superimposed on CKD Priority: Secondary Status: Acute (7) DVT prophylaxis Priority: Secondary Status: Acute Hospital course: Mr. Irvin is a 48 year old male presented to the hospital with complaint of generalized edema and significant weight gain within past 2 days. Upon presentation he also complaining of right flank pain. Patient had initial lab work done and imaging none. Initial workup was negative for any renal etiology for his right flank pain. Pain was attributed to possible generalized edema. She will receive aggressive diuresis. Patient subsequently improved. Patient was discharged home in stable condition. Patient has outpatient follow-up appointment with primary care provider to recheck his kidney function. Patient to follow-up with his kidney doctor for chronic kidney disease stage III. Discharge discussed with: patient, family - Time Spent with Patient Total time spent providing and/or coordinating discharge services: 40 Time spent: Greater than 30 minutes - Discharge Medications Prescriptions: Continued Atorvastatin [Lipitor] 40 mg PO DAILY LevETIRAcetam [Keppra] 500 mg PO BID Thiamine (B-1) [Vitamin B-1] 100 mg PO DAILY Aspirin 81 mg PO DAILY Hydralazine HCl 100 mg PO TID Gabapentin [Neurontin] 100 mg PO HS Metoprolol Succinate 100 mg PO DAILY Sertraline [Zoloft] 100 mg PO HS Latanoprost [Xalatan] 1 drop BOTH EYES QPM Amlodipine Besylate 10 mg PO DAILY Ergocalciferol (VITAMIN D2) [Vitamin D2] 50,000 unit PO TU Insulin LISPRO [Humalog] 0 unit SQ DAILY Insulin Pump Cartridge [Insulin Pump] 1 device SQ AD Potassium Chloride 20 meq PO DAILY Tamsulosin HCl [Flomax] 0.4 mg PO DAILY ARIPiprazole [Abilify] 5 mg PO DAILY Ferrous Sulfate [Iron] 325 mg PO BID #60 tablet Furosemide [Lasix] 20 mg PO DAILY Losartan [Cozaar] 25 mg PO DAILY Home Medications: Atorvastatin [Lipitor] 40 mg PO DAILY 03/02/17 [History] Aspirin 81 mg PO DAILY 04/26/17 [History] Gabapentin [Neurontin] 100 mg PO HS 04/26/17 [History] Hydralazine HCl 100 mg PO TID 04/26/17 [History] LevETIRAcetam [Keppra] 500 mg PO BID 04/26/17 [History] Thiamine (B-1) [Vitamin B-1] 100 mg PO DAILY 04/26/17 [History] Latanoprost [Xalatan] 1 drop BOTH EYES QPM 03/04/18 [History] Metoprolol Succinate 100 mg PO DAILY 03/04/18 [History] Sertraline [Zoloft] 100 mg PO HS 03/04/18 [History] Amlodipine Besylate 10 mg PO DAILY 06/04/18 [History] Ergocalciferol (VITAMIN D2) [Vitamin D2] 50,000 unit PO TU 07/24/18 [History] Insulin LISPRO [Humalog] 0 unit SQ DAILY 07/24/18 [History] Insulin Pump Cartridge [Insulin Pump] 1 device SQ AD 07/24/18 [History] Potassium Chloride 20 meq PO DAILY 07/24/18 [History] Tamsulosin HCl [Flomax] 0.4 mg PO DAILY 07/24/18 [History] ARIPiprazole [Abilify] 5 mg PO DAILY 08/23/18 [History] Ferrous Sulfate [Iron] 325 mg PO BID #60 tablet 08/23/18 [Rx] Furosemide [Lasix] 20 mg PO DAILY 10/24/18 [History] Losartan [Cozaar] 25 mg PO DAILY 10/24/18 [History] Allergies/Adverse Reactions: Allergy/AdvReac Type Severity Reaction Status Date / Time No Known Allergies Allergy Verified 10/24/18 12:38 Date of admission: 10/24/18 18:49 Primary care physician: Jarrell Marrero MD Discharging clinician: Miller Inman - Constitutional Vitals: Temp Pulse Resp BP Pulse Ox 98.6 F 91 16 163/80 97 10/27/18 08:07 10/27/18 08:07 10/27/18 08:07 10/27/18 08:07 10/27/18 08:07 General appearance: Present: cooperative, A&O X 3, no acute distress Exam: General: A & O 3, In no acute distress HENNT: PERRLA. Head atraumatic and makes supple. Puffiness around eyes. CVS S1 and S2 regular, no murmur RS: Clear to air entry bilaterally, no wheeze, no crackles Abdomen: Soft and nontender. Bowel sounds normal 4 Extremities: No cyanosis, no clubbing, no edema. Neurology: Cranial 2 through 12 normal. Motor strength 5/5 bilaterally. Sensation intact - Patient Status Disposition: Home, Self-Care Condition: Good Overall status at discharge: patient is progressing back to baseline - Discharge Instructions Follow Up With: Jarrell Marrero MD [Primary Care Provider] - - Diet and Activity Activity: as per physical therapy Diet: advance to your usual diet
[2018-10-30] MEDS ORDERED: Ergocalciferol (VIT D2) 50,000 UNIT (1.25MG) CAP PO SCH (09:00)
== END 2018-10-27 11:14 | disposition home or self-care (01) ==
LOC: 2ANU 12:32 → EMEROOARM 12:32 → SUATTDRO 18:49 → 2ANU 20:35
PROVIDERS: ADMIT Student in an Organized Health Care Education/Training Program; ATTEND Family Medicine

== ENCOUNTER 2018-11-07 12:34 | Inpatient (IN) ==
[2018-11-07] MEDS ORDERED: *HR* Dextrose 50 % in Water (Syg) 50 ML SYRINGE IVP PRN ×2 (13:05→18:59)
[2018-11-07] MEDS ORDERED: Insulin Human Regular 100 UNIT in 0.9 % Sodium Chloride 100 ML IVC SCH (13:15)
[2018-11-07] MEDS: 0.9 % Sodium Chloride 1,000 ML IVC SCH ×2 (13:32→15:55)
[2018-11-07 13:50] LABS: Basophils # 0.1 K/mcL (0.0-0.2); Basophils % 0.8 %; Eosinophils # 0.2 K/mcL (0.0-0.6); Hematocrit 33.1 % (37.5-50.1); Hemoglobin 9.8 g/dL (12.9-16.9); Immature Granulocytes % 0.8 % (0-4); Lymphocytes # 1.4 K/mcL (0.6-4.6); Lymphocytes % 18.1 %; Mean Corpuscular HGB Conc 29.6 g/dL (31.6-35.5); Mean Corpuscular Hemoglobin 23.3 pg (28.0-33.3); Mean Corpuscular Volume 78.6 fL (83.0-100.0); Mean Platelet Volume 9.6 fL (9.4-12.4); Monocytes # 0.5 K/mcL (0.0-1.3); Monocytes % 6.6 %; Neutrophils # 5.3 K/mcL (1.6-8.9); Platelet Count 274 K/mcL (140-400); Red Blood Count 4.21 M/mcL (4.19-5.50); Red Cell Distribution Width 15.6 % (11.5-14.5); Segmented Neutrophils % 71.7 %; White Blood Count 7.4 K/mcL (4.3-11.1)
[2018-11-07 14:13] LABS: Bilirubin,Urine Negative (Negative); Blood,Urine Negative (Negative); Clarity,Urine Clear (Clear); Color,Urine Yellow (Yellow); Glucose,Urine (UA) >=1000 mg/dL (Normal); Ketones,Urine Trace mg/dL (Negative); Leukocyte Esterase,Urine Negative (Negative); Nitrite,Urine Negative (Negative); PH,Urine 5.5 pH Units (5.0-8.0); Protein,Urine >=300 mg/dL (Neg-Trace); Specific Gravity,Urine 1.018 (1.010-1.025); Urobilinogen,Urine Normal (Normal)
[2018-11-07 14:15] LABS: Bacteria,Urine None Seen per hpf (None-Few); Hyaline Casts,Urine None Seen per lpf (None-Few); Squamous Epithelial Cell,Urine Moderate per lpf (None-Few); WBC,Urine 0-3 per hpf (0-3)
[2018-11-07 14:20] LABS: VBG HCO3 17 mEq/L (21-27); VBG PCO2 34 mmHg (41-51); VBG PH 7.31 pH Units (7.32-7.42); VBG PO2 182 mmHg (25-50)
[2018-11-07 14:21] LABS: BUN/Creatinine Ratio 25 (6-26); Blood Urea Nitrogen 48 mg/dL (6-20); Calcium 8.3 mg/dL (8.6-10.3); Carbon Dioxide 17 mEq/L (23-29); Chloride 99 mEq/L (98-107); Glucose 556 mg/dL (70-105); Magnesium 1.8 mg/dL (1.6-2.6); Osmolality,Calculated 308 (280-300); Phosphorous 4.3 mg/dL (2.7-4.5); Potassium 4.6 mEq/L (3.5-5.1); Sodium 130 mEq/L (136-145); Troponin I < 0.03 ng/mL (< 0.04); eGFR For African Americans 46 (> 60); eGFR For Non-African Americans 38 (> 60)
[2018-11-07] MEDS ORDERED: D5% in 0.45% NACL 1,000 ML IVC PRN (14:52)
[2018-11-07] MEDS ORDERED: Insulin Regular, Human 100 UNIT/ML IV PRN ×2 (14:52)
[2018-11-07] MEDS ORDERED: D5% in 0.45% NACL w KCl 20 MEQ/1,000 ML MLS IVC PRN (14:52)
[2018-11-07 15:43] LABS: Estimated Average Glucose 157 mg/dl
[2018-11-07] MEDS: 0.45 % Sodium Chloride w/KCl 20 MEQ/1,000 ML MLS IVC SCH ×2 (16:51→17:08)
[2018-11-07 17:53] LABS: Calcium 7.7 mg/dL (8.6-10.3); Potassium 3.9 mEq/L (3.5-5.1)
[2018-11-07] MEDS ORDERED: D5% in Water 1,000 ML IVC PRN (18:59)
[2018-11-07] MEDS ORDERED: Insulin DETEMIR 100 UNIT/ML X5UNITS SQ ONE (18:59)
[2018-11-07] MEDS ORDERED: Dextrose Gel 15 GM/37.5 ML TUBE PO PRN ×2 (18:59)
[2018-11-07] MEDS ORDERED: Insulin LISPRO 300 UNITS/3 ML VIAL SQ SCH (21:00)
[2018-11-07] MEDS ORDERED: hydrALAZINE 25 MG TABLET PO SCH (21:00)
[2018-11-07] MEDS: Gabapentin 100 MG CAPSULE PO SCH (21:19)
[2018-11-07] MEDS: levETIRAcetam 250 MG TABLET PO SCH (21:19)
[2018-11-07 22:37] LABS: Calcium 8.2 mg/dL (8.6-10.3); Potassium 4.5 mEq/L (3.5-5.1)
[2018-11-08 00:58] LABS: Calcium 7.9 mg/dL (8.6-10.3)
[2018-11-08 07:08] LABS: Calcium 8.2 mg/dL (8.6-10.3); Potassium 4.9 mEq/L (3.5-5.1)
[2018-11-08 07:09] LABS: Calcium 8.2 mg/dL (8.6-10.3); Potassium 4.9 mEq/L (3.5-5.1)
[2018-11-08] MEDS: Insulin LISPRO 300 UNITS/3 ML VIAL SQ SCH ×5 (07:44→21:08)
[2018-11-08] MEDS: Aspirin 81 MG TAB.CHEW PO SCH (07:45)
[2018-11-08] MEDS: ARIPiprazole 10 MG TABLET PO SCH (07:45)
[2018-11-08] MEDS: levETIRAcetam 250 MG TABLET PO SCH ×2 (07:45→21:09)
[2018-11-08] MEDS: Metoprolol XL (24 HR) Succ 50 MG TAB.ER.24H PO SCH (07:45)
[2018-11-08] MEDS: Furosemide 20 MG TABLET PO SCH (07:45)
[2018-11-08] MEDS: hydrALAZINE 25 MG TABLET PO SCH ×3 (09:48→21:09)
[2018-11-08] MEDS ORDERED: Cyanocobalamin (B-12) 1,000 MCG/ML VIAL IM SCH (10:00)
[2018-11-08] MEDS ORDERED: Insulin DETEMIR 100 UNIT/ML X5UNITS SQ SCH (10:04)
[2018-11-08] MEDS ORDERED: Aspirin Enteric Coated 81 MG Tablet PO SCH (10:15)
[2018-11-08] MEDS ORDERED: HYDRALAZINE HCL 100 MG PO SCH (15:00)
[2018-11-08] MEDS ORDERED: Insulin LISPRO 300 UNITS/3 ML VIAL SQ SCH ×2 (15:39)
[2018-11-08 17:02] LABS: Chol/HDL Ratio 4.1 (0-4.9)
[2018-11-08] MEDS: Latanoprost 2.5 ML BOTTLE BOTH EYES SCH (18:05)
[2018-11-08] MEDS: 0.45 % Sodium Chloride w/KCl 20 MEQ/1,000 ML MLS IVC SCH ×3 (19:36→19:43)
[2018-11-08] MEDS: Insulin DETEMIR 100 UNIT/ML X5UNITS SQ SCH (21:09)
[2018-11-08] MEDS: Gabapentin 100 MG CAPSULE PO SCH (21:09)
[2018-11-09 03:54] LABS: Basophils # 0.1 K/mcL (0.0-0.2); Basophils % 0.8 %; Eosinophils # 0.3 K/mcL (0.0-0.6); Eosinophils % 4.2 %; Hematocrit 31.5 % (37.5-50.1); Hemoglobin 9.6 g/dL (12.9-16.9); Immature Granulocytes % 0.8 % (0-4); Lymphocytes # 2.5 K/mcL (0.6-4.6); Lymphocytes % 32.7 %; Mean Corpuscular HGB Conc 30.5 g/dL (31.6-35.5); Mean Corpuscular Volume 75.4 fL (83.0-100.0); Mean Platelet Volume 9.5 fL (9.4-12.4); Monocytes # 0.8 K/mcL (0.0-1.3); Monocytes % 10.9 %; Neutrophils # 3.8 K/mcL (1.6-8.9); Platelet Count 304 K/mcL (140-400); Red Blood Count 4.18 M/mcL (4.19-5.50); Red Cell Distribution Width 15.9 % (11.5-14.5); Segmented Neutrophils % 50.6 %; White Blood Count 7.6 K/mcL (4.3-11.1)
[2018-11-09 04:31] LABS: Calcium 8.7 mg/dL (8.6-10.3); Potassium 3.5 mEq/L (3.5-5.1)
[2018-11-09] MEDS: Furosemide 20 MG TABLET PO SCH (09:12)
[2018-11-09] MEDS: Aspirin 81 MG TAB.CHEW PO SCH (09:12)
[2018-11-09] MEDS: hydrALAZINE 25 MG TABLET PO SCH ×3 (09:12→21:22)
[2018-11-09] MEDS: levETIRAcetam 250 MG TABLET PO SCH ×2 (09:12→20:17)
[2018-11-09] MEDS: Metoprolol XL (24 HR) Succ 50 MG TAB.ER.24H PO SCH (09:13)
[2018-11-09] MEDS: Insulin DETEMIR 100 UNIT/ML X5UNITS SQ SCH (09:13)
[2018-11-09] MEDS: ARIPiprazole 10 MG TABLET PO SCH (09:13)
[2018-11-09] MEDS: Insulin LISPRO 300 UNITS/3 ML VIAL SQ SCH ×6 (09:14→20:18)
[2018-11-09 15:07] LABS: Total Volume 24 Hour,Urine 2.98 Liters (0.80-1.80)
[2018-11-09 15:08] LABS: Total Volume 24 Hour,Urine 2.8 Liters (0.80-1.80)
[2018-11-09 15:24] LABS: Sodium, Urine 63.4 mEq/L
[2018-11-09] MEDS: Latanoprost 2.5 ML BOTTLE BOTH EYES SCH (17:34)
[2018-11-09] MEDS: Gabapentin 100 MG CAPSULE PO SCH (20:17)
[2018-11-09] MEDS ORDERED: Insulin DETEMIR 100 UNIT/ML X5UNITS SQ SCH (21:00)
[2018-11-10] MEDS ORDERED: NIFEdipine 10 MG CAPSULE PO ONE (00:08)
[2018-11-10 05:43] LABS: Basophils % 0.7 %; Eosinophils # 0.3 K/mcL (0.0-0.6); Eosinophils % 4.9 %; Hematocrit 28.9 % (37.5-50.1); Hemoglobin 8.9 g/dL (12.9-16.9); Immature Granulocytes % 0.7 % (0-4); Lymphocytes # 1.7 K/mcL (0.6-4.6); Lymphocytes % 29.9 %; Mean Corpuscular HGB Conc 30.8 g/dL (31.6-35.5); Mean Corpuscular Hemoglobin 23.5 pg (28.0-33.3); Mean Corpuscular Volume 76.5 fL (83.0-100.0); Mean Platelet Volume 9.9 fL (9.4-12.4); Monocytes # 0.7 K/mcL (0.0-1.3); Monocytes % 12.4 %; Neutrophils # 2.9 K/mcL (1.6-8.9); Platelet Count 230 K/mcL (140-400); Red Blood Count 3.78 M/mcL (4.19-5.50); Red Cell Distribution Width 15.5 % (11.5-14.5); Segmented Neutrophils % 51.4 %; White Blood Count 5.7 K/mcL (4.3-11.1)
[2018-11-10 06:39] LABS: Calcium 8.1 mg/dL (8.6-10.3); Potassium 3.8 mEq/L (3.5-5.1)
[2018-11-10] MEDS: Insulin LISPRO 300 UNITS/3 ML VIAL SQ SCH ×6 (07:36→21:08)
[2018-11-10] MEDS: hydrALAZINE 25 MG TABLET PO SCH ×3 (07:45→19:40)
[2018-11-10] MEDS: ARIPiprazole 10 MG TABLET PO SCH (07:46)
[2018-11-10] MEDS: levETIRAcetam 250 MG TABLET PO SCH ×2 (07:46→19:41)
[2018-11-10] MEDS: Aspirin 81 MG TAB.CHEW PO SCH (07:46)
[2018-11-10] MEDS: Furosemide 20 MG TABLET PO SCH (07:46)
[2018-11-10] MEDS: Metoprolol XL (24 HR) Succ 50 MG TAB.ER.24H PO SCH (07:46)
[2018-11-10] MEDS ORDERED: Insulin DETEMIR 100 UNIT/ML X5UNITS SQ SCH (09:00)
[2018-11-10] MEDS: Latanoprost 2.5 ML BOTTLE BOTH EYES SCH (17:26)
[2018-11-10] MEDS: Insulin DETEMIR 100 UNIT/ML X5UNITS SQ SCH (17:35)
[2018-11-10] MEDS: Gabapentin 100 MG CAPSULE PO SCH (19:41)
[2018-11-11 05:17] LABS: Basophils # 0.1 K/mcL (0.0-0.2); Basophils % 0.9 %; Eosinophils # 0.3 K/mcL (0.0-0.6); Eosinophils % 3.8 %; Hematocrit 28.9 % (37.5-50.1); Hemoglobin 8.7 g/dL (12.9-16.9); Immature Granulocytes % 0.8 % (0-4); Lymphocytes # 1.8 K/mcL (0.6-4.6); Lymphocytes % 27.5 %; Mean Corpuscular HGB Conc 30.1 g/dL (31.6-35.5); Mean Corpuscular Hemoglobin 22.7 pg (28.0-33.3); Mean Corpuscular Volume 75.5 fL (83.0-100.0); Mean Platelet Volume 10.1 fL (9.4-12.4); Monocytes # 0.6 K/mcL (0.0-1.3); Monocytes % 9.4 %; Neutrophils # 3.8 K/mcL (1.6-8.9); Platelet Count 227 K/mcL (140-400); Red Blood Count 3.83 M/mcL (4.19-5.50); Red Cell Distribution Width 15.5 % (11.5-14.5); Segmented Neutrophils % 57.6 %; White Blood Count 6.6 K/mcL (4.3-11.1)
[2018-11-11 05:36] LABS: Potassium 4.2 mEq/L (3.5-5.1)
[2018-11-11] MEDS: hydrALAZINE 25 MG TABLET PO SCH ×3 (08:14→21:09)
[2018-11-11] MEDS: Insulin DETEMIR 100 UNIT/ML X5UNITS SQ SCH (08:15)
[2018-11-11] MEDS: Aspirin 81 MG TAB.CHEW PO SCH (08:15)
[2018-11-11] MEDS: Insulin LISPRO 300 UNITS/3 ML VIAL SQ SCH ×2 (08:15→16:54)
[2018-11-11] MEDS: Metoprolol XL (24 HR) Succ 50 MG TAB.ER.24H PO SCH (08:15)
[2018-11-11] MEDS: levETIRAcetam 250 MG TABLET PO SCH ×2 (08:15→21:09)
[2018-11-11] MEDS: Furosemide 20 MG TABLET PO SCH (08:15)
[2018-11-11] MEDS: ARIPiprazole 10 MG TABLET PO SCH (08:15)
[2018-11-11] MEDS ORDERED: amLODIPine 5 MG TABLET PO SCH (09:00)
[2018-11-11] MEDS ORDERED: Insulin LISPRO 300 UNITS/3 ML VIAL SQ SCH ×3 (09:21→15:14)
[2018-11-11] MEDS: Furosemide 40 MG TABLET PO SCH (11:35)
[2018-11-11] MEDS: Latanoprost 2.5 ML BOTTLE BOTH EYES SCH (17:30)
[2018-11-11] MEDS ORDERED: Insulin DETEMIR 100 UNIT/ML X5UNITS SQ SCH (21:00)
[2018-11-11] MEDS: Gabapentin 100 MG CAPSULE PO SCH (21:09)
[2018-11-12 06:34] LABS: Basophils # 0.1 K/mcL (0.0-0.2); Basophils % 0.9 %; Eosinophils # 0.3 K/mcL (0.0-0.6); Eosinophils % 4.5 %; Hematocrit 28.4 % (37.5-50.1); Hemoglobin 8.8 g/dL (12.9-16.9); Immature Granulocytes % 0.8 % (0-4); Lymphocytes # 2.1 K/mcL (0.6-4.6); Mean Corpuscular Hemoglobin 23.4 pg (28.0-33.3); Mean Corpuscular Volume 75.5 fL (83.0-100.0); Monocytes # 0.7 K/mcL (0.0-1.3); Monocytes % 10.2 %; Neutrophils # 3.3 K/mcL (1.6-8.9); Platelet Count 243 K/mcL (140-400); Red Blood Count 3.76 M/mcL (4.19-5.50); Red Cell Distribution Width 15.5 % (11.5-14.5); Segmented Neutrophils % 51.6 %; White Blood Count 6.4 K/mcL (4.3-11.1)
[2018-11-12 06:53] LABS: Calcium 8.2 mg/dL (8.6-10.3); Potassium 3.9 mEq/L (3.5-5.1)
[2018-11-12] MEDS: Aspirin 81 MG TAB.CHEW PO SCH (08:17)
[2018-11-12] MEDS: hydrALAZINE 25 MG TABLET PO SCH ×3 (08:18→21:06)
[2018-11-12] MEDS: amLODIPine 5 MG TABLET PO SCH (08:18)
[2018-11-12] MEDS: ARIPiprazole 10 MG TABLET PO SCH (08:18)
[2018-11-12] MEDS: Furosemide 40 MG TABLET PO SCH ×2 (08:18→16:53)
[2018-11-12] MEDS: Metoprolol XL (24 HR) Succ 50 MG TAB.ER.24H PO SCH (08:18)
[2018-11-12] MEDS: levETIRAcetam 250 MG TABLET PO SCH ×2 (08:18→21:05)
[2018-11-12] MEDS: Insulin LISPRO 300 UNITS/3 ML VIAL SQ SCH (08:19)
[2018-11-12] MEDS ORDERED: Insulin DETEMIR 100 UNIT/ML X5UNITS SQ SCH (09:00)
[2018-11-12] MEDS: Latanoprost 2.5 ML BOTTLE BOTH EYES SCH (16:53)
[2018-11-12] MEDS ORDERED: Furosemide 40 MG TABLET PO SCH (21:00)
[2018-11-12] MEDS: Gabapentin 100 MG CAPSULE PO SCH (21:05)
[2018-11-13 06:55] LABS: Basophils # 0.1 K/mcL (0.0-0.2); Basophils % 1.1 %; Eosinophils # 0.3 K/mcL (0.0-0.6); Eosinophils % 4.7 %; Hematocrit 29.9 % (37.5-50.1); Hemoglobin 9.1 g/dL (12.9-16.9); Lymphocytes # 1.8 K/mcL (0.6-4.6); Lymphocytes % 29.6 %; Mean Corpuscular HGB Conc 30.4 g/dL (31.6-35.5); Mean Corpuscular Hemoglobin 23.3 pg (28.0-33.3); Mean Corpuscular Volume 76.7 fL (83.0-100.0); Mean Platelet Volume 10.2 fL (9.4-12.4); Monocytes # 0.7 K/mcL (0.0-1.3); Monocytes % 10.9 %; Neutrophils # 3.3 K/mcL (1.6-8.9); Platelet Count 257 K/mcL (140-400); Red Cell Distribution Width 15.4 % (11.5-14.5); Segmented Neutrophils % 52.7 %; White Blood Count 6.2 K/mcL (4.3-11.1)
[2018-11-13 07:09] LABS: Calcium 8.4 mg/dL (8.6-10.3); Potassium 3.9 mEq/L (3.5-5.1)
[2018-11-13] MEDS: Furosemide 40 MG TABLET PO SCH ×2 (07:36→16:39)
[2018-11-13] MEDS: levETIRAcetam 250 MG TABLET PO SCH ×2 (07:36→20:34)
[2018-11-13] MEDS: hydrALAZINE 25 MG TABLET PO SCH ×3 (07:36→20:34)
[2018-11-13] MEDS: Metoprolol XL (24 HR) Succ 50 MG TAB.ER.24H PO SCH (07:36)
[2018-11-13] MEDS: Aspirin 81 MG TAB.CHEW PO SCH (07:36)
[2018-11-13] MEDS: amLODIPine 5 MG TABLET PO SCH (07:36)
[2018-11-13] MEDS: ARIPiprazole 10 MG TABLET PO SCH (07:37)
[2018-11-13] MEDS: Latanoprost 2.5 ML BOTTLE BOTH EYES SCH (16:39)
[2018-11-13] MEDS: Gabapentin 100 MG CAPSULE PO SCH (20:34)
[2018-11-14 05:07] LABS: Basophils # 0.1 K/mcL (0.0-0.2); Eosinophils # 0.3 K/mcL (0.0-0.6); Eosinophils % 4.1 %; Hematocrit 31.1 % (37.5-50.1); Hemoglobin 9.3 g/dL (12.9-16.9); Lymphocytes % 29.3 %; Mean Corpuscular HGB Conc 29.9 g/dL (31.6-35.5); Mean Corpuscular Hemoglobin 23.1 pg (28.0-33.3); Mean Corpuscular Volume 77.4 fL (83.0-100.0); Monocytes # 0.6 K/mcL (0.0-1.3); Monocytes % 8.7 %; Neutrophils # 3.8 K/mcL (1.6-8.9); Platelet Count 280 K/mcL (140-400); Red Blood Count 4.02 M/mcL (4.19-5.50); Red Cell Distribution Width 15.3 % (11.5-14.5); Segmented Neutrophils % 55.9 %; White Blood Count 6.9 K/mcL (4.3-11.1)
[2018-11-14 05:22] LABS: Calcium 8.4 mg/dL (8.6-10.3)
[2018-11-14 07:34] VITALS: BP 151/80
[2018-11-14] MEDS: hydrALAZINE 25 MG TABLET PO SCH (07:55)
[2018-11-14] MEDS: ARIPiprazole 10 MG TABLET PO SCH (07:55)
[2018-11-14] MEDS: levETIRAcetam 250 MG TABLET PO SCH (07:55)
[2018-11-14] MEDS: Metoprolol XL (24 HR) Succ 50 MG TAB.ER.24H PO SCH (07:55)
[2018-11-14] MEDS: Aspirin 81 MG TAB.CHEW PO SCH (07:56)
[2018-11-14] MEDS: Furosemide 40 MG TABLET PO SCH (07:56)
[2018-11-14] MEDS: amLODIPine 5 MG TABLET PO SCH (07:56)
== END 2018-11-14 10:52 | disposition home or self-care (01) | DRG 420 ==
LOC: EMEROOARM 12:34 → 2NNU 12:34 → SUATTDRO 15:18 → 2NNU 16:40 → 2ANU 11-08 00:11 → SUATTDRO 11-12 16:34
PROVIDERS: ADMIT Internal Medicine; ATTEND Internal Medicine

== ENCOUNTER 2018-12-13 19:53 | Observation (INO) ==
[2018-12-13 20:31] LABS: Basophils # 0.1 K/mcL (0.0-0.2); Basophils % 0.9 %; Eosinophils # 0.3 K/mcL (0.0-0.6); Eosinophils % 3.9 %; Hematocrit 33.2 % (37.5-50.1); Lymphocytes # 1.7 K/mcL (0.6-4.6); Lymphocytes % 21.3 %; Mean Corpuscular HGB Conc 30.1 g/dL (31.6-35.5); Mean Corpuscular Hemoglobin 23.6 pg (28.0-33.3); Mean Corpuscular Volume 78.3 fL (83.0-100.0); Mean Platelet Volume 9.2 fL (9.4-12.4); Monocytes # 0.6 K/mcL (0.0-1.3); Monocytes % 7.7 %; Neutrophils # 5.2 K/mcL (1.6-8.9); Platelet Count 278 K/mcL (140-400); Red Blood Count 4.24 M/mcL (4.19-5.50); Red Cell Distribution Width 15.6 % (11.5-14.5); Segmented Neutrophils % 65.2 %; White Blood Count 7.9 K/mcL (4.3-11.1)
--- NOTE | 2018-12-13 20:32 | Emergency Department Note ---
Disposition Clinical Impression: Chest pain Disposition: Still a Patient Condition: Fair Forms: ED Satisfaction Letter Time of Disposition: 23:12 General Adult HPI - General Chief complaint: ED Chest Pain Stated complaint: Chest Pain Time Seen by Provider: 12/13/18 20:12 Source: patient Nursing Notes Reviewed: Yes Vital Signs Reviewed: Yes - History of Present Illness HPI Narrative: Patient has a history of diabetes and did have a hypoglycemic episode 2 years ago with anoxic brain injury and presents with his significant other and they have been together for 27 years and she gives most of the history as he is able to give some history but with questionable reliability. He said he has dull mid chest pain since yesterday which began gradually however she said that it began about 1 hour prior to arrival and the patient did have some associated dyspnea. He states his pain is pleuritic. Said it does not radiate and specifically no radiation to the neck, arm, jaw, or back. The patient does not have any pain persists numbness of the lower extremities but does have some minimal bilateral swelling. Has had 10 pound weight gain. He does live at home with his significant other, he is ambulatory. Social history: No smoking or alcohol Pain Scale: 3 - Related Data Home Medications Medication Instructions Recorded Confirmed Atorvastatin [Lipitor] 40 mg PO DAILY 03/02/17 11/07/18 Gabapentin [Neurontin] 100 mg PO HS 04/26/17 11/07/18 LevETIRAcetam [Keppra] 500 mg PO BID 04/26/17 11/07/18 Thiamine (B-1) [Vitamin B-1] 100 mg PO DAILY 04/26/17 11/07/18 Latanoprost [Xalatan] 1 drop BOTH EYES 03/04/18 11/07/18 Metoprolol Succinate 100 mg PO DAILY 03/04/18 11/07/18 Sertraline [Zoloft] 100 mg PO HS 03/04/18 11/07/18 Amlodipine Besylate 10 mg PO DAILY 06/04/18 11/07/18 Ergocalciferol (VITAMIN D2) 50,000 unit PO TU 07/24/18 11/07/18 [Vitamin D2] Potassium Chloride 20 meq PO DAILY 07/24/18 11/07/18 Tamsulosin HCl [Flomax] 0.4 mg PO DAILY 07/24/18 11/07/18 ARIPiprazole [Abilify] 5 mg PO QAM 08/23/18 11/07/18 Furosemide [Lasix] 20 mg PO DAILY 10/24/18 11/07/18 Losartan [Cozaar] 25 mg PO DAILY 10/24/18 11/07/18 Aspirin Enteric Coated [Aspirin EC] 81 mg PO DAILY 11/07/18 11/07/18 Cyanocobalamin (B-12) [Vitamin B12] 1,000 mcg IM QMONTH 11/07/18 11/07/18 Hydralazine HCl 100 mg PO TID 11/07/18 11/07/18 Insulin LISPRO [Admelog] 0 unit SQ AD 11/07/18 11/07/18 Previous Rx's Medication Instructions Recorded Ferrous Sulfate [Iron] 325 mg PO BID #60 tablet 08/23/18 Aspirin 81 mg PO DAILY #30 tab.chew 11/14/18 Losartan [Cozaar] 100 mg PO DAILY #120 tablet 11/14/18 Patient Taking Own Medication 1 each SQ DAILY each 11/14/18 Allergies Allergy/AdvReac Type Severity Reaction Status Date / Time No Known Allergies Allergy Verified 11/07/18 22:18 All systems ED: reviewed and negative except as stated. Past Medical History - Past Medical History Medical history: Reports: diabetes, glaucoma, hyperlipidemia, hypertension, joey l disease, seizures, TIA, other Surgical history: Reports: no surgical history Psychiatric history: Reports: no psych history - Social History Smoking Status: Former smoker Smokeless Tobacco Status: No Alcohol use: Reports: heavy Drug use: Reports: marijuana Physical Exam CONSTITUTIONAL: Alert and oriented X3, well-nourished, well appearing, in no apparent distress HEAD: Normocephalic; atraumatic. EYES: PERRL, no scleral icterus. NOSE: The nose is normal in appearance without rhinorrhea RESP: Normal chest excursion with respiration; breath sounds clear and equal bilaterally; no wheezes, rhonchi, or rales CARD: Regular rhythm, without murmurs, rub or gallop ABD: Non-distended; non-tender, soft,without rigidity, rebound or guarding SKIN: Normal for age and race; warm and dry; no apparent lesions Extremities pulses 2+ and equal 4 extremities, 1+ symmetric pretibial pitting edema bilateral lower extremities but no asymmetry, no erythema or signs of infection - General General appearance: alert Course Vital Signs Temperature 97.9 F 12/13/18 20:08 Pulse Rate 72 12/13/18 20:08 Respiratory Rate 15 12/13/18 20:08 Blood Pressure 161/91 12/13/18 20:08 O2 Sat by Pulse Oximetry 100 12/13/18 20:08 Temperature 97.9 F 12/13/18 20:08 Pulse Rate 87 12/13/18 22:03 Respiratory Rate 16 12/13/18 22:03 Blood Pressure 146/75 12/13/18 22:03 O2 Sat by Pulse Oximetry 98 12/13/18 22:03 Oxygen Delivery Oxygen Delivery Room Air Medical Decision Making - MDM Narrative Medical decision making narrative: patient does know the month and day of the week and the year and his symptoms have some suggestive towards heart failure and labs including BNP is ordered. His EKG shows normal sinus rhythm with a rate of 74 but hyperacute T waves with some minimal ST elevation in lead V2 which was present on a previous EKG from November 07 the patient does have a troponin pending. Chest x-ray. Electrolytes. The patient will be admitted to the hospital for further inpatient evaluation. Has had according to the significant other fluid of the lungs in the past 2032 Care is transitioned to Dr. Knapp at change of shift for finding results of VQ scan 2311 - Lab Data Result diagrams: 12/13/18 20:19 12/13/18 20:19 Lab Results 12/13/18 12/13/18 12/13/18 Range/Units 20:19 20:19 20:19 WBC 7.9 (4.3-11.1) K/mcL RBC 4.24 (4.19-5.50) M/mcL Hgb 10.0 L (12.9-16.9) g/dL Hct 33.2 L (37.5-50.1) % MCV 78.3 L (83.0-100.0) fL MCH 23.6 L (28.0-33.3) pg MCHC 30.1 L (31.6-35.5) g/dL RDW 15.6 H (11.5-14.5) % Plt Count 278 (140-400) K/mcL MPV 9.2 L (9.4-12.4) fL Immature Gran % 1.0 (0-4) % Seg Neutrophils % 65.2 % Lymphocytes % 21.3 % Monocytes % 7.7 % Eosinophils % 3.9 % Basophils % 0.9 % Neutrophils # 5.2 (1.6-8.9) K/mcL Lymphocytes # 1.7 (0.6-4.6) K/mcL Monocytes # 0.6 (0.0-1.3) K/mcL Eosinophils # 0.3 (0.0-0.6) K/mcL Basophils # 0.1 (0.0-0.2) K/mcL D-Dimer 1427 H (0-500) ng/mLFEU Sodium 139 (136-145) mEq/L Potassium 4.3 (3.5-5.1) mEq/L Chloride 111 H (98-107) mEq/L Carbon Dioxide 19 L (23-29) mEq/L BUN 40 H (6-20) mg/dL Creatinine 2.01 H (0.70-1.30) mg/dL Est GFR ( Amer) 44 L (> 60) Est GFR (Non-Af Amer) 36 L (> 60) BUN/Creatinine Ratio 20 (6-26) Glucose 183 H (70-105) mg/dL Calculated Osmolality 302 H (280-300) Calcium 8.1 L (8.6-10.3) mg/dL Troponin I < 0.03 (< 0.04) ng/mL B-Natriuretic Peptide (Less than 100) pg/mL 12/13/18 Range/Units 20:19 WBC (4.3-11.1) K/mcL RBC (4.19-5.50) M/mcL Hgb (12.9-16.9) g/dL Hct (37.5-50.1) % MCV (83.0-100.0) fL MCH (28.0-33.3) pg MCHC (31.6-35.5) g/dL RDW (11.5-14.5) % Plt Count (140-400) K/mcL MPV (9.4-12.4) fL Immature Gran % (0-4) % Seg Neutrophils % % Lymphocytes % % Monocytes % % Eosinophils % % Basophils % % Neutrophils # (1.6-8.9) K/mcL Lymphocytes # (0.6-4.6) K/mcL Monocytes # (0.0-1.3) K/mcL Eosinophils # (0.0-0.6) K/mcL Basophils # (0.0-0.2) K/mcL D-Dimer (0-500) ng/mLFEU Sodium (136-145) mEq/L Potassium (3.5-5.1) mEq/L Chloride (98-107) mEq/L Carbon Dioxide (23-29) mEq/L BUN (6-20) mg/dL Creatinine (0.70-1.30) mg/dL Est GFR ( Amer) (> 60) Est GFR (Non-Af Amer) (> 60) BUN/Creatinine Ratio (6-26) Glucose (70-105) mg/dL Calculated Osmolality (280-300) Calcium (8.6-10.3) mg/dL Troponin I (< 0.04) ng/mL B-Natriuretic Peptide 79 (Less than 100) pg/mL
[2018-12-13 20:53] LABS: BUN/Creatinine Ratio 20 (6-26); Blood Urea Nitrogen 40 mg/dL (6-20); Calcium 8.1 mg/dL (8.6-10.3); Carbon Dioxide 19 mEq/L (23-29); Chloride 111 mEq/L (98-107); Glucose 183 mg/dL (70-105); Osmolality,Calculated 302 (280-300); Potassium 4.3 mEq/L (3.5-5.1); Sodium 139 mEq/L (136-145); Troponin I < 0.03 ng/mL (< 0.04); eGFR For African Americans 44 (> 60); eGFR For Non-African Americans 36 (> 60)
[2018-12-14] MEDS ORDERED: Aspirin 325 MG TABLET PO ONE (01:48)
[2018-12-14] MEDS: Nitroglycerin 0.4 MG TAB.SUBL SL SCH ×3 (02:17→04:24)
[2018-12-14] MEDS ORDERED: Naloxone 0.4 MG/ML INJ IVP PRN (03:56)
[2018-12-14] MEDS ORDERED: D5% in Water 1,000 ML IVC PRN (04:04)
[2018-12-14] MEDS ORDERED: Dextrose Gel 15 GM/37.5 ML TUBE PO PRN ×2 (04:04)
[2018-12-14] MEDS ORDERED: *HR* Dextrose 50 % in Water (Syg) 50 ML SYRINGE IVP PRN (04:04)
--- NOTE | 2018-12-14 04:22 | Internal Med History&Physical ---
Date of Encounter: 12/14/18 Time of Encounter: 03:30 Internal Medicine - H&P: HPI Chief complaint: Chest Pain, Weight Gain Admitted From: Home Plans for Post Hospital Care: Home History of present illness: Mr. Irvin is a 48 year old male with past medical history significant for hypertension, hyperlipidemia, chronic kidney disease, type 1 diabetes, anoxic brain injury from hypoglycemia, DKA, anemia, and glaucoma who presents for complaints of chest pain and weight gain. Due to patient baseline mentation with history of anoxic brain injury, information was obtained from patient along with who was at bedside as he is reported to be somewhat of a poor historian. Reports sharp substernal chest pain starting yesterday that he reports is worse with deep breathing. Rates pain at 7/10 when at is worst. Denies any associated symptoms or pain radiation. Reports improvement in pain following nitroglycerin received while in ER. also reports weighing him daily and that he has had a 13 pound weight gain over past week. States they saw his Dye Worker within the past week for same as this has been an ongoing issue and they increased his Lasix dose. With weight gain they have noticed increased peripheral edema. ER reported EKG as sinus rhythm with hyperacute T waves with some minimal ST elevation in V2 which was present on a previous EKG from November 07. ER also obtained a chest xray which showed no acute process. Due to elevated D Dimer, ER also obtained a VQ scan which showed low probability for pulmonary embolus. Currently patient reports his pain is improved but is still present. Currently denies any headache, numbness, tingling, shortness of breath, abdominal pain, bowel or bladder changes. Reports checking blood sugars regularly at home and they have been averaging 150-200. Had echocardiogram in May 2018 which showed a 60% EF. Had a stress test completed in 2015 which was negative for ischemia. Reports following regularly with PCP, Nephrology, Endocrinology, Neurology, Hematology, and Urology. Past Med Surg Social Fam HX - Past Medical History Medical history: diabetes, glaucoma, hyperlipidemia, hypertension, renal disease, other Additional medical history: Anoxic brain injury secondary to hypoglycemia, Glaucoma, Anemia Psychiatric history: no psych history - Past Surgical History Surgical History: other Additional surgical history: tendon surgery R hand - Social History Smoking Status: Former smoker Smokeless Tobacco Status: No Alcohol use: none Drug use: none - Family History Father Adopted: No Living Status: Hx Family Cardiac Disorders: Yes (htn) Hx Family Respiratory Disorders: No Hx Family Cancer: Yes (stomach) Hx Family GI Disorders: No Hx Family Endocrine Disorder: Yes (dm) Hx Family Neuromuscular Disorders: No Hx Family Neurologic Disorders: No Hx Family HEENT Disorders: No Hx Family Autoimmune Disorders: No Grandmother Hx Family Cancer: Yes (stomach or liver) Mother Adopted: No Living Status: Still Living Hx Family Cardiac Disorders: Yes (htn) Hx Family Respiratory Disorders: No Hx Family Cancer: No Hx Family GI Disorders: No Hx Family Endocrine Disorder: Yes (dm) Hx Family Neuromuscular Disorders: No Hx Family Neurologic Disorders: No Hx Family HEENT Disorders: No Hx Family Autoimmune Disorders: No Internal Medicine - H&P: Meds Atorvastatin [Lipitor] 40 mg PO DAILY 03/02/17 [History] Gabapentin [Neurontin] 100 mg PO HS 04/26/17 [History] LevETIRAcetam [Keppra] 500 mg PO BID 04/26/17 [History] Thiamine (B-1) [Vitamin B-1] 100 mg PO DAILY 04/26/17 [History] Latanoprost [Xalatan] 1 drop BOTH EYES HS 03/04/18 [History] Metoprolol Succinate 100 mg PO DAILY 03/04/18 [History] Sertraline [Zoloft] 100 mg PO HS 03/04/18 [History] Amlodipine Besylate 10 mg PO DAILY 06/04/18 [History] Ergocalciferol (VITAMIN D2) [Vitamin D2] 50,000 unit PO TU 07/24/18 [History] Potassium Chloride 20 meq PO DAILY 07/24/18 [History] Tamsulosin HCl [Flomax] 0.4 mg PO DAILY 07/24/18 [History] ARIPiprazole [Abilify] 5 mg PO QAM 08/23/18 [History] Ferrous Sulfate [Iron] 325 mg PO BID #60 tablet 08/23/18 [Rx] Furosemide [Lasix] 40 mg PO DAILY 10/24/18 [History] Cyanocobalamin (B-12) [Vitamin B12] 1,000 mcg IM QMONTH 11/07/18 [History] Hydralazine HCl 100 mg PO TID 11/07/18 [History] Aspirin 81 mg PO DAILY #30 tab.chew 11/14/18 [Rx] Losartan [Cozaar] 100 mg PO DAILY #120 tablet 11/14/18 [Rx] Patient Taking Own Medication 1 units SQ CONT 12/14/18 [History] Allergy/AdvReac Type Severity Reaction Status Date / Time No Known Allergies Allergy Verified 11/07/18 22:18 All Systems PM: A 10-system review of systems was performed and is negative for pertinent findings except as documented above in the HPI. - Constitutional Vitals: Temp Pulse Resp BP Pulse Ox 97.9 F 76 16 141/80 98 12/13/18 20:08 12/14/18 02:26 12/14/18 01:03 12/14/18 02:26 12/14/18 02:26 Exam: General: Alert and oriented. Reportedly poor historian due to baseline cognition from prior anoxic brain injury. Skin:Normal color, no rash, no lesions. Cardiovascular:Normal S1 & S2, no rubs, murmurs or gallops. No JVD. Pulse regular. Lungs:Breath sounds decreased, no wheezes or crackles. Abdomen:Soft, distended, non-tender, no rigidity. Extremities:No deformity, tenderness, joint swelling or clubbing. Neurological:Normal cognition and motor skills. Pulses:Carotid and radial pulses normal +2. Rest of the physical exam is non contributory. Internal Med - H&P Results - Labs CBC & Chem 7: 12/13/18 20:19 12/13/18 20:19 Labs: Short CBC 12/13/18 Range/Units 20:19 WBC 7.9 (4.3-11.1) K/mcL Hgb 10.0 L (12.9-16.9) g/dL Hct 33.2 L (37.5-50.1) % Plt Count 278 (140-400) K/mcL Neutrophils # 5.2 (1.6-8.9) K/mcL BMP 12/13/18 20:19 Sodium 139 Potassium 4.3 Chloride 111 H Carbon Dioxide 19 L BUN 40 H Creatinine 2.01 H Glucose 183 H Calcium 8.1 L Cardiac Enzymes 12/13/18 Range/Units 20:19 Troponin I < 0.03 (< 0.04) ng/mL - Impressions ITS Impressions Chest X-Ray 12/13/18 21:01 IMPRESSION: No acute process. D/ / Luis A Mcadams MD / Luis A Mcadams MD Interpreting Provider: Luis A Mcadams MD Pulmonary Perfusion Imaging 12/13/18 23:31 IMPRESSION: Low probability for pulmonary embolus. D/ / Rc Grossman / Rc Grossman Interpreting Provider: Rc Grossman - Assessment and Plan (1) Chest pain Current Visit: Yes Status: Acute Assessment and plan: Reports sharp substernal chest pain that is worse with deep breathing. Reports some improvement with nitroglycerin received in ER. ER reported EKG as sinus rhythm with hyperacute T waves with some minimal ST elevation in V2 which was present on a previous EKG from November 07. Continuous cardiac monitoring. Initial troponin in ER negative, serial troponins ordered. Echocardiogram ordered. Qualifiers: Chest pain type: unspecified Qualified Code(s): R07.9 - Chest pain, unspecified (2) Weight gain Current Visit: Yes Status: Acute Assessment and plan: reports weighing patient daily and having 13 pound weight gain over past week. With weight gain they have noticed increased peripheral edema. Reports Nephrology recently increasing Lasix dose for same. Echocardiogram ordered. Daily weights. Fluid restriction. Strict I/O's. Nephrology consult ordered for further recommendations, will need called in a.m. (3) Edema Current Visit: Yes Status: Acute Assessment and plan: With weight gain they have noticed increased peripheral edema. Plan as stated above. Qualifiers: Edema type: unspecified Qualified Code(s): R60.9 - Edema, unspecified (4) Acute on chronic renal failure Current Visit: Yes Status: Acute Assessment and plan: Creatinine up from 1.71 to 2.01, BUN up from 37 to 40, GFR down from 52 to 44 currently. Reports recent Lasix dose increase by Nephrology secondary to weight gain and edema. Avoid nephrotoxins as able. Nephrology consult ordered for further recommendations, will need called in a.m. Qualifiers: Acute renal failure type: unspecified Chronic kidney disease stage: unspecified stage Qualified Code(s): N17.9 - Acute kidney failure, u nspecified; N18.9 - Chronic kidney disease, unspecified (5) Elevated d-dimer Current Visit: Yes Status: Acute Assessment and plan: Elevated on admission at 1427. ER ordered VQ scan which showed low probability for pulmonary embolus. (6) Decreased hemoglobin Current Visit: Yes Status: Chronic Assessment and plan: Currently at 10.0 which is slightly improved from most recent value at 9.6. No signs of bleeding. Repeat labs ordered. Continue outpatient Hematology follow up. (7) Diabetes mellitus Current Visit: Yes Status: Chronic Assessment and plan: Hold home diabetic medications. Accuchecks ordered. Sliding scale insulin ordered. Qualifiers: Diabetes mellitus type: type 1 Qualified Code(s): E10.9 - Type 1 diabetes mellitus without complications (8) Hypertension Current Visit: Yes Status: Chronic Assessment and plan: Continue home medications once verified. Qualifiers: Hypertension type: unspecified Qualified Code(s): I10 - Essential (primary) hypertension - Time Spent With Patient Total time spent is greater than 50% in coordination of care (as documented) at patient's floor/unit and/or counseling patient:
[2018-12-14] MEDS: Acetaminophen 325 MG TABLET PO PRN ×2 (04:45→15:33)
[2018-12-14 06:03] LABS: Basophils # 0.1 K/mcL (0.0-0.2); Eosinophils # 0.3 K/mcL (0.0-0.6); Eosinophils % 4.3 %; Hemoglobin 8.7 g/dL (12.9-16.9); Immature Granulocytes % 1.3 % (0-4); Lymphocytes # 1.9 K/mcL (0.6-4.6); Lymphocytes % 26.6 %; Mean Corpuscular Hemoglobin 23.5 pg (28.0-33.3); Mean Corpuscular Volume 78.4 fL (83.0-100.0); Monocytes # 0.6 K/mcL (0.0-1.3); Monocytes % 8.5 %; Neutrophils # 4.1 K/mcL (1.6-8.9); Platelet Count 260 K/mcL (140-400); Red Cell Distribution Width 15.4 % (11.5-14.5); Segmented Neutrophils % 58.3 %
[2018-12-14 06:34] LABS: Alanine Aminotransferase 13 Units/L (7-52); Albumin 2.9 g/dL (3.5-5.7); Albumin/Globulin Ratio 1.1 (1.1-2.2); Alkaline Phosphatase 68 Units/L (34-104); Aspartate Amino Transferase 12 Units/L (13-39); BUN/Creatinine Ratio 20 (6-26); Bilirubin,Total 0.2 mg/dL (0.3-1.0); Blood Urea Nitrogen 36 mg/dL (6-20); Calcium 8.1 mg/dL (8.6-10.3); Carbon Dioxide 19 mEq/L (23-29); Chloride 111 mEq/L (98-107); Globulin 2.6 g/dL (2.4-3.5); Glucose 147 mg/dL (70-105); Osmolality,Calculated 303 (280-300); Potassium 4.2 mEq/L (3.5-5.1); Sodium 141 mEq/L (136-145); Total Protein 5.5 g/dL (6.4-8.9); Troponin I < 0.03 ng/mL (< 0.04); eGFR For African Americans 49 (> 60); eGFR For Non-African Americans 41 (> 60)
[2018-12-14] MEDS: Insulin LISPRO 300 UNITS/3 ML VIAL SQ SCH ×4 (07:52→20:37)
--- NOTE | 2018-12-14 13:27 | Event Note ---
Date of Encounter: 12/14/18 Time of Encounter: 09:00 Patient was seen at bedside. History was reviewed. Patient is currently feeling better than last night. Still has pain. Troponin WNL x3. Creatinine improved to 1.81. Hemoglobin dropped to 8.7 from 10 but patient denies any active bleeding. Could be dilutional. Nephrology on board, appreciate recommendations. Unlikely to be ACS, hold off on cardiology consult and stress test. [facility] echo results. Medication reconsultation was done.
[2018-12-14] MEDS: ARIPiprazole 5 MG TABLET PO SCH (14:49)
[2018-12-14] MEDS: hydrALAZINE 25 MG TABLET PO SCH ×2 (14:49→21:32)
[2018-12-14] MEDS: amLODIPine 5 MG TABLET PO SCH (14:50)
[2018-12-14] MEDS: Metoprolol XL (24 HR) Succ 50 MG TAB.ER.24H PO SCH (14:50)
--- NOTE | 2018-12-14 15:18 | Nephrology Consult Note ---
Date of Encounter: 12/14/18 Time of Encounter: 12:00 Assessment and Plan (1) HUNG (acute kidney injury) Status: Acute Mildly elevated SCr after recent increase in diuretics, already improved and about baseline Strict I/Os advised Renal diet advised Avoid nephrotoxins if possible Will check urinary sxs. (2) CKD (chronic kidney disease), stage III Status: Acute Baseline GFR in the 40-50s (3) Chest pain Status: Resolved Per primary team Qualifiers: Chest pain type: unspecified Qualified Code(s): R07.9 - Chest pain, unspecified History of Present Illness - Reason for Consult Consult date: 12/14/18 Acute Kidney Injury, Chronic Kidney Disease Requesting physician: Mich Palma - History of Present Illness 48 year old AAmale with PMH significant for HTN, hyperlipidemia, CKD stage [address] Fish, type 1 diabetes, anoxic brain injury from hypoglycemia, DKA, anemia, and glaucoma admitted overnight for complaints of chest pain and recent weight gain. Pt seen and examined with and family member at bedside reports recent weight gains and decreased UOP despite recent increase in lasix to 40mg daily. Denies any actual urinary sxs. No chnage in po intake and diet in general. Denies NSAIds. SCr noted at 2.01, GFR 44 on admission improved to 1.81, GFR 49 today with previous at 1.71, GFR 52. Past Med Surg Social Fam HX - Past Medical History Medical history: diabetes, glaucoma, hyperlipidemia, hypertension, renal disease, other Additional medical history: Anoxic brain injury secondary to hypoglycemia, Gl aucoma, Anemia Psychiatric history: no psych history - Past Surgical History Surgical History: other Additional surgical history: tendon surgery R hand - Social History Smoking Status: Former smoker Smokeless Tobacco Status: No Alcohol use: none Drug use: none - Family History Father Adopted: No Living Status: Hx Family Cardiac Disorders: Yes (htn) Hx Family Respiratory Disorders: No Hx Family Cancer: Yes (stomach) Hx Family GI Disorders: No Hx Family Endocrine Disorder: Yes (dm) Hx Family Neuromuscular Disorders: No Hx Family Neurologic Disorders: No Hx Family HEENT Disorders: No Hx Family Autoimmune Disorders: No Grandmother Hx Family Cancer: Yes (stomach or liver) Mother Adopted: No Living Status: Still Living Hx Family Cardiac Disorders: Yes (htn) Hx Family Respiratory Disorders: No Hx Family Cancer: No Hx Family GI Disorders: No Hx Family Endocrine Disorder: Yes (dm) Hx Family Neuromuscular Disorders: No Hx Family Neurologic Disorders: No Hx Family HEENT Disorders: No Hx Family Autoimmune Disorders: No Medications and Allergies Atorvastatin [Lipitor] 40 mg PO DAILY 03/02/17 [History] Gabapentin [Neurontin] 100 mg PO HS 04/26/17 [History] LevETIRAcetam [Keppra] 500 mg PO BID 04/26/17 [History] Thiamine (B-1) [Vitamin B-1] 100 mg PO DAILY 04/26/17 [History] Latanoprost [Xalatan] 1 drop BOTH EYES HS 03/04/18 [History] Metoprolol Succinate 100 mg PO DAILY 03/04/18 [History] Sertraline [Zoloft] 100 mg PO HS 03/04/18 [History] Amlodipine Besylate 10 mg PO DAILY 06/04/18 [History] Ergocalciferol (VITAMIN D2) [Vitamin D2] 50,000 unit PO SA 07/24/18 [History] Potassium Chloride 20 meq PO DAILY 07/24/18 [History] Tamsulosin HCl [Flomax] 0.4 mg PO DAILY 07/24/18 [History] ARIPiprazole [Abilify] 5 mg PO QAM 08/23/18 [History] Ferrous Sulfate [Iron] 325 mg PO BID #60 tablet 08/23/18 [Rx] Cyanocobalamin (B-12) [Vitamin B12] 1,000 mcg IM QMONTH 11/07/18 [History] Hydralazine HCl 100 mg PO TID 11/07/18 [History] Aspirin 81 mg PO DAILY #30 tab.chew 11/14/18 [Rx] Losartan [Cozaar] 100 mg PO DAILY #120 tablet 11/14/18 [Rx] Patient Taking Own Medication 0 units SQ CONT 12/14/18 [History] Furosemide [Lasix] 20 mg PO DAILY #0 12/17/18 [Rx] Allergy/AdvReac Type Severity Reaction Status Date / Time No Known Allergies Allergy Verified 11/07/18 22:18 Review of Systems All Systems review (narrative): The rest of the systems are negative Constitutional: fatigue (admits), weight gain (admits) Cardiovascular: chest pain (admits), edema (admits) Respiratory: dyspnea (denies) Exam - Vital Signs Vital signs: Initial Vital Signs Temp Pulse Resp BP Pulse Ox 97.9 F 72 15 161/91 100 12/13/18 20:08 12/13/18 20:08 12/13/18 20:08 12/13/18 20:08 12/13/18 20:08 Vital Signs - Last 8 Hours Temp Pulse Resp BP 12/14/18 14:48 97.9 F 71 16 186/84 Intake and Output 12/13/18 12/14/18 12/14/18 23:59 07:59 15:59 Intake Total 360 / 360 Output Total 700 / 700 Balance -700 / -340 360 / -340 Intake: Oral 360 / 360 Output: Urine 700 / 700 Other: Meal Lunch Percent of Meal Consumed 100% # Voids 1 Weight 81.647 kg 82.9 kg Blood Glucose* 133 85 Patient Weight 12/14/18 23:59 Weight 82.9 kg - General Appearance General appearance: chronically ill (NAD) EENT: ATNC, mucous membranes dry Neck: no JVD Respiratory: clear Cardiology: no edema, normal S1, normal S2 Gastrointestinal: no tenderness, no guarding Integumentary: warm and dry Additional Comments: moves all extremities but cognitively slow Musculoskeletal: no deformities Psychiatric: mood/affect appropriate, cooperative Results - Lab Results 12/17/18 01:52 12/17/18 01:52 Most recent lab results 12/14/18 05:33 Calcium 8.1 L Consult Discharge Plan - Plan Instructions: Chest Pain (DC), Chronic Kidney Disease (DC) Additional Instructions: Take antihypertensives according to this regimen. Amlodipine, hydralazine and metoprolol in the am hydralazine at noon Losartan with hydralazine at night Referrals: Kb Fish MD [Partnered Physician] - Jarrell Marrero MD [Primary Care Provider] - 12/19/18 1:30 pm (Appointment will be with Evelia Cope CNP)
[2018-12-14 18:06] LABS: Bilirubin,Urine Negative (Negative); Blood,Urine Trace (Negative); Clarity,Urine Clear (Clear); Color,Urine Yellow (Yellow); Glucose,Urine (UA) Normal (Normal); Ketones,Urine Negative (Negative); Leukocyte Esterase,Urine Negative (Negative); Nitrite,Urine Negative (Negative); Protein,Urine >=300 mg/dL (Neg-Trace); Specific Gravity,Urine 1.014 (1.010-1.025); Urobilinogen,Urine Normal (Normal)
[2018-12-14 18:08] LABS: Bacteria,Urine None Seen per hpf (None-Few); Hyaline Casts,Urine None Seen per lpf (None-Few); Squamous Epithelial Cell,Urine Moderate per lpf (None-Few)
[2018-12-14 18:25] LABS: Sperm,Urine Present
[2018-12-14 18:34] LABS: Creatinine,Urine 60 mg/dL; Microalbumin,Urine > 1350 mg/L; Protein/Creatinine Ratio,Urine 4.87 mg/mg (0.00-0.20); Sodium, Urine 69.5 mEq/L
[2018-12-14] MEDS: INSULIN PUMP SQ SCH (20:36)
[2018-12-14] MEDS: levETIRAcetam 250 MG TABLET PO SCH (21:33)
[2018-12-14] MEDS: Latanoprost 2.5 ML BOTTLE BOTH EYES SCH (21:33)
[2018-12-14] MEDS: Gabapentin 100 MG CAPSULE PO SCH (21:33)
[2018-12-15 02:15] LABS: Basophils # 0.1 K/mcL (0.0-0.2); Basophils % 0.8 %; Eosinophils # 0.3 K/mcL (0.0-0.6); Eosinophils % 3.9 %; Hematocrit 29.3 % (37.5-50.1); Hemoglobin 8.8 g/dL (12.9-16.9); Immature Granulocytes % 0.8 % (0-4); Lymphocytes # 1.8 K/mcL (0.6-4.6); Lymphocytes % 23.4 %; Mean Corpuscular Hemoglobin 23.4 pg (28.0-33.3); Mean Corpuscular Volume 77.9 fL (83.0-100.0); Mean Platelet Volume 10.3 fL (9.4-12.4); Monocytes # 0.5 K/mcL (0.0-1.3); Monocytes % 6.8 %; Platelet Count 285 K/mcL (140-400); Red Blood Count 3.76 M/mcL (4.19-5.50); Red Cell Distribution Width 15.3 % (11.5-14.5); Segmented Neutrophils % 64.3 %; White Blood Count 7.8 K/mcL (4.3-11.1)
[2018-12-15 02:32] LABS: Calcium 7.7 mg/dL (8.6-10.3); Potassium 4.4 mEq/L (3.5-5.1)
[2018-12-15] MEDS: Insulin LISPRO 300 UNITS/3 ML VIAL SQ SCH ×4 (07:22→20:37)
[2018-12-15] MEDS: ARIPiprazole 5 MG TABLET PO SCH (07:32)
[2018-12-15] MEDS: Thiamine (B-1) 100 MG TABLET PO SCH (07:32)
[2018-12-15] MEDS: levETIRAcetam 250 MG TABLET PO SCH ×2 (07:33→20:16)
[2018-12-15] MEDS: Metoprolol XL (24 HR) Succ 50 MG TAB.ER.24H PO SCH (07:33)
[2018-12-15] MEDS: amLODIPine 5 MG TABLET PO SCH (07:33)
[2018-12-15] MEDS: hydrALAZINE 25 MG TABLET PO SCH ×3 (07:34→20:16)
[2018-12-15] MEDS: Aspirin 81 MG TAB.CHEW PO SCH (07:34)
[2018-12-15] MEDS ORDERED: Furosemide 20 MG TABLET PO SCH (09:00)
[2018-12-15] MEDS ORDERED: Ergocalciferol (VIT D2) 50,000 UNIT (1.25MG) CAP PO SCH (09:00)
[2018-12-15] MEDS: INSULIN PUMP SQ SCH (11:35)
--- NOTE | 2018-12-15 14:52 | Nephrology Progress Note ---
Date of Encounter: 12/15/18 - Assessment and Plan (1) HUNG (acute kidney injury) Current Visit: No Status: Acute (2) CKD (chronic kidney disease), stage III Current Visit: Yes Status: Acute (3) Chest pain Current Visit: No Status: Resolved Qualifiers: Chest pain type: precordial chest pain Qualified Code(s): R07.2 - Precordial pain Objective - Vital Signs Vital signs: Vital Signs Temp Pulse Resp BP Pulse Ox 12/15/18 11:18 98.5 F 60 16 132/69 98 12/15/18 07:14 98.3 F 66 16 191/94 97 12/15/18 03:31 98.4 F 75 16 157/74 99 12/15/18 00:04 97.8 F 66 16 150/75 97 12/14/18 18:57 97.8 F 73 16 148/72 99 Intake and Output 12/14/18 12/15/18 12/15/18 23:59 07:59 15:59 Intake Total 440 / 800 120 / 120 0 / 120 Output Total 300 / 1000 850 / 850 Balance 140 / -200 -730 / -730 0 / -730 Intake: Oral 440 / 800 120 / 120 0 / 120 Output: Urine 300 / 1000 850 / 850 Other: Meal Dinner Breakfast Percent of Meal Consumed 100% 100% Blood Glucose* 100 84 145 - Lab 12/15/18 00:58 12/15/18 00:58 Consult Discharge Plan - Plan Referrals: Jarrell Marrero MD [Primary Care Provider] - 12/19/18 1:30 pm (Appointment will be with Evelia Cope CNP)
[2018-12-15] MEDS: Acetaminophen 325 MG TABLET PO PRN (15:43)
--- NOTE | 2018-12-15 15:43 | Internal Med Progress Note ---
Hospitalist Progress Note - Encounter Date of Encounter: 12/15/18 Time of Encounter: 09:15 - Subjective Interval History: Patient was seen at bedside. Denies any acute complaints. He denies any chest pain today. Denies fever, chills, rigors. Blood pressure noted to be high. Creatinine bumped up to 2.1 today. at bedside. All questions were ans wered. - Exam Vitals: Temp Pulse Resp BP Pulse Ox 98.5 F 60 16 132/69 98 12/15/18 11:18 12/15/18 11:18 12/15/18 11:18 12/15/18 11:18 12/15/18 11:18 Exam: General: Alert and oriented, no physical distress, able to follow commands. Poor historian due to baseline cognition from prior anoxic brain injury. HEENT: No thyromegaly, no lymphadenopathy, no discharge. Eyes: No discharge. Normal conjuctiva, no icterus Respiratory: Normal vesicular breathing, no added sounds, breathing equal in both sides. CVS: Normal heart sounds, no murmurs, regular rhthm, no edema Extremities: No peripheral edema, peripheral pulses intact. Lymph nodes: No lymphadenopathy Gastrointestinal: Soft, nontender abdomen, normal abdominal sounds. No distention noted. Genitourinary: No paravertebral tenderness. Skin: No rash, ulcers or wound. Neurological: Alert and oriented. No focal deficits. Cranial nerves II-XII int act - Assessment and Plan (1) Chest pain Current Visit: Yes Status: Acute Assessment and Plan: Presented with sharp substernal chest pain that is worse with deep breathing. Elected to be cardiac in origin. EKG showed sinus rhythm with hyperacute T waves with some minimal ST elevation in V2 which was present on a previous EKG from November 07. Troponin within normal limits. Echocardiogram did not show any wall motion abnormality to dropping the ejection fraction. Continue telemetry. Stress test tomorrow. Nothing by mouth after midnight. (2) Weight gain Current Visit: Yes Status: Acute Assessment and Plan: reports weighing patient daily and having 13 pound weight gain over past week. Does not seem to be in fluid overload picture at this point in Nephrology on board. Diuretics adjustment as per nephrology. (3) Acute on chronic renal failure Current Visit: Yes Status: Acute Assessment and Plan: Creatinine 2.1 today, baseline of 1.7-1.8 Urine protein noted to be high Nephrology on baord Diureitcs manageement as per nephrology (4) Elevated d-dimer Current Visit: Yes Status: Acute Assessment and Plan: Elevated on admission at 1427. ER ordered VQ scan which showed low probability for pulmonary embolus. (5) Decreased hemoglobin Current Visit: Yes Status: Chronic Assessment and Plan: Hgb of 8.8, stable No signs of bleeding. Continue outpatient Hematology follow up. (6) Diabetes mellitus Current Visit: Yes Status: Chronic Assessment and Plan: Hold home diabetic medications. BG levels noted to be in range Sliding scale insulin ordered. (7) Hypertension Current Visit: Yes Status: Chronic Assessment and Plan: BP npted to be high in morning Resume home meds - Time Spent with Patient Total time spent is greater than 50% in coordination of care (as documented) at patient's floor/unit and/or counseling patient: Internal Medicine: Result - Labs CBC & Chem 7: 12/15/18 00:58 12/15/18 00:58 Labs: Short CBC 12/15/18 Range/Units 00:58 WBC 7.8 (4.3-11.1) K/mcL Hgb 8.8 L (12.9-16.9) g/dL Hct 29.3 L (37.5-50.1) % Plt Count 285 (140-400) K/mcL Neutrophils # 5.0 (1.6-8.9) K/mcL BMP 12/15/18 00:58 Sodium 136 Potassium 4.4 Chloride 110 H Carbon Dioxide 20 L BUN 38 H Creatinine 2.13 H Glucose 192 H Calcium 7.7 L Urine 12/14/18 Range/Units 15:58 Urine Color Yellow (Yellow) Urine Clarity Clear (Clear) Urine pH 6.0 (5.0-8.0) pH Units Ur Specific [place] 1.014 (1.010-1.025) Urine Protein >=300 H (Neg-Trace) mg/dL Urine Glucose (UA) Normal (Normal) mg/dL - ABG Interpretation ABG results: PT/INR, D-dimer D-Dimer 1427 ng/mLFEU (0-500) H 12/13/18 20:19 Consult Discharge Plan - Plan Referrals: Jarrell Marrero MD [Primary Care Provider] - 12/19/18 1:30 pm (Appointment will be with Evelia Cope CNP) (1) Chest pain Qualifiers: Chest pain type: unspecified Qualified Code(s): R07.9 - Chest pain, unspecified (3) Acute on chronic renal failure Qualifiers: Acute renal failure type: unspecified Chronic kidney disease stage: uns pecified stage Qualified Code(s): N17.9 - Acute kidney failure, unspecified; N18.9 - Chronic kidney disease, unspecified (6) Diabetes mellitus Qualifiers: Diabetes mellitus type: type 1 Qualified Code(s): E10.9 - Type 1 diabetes mellitus without complications (7) Hypertension Qualifiers: Hypertension type: unspecified Qualified Code(s): I10 - Essential (primary) hypertension
[2018-12-15] MEDS: Gabapentin 100 MG CAPSULE PO SCH (20:17)
[2018-12-15] MEDS: Latanoprost 2.5 ML BOTTLE BOTH EYES SCH (20:17)
[2018-12-16 01:24] LABS: Basophils # 0.1 K/mcL (0.0-0.2); Basophils % 1.2 %; Eosinophils # 0.3 K/mcL (0.0-0.6); Eosinophils % 4.5 %; Hematocrit 29.7 % (37.5-50.1); Hemoglobin 8.9 g/dL (12.9-16.9); Immature Granulocytes % 0.9 % (0-4); Lymphocytes # 1.9 K/mcL (0.6-4.6); Mean Corpuscular Hemoglobin 22.9 pg (28.0-33.3); Mean Corpuscular Volume 76.5 fL (83.0-100.0); Monocytes # 0.6 K/mcL (0.0-1.3); Monocytes % 8.2 %; Platelet Count 265 K/mcL (140-400); Red Blood Count 3.88 M/mcL (4.19-5.50); Red Cell Distribution Width 15.2 % (11.5-14.5); Segmented Neutrophils % 58.2 %; White Blood Count 6.9 K/mcL (4.3-11.1)
[2018-12-16 01:44] LABS: Calcium 7.7 mg/dL (8.6-10.3); Potassium 4.2 mEq/L (3.5-5.1)
[2018-12-16] MEDS: Insulin LISPRO 300 UNITS/3 ML VIAL SQ SCH ×4 (07:30→21:24)
[2018-12-16] MEDS ORDERED: Regadenoson 0.4 MG/5 ML SYRINGE IVP ONE (07:34)
[2018-12-16] MEDS: amLODIPine 5 MG TABLET PO SCH (07:35)
[2018-12-16] MEDS: hydrALAZINE 25 MG TABLET PO SCH ×3 (07:35→21:10)
[2018-12-16] MEDS: Thiamine (B-1) 100 MG TABLET PO SCH (07:36)
[2018-12-16] MEDS: ARIPiprazole 5 MG TABLET PO SCH (07:36)
[2018-12-16] MEDS: levETIRAcetam 250 MG TABLET PO SCH ×2 (07:36→21:10)
[2018-12-16] MEDS: Aspirin 81 MG TAB.CHEW PO SCH (07:36)
[2018-12-16] MEDS: INSULIN PUMP SQ SCH (08:20)
[2018-12-16] MEDS: Metoprolol XL (24 HR) Succ 50 MG TAB.ER.24H PO SCH (12:18)
--- NOTE | 2018-12-16 13:53 | Internal Med Progress Note ---
Hospitalist Progress Note - Encounter Date of Encounter: 12/16/18 Time of Encounter: 08:37 - Subjective Interval History: Patient seen at bedside. Denies chest pain, shortness of breath, palpitations. Denies fever, chills, rigors. No acute event overnight. - Exam Vitals: Temp Pulse Resp BP Pulse Ox 97.8 F 67 17 170/74 100 12/16/18 11:28 12/16/18 11:28 12/16/18 11:28 12/16/18 11:28 12/16/18 11:28 Exam: General: Alert and oriented, no physical distress, able to follow commands. Poor historian due to baseline cognition from prior anoxic brain injury. HEENT: No thyromegaly, no lymphadenopathy, no discharge. Eyes: No discharge. Normal conjuctiva, no icterus Respiratory: Normal vesicular breathing, no added sounds, breathing equal in both sides. CVS: Normal heart sounds, no murmurs, regular rhthm, no edema Extremities: No peripheral edema, peripheral pulses intact. Lymph nodes: No lymphadenopathy Gastrointestinal: Soft, nontender abdomen, normal abdominal sounds. No distention noted. Genitourinary: No paravertebral tenderness. Skin: No rash, ulcers or wound. Neurological: Alert and oriented. No focal deficits. Cranial nerves II-XII intact - Assessment and Plan (1) Chest pain Current Visit: Yes Status: Acute Assessment and Plan: Presented with sharp substernal chest pain that is worse with deep breathing. Elected to be cardiac in origin. EKG showed sinus rhythm with hyperacute T waves with some minimal ST elevation in V2 which was present on a previous EKG from November 07. Troponin within normal limits. Echocardiogram did not show any wall motion abnormality to dropping the ejection fraction. Continue telemetry. Stress test negative for ischemia or infarct. (2) Weight gain Current Visit: Yes Status: Acute Assessment and Plan: reports weighing patient daily and having 13 pound weight gain over past week. Does not seem to be in fluid overload picture at this point in Nephrology on board. Diuretics adjustment as per nephrology. (3) Acute on chronic renal failure Current Visit: Yes Status: Acute Assessment and Plan: Creatinine 2.0 today, baseline of 1.7-1.8 Urine protein noted to be high [place]rology [place] Diureitcs manageement as per nephrology (4) Decreased hemoglobin Current Visit: Yes Status: Chronic Assessment and Plan: Hgb stable No signs of bleeding. Continue outpatient Hematology follow up. (5) Diabetes mellitus Current Visit: Yes Status: Chronic Assessment and Plan: Hold home diabetic medications. BG levels noted to be in range Sliding scale insulin ordered. (6) Hypertension Current Visit: Yes Status: Chronic Assessment and Plan: BP npted to be high in morning Blood pressure high, even the patient is on his home medications. Discussed with the nephrology, medication adjustments and further addition as per nephrology. - Time Spent with Patient Total time spent is greater than 50% in coordination of care (as documented) at patient's floor/unit and/or counseling patient: Internal Medicine: Result - Labs CBC & Chem 7: 12/16/18 01:06 12/16/18 01:06 Labs: Short CBC 12/16/18 Range/Units 01:06 WBC 6.9 (4.3-11.1) K/mcL Hgb 8.9 L (12.9-16.9) g/dL Hct 29.7 L (37.5-50.1) % Plt Count 265 (140-400) K/mcL Neutrophils # 4.0 (1.6-8.9) K/mcL BMP 12/16/18 01:06 Sodium 136 Potassium 4.2 Chloride 110 H Carbon Dioxide 19 L BUN 38 H Creatinine 2.01 H Glucose 172 H Calcium 7.7 L - ABG Interpretation ABG results: PT/INR, D-dimer D-Dimer 1427 ng/mLFEU (0-500) H 12/13/18 20:19 Consult Discharge Plan - Plan Referrals: Jarrell Marrero MD [Primary Care Provider] - 12/19/18 1:30 pm (Appointment will be with Evelia Cope CNP) _ (1) Chest pain Qualifiers: Chest pain type: unspecified Qualified Code(s): R07.9 - Chest pain, unspecified (3) Acute on chronic renal failure Qualifiers: Acute renal failure type: unspecified Chronic kidney disease stage: unspecified stage Qualified Code(s): N17.9 - Acute kidney failure, unspecified; N18.9 - Chronic kidney disease, unspecified (5) Diabetes mellitus Qualifiers: Diabetes mellitus type: type 1 Qualified Code(s): E10.9 - Type 1 diabetes mellitus without complications (6) Hypertension Qualifiers: Hypertension type: unspecified Qualified Code(s): I10 - Essential (primary) hypertension
[2018-12-16] MEDS ORDERED: cloNIDine HCl 0.1 MG TABLET PO PRN (14:15)
[2018-12-16] MEDS: *HR* Heparin 5,000 UNIT/ML VIAL SQ SCH (16:57)
[2018-12-16] MEDS: Gabapentin 100 MG CAPSULE PO SCH (21:10)
[2018-12-16] MEDS: Latanoprost 2.5 ML BOTTLE BOTH EYES SCH (21:11)
--- NOTE | 2018-12-16 23:15 | Nephrology Progress Note ---
Date of Encounter: 12/16/18 Time of Encounter: 12:00 - Assessment and Plan (1) HUNG (acute kidney injury) Current Visit: No Status: Acute SCr slightly improved at 2.01, GFR 44 Fluid restriction relaxed to 2liters a day Continue renal diet Continue to avoid nephrotoxins if possible Continue reduced diuretic regimen (2) CKD (chronic kidney disease), stage III Current Visit: Yes Status: Acute Baseline GFR in the 40-50s (3) Chest pain Current Visit: No Status: Resolved Per primary team, resolved Qualifiers: Chest pain type: unspecified Qualified Code(s): R07.9 - Chest pain, unspecified (4) Hypertension Current Visit: Yes Status: Chronic Changed timing of current antihypertensive regimen; amlodipine, hydralazine and metoprolol in the am, hydralazine at noon and losartan with hydralazine at night Clonidine added for prn use Qualifiers: Hypertension type: unspecified Qualified Code(s): I10 - Essential (primary) hypertension Subjective Interval history: Pt seen and examined with at bedside, no new complaints. Elevated BP readings this am up to 200s systolic per Objective - Vital Signs Vital signs: Vital Signs Temp Pulse Resp BP Pulse Ox 12/16/18 19:06 97.6 F 70 16 149/74 90 12/16/18 15:41 98.0 F 66 17 156/82 100 12/16/18 14:07 98.8 F 67 20 144/69 100 12/16/18 11:28 97.8 F 67 17 170/74 100 12/16/18 08:16 190/85 12/16/18 08:09 186/85 12/16/18 07:27 98.0 F 63 17 177/85 98 12/16/18 04:21 176/86 12/16/18 03:33 97.9 F 70 16 173/84 99 Intake and Output 12/16/18 12/16/18 12/16/18 07:59 15:59 23:59 Intake Total 250 / 730 480 / 730 Output Total 1000 / 2250 550 / 2250 700 / 2250 Balance -1000 / -1520 -300 / -1520 -220 / -1520 Intake: Oral 250 / 730 480 / 730 Output: Urine 1000 / 2250 550 / 2250 700 / 2250 Other: Meal Dinner Percent of Meal Consumed 100% Weight 83.5 kg Blood Glucose* 112 94 191 Patient Weight 12/16/18 23:59 Weight 83.5 kg - General Appearance General appearance: Present: chronically ill (NAD) EENT: Present: ATNC, mucous membranes moist Neck: Present: no JVD, supple Respiratory: Present: clear Cardiology: Present: no edema, normal S1, normal S2 Gastrointestinal: Present: no tenderness, no guarding Integumentary: Present: warm and dry Neurologic: Present: no focal deficit Musculoskeletal: Present: no deformities Psychiatric: Present: mood/affect appropriate - Lab 12/16/18 01:06 12/16/18 01:06 Consult Discharge Plan - Plan Referrals: Jarrell Marrero MD [Primary Care Provider] - 12/19/18 1:30 pm (Appointment will be with Evelia Cope CNP)
[2018-12-17 02:39] LABS: Basophils # 0.1 K/mcL (0.0-0.2); Eosinophils # 0.3 K/mcL (0.0-0.6); Eosinophils % 4.2 %; Immature Granulocytes % 0.5 % (0-4); Lymphocytes # 1.5 K/mcL (0.6-4.6); Lymphocytes % 24.6 %; Mean Corpuscular Hemoglobin 23.2 pg (28.0-33.3); Mean Corpuscular Volume 77.3 fL (83.0-100.0); Mean Platelet Volume 9.9 fL (9.4-12.4); Monocytes # 0.6 K/mcL (0.0-1.3); Neutrophils # 3.8 K/mcL (1.6-8.9); Platelet Count 280 K/mcL (140-400); Red Blood Count 3.88 M/mcL (4.19-5.50); Red Cell Distribution Width 15.2 % (11.5-14.5); Segmented Neutrophils % 60.7 %; White Blood Count 6.2 K/mcL (4.3-11.1)
[2018-12-17 02:56] LABS: Calcium 8.1 mg/dL (8.6-10.3); Potassium 4.4 mEq/L (3.5-5.1)
[2018-12-17] MEDS: *HR* Heparin 5,000 UNIT/ML VIAL SQ SCH (05:51)
[2018-12-17 07:17] VITALS: BP 163/83
[2018-12-17] MEDS: Insulin LISPRO 300 UNITS/3 ML VIAL SQ SCH (08:23)
[2018-12-17] MEDS: ARIPiprazole 5 MG TABLET PO SCH (08:31)
[2018-12-17] MEDS: levETIRAcetam 250 MG TABLET PO SCH (08:31)
[2018-12-17] MEDS: Thiamine (B-1) 100 MG TABLET PO SCH (08:32)
[2018-12-17] MEDS: hydrALAZINE 25 MG TABLET PO SCH (08:32)
[2018-12-17] MEDS: Metoprolol XL (24 HR) Succ 50 MG TAB.ER.24H PO SCH (08:32)
[2018-12-17] MEDS: Aspirin 81 MG TAB.CHEW PO SCH (08:32)
[2018-12-17] MEDS: amLODIPine 5 MG TABLET PO SCH (08:32)
--- NOTE | 2018-12-17 09:47 | Discharge Summary ---
- NOTES TO OUTPATIENT PROVIDER Notes to Outpatient Provider: Presented with chest pain. Stress test negative. Also had HUNG. Diuretic adjustment was done by nephrology. Needs follow-up with the nephrology. Date of Encounter: 12/17/18 Time of Encounter: 08:15 - Discharge Diagnosis (1) Chest pain Priority: Primary Status: Acute Qualifiers: Chest pain type: unspecified Qualified Code(s): R07.9 - Chest pain, unspecified (2) Weight gain Priority: Secondary Status: Acute (3) Acute on chronic renal failure Priority: Secondary Status: Acute Qualifiers: Acute renal failure type: unspecified Chronic kidney disease stage: unspecified stage Qualified Code(s): N17.9 - Acute kidney failure, unspecified; N18.9 - Chronic kidney disease, unspecified (4) Decreased hemoglobin Priority: Secondary Status: Chronic (5) Diabetes mellitus Priority: Secondary Status: Chronic Qualifiers: Diabetes mellitus type: type 1 Qualified Code(s): E10.9 - Type 1 diabetes mellitus without complications (6) Hypertension Priority: Secondary Status: Chronic Qualifiers: Hypertension type: unspecified Qualified Code(s): I10 - Essential (primary) hypertension Hospital course: Mr. Irvin is a 48 year old male with past medical history significant for hypertension, hyperlipidemia, chronic kidney disease, type 1 diabetes, anoxic brain injury from hypoglycemia, DKA, anemia, and glaucoma who presents for complaints of chest pain and weight gain. EKG was normal. Echocardiogram did not show any new findings. Stress test was done which was normal. Likley musculoskeltal, resolved. Regarding his weight gain, nephrology was consulted as they have been managing his diuretics as an outpatient. He will always looked euvolemic in the hospital. No Weight gain in the hospital noticed. Patient creatinine was also elevated at the time of presentation to 2.01, baseline around 1.7. His diuretic was stopped. Cr is 1.91 today. Discussed with the nephrology. Follow up as an outpatient recommended. Regarding his hypertnesion, due to elevated blood pressure in the mornings, his medication timings were adjusted. HE did better following that. - Time Spent with Patient Total time spent providing and/or coordinating discharge services: 45 minutes - Discharge Medications Prescriptions: Continued Atorvastatin [Lipitor] 40 mg PO DAILY LevETIRAcetam [Keppra] 500 mg PO BID Thiamine (B-1) [Vitamin B-1] 100 mg PO DAILY Gabapentin [Neurontin] 100 mg PO HS Metoprolol Succinate 100 mg PO DAILY Sertraline [Zoloft] 100 mg PO HS Latanoprost [Xalatan] 1 drop BOTH EYES HS Amlodipine Besylate 10 mg PO DAILY Ergocalciferol (VITAMIN D2) [Vitamin D2] 50,000 unit PO SA Potassium Chloride 20 meq PO DAILY Tamsulosin HCl [Flomax] 0.4 mg PO DAILY ARIPiprazole [Abilify] 5 mg PO QAM Ferrous Sulfate [Iron] 325 mg PO BID #60 tablet Hydralazine HCl 100 mg PO TID Cyanocobalamin (B-12) [Vitamin B12] 1,000 mcg IM QMONTH Aspirin 81 mg PO DAILY #30 tab.chew Losartan [Cozaar] 100 mg PO DAILY #120 tablet Patient Taking Own Medication 0 units SQ CONT Changed Furosemide [Lasix] 20 mg PO DAILY #0 Home Medications: Atorvastatin [Lipitor] 40 mg PO DAILY 03/02/17 [History] Gabapentin [Neurontin] 100 mg PO HS 04/26/17 [History] LevETIRAcetam [Keppra] 500 mg PO BID 04/26/17 [History] Thiamine (B-1) [Vitamin B-1] 100 mg PO DAILY 04/26/17 [History] Latanoprost [Xalatan] 1 drop BOTH EYES HS 03/04/18 [History] Metoprolol Succinate 100 mg PO DAILY 03/04/18 [History] Sertraline [Zoloft] 100 mg PO HS 03/04/18 [History] Amlodipine Besylate 10 mg PO DAILY 06/04/18 [History] Ergocalciferol (VITAMIN D2) [Vitamin D2] 50,000 unit PO SA 07/24/18 [History] Potassium Chloride 20 meq PO DAILY 07/24/18 [History] Tamsulosin HCl [Flomax] 0.4 mg PO DAILY 07/24/18 [History] ARIPiprazole [Abilify] 5 mg PO QAM 08/23/18 [History] Ferrous Sulfate [Iron] 325 mg PO BID #60 tablet 08/23/18 [Rx] Cyanocobalamin (B-12) [Vitamin B12] 1,000 mcg IM QMONTH 11/07/18 [History] Hydralazine HCl 100 mg PO TID 11/07/18 [History] Aspirin 81 mg PO DAILY #30 tab.chew 11/14/18 [Rx] Losartan [Cozaar] 100 mg PO DAILY #120 tablet 11/14/18 [Rx] Patient Taking Own Medication 0 units SQ CONT 12/14/18 [History] Furosemide [Lasix] 20 mg PO DAILY #0 12/17/18 [Rx] Allergies/Adverse Reactions: Allergy/AdvReac Type Severity Reaction Status Date / Time No Known Allergies Allergy Verified 11/07/18 22:18 Date of admission: 12/14/18 01:58 Primary care physician: Jarrell Marrero MD Consults: 12/14/18 04:00 Consult to Nephrology [CONS] Routine Consulting Provider: [facility]/MATHIEU/MORRIS Reason for Consult: Presents for chest pain and 13 pound weight gain over past week. Follows with [facility], reports Nephrology recently increasing Lasix due to continued weight gain. Creatinine up from 1.71 to 2.01, BUN up from 37 to 40, GFR down from 52 to 44 currently. Call Completed: No - Constitutional Vitals: Temp Pulse Resp BP Pulse Ox 97.7 F 72 16 163/83 98 12/17/18 07:16 12/17/18 07:16 12/17/18 07:16 12/17/18 07:16 12/17/18 07:16 Exam: General: Alert and oriented, no physical distress, able to follow commands. Poor historian due to baseline cognition from prior anoxic brain injury. HEENT: No thyromegaly, no lymphadenopathy, no discharge. Eyes: No discharge. Normal conjuctiva, no icterus Respiratory: Normal vesicular breathing, no added sounds, breathing equal in both sides. CVS: Normal heart sounds, no murmurs, regular rhthm, no edema Extremities: No peripheral edema, peripheral pulses intact. Lymph nodes: No lymphadenopathy Gastrointestinal: Soft, nontender abdomen, normal abdominal sounds. No distention noted. Genitourinary: No paravertebral tenderness. Skin: No rash, ulcers or wound. Neurological: Alert and oriented. No focal deficits. Cranial nerves II-XII intact - Patient Status Disposition: Home, Self-Care Condition: Fair - Discharge Instructions Follow Up With: Jarrell Marrero MD [Primary Care Provider] - 12/19/18 1:30 pm (Appointment will be with Evelia Cope CNP) Kb Fish MD [Partnered Physician] - Additional Instructions: Take antihypertensives according to this regimen. Amlodipine, hydralazine and metoprolol in the am hydralazine at noon Losartan with hydralazine at night - Diet and Activity Activity: increase activity as tolerated Diet: advance to your usual diet, diabetic diet
--- NOTE | 2018-12-17 10:19 | Electrocardiograph Report ---
[facility] Test Date: 2018-12-13 Pat Name: Tito Irvin Department: [id number] Room: 3B34 Gender: M Litigation Legal Assistant: : 1970 Requested By: Samuel Diop Order Number: [id number] Reading MD: Mihai Badillo Measurements Intervals [place] Rate: 74 P: 80 CA: 192 QRS: 21 QRSD: 93 T: 57 QT: 385 QTc: 412 Interpretive Statements SINUS RHYTHM Electronically Signed On 12-17-2018 9:54:16 EDT by Mihai Badillo
== END 2018-12-17 11:23 | disposition home or self-care (01) ==
LOC: 3BNU 19:53 → EMEROOARM 19:53 → SUATTDRO 12-14 01:58 → 3BNU 12-14 02:32
PROVIDERS: ADMIT Internal Medicine; ATTEND Internal Medicine

== ENCOUNTER 2019-05-06 20:55 | Observation (INO) ==
[2019-05-06 21:55] LABS: Bilirubin,Urine Negative (Negative); Blood,Urine Negative (Negative); Clarity,Urine Clear (Clear); Color,Urine Yellow (Yellow); Glucose,Urine (UA) Normal (Normal); Ketones,Urine Negative (Negative); Leukocyte Esterase,Urine Negative (Negative); Nitrite,Urine Negative (Negative); PH,Urine 5.5 pH Units (5.0-8.0); Protein,Urine >=300 mg/dL (Neg-Trace); Specific Gravity,Urine 1.016 (1.010-1.025); Urobilinogen,Urine Normal (Normal)
[2019-05-06 21:57] LABS: Bacteria,Urine None Seen per hpf (None-Few); Hyaline Casts,Urine None Seen per lpf (None-Few); Squamous Epithelial Cell,Urine Moderate per lpf (None-Few); WBC,Urine 0-3 per hpf (0-3)
[2019-05-06 22:27] LABS: VBG HCO3 21 mEq/L (21-27); VBG PCO2 42 mmHg (41-51); VBG PH 7.31 pH Units (7.32-7.42); VBG PO2 220 mmHg (25-50)
[2019-05-06 22:30] LABS: Basophils # 0.1 K/mcL (0.0-0.2); Basophils % 1.1 %; Eosinophils # 0.3 K/mcL (0.0-0.6); Eosinophils % 3.3 %; Hematocrit 32.7 % (37.5-50.1); Hemoglobin 10.2 g/dL (12.9-16.9); Immature Granulocytes % 0.9 % (0-4); Lymphocytes # 1.6 K/mcL (0.6-4.6); Lymphocytes % 19.2 %; Mean Corpuscular HGB Conc 31.2 g/dL (31.6-35.5); Mean Corpuscular Hemoglobin 23.4 pg (28.0-33.3); Mean Platelet Volume 9.8 fL (9.4-12.4); Monocytes # 0.8 K/mcL (0.0-1.3); Monocytes % 9.4 %; Neutrophils # 5.3 K/mcL (1.6-8.9); Platelet Count 282 K/mcL (140-400); Red Blood Count 4.36 M/mcL (4.19-5.50); Red Cell Distribution Width 14.9 % (11.5-14.5); Segmented Neutrophils % 66.1 %; White Blood Count 8.1 K/mcL (4.3-11.1)
[2019-05-06 22:38] LABS: Calcium 8.5 mg/dL (8.6-10.3); Potassium 5.5 mEq/L (3.5-5.1)
[2019-05-06] MEDS ORDERED: 0.9 % Sodium Chloride 1,000 ML IV ONE (22:51)
[2019-05-06] MEDS ORDERED: cefTRIAXone 1,000 MG in Water for inj. (sterile) 10 ML IVP ONE (23:02)
[2019-05-06] MEDS ORDERED: Calcium Gluconate 1gm/50mL 1 GM/50 ML BAG IVPB ONE (23:38)
[2019-05-07] MEDS ORDERED: Acetaminophen 325 MG TABLET PO PRN (00:32)
[2019-05-07] MEDS ORDERED: Naloxone 0.4 MG/ML INJ IVP PRN (00:32)
[2019-05-07] MEDS ORDERED: *HR* Labetalol 20 MG/4 ML SYRINGE IVP PRN (00:41)
[2019-05-07] MEDS ORDERED: *HR* Dextrose 50 % in Water (Syg) 50 ML SYRINGE IVP PRN (00:43)
[2019-05-07] MEDS ORDERED: D5% in Water 1,000 ML IVC PRN (00:43)
[2019-05-07] MEDS ORDERED: Dextrose Gel 15 GM/37.5 ML TUBE PO PRN ×2 (00:43)
[2019-05-07] MEDS: 0.9 % Sodium Chloride 1,000 ML IVC SCH ×2 (02:05→18:15)
[2019-05-07 05:50] LABS: Basophils # 0.1 K/mcL (0.0-0.2); Basophils % 0.9 %; Eosinophils # 0.2 K/mcL (0.0-0.6); Eosinophils % 3.2 %; Hematocrit 29.4 % (37.5-50.1); Hemoglobin 9.1 g/dL (12.9-16.9); Lymphocytes # 1.9 K/mcL (0.6-4.6); Lymphocytes % 28.5 %; Mean Corpuscular Hemoglobin 23.3 pg (28.0-33.3); Mean Corpuscular Volume 75.2 fL (83.0-100.0); Monocytes # 0.7 K/mcL (0.0-1.3); Monocytes % 10.3 %; Neutrophils # 3.8 K/mcL (1.6-8.9); Platelet Count 247 K/mcL (140-400); Red Blood Count 3.91 M/mcL (4.19-5.50); Red Cell Distribution Width 14.9 % (11.5-14.5); Segmented Neutrophils % 56.1 %; White Blood Count 6.8 K/mcL (4.3-11.1)
[2019-05-07] MEDS: *HR* Heparin 5,000 UNIT/ML VIAL SQ SCH ×3 (05:53→20:48)
[2019-05-07] MEDS: INSULIN PUMP SQ SCH (05:53)
[2019-05-07 06:10] LABS: Albumin/Globulin Ratio 1.2 (1.1-2.2); Bilirubin,Total 0.2 mg/dL (0.3-1.0); Calcium 8.2 mg/dL (8.6-10.3); Globulin 2.6 g/dL (2.4-3.5); Magnesium 1.7 mg/dL (1.6-2.6); Phosphorous 4.1 mg/dL (2.7-4.5); Potassium 4.7 mEq/L (3.5-5.1); Total Protein 5.6 g/dL (6.4-8.9)
[2019-05-07] MEDS: ARIPiprazole 5 MG TABLET PO SCH (09:36)
[2019-05-07] MEDS: amLODIPine 5 MG TABLET PO SCH (09:36)
[2019-05-07] MEDS: levETIRAcetam 250 MG TABLET PO SCH ×2 (09:36→20:47)
[2019-05-07] MEDS: Aspirin 81 MG TAB.CHEW PO SCH (09:36)
[2019-05-07] MEDS: hydrALAZINE 25 MG TABLET PO SCH ×3 (09:37→20:48)
[2019-05-07] MEDS: Metoprolol XL (24 HR) Succ 50 MG TAB.ER.24H PO SCH (09:37)
[2019-05-07] MEDS ORDERED: Gabapentin 100 MG CAPSULE PO SCH (21:00)
[2019-05-07] MEDS ORDERED: Latanoprost 2.5 ML BOTTLE BOTH EYES SCH (21:00)
[2019-05-08 05:04] LABS: Basophils # 0.1 K/mcL (0.0-0.2); Basophils % 1.2 %; Eosinophils # 0.3 K/mcL (0.0-0.6); Eosinophils % 4.2 %; Hematocrit 30.5 % (37.5-50.1); Hemoglobin 9.1 g/dL (12.9-16.9); Immature Granulocytes % 0.6 % (0-4); Lymphocytes # 1.7 K/mcL (0.6-4.6); Lymphocytes % 25.7 %; Mean Corpuscular HGB Conc 29.8 g/dL (31.6-35.5); Mean Corpuscular Hemoglobin 23.2 pg (28.0-33.3); Mean Corpuscular Volume 77.6 fL (83.0-100.0); Mean Platelet Volume 10.7 fL (9.4-12.4); Monocytes # 0.6 K/mcL (0.0-1.3); Platelet Count 258 K/mcL (140-400); Red Blood Count 3.93 M/mcL (4.19-5.50); Red Cell Distribution Width 14.7 % (11.5-14.5); Segmented Neutrophils % 59.3 %; White Blood Count 6.7 K/mcL (4.3-11.1)
[2019-05-08 05:24] LABS: Potassium 4.9 mEq/L (3.5-5.1)
[2019-05-08] MEDS: *HR* Heparin 5,000 UNIT/ML VIAL SQ SCH ×2 (05:43→13:30)
[2019-05-08] MEDS: INSULIN PUMP SQ SCH (07:30)
[2019-05-08] MEDS: hydrALAZINE 25 MG TABLET PO SCH ×2 (09:09→15:04)
[2019-05-08] MEDS: Metoprolol XL (24 HR) Succ 50 MG TAB.ER.24H PO SCH (09:09)
[2019-05-08] MEDS: amLODIPine 5 MG TABLET PO SCH (09:09)
[2019-05-08] MEDS: levETIRAcetam 250 MG TABLET PO SCH (09:09)
[2019-05-08] MEDS: ARIPiprazole 5 MG TABLET PO SCH (09:10)
[2019-05-08] MEDS: Aspirin 81 MG TAB.CHEW PO SCH (09:10)
[2019-05-08] MEDS ORDERED: Cyanocobalamin (B-12) 1,000 MCG/ML VIAL IM ONE (10:22)
[2019-05-08 14:21] VITALS: BP 155/81
== END 2019-05-08 17:03 | disposition home or self-care (01) ==
LOC: 3ANU 20:55 → EMEROOARM 20:55 → SUATTDRO 05-07 00:24 → 3ANU 05-07 01:20
PROVIDERS: ADMIT Internal Medicine; ATTEND Internal Medicine

== ENCOUNTER 2021-02-09 10:53 | Inpatient (IN) ==
[2021-02-09 13:49] LABS: Basophils # 0.1 K/mcL (0.0-0.2); Basophils % 1.2 %; Eosinophils # 0.4 K/mcL (0.0-0.6); Eosinophils % 4.2 %; Hematocrit 37.3 % (37.5-50.1); Hemoglobin 11.4 g/dL (12.9-16.9); Immature Granulocytes % 0.7 % (0-4); Lymphocytes # 1.7 K/mcL (0.6-4.6); Lymphocytes % 20.1 %; Mean Corpuscular HGB Conc 30.6 g/dL (31.6-35.5); Mean Corpuscular Hemoglobin 22.1 pg (28.0-33.3); Mean Corpuscular Volume 72.3 fL (83.0-100.0); Mean Platelet Volume 9.5 fL (9.4-12.4); Monocytes # 0.7 K/mcL (0.0-1.3); Monocytes % 8.7 %; Neutrophils # 5.6 K/mcL (1.6-8.9); Platelet Count 290 K/mcL (140-400); Red Blood Count 5.16 M/mcL (4.19-5.50); Red Cell Distribution Width 15.7 % (11.5-14.5); Segmented Neutrophils % 65.1 %; White Blood Count 8.5 K/mcL (4.3-11.1)
[2021-02-09 14:01] LABS: INR 0.9; Prothrombin Time 10.4 Seconds (9.4-12.1)
[2021-02-09 14:02] LABS: Albumin 4.1 g/dL (3.5-5.7); Calcium 9.3 mg/dL (8.6-10.3); Phosphorous 4.3 mg/dL (2.7-4.5); Potassium 4.5 mEq/L (3.5-5.1)
[2021-02-09] MEDS ORDERED: Naloxone 0.4 MG/ML INJ IVP PRN (14:30)
[2021-02-09] MEDS ORDERED: D5% in Water 1,000 ML IVC PRN (17:04)
[2021-02-09] MEDS ORDERED: *HR* Dextrose 50 % in Water (Syg) 50 ML SYRINGE IVP PRN (17:04)
[2021-02-09] MEDS ORDERED: Dextrose Gel 15 GM/37.5 ML TUBE PO PRN ×2 (17:04)
[2021-02-09] MEDS: hydrALAZINE 25 MG TABLET PO SCH ×2 (18:44→20:47)
[2021-02-09] MEDS: *HR* Heparin 5,000 UNIT/ML VIAL SQ SCH (18:44)
[2021-02-09] MEDS: 0.9 % Sodium Chloride 1,000 ML IVC SCH (18:45)
[2021-02-09 19:23] LABS: Estimated Average Glucose 169 mg/dl; Hemoglobin A1C 7.5 %
[2021-02-09] MEDS ORDERED: RIZATRIPTAN BENZOATE 10 MG PO PRN (20:40)
[2021-02-09] MEDS: Gabapentin 100 MG CAPSULE PO SCH (20:43)
[2021-02-09] MEDS ORDERED: Insulin LISPRO 300 UNITS/3 ML VIAL SUBQ SCH (21:00)
[2021-02-09] MEDS ORDERED: NON-FORMULARY MEDICATION 1 EACH EACH (Hydralazine Hcl 50 MG Tablet) PO SCH (21:00)
[2021-02-09] MEDS ORDERED: levETIRAcetam 250 MG TABLET PO SCH (21:00)
[2021-02-09] MEDS: Latanoprost 2.5 ML BOTTLE BOTH EYES SCH (21:52)
[2021-02-10] MEDS: *HR* Heparin 5,000 UNIT/ML VIAL SQ SCH ×2 (05:30→16:19)
[2021-02-10] MEDS: 0.9 % Sodium Chloride 1,000 ML IVC SCH (05:35)
[2021-02-10 05:38] LABS: Basophils # 0.1 K/mcL (0.0-0.2); Eosinophils # 0.4 K/mcL (0.0-0.6); Eosinophils % 4.9 %; Hematocrit 34.7 % (37.5-50.1); Hemoglobin 10.4 g/dL (12.9-16.9); Immature Granulocytes % 0.7 % (0-4); Lymphocytes % 22.4 %; Mean Corpuscular Hemoglobin 21.9 pg (28.0-33.3); Mean Corpuscular Volume 73.2 fL (83.0-100.0); Mean Platelet Volume 9.7 fL (9.4-12.4); Monocytes # 0.9 K/mcL (0.0-1.3); Monocytes % 9.7 %; Neutrophils # 5.4 K/mcL (1.6-8.9); Platelet Count 276 K/mcL (140-400); Red Blood Count 4.74 M/mcL (4.19-5.50); Red Cell Distribution Width 15.4 % (11.5-14.5); Segmented Neutrophils % 61.3 %; White Blood Count 8.8 K/mcL (4.3-11.1)
[2021-02-10 05:55] LABS: Calcium 8.5 mg/dL (8.6-10.3); Magnesium 1.9 mg/dL (1.6-2.6); Potassium 4.5 mEq/L (3.5-5.1)
[2021-02-10] MEDS ORDERED: 0.9 % Sodium Chloride 250 ML IVC PRN (07:07)
[2021-02-10] MEDS ORDERED: 0.9 % Sodium Chloride 1,000 ML PRIME SCH (07:15)
[2021-02-10] MEDS ORDERED: Insulin LISPRO 300 UNITS/3 ML VIAL SUBQ SCH (07:30)
[2021-02-10] MEDS: Aspirin 81 MG TAB.CHEW PO SCH (08:30)
[2021-02-10] MEDS: calcitrioL 0.25 MCG CAPSULE PO SCH (08:30)
[2021-02-10] MEDS: Isosorbide MONOnitrate (24 HR) 30 MG TAB.ER.24H PO SCH (08:30)
[2021-02-10] MEDS: hydrALAZINE 25 MG TABLET PO SCH ×2 (08:30→20:37)
[2021-02-10] MEDS: amLODIPine 5 MG TABLET PO SCH (08:31)
[2021-02-10] MEDS: Metoprolol XL (24 HR) Succ 50 MG TAB.ER.24H PO SCH (08:31)
[2021-02-10] MEDS ORDERED: Lidocaine/EPI 1:100k 1% 50 ML VIAL ONE (08:41)
[2021-02-10] MEDS ORDERED: Heparin 1,000 UNITS/500 mL 500 ML ONE (08:41)
[2021-02-10] MEDS ORDERED: ARIPiprazole 5 MG TABLET PO SCH (09:00)
[2021-02-10] MEDS ORDERED: *HR* FentaNYL (PF) 100 MCG/2 ML VIAL IVP ONE (09:07)
[2021-02-10] MEDS ORDERED: *HR* Midazolam HCl 2 MG/2 ML VIAL IVP ONE (09:07)
[2021-02-10] MEDS ORDERED: 0.9 % Sodium Chloride 500 ML ONE (09:25)
[2021-02-10] MEDS ORDERED: CeFAZolin 2,000 MG/120 ML BAG IVPB ONE (09:30)
[2021-02-10] MEDS ORDERED: *HR* Heparin 5,000 UNIT/ML VIAL ONE (09:36)
[2021-02-10 11:55] LABS: Hepatitis B Surface Antibody < 3.10 mIU/mL
[2021-02-10 12:05] LABS: Hepatitis B Surface Antigen Nonreactive (Nonreactive)
[2021-02-10] MEDS: *HR* Heparin 10,000 UNIT/10 ML VIAL IV PRN (12:05)
[2021-02-10 12:25] LABS: Iron 53 mcg/dL (65-175)
[2021-02-10 12:38] LABS: % Iron Saturation 25 % (20-55); Transferrin 149 mg/dL (203-362)
[2021-02-10 12:52] LABS: Folate 7.4 ng/mL (3.0-16.0)
[2021-02-10 12:53] LABS: Vitamin B12 496 pg/mL (250-1100)
[2021-02-10] MEDS: (Insulin Pump Cartridge [Insulin Pump] 1 EACH Implant SQ SCH (13:09)
[2021-02-10 14:03] LABS: Hepatitis B Core IgM Nonreactive (Nonreactive)
[2021-02-10] MEDS: Gabapentin 100 MG CAPSULE PO SCH (20:37)
[2021-02-10] MEDS: Latanoprost 2.5 ML BOTTLE BOTH EYES SCH (20:38)
[2021-02-11 02:54] LABS: Basophils # 0.1 K/mcL (0.0-0.2); Basophils % 0.9 %; Eosinophils # 0.4 K/mcL (0.0-0.6); Eosinophils % 4.3 %; Hematocrit 34.2 % (37.5-50.1); Hemoglobin 10.3 g/dL (12.9-16.9); Immature Granulocytes % 0.7 % (0-4); Lymphocytes # 1.9 K/mcL (0.6-4.6); Lymphocytes % 22.3 %; Mean Corpuscular HGB Conc 30.1 g/dL (31.6-35.5); Mean Corpuscular Volume 72.9 fL (83.0-100.0); Mean Platelet Volume 9.8 fL (9.4-12.4); Monocytes # 0.8 K/mcL (0.0-1.3); Monocytes % 9.6 %; Neutrophils # 5.2 K/mcL (1.6-8.9); Platelet Count 253 K/mcL (140-400); Red Blood Count 4.69 M/mcL (4.19-5.50); Red Cell Distribution Width 15.5 % (11.5-14.5); Segmented Neutrophils % 62.2 %; White Blood Count 8.4 K/mcL (4.3-11.1)
[2021-02-11 03:09] LABS: Calcium 8.3 mg/dL (8.6-10.3); Magnesium 1.8 mg/dL (1.6-2.6); Phosphorous 3.4 mg/dL (2.7-4.5); Potassium 4.3 mEq/L (3.5-5.1)
[2021-02-11] MEDS: *HR* Heparin 5,000 UNIT/ML VIAL SQ SCH ×2 (05:16→17:02)
[2021-02-11] MEDS ORDERED: 0.9 % Sodium Chloride 250 ML IVC PRN (07:04)
[2021-02-11] MEDS: Aspirin 81 MG TAB.CHEW PO SCH (08:15)
[2021-02-11] MEDS: calcitrioL 0.25 MCG CAPSULE PO SCH (08:15)
[2021-02-11] MEDS: Isosorbide MONOnitrate (24 HR) 30 MG TAB.ER.24H PO SCH (08:16)
[2021-02-11] MEDS: hydrALAZINE 25 MG TABLET PO SCH ×3 (08:16→20:05)
[2021-02-11] MEDS: amLODIPine 5 MG TABLET PO SCH (08:17)
[2021-02-11] MEDS: Metoprolol XL (24 HR) Succ 50 MG TAB.ER.24H PO SCH (08:17)
[2021-02-11] MEDS: (Insulin Pump Cartridge [Insulin Pump] 1 EACH Implant SQ SCH (11:08)
[2021-02-11] MEDS: *HR* Heparin 10,000 UNIT/10 ML VIAL IV PRN (11:27)
[2021-02-11] MEDS: Gabapentin 100 MG CAPSULE PO SCH (20:05)
[2021-02-11] MEDS: Latanoprost 2.5 ML BOTTLE BOTH EYES SCH (20:06)
[2021-02-12 01:25] LABS: Basophils # 0.1 K/mcL (0.0-0.2); Basophils % 1.1 %; Eosinophils # 0.4 K/mcL (0.0-0.6); Eosinophils % 5.6 %; Hematocrit 34.7 % (37.5-50.1); Hemoglobin 10.7 g/dL (12.9-16.9); Immature Granulocytes % 0.8 % (0-4); Lymphocytes % 26.7 %; Mean Corpuscular HGB Conc 30.8 g/dL (31.6-35.5); Mean Corpuscular Hemoglobin 22.5 pg (28.0-33.3); Mean Corpuscular Volume 73.1 fL (83.0-100.0); Mean Platelet Volume 9.5 fL (9.4-12.4); Monocytes # 0.9 K/mcL (0.0-1.3); Monocytes % 12.1 %; Platelet Count 253 K/mcL (140-400); Red Blood Count 4.75 M/mcL (4.19-5.50); Red Cell Distribution Width 15.2 % (11.5-14.5); Segmented Neutrophils % 53.7 %; White Blood Count 7.5 K/mcL (4.3-11.1)
[2021-02-12 01:40] LABS: Calcium 8.7 mg/dL (8.6-10.3); Magnesium 1.8 mg/dL (1.6-2.6); Phosphorous 3.8 mg/dL (2.7-4.5); Potassium 3.9 mEq/L (3.5-5.1)
[2021-02-12] MEDS: *HR* Heparin 5,000 UNIT/ML VIAL SQ SCH ×2 (05:49→16:59)
[2021-02-12] MEDS: amLODIPine 5 MG TABLET PO SCH (08:56)
[2021-02-12] MEDS: Aspirin 81 MG TAB.CHEW PO SCH (08:56)
[2021-02-12] MEDS: hydrALAZINE 25 MG TABLET PO SCH ×3 (08:57→21:09)
[2021-02-12] MEDS: Metoprolol XL (24 HR) Succ 50 MG TAB.ER.24H PO SCH (08:57)
[2021-02-12] MEDS: Isosorbide MONOnitrate (24 HR) 30 MG TAB.ER.24H PO SCH (08:57)
[2021-02-12] MEDS: calcitrioL 0.25 MCG CAPSULE PO SCH (08:57)
[2021-02-12] MEDS: (Insulin Pump Cartridge [Insulin Pump] 1 EACH Implant SQ SCH (11:50)
[2021-02-12] MEDS ORDERED: Ondansetron 4 MG/2 ML VIAL IVP PRN (14:19)
[2021-02-12] MEDS: polyethylene glycoL 3350 17 GM POWD.PACK PO SCH ×2 (14:45→14:50)
[2021-02-12] MEDS ORDERED: MOM Conc 10 ML UD.LIQ PO ONE (14:50)
[2021-02-12] MEDS: Gabapentin 100 MG CAPSULE PO SCH (21:09)
[2021-02-12] MEDS: Latanoprost 2.5 ML BOTTLE BOTH EYES SCH (21:10)
[2021-02-13] MEDS: *HR* Heparin 5,000 UNIT/ML VIAL SQ SCH (05:47)
[2021-02-13 06:11] LABS: Basophils # 0.1 K/mcL (0.0-0.2); Basophils % 0.9 %; Eosinophils # 0.4 K/mcL (0.0-0.6); Eosinophils % 4.8 %; Hematocrit 33.2 % (37.5-50.1); Hemoglobin 10.4 g/dL (12.9-16.9); Immature Granulocytes % 0.9 % (0-4); Lymphocytes # 1.8 K/mcL (0.6-4.6); Lymphocytes % 20.3 %; Mean Corpuscular HGB Conc 31.3 g/dL (31.6-35.5); Mean Corpuscular Hemoglobin 22.8 pg (28.0-33.3); Mean Corpuscular Volume 72.6 fL (83.0-100.0); Mean Platelet Volume 9.1 fL (9.4-12.4); Monocytes # 0.9 K/mcL (0.0-1.3); Monocytes % 10.3 %; Neutrophils # 5.5 K/mcL (1.6-8.9); Platelet Count 255 K/mcL (140-400); Red Blood Count 4.57 M/mcL (4.19-5.50); Red Cell Distribution Width 15.2 % (11.5-14.5); Segmented Neutrophils % 62.8 %; White Blood Count 8.8 K/mcL (4.3-11.1)
[2021-02-13 06:33] LABS: Calcium 8.7 mg/dL (8.6-10.3); Magnesium 2.1 mg/dL (1.6-2.6); Phosphorous 3.6 mg/dL (2.7-4.5)
[2021-02-13 08:07] VITALS: PULSE 70; O2SAT 98
[2021-02-13] MEDS ORDERED: 0.9 % Sodium Chloride 250 ML IVC PRN (08:15)
[2021-02-13] MEDS ORDERED: *HR* Heparin 10,000 UNIT/10 ML VIAL IV PRN (08:15)
[2021-02-13] MEDS ORDERED: 0.9 % Sodium Chloride 1,000 ML PRIME SCH (08:15)
[2021-02-13] MEDS: polyethylene glycoL 3350 17 GM POWD.PACK PO SCH (08:45)
[2021-02-13] MEDS: Aspirin 81 MG TAB.CHEW PO SCH (08:45)
[2021-02-13] MEDS: calcitrioL 0.25 MCG CAPSULE PO SCH (08:45)
[2021-02-13] MEDS ORDERED: Acetylcysteine 10% 2 ML INHSOL IH SCH (10:45)
[2021-02-13] MEDS: (Insulin Pump Cartridge [Insulin Pump] 1 EACH Implant SQ SCH (12:15)
[2021-02-13 13:19] VITALS: BP 173/88; TEMP 98.4
[2021-02-13] MEDS: hydrALAZINE 25 MG TABLET PO SCH ×2 (13:28)
[2021-02-13] MEDS: amLODIPine 5 MG TABLET PO SCH (13:28)
[2021-02-13] MEDS: Isosorbide MONOnitrate (24 HR) 30 MG TAB.ER.24H PO SCH (13:28)
[2021-02-13] MEDS: Metoprolol XL (24 HR) Succ 50 MG TAB.ER.24H PO SCH (13:28)
[2021-02-13] MEDS ORDERED: Lactulose Oral Soln 20 GM/30 ML UDC PO ONE (14:00)
== END 2021-02-13 15:34 | disposition home or self-care (01) | DRG 683 ==
LOC: EMEROOARM 10:53 → 2ANU 10:53
PROVIDERS: ADMIT Student in an Organized Health Care Education/Training Program; ATTEND Student in an Organized Health Care Education/Training Program
PROC: IRPERMA (2021-02-10 12:00)

== ENCOUNTER 2021-03-30 15:56 | Observation (INO) ==
[2021-03-30 18:53] LABS: Basophils % 0.5 %; Eosinophils % 0.2 %; Hematocrit 34.6 % (37.5-50.1); Hemoglobin 10.8 g/dL (12.9-16.9); Immature Granulocytes % 1.2 % (0-4); Lymphocytes # 0.8 K/mcL (0.6-4.6); Lymphocytes % 18.7 %; Mean Corpuscular HGB Conc 31.2 g/dL (31.6-35.5); Mean Corpuscular Hemoglobin 22.5 pg (28.0-33.3); Mean Corpuscular Volume 72.1 fL (83.0-100.0); Mean Platelet Volume 9.9 fL (9.4-12.4); Monocytes # 0.7 K/mcL (0.0-1.3); Monocytes % 17.7 %; Neutrophils # 2.6 K/mcL (1.6-8.9); Platelet Count 172 K/mcL (140-400); Red Cell Distribution Width 15.7 % (11.5-14.5); Segmented Neutrophils % 61.7 %; White Blood Count 4.2 K/mcL (4.3-11.1)
[2021-03-30 19:40] LABS: Calcium 8.2 mg/dL (8.6-10.3); Potassium 3.7 mEq/L (3.5-5.1); Troponin I 0.15 ng/mL (< 0.04)
[2021-03-30 20:14] LABS: Albumin 3.8 g/dL (3.5-5.7); Albumin/Globulin Ratio 1.1 (1.1-2.2); Bilirubin,Direct 0.1 mg/dL (0.0-0.2); Bilirubin,Indirect 0.3 mg/dL (0.0-1.0); Bilirubin,Total 0.4 mg/dL (0.3-1.0); Globulin 3.5 g/dL (2.4-3.5); Magnesium 1.8 mg/dL (1.6-2.6); Phosphorous 3.4 mg/dL (2.7-4.5); Total Protein 7.3 g/dL (6.4-8.9)
[2021-03-30] MEDS ORDERED: Acetaminophen 325 MG TABLET PO PRN (23:23)
[2021-03-30] MEDS ORDERED: Melatonin 3 MG TABLET PO PRN (23:23)
[2021-03-30] MEDS ORDERED: Ondansetron 4 MG/2 ML VIAL IVP PRN (23:23)
[2021-03-30] MEDS ORDERED: Naloxone 0.4 MG/ML INJ IVP PRN (23:23)
[2021-03-31 00:37] LABS: Basophils % 0.6 %; Eosinophils % 0.3 %; Hematocrit 33.4 % (37.5-50.1); Hemoglobin 10.2 g/dL (12.9-16.9); Immature Granulocytes % 1.1 % (0-4); Lymphocytes # 0.8 K/mcL (0.6-4.6); Lymphocytes % 23.9 %; Mean Corpuscular HGB Conc 30.5 g/dL (31.6-35.5); Mean Corpuscular Hemoglobin 22.3 pg (28.0-33.3); Mean Corpuscular Volume 73.1 fL (83.0-100.0); Mean Platelet Volume 10.1 fL (9.4-12.4); Monocytes # 0.6 K/mcL (0.0-1.3); Monocytes % 17.9 %; Platelet Count 164 K/mcL (140-400); Red Blood Count 4.57 M/mcL (4.19-5.50); Red Cell Distribution Width 15.8 % (11.5-14.5); Segmented Neutrophils % 56.2 %; White Blood Count 3.5 K/mcL (4.3-11.1)
[2021-03-31 00:46] LABS: Albumin 3.6 g/dL (3.5-5.7); Albumin/Globulin Ratio 1.2 (1.1-2.2); Bilirubin,Total 0.4 mg/dL (0.3-1.0); Globulin 3.1 g/dL (2.4-3.5); Magnesium 1.8 mg/dL (1.6-2.6); Phosphorous 3.9 mg/dL (2.7-4.5); Potassium 3.6 mEq/L (3.5-5.1); Total Protein 6.7 g/dL (6.4-8.9)
[2021-03-31] MEDS ORDERED: Dextrose Gel 15 GM/37.5 ML TUBE PO PRN ×2 (01:30)
[2021-03-31] MEDS ORDERED: Artificial Tears SOLN 15 ML BOTTLE BOTH EYES PRN (01:30)
[2021-03-31] MEDS ORDERED: Saliva Stimulant 44.3ml BOTTLE PO PRN (01:30)
[2021-03-31] MEDS ORDERED: *HR* Dextrose 50 % in Water (Syg) 50 ML SYRINGE IVP PRN (01:30)
[2021-03-31] MEDS ORDERED: D5% in Water 1,000 ML IVC PRN (01:30)
[2021-03-31] MEDS: Ipratropium 1 PUFF INHALER IH SCH ×4 (04:26→20:14)
[2021-03-31] MEDS: *HR* Heparin 5,000 UNIT/ML VIAL SQ SCH ×2 (04:54→15:46)
[2021-03-31 06:54] LABS: VBG HCO3 14 mEq/L (21-27); VBG PCO2 21 mmHg (41-51); VBG PH 7.44 pH Units (7.32-7.42); VBG PO2 103 mmHg (25-50)
[2021-03-31] MEDS: hydrALAZINE 25 MG TABLET PO SCH ×2 (07:52→15:46)
[2021-03-31] MEDS: Metoprolol XL (24 HR) Succ 50 MG TAB.ER.24H PO SCH (07:52)
[2021-03-31] MEDS: Isosorbide MONOnitrate (24 HR) 30 MG TAB.ER.24H PO SCH (07:52)
[2021-03-31] MEDS: Aspirin 81 MG TAB.CHEW PO SCH (07:52)
[2021-03-31] MEDS: Cholecalciferol (D-3) 1,000 UNIT (25MCG) TABLET PO SCH (07:52)
[2021-03-31] MEDS: Insulin LISPRO 300 UNITS/3 ML VIAL SUBQ SCH ×3 (07:55→18:07)
[2021-03-31 08:01] LABS: Troponin I 0.2 ng/mL (< 0.04)
[2021-03-31] MEDS: SODIUM ZIRCONIUM CYCLOSILICATE 5 GM POWD.PACK PO SCH (08:01)
[2021-03-31 08:14] LABS: Thyroid Stimulating Hormone 0.37 mcIU/mL (0.340-5.600)
[2021-03-31] MEDS: Chlorhexidine Rinse 15 ML MOUTHWASH MM SCH (08:20)
[2021-03-31 08:26] LABS: Folate 16.3 ng/mL (3.0-16.0)
[2021-03-31 08:32] LABS: Estimated Average Glucose 166 mg/dl; Hemoglobin A1C 7.4 %
[2021-03-31] MEDS ORDERED: 0.9 % Sodium Chloride 250 ML IVC PRN (08:59)
[2021-03-31] MEDS ORDERED: *HR* Heparin 10,000 UNIT/10 ML VIAL IV PRN (09:07)
[2021-03-31 09:08] LABS: Influenza A PCR Negative (Negative); Influenza B PCR Negative (Negative); Resp. Syncytial Virus PCR Negative (Negative)
[2021-03-31 09:12] LABS: SARS-CoV-2 by PCR (In House) Positive (Negative)
[2021-03-31] MEDS ORDERED: 0.9 % Sodium Chloride 1,000 ML PRIME SCH (09:15)
[2021-03-31] MEDS ORDERED: Perflutren Lipid Microsphere 1.3 ML in 0.9 % Sodium Chloride 8.7 ML IVP PRN (17:36)
[2021-03-31] MEDS ORDERED: Nitroglycerin 0.4 MG TAB.SUBL SL PRN (18:46)
[2021-03-31] MEDS ORDERED: Latanoprost 2.5 ML BOTTLE BOTH EYES SCH (21:00)
[2021-03-31 21:37] LABS: Hepatitis B Surface Antigen Nonreactive (Nonreactive)
[2021-03-31] MEDS: *HR* OxyCODONE Immed Rel 5 MG TABLET PO PRN (23:40)
[2021-04-01] MEDS: Furosemide 40 MG TABLET PO SCH ×2 (00:32→08:29)
[2021-04-01] MEDS ORDERED: Insulin DETEMIR 100 UNIT/ML X5UNITS SUBQ ONE (00:36)
[2021-04-01] MEDS: hydrALAZINE 25 MG TABLET PO SCH ×2 (01:18→08:28)
[2021-04-01] MEDS: *HR* Heparin 5,000 UNIT/ML VIAL SQ SCH ×2 (01:57→05:59)
[2021-04-01] MEDS: Chlorhexidine Rinse 15 ML MOUTHWASH MM SCH ×2 (02:26→08:34)
[2021-04-01 02:35] LABS: Hematocrit 31.2 % (37.5-50.1); Hemoglobin 9.4 g/dL (12.9-16.9); Mean Corpuscular HGB Conc 30.1 g/dL (31.6-35.5); Mean Corpuscular Hemoglobin 22.4 pg (28.0-33.3); Mean Corpuscular Volume 74.3 fL (83.0-100.0); Mean Platelet Volume 10.1 fL (9.4-12.4); Platelet Count 156 K/mcL (140-400); Red Cell Distribution Width 16.2 % (11.5-14.5)
[2021-04-01 02:54] LABS: Calcium 7.8 mg/dL (8.6-10.3); Potassium 4.3 mEq/L (3.5-5.1)
[2021-04-01] MEDS: Ipratropium 1 PUFF INHALER IH SCH ×2 (04:15→07:56)
[2021-04-01] MEDS: Aspirin 81 MG TAB.CHEW PO SCH (08:29)
[2021-04-01] MEDS: Isosorbide MONOnitrate (24 HR) 30 MG TAB.ER.24H PO SCH (08:29)
[2021-04-01] MEDS: Cholecalciferol (D-3) 1,000 UNIT (25MCG) TABLET PO SCH (08:29)
[2021-04-01] MEDS: Metoprolol XL (24 HR) Succ 50 MG TAB.ER.24H PO SCH (08:29)
[2021-04-01] MEDS: Insulin LISPRO 300 UNITS/3 ML VIAL SUBQ SCH ×2 (08:29→12:34)
[2021-04-01] MEDS: SODIUM ZIRCONIUM CYCLOSILICATE 5 GM POWD.PACK PO SCH (08:30)
[2021-04-01] MEDS ORDERED: Thiamine (B-1) 100 MG TABLET PO SCH (09:00)
[2021-04-01] MEDS ORDERED: amLODIPine 5 MG TABLET PO SCH (09:00)
[2021-04-01 11:10] VITALS: BP 146/70; PULSE 100; TEMP 98.2; O2SAT 80
[2021-04-01] MEDS: *HR* OxyCODONE Immed Rel 5 MG TABLET PO PRN (12:39)
[2021-04-01] MEDS ORDERED: Insulin LISPRO 300 UNITS/3 ML VIAL SUBQ SCH (21:00)
[2021-04-02 10:40] LABS: Vitamin B12 > 1500 pg/mL (250-1100)
[2021-04-04 01:26] LABS: Acinetobacter baumannii by PCR Not Detected (Not Detect); Candida albicans by PCR Not Detected (Not Detect); Candida glabrata by PCR Not Detected (Not Detect); Candida krusei by PCR Not Detected (Not Detect); Candida parapsilosis by PCR Not Detected (Not Detect); Candida tropicalis by PCR Not Detected (Not Detect); Enterobacter cloacae Cmplx PCR Not Detected (Not Detect); Enterobacteriaceae by PCR Not Detected (Not Detect); Enterococcus by PCR Not Detected (Not Detect); Escherichia coli by PCR Not Detected (Not Detect); Klebsiella oxytoca by PCR Not Detected (Not Detect); Klebsiella pneumoniae by PCR Not Detected (Not Detect); Proteus by PCR Not Detected (Not Detect); Pseudomonas aeruginosa by PCR Not Detected (Not Detect); Serratia marcescens by PCR Not Detected (Not Detect); Staphylococcus aureus by PCR Not Detected (Not Detect); Staphylococcus by PCR DETECTED (Not Detect); Streptococcus agalactiae(B)PCR Not Detected (Not Detect); Streptococcus by PCR Not Detected (Not Detect); Streptococcus pneumoniae PCR Not Detected (Not Detect); Streptococcus pyogenes (A) PCR Not Detected (Not Detect); blaKPC Carbapenem-Resist Gene Not Detected (Not Detect); mecA Methicillin-Resist Gene Not Detected (Not Detect); vanA/B Vancomycin-Resist Genes Not Detected (Not Detect)
== END 2021-04-01 14:54 | disposition home or self-care (01) ==
LOC: EMEROOARM 15:56 → 2ANU 15:56 → 3NENU 03-31 16:46
PROVIDERS: ADMIT Internal Medicine; ATTEND Internal Medicine

== ENCOUNTER 2021-07-27 14:45 | Inpatient (IN) ==
[2021-07-27] MEDS: 0.9 % Sodium Chloride 1,000 ML IVC SCH ×2 (15:34→19:48)
[2021-07-27 15:47] LABS: VBG HCO3 14 mEq/L (21-27); VBG PCO2 31 mmHg (41-51); VBG PH 7.27 pH Units (7.32-7.42); VBG PO2 87 mmHg (25-50)
[2021-07-27 15:48] LABS: Basophils # 0.1 K/mcL (0.0-0.2); Basophils % 1.4 %; Eosinophils # 0.2 K/mcL (0.0-0.6); Eosinophils % 2.3 %; Hematocrit 34.8 % (37.5-50.1); Hemoglobin 10.4 g/dL (12.9-16.9); Lymphocytes # 1.6 K/mcL (0.6-4.6); Lymphocytes % 17.6 %; Mean Corpuscular HGB Conc 29.9 g/dL (31.6-35.5); Mean Corpuscular Hemoglobin 23.4 pg (28.0-33.3); Mean Corpuscular Volume 78.4 fL (83.0-100.0); Mean Platelet Volume 9.9 fL (9.4-12.4); Monocytes # 0.9 K/mcL (0.0-1.3); Monocytes % 9.3 %; Neutrophils # 6.3 K/mcL (1.6-8.9); Platelet Count 320 K/mcL (140-400); Red Blood Count 4.44 M/mcL (4.19-5.50); Red Cell Distribution Width 15.1 % (11.5-14.5); Segmented Neutrophils % 68.4 %; White Blood Count 9.2 K/mcL (4.3-11.1)
[2021-07-27 16:11] LABS: Albumin 3.9 g/dL (3.5-5.7); Albumin/Globulin Ratio 1.2 (1.1-2.2); Bilirubin,Total 0.6 mg/dL (0.3-1.0); Calcium 9.2 mg/dL (8.6-10.3); Globulin 3.3 g/dL (2.4-3.5); Potassium 4.5 mEq/L (3.5-5.1); Total Protein 7.2 g/dL (6.4-8.9)
[2021-07-27] MEDS ORDERED: Insulin Human Regular 10 UNIT in 0.9 % Sodium Chloride 10 ML IV ONE (16:18)
[2021-07-27] MEDS ORDERED: *HR* Dextrose 50 % in Water (Syg) 50 ML SYRINGE IVP PRN (17:02)
[2021-07-27] MEDS ORDERED: D5% in 0.45% NACL 1,000 ML IVC PRN (17:02)
[2021-07-27] MEDS ORDERED: 0.45 % Sodium Chloride w/KCl 20 MEQ/1,000 ML MLS IVC SCH (17:15)
[2021-07-27] MEDS ORDERED: 0.9 % Sodium Chloride 1,000 ML IVC ONE (17:18)
[2021-07-27] MEDS ORDERED: SUMAtriptan succinate 25 MG TABLET PO PRN (17:21)
[2021-07-27] MEDS ORDERED: Nitroglycerin 0.4 MG TAB.SUBL SL PRN (17:21)
[2021-07-27] MEDS: *HR* Heparin 5,000 UNIT/ML VIAL SQ SCH (18:09)
[2021-07-27 18:38] LABS: Calcium 8.4 mg/dL (8.6-10.3); Potassium 3.8 mEq/L (3.5-5.1)
[2021-07-27] MEDS: 0.45 % Sodium Chloride w/KCl 20 MEQ/1,000 ML MLS IVC SCH ×2 (18:51→22:02)
[2021-07-27] MEDS: hydrALAZINE 25 MG TABLET PO SCH (19:51)
[2021-07-27] MEDS: Latanoprost 2.5 ML BOTTLE BOTH EYES SCH (20:57)
[2021-07-27 23:08] LABS: Capillary Blood PH 7.46 pH Units (7.32-7.45)
[2021-07-27 23:18] LABS: Calcium 7.9 mg/dL (8.6-10.3); Potassium 3.9 mEq/L (3.5-5.1)
[2021-07-28] MEDS: D5% in 0.45% NACL w KCl 20 MEQ/1,000 ML MLS IVC PRN ×3 (01:12→09:30)
[2021-07-28] MEDS: *HR* Heparin 5,000 UNIT/ML VIAL SQ SCH ×2 (05:17→18:16)
[2021-07-28] MEDS ORDERED: Ondansetron 4 MG/2 ML VIAL IVP ONE (05:28)
[2021-07-28] MEDS ORDERED: Ondansetron ODT 4 MG TAB.RAPDIS SL PRN (06:33)
[2021-07-28 08:19] LABS: VBG HCO3 19 mEq/L (21-27); VBG PCO2 33 mmHg (41-51); VBG PH 7.38 pH Units (7.32-7.42); VBG PO2 115 mmHg (25-50)
[2021-07-28 08:25] LABS: Basophils # 0.1 K/mcL (0.0-0.2); Basophils % 1.1 %; Eosinophils # 0.5 K/mcL (0.0-0.6); Eosinophils % 4.3 %; Hematocrit 29.8 % (37.5-50.1); Hemoglobin 9.2 g/dL (12.9-16.9); Immature Granulocytes % 0.5 % (0-4); Lymphocytes # 2.1 K/mcL (0.6-4.6); Lymphocytes % 18.2 %; Mean Corpuscular HGB Conc 30.9 g/dL (31.6-35.5); Mean Corpuscular Hemoglobin 23.3 pg (28.0-33.3); Mean Corpuscular Volume 75.4 fL (83.0-100.0); Mean Platelet Volume 10.3 fL (9.4-12.4); Monocytes % 8.9 %; Neutrophils # 7.6 K/mcL (1.6-8.9); Platelet Count 312 K/mcL (140-400); Red Blood Count 3.95 M/mcL (4.19-5.50); Red Cell Distribution Width 14.7 % (11.5-14.5); White Blood Count 11.4 K/mcL (4.3-11.1)
[2021-07-28 08:35] LABS: Magnesium 1.8 mg/dL (1.6-2.6); Phosphorous 2.8 mg/dL (2.7-4.5)
[2021-07-28 08:36] LABS: Calcium 8.3 mg/dL (8.6-10.3); Potassium 4.1 mEq/L (3.5-5.1)
[2021-07-28] MEDS ORDERED: D5% in Water 1,000 ML IVC PRN (08:39)
[2021-07-28] MEDS ORDERED: Dextrose 4 GM Chewable Tablets PO PRN ×2 (08:39)
[2021-07-28] MEDS: hydrALAZINE 25 MG TABLET PO SCH ×3 (08:40→19:42)
[2021-07-28] MEDS ORDERED: Isosorbide MONOnitrate (24 HR) 30 MG TAB.ER.24H PO SCH (09:00)
[2021-07-28] MEDS ORDERED: Furosemide 40 MG TABLET PO PRN (09:00)
[2021-07-28] MEDS ORDERED: Pantoprazole 40 MG VIAL IVP SCH (09:00)
[2021-07-28] MEDS ORDERED: calcitrioL 0.25 MCG CAPSULE PO SCH (09:00)
[2021-07-28] MEDS ORDERED: amLODIPine 5 MG TABLET PO SCH (09:00)
[2021-07-28] MEDS ORDERED: Insulin DETEMIR 100 UNIT/ML X5UNITS SUBQ SCH (09:00)
[2021-07-28] MEDS ORDERED: Aspirin 81 MG TAB.CHEW PO SCH (09:00)
[2021-07-28] MEDS ORDERED: Thiamine (B-1) 100 MG TABLET PO SCH (09:00)
[2021-07-28] MEDS ORDERED: Metoprolol XL (24 HR) Succ 50 MG TAB.ER.24H PO SCH (09:00)
[2021-07-28] MEDS: 0.45 % Sodium Chloride w/KCl 20 MEQ/1,000 ML MLS IVC SCH (11:28)
[2021-07-28] MEDS ORDERED: Insulin LISPRO 300 UNITS/3 ML VIAL SUBQ SCH (11:30)
[2021-07-28 11:38] LABS: Estimated Average Glucose 154 mg/dl
[2021-07-28] MEDS ORDERED: Insulin Pump Cart,Cont Inf,Rf [Insulin Pump] 1 EACH SQ SCH (14:00)
[2021-07-28] MEDS: Latanoprost 2.5 ML BOTTLE BOTH EYES SCH (19:42)
[2021-07-29] MEDS: *HR* Heparin 5,000 UNIT/ML VIAL SQ SCH (05:35)
[2021-07-29 05:38] VITALS: PULSE 88; TEMP 97.9
[2021-07-29 05:43] LABS: Basophils # 0.1 K/mcL (0.0-0.2); Basophils % 1.1 %; Eosinophils # 0.6 K/mcL (0.0-0.6); Hematocrit 27.9 % (37.5-50.1); Immature Granulocytes % 0.5 % (0-4); Lymphocytes # 1.5 K/mcL (0.6-4.6); Lymphocytes % 19.5 %; Mean Corpuscular HGB Conc 32.3 g/dL (31.6-35.5); Mean Corpuscular Hemoglobin 23.7 pg (28.0-33.3); Mean Corpuscular Volume 73.4 fL (83.0-100.0); Monocytes # 0.7 K/mcL (0.0-1.3); Monocytes % 8.4 %; Platelet Count 302 K/mcL (140-400); Red Cell Distribution Width 14.9 % (11.5-14.5); Segmented Neutrophils % 63.5 %; White Blood Count 7.8 K/mcL (4.3-11.1)
[2021-07-29 06:03] LABS: Calcium 8.8 mg/dL (8.6-10.3); Magnesium 1.8 mg/dL (1.6-2.6); Potassium 4.1 mEq/L (3.5-5.1)
[2021-07-29 07:31] VITALS: BP 176/81; O2SAT 98
== END 2021-07-29 11:42 | disposition home or self-care (01) | DRG 919 ==
LOC: EMEROOARM 14:45 → 2NNU 14:45 → 3NENU 07-28 17:20
PROVIDERS: ADMIT Internal Medicine; ATTEND Internal Medicine